=== PATIENT | male | born 1955 | race Two or more races ===

== ENCOUNTER 2018-06-17 11:10 | Inpatient (IN) | payer MEDICAID ==
[2018-06-17] MEDS ORDERED: methylPREDNISolone SS 40 mg Vial IVP STA (11:24)
--- NOTE | 2018-06-17 11:26 | ED Physician Chart ---
ED Chief Complaint/HPI - Patient Information Date Seen:: 06/17/18 Time Seen:: 11:21 Chief Complaint:: redness around G tube site History of Present Illness:: redness around G tube site in a man who is dependent on tube feeds. 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 Underwent floor or mouth resection and partial glossectomy on 05/04/18 with pectoralis flap and left forearm free flap. Postoperative radiation. Claims that he doesn't know if mets were present. patient states that it does hurt at the g tube site when he receives tube feeds. Allergies:: Allergies Allergy/AdvReac Type Severity Reaction Status Date / Time No Known Allergies Allergy Verified 06/17/18 11:21 Historian:: Medical Records Review:: Nurse's Note Reviewed ED Review of Systems - Review of Systems General/Constitutional: No fever, No chills, No weight loss, No weakness, No diaphoresis, No edema, No loss of appetite Skin: No skin lesions, No rash, No bruising, Other (redness and induration aroud g tube site) Head: No headache, No light-headedness Eyes: No loss of vision, No pain, No diplopia ENT: No earache, No nasal drainage, No sore throat, No tinnitus Neck: No neck pain, No swelling, No thyromegaly, No stiffness, No mass noted Cardio Vascular: No chest pain, No palpitations, No PND, No orthopnea, No edema Pulmonary: No SOB, No cough, No sputum, No wheezing GI: No nausea, No vomiting, No diarrhea, No pain, No melena, No hematochezia, No constipation, No hematemesis G/U: No dysuria, No frequency, No hematuria Musculoskeletal: No bone or joint pain, No back pain, No muscle pain Endocrine: No polyuria, No polydipsia Psychiatric: No prior psych history, No depression, No anxiety, No suicidal ideation Hematopoietic: No bruising, No lymphadenopathy Allergic/Immuno: No urticaria, No angioedema Neurological: No syncope, No focal symptoms, No weakness, No paresthesia, No headache, No seizure, No dizziness, No confusion, No vertigo ED Past Medical History - Past Medical History Obtainable: No Past Medical History: Other (tongue cancer) Surgical History: PEG/GTube, other (tracheostomy; left pectoralis flap; total glossectomy; left radial forearm flap; POSSIBLE RIGHT UPPER LOBE MET FROM PET SCAN OF 04/04/18; COLONIC MALIGNANCY VERSUS BOWEL SPASM AT CECUM FROM 04/04/18 PET SCAN) Family Medical History - Family Member Mother History Unknown: Yes ED Physical Exam - Physical Examination General/Constitutional: Non-toxic appearing Other Gen/Cons comments:: chronically ill appearing and pale. Other Head comments:: obvious head and neck reconstruction with midline mandible scar. No tongue present. Eyes: Lids, conjuctiva normal, PERRL, EOMI Other Skin comments:: midline mandible scar. ENMT: External ears, nose nl Other Neck comments:: indurated. trach in place. Other Respiratory comments:: expiratory rhonchi bilaterally. Cardio Vascular: RRR, No murmur, gallop, rubs, NL S1 S2 GI: No organomegaly, No hernia, Normal BS's, Nondistended, No mass/bruits, No McBurney tenderness Other GI comments:: G tube site intact with bright red erythema and induration around g tube site. No gissel abscess or pus. Extremities: No tenderness or effusion, Full ROM, normal strength in all extremities, No edema, Normal digits & nails Neuro/Psych: Alert/oriented, Judgement/insight normal, Mood normal Misc: Normal back ED Assessment - Assessment General Assessment: G tube placement study was not ordered by me. It reveals that the G tube is in place. CXR: probable R upper lung met with royal present in the left chest from pec flap. Dr. Harris's office was called. We were informed that the office was at lunch. Called again. Dr. Harris answered back at 2:20 p.m. Patient's case was presented to him. He will admit the patient to his service. Dr. Harris agrees with PICC line or midline cath for terminal gauger Vancomycin. I called and spoke to the PICC line nurse who said that a nurse is available at 8 p.m. Insurance is being called. Patient is stable for transfer if he needs to be transferred for insurance purposes. Patient's admit has been approved by his insurance company. ED Septic Shock - . Is Septic Shock (SBP<90, OR Lactate>4 mmol\L) present?: No ED Reassessment (Disposition) - Reassessment Reassessment Condition:: Improved - Diagnosis Diagnosis:: Cellulitis and induration around g tube site in a man who is dependent on tube feeds. 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 Anemia with hematocrit of 25. Thrombocytosis of 722k. COPD Nicotine addiction. - Patient Disposition Discharge/Transfer:: Acute Care w/in this hosp Admitted to:: Med/Surg Condition at Disposition:: Stable, Improved
[2018-06-17] MEDS ORDERED: Diatrizoate Meglumine/Diatri 30 mL Sol ONE (11:29)
[2018-06-17 11:52] LABS: HEMOGLOBIN 8.4 gm/dL (12-16); RED CELL DISTRIBUTION WIDTH 16.4 % (11.5-20.0)
[2018-06-17 12:05] LABS: HEMATOCRIT 25.1 % (41.0-60); MEAN CELL VOLUME 91.9 fl (80-99); MEAN CORPUSCULAR HEMOGLOBIN 30.7 pg (26.0-30.0); MEAN CORPUSCULAR HGB CONC 33.4 pg (28.0-36.0); PLATELET COUNT 722 Th/cmm (150-400); RED BLOOD COUNT 2.73 Mil/cmm (4.30-5.70); WHITE BLOOD COUNT 5.8 Th/cmm (4.8-10.8)
[2018-06-17 12:08] LABS: ALB/GLOB RATIO 0.9 (1.0-1.8); ALBUMIN 3.2 gm/dL (4.2-5.5); ALKALINE PHOSPHATASE 52 U/L (34-104); ANION GAP 14.2 (7.0-16.0); BILIRUBIN,TOTAL 0.3 mg/dL (0.3-1.0); BUN - UREA NITROGEN 16 mg/dL (7-25); CALCIUM SERUM 9.5 mg/dL (8.6-10.3); CARBON DIOXIDE 25.7 mEq/L (21.0-31.0); CHLORIDE 99 mEq/L (98-107); CREATININE - SERUM 0.5 mg/dL (0.7-1.3); GFR AFRICAN-AMERICAN > 60.0 ml/min (>90); GFR NON AFRICAN-AMERICAN > 60.0 ml/min; GLUCOSE 107 mg/dL (70-105); MAGNESIUM 1.9 mg/dL (1.9-2.7); POTASSIUM SERUM 3.9 mEq/L (3.5-5.1); SGOT 11 U/L (13-39); SGPT/ALT 7 U/L (7-52); SODIUM SERUM 135 mEq/L (136-145); TOTAL PROTEIN,SERUM 6.8 gm/dL (6.0-8.3)
--- NOTE | 2018-06-17 12:32 | Diagnostic Imaging Report ---
CHEST X-RAY: AP view INDICATION: Metastases, rule out pneumonia COMPARISON: None FINDINGS: Tracheostomy tube is noted. Postsurgical changes are seen throughout the neck and left thorax region. Heart size is normal. 1.5 cm right upper lung zone density is noted. Atherosclerosis is noted. The osseous structures are intact. IMPRESSION: 1.5 cm right upper lung zone density possibly a nodule. If no recent CT chest has been performed performed, a follow-up CT chest is recommended for further assessment. No focal consolidation identified Postsurgical changes and evidence of prior tracheostomy placement. Atherosclerotic vascular disease. Referring ER team was aware of the findings at the time of the exam.
--- NOTE | 2018-06-17 13:25 | Diagnostic Imaging Report ---
Upper GI with Gastrografin HISTORY: G-tube confirmation COMPARISON: None FINDINGS: [place] view demonstrates percutaneous feeding tube. Moderate stool is noted. Gas-filled loops of bowel are noted. The second image demonstrates contrast opacification of the stomach. IMPRESSION: Intraluminal confirmation of patient's percutaneous gastric feeding tube.
[2018-06-17 13:33] LABS: BAND NEUTROPHILE 7 % (0-10); LYMPHOCYTE 10 % (20-50); MONOCYTE 7 % (2-10); NEUTROPHILS 75 % (40-80)
[2018-06-17 13:34] LABS: BASOPHIL 0 % (0-3); EOSINOPHIL 1 % (0-5)
[2018-06-17 13:40] LABS: PLATELET ESTIMATE INCREASED PLATELETS (NORMAL)
[2018-06-17] MEDS ORDERED: VTE Chemical Prophylaxis Screen/Admission MC PRN (17:06)
[2018-06-17] MEDS: D5-0.45NS 1,000 ML IV SCH (17:13)
[2018-06-17 19:10] LABS: URINE SOURCE CLEAN C
[2018-06-17 19:11] LABS: URINE BILIRUBIN NEGATIVE (NEGATIVE); URINE BLOOD LARGE (NEGATIVE); URINE GLUCOSE (UA) NEGATIVE (NEGATIVE); URINE KETONE 40 mg/dL (NEGATIVE); URINE LEUKOCYTE ESTERASE NEGATIVE (NEGATIVE); URINE MICROSCOPIC INDICATED? YES; URINE NITRATE NEGATIVE (NEGATIVE); URINE PH 7.5 (4.6 - 8.0); URINE PROTEIN NEGATIVE (NEGATIVE); URINE UROBILINOGEN 0.2 E.U./dL (0.2 - 1.0)
[2018-06-17 20:27] LABS: URINE CLARITY HAZY (CLEAR); URINE COLOR YELLOW
[2018-06-17 20:28] LABS: URINE RBC NONE SEEN /hpf (0-5)
[2018-06-17 20:29] LABS: URINE BACTERIA FEW /hpf (NONE SEEN); URINE EPITHELIAL CELLS NONE SEEN /lpf (FEW)
[2018-06-17] MEDS: Morphine Sulfate 4 mg/mL 1mL Syr IVP PRN (21:32)
--- NOTE | 2018-06-18 06:31 | History and Physical ---
History of Present Illness - HPI Chief Complaint: infected Gtube site HPI: 63 y/o male who presents to [facility] ER for redness around the Gtube site noted at the SNF. Patient has a history of head and neck cancer of the tongue and floor of the mouth and has a trach in place. Patient had underwent floor and mouth resection and partial glossectomy on 05/04/18 with pectoralis flap and left forearm free flap with postop radiation. Patient initial labwork done in the ER WBC 5.8 H/H 8.4/25.1 plat 722 Na 135 K 3.9 Bun/Cr 16/0.5 glu 107 Patient was subsequently admitted for further evaluation and treatment. 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: Report: No Pertinent Hx GI: Report: No Pertinent Hx Psych: Report: No Pertinent Hx Musculoskeletal: Report: No Pertinent Hx Rheumatologic: Report: No pertinent Hx Infectious Disease: Report: No Pertinent Hx Renal/: Report: No Pertinent Hx Endocrine: Report: No Pertinent Hx Dermatology: Report: No Pertinent Hx - Past Surgical History Past Surgical History: Other ( PEG/GTube, other (tracheostomy; left pectoralis flap; total glossectomy; left radial forearm flap; POSSIBLE RIGHT UPPER LOBE MET FROM PET SCAN OF 04/04/18; COLONIC MALIGNANCY VERSUS BOWEL SPASM AT CECUM FROM 04/04/18 PET SCAN)) Family Medical History - Family Member Mother History Unknown: Yes Social History Smoke: No Alcohol: None Drugs: None Lives: Care Home - Medications Home Medications: Home Medication Medication Instructions Recorded Type Acetaminophen [Tylenol] 650 mg GT Q6H PRN 06/17/18 History Albuterol/Ipratropium Neb [Duoneb 3 ml HHN Q6HR 06/17/18 History Neb] Bisacodyl [Dulcolax 10 Mg Supp] 10 mg RC DAILY PRN 06/17/18 History Chlorhexidine Gluconate [Peridex] 15 ml MM BID 06/17/18 History Dakins Half Strenght 0.25% [place] 1 appl TP DAILY 06/17/18 History Docusate Sodium [Colace] 100 mg GT BID 06/17/18 History Enoxaparin [Lovenox] 40 mg SUBQ DAILY 06/17/18 History Ferrous Sulfate 330 mg GT BID 06/17/18 History Fluticasone Propionate Nasal 1 spr NS DAILY 06/17/18 History [Flonase] Folic Acid [Folate*] 1 mg GT DAILY 06/17/18 History Hydrocodone/Acetaminophen [Hycet 10 - 15 ml GT Q4H PRN 06/17/18 History 7.5 mg-325 mg/15 ml Soln] Hydrocodone/Acetaminophen 30 ml GT Q6H PRN 06/17/18 History [Hydrocodon-Acetamin 7.5-325/15] Hydrocodone/Acetaminophen 15 ml GT Q6H PRN 06/17/18 History [Hydrocodone-Acetamn 7.5-325/15] Magnesium Hydroxide [Milk of 30 ml GT DAILY PRN 06/17/18 History Magnesia] Multivitamin w/ Minerals 1 tab GT DAILY 06/17/18 History [Theragran M] Nystatin Cream [Mycostatin Cream] 1 applic TP BID 06/17/18 History Petrolatum,White [Petrolatum] 100 gm TP DAILY 06/17/18 History Sucralfate [Carafate] 10 ml GT QID 06/17/18 History - Allergies Allergies/Adverse Reactions: Allergies Allergy/AdvReac Type Severity Reaction Status Date / Time No Known Allergies Allergy Verified 06/17/18 11:21 Review of Systems - Review of Systems Constitutional: Report: No Significant Eyes: Report: No Significant ENT: Report: No Significant Respiratory: Report: No Significant Cardiovascular: Report: No Significant Gastrointestinal: Report: No Significant Genitourinary: Report: No Significant Musculoskeletal: Report: No Significant Skin: Report: No Significant Neurological: Report: No Significant Physical Exam - Physical Exam HEENT: Report: Other ( PEG/GTube, other (tracheostomy; left pectoralis flap; total glossectomy; left radial forearm flap; POSSIBLE RIGHT UPPER LOBE MET FROM PET SCAN OF 04/04/18; COLONIC MALIGNANCY VERSUS BOWEL SPASM AT CECUM FROM PET SCAN)) Neck: Report: Other ( PEG/GTube, other (tracheostomy; left pectoralis flap; total glossectomy; left radial forearm flap; POSSIBLE RIGHT UPPER LOBE MET FROM PET SCAN OF 04/04/18; COLONIC MALIGNANCY VERSUS BOWEL SPASM AT CECUM FROM PET SCAN)) Cardiovascular Systems: Report: +s1/s2 noted, Regular, Rate and Rhythm Respiratory: Report: Breath Sounds are within normal limits Abdomen: Report: Non-tender to palpation Back: Report: Inspection of back is within normal limits. Extremities: Report: Non-tender to palpation. Skin: Report: Color of skin is within normal limits Neuro/Psych: Report: Mood affect is within normal limits - Lab Results All Lab Results last 24 hours: Laboratory Results - last 24 hr 06/17/18 06/17/18 06/17/18 11:40 11:40 19:05 WBC 5.8 RBC 2.73 L Hgb 8.4 L Hct 25.1 L MCV 91.9 MCH 30.7 H MCHC Differential 33.4 RDW 16.4 Plt Count 722 H MPV 6.0 Add Manual Diff YES Neutrophils % GENETICS TEACHER Band Neutrophils % 7 Lymphocytes % GENETICS TEACHER Monocytes % GENETICS TEACHER Eosinophils % GENETICS TEACHER Basophils % GENETICS TEACHER Neutrophils (Manual) 75 Lymphocytes 10 L Monocytes 7 Eosinophils 1 Basophils 0 Platelet Estimate INCREASED PLATELETS Sodium 135 L Potassium 3.9 Chloride 99 Carbon Dioxide 25.7 Anion Gap 14.2 BUN 16 Creatinine 0.5 L Est GFR ( Amer) > 60.0 Est GFR (Non-Af Amer) > 60.0 BUN/Creatinine Ratio 32.0 Glucose 107 H Calcium 9.5 Phosphorus 4.0 Magnesium 1.9 Total Bilirubin 0.3 AST 11 L ALT 7 Alkaline Phosphatase 52 Total Protein 6.8 Albumin 3.2 L Globulin 3.6 Albumin/Globulin Ratio 0.9 L Urine Source CLEAN C Urine Color YELLOW Urine Clarity HAZY Urine pH 7.5 Ur Specific [place] 1.015 Urine Protein NEGATIVE Urine Glucose (UA) NEGATIVE Urine Ketones 40 H Urine Blood LARGE H Urine Nitrate NEGATIVE Urine Bilirubin NEGATIVE Urine Urobilinogen 0.2 Ur Leukocyte Esterase NEGATIVE Urine RBC NONE SEEN Urine WBC 2-5 Ur Epithelial Cells NONE SEEN Urine Bacteria FEW - Assessment Assessment: Current Active Problems Problem Status Onset MALFUNCTIONING GASTRIC FEEDING TUBE/RASH Acute Cellulitis and induration around g tube site in a man who is dependent on tube feeds. 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 Anemia with hematocrit of 25. Thrombocytosis of 722k. COPD Nicotine addiction. - Plan Plan: see orders
[2018-06-18] MEDS ORDERED: HYDROCODONE GT PRN (06:35)
[2018-06-18] MEDS ORDERED: Magnesium Hydroxide (MOM) 30 mL UDC GT PRN (06:35)
[2018-06-18] MEDS ORDERED: [UNRECOGNIZED DRUG - OTHER] GT PRN (06:35)
[2018-06-18] MEDS ORDERED: ACETAMINOPHEN GT PRN (06:35)
[2018-06-18 07:18] LABS: HEMOGLOBIN 8.9 gm/dL (12-16); MEAN CORPUSCULAR HEMOGLOBIN 30.8 pg (26.0-30.0); MEAN PLATELET VOLUME 6.6 fl
[2018-06-18] MEDS: Albuterol/Ipratropium Neb 3 ML AERS HHN SCH ×3 (07:44→19:13)
[2018-06-18 07:45] LABS: ALB/GLOB RATIO 0.9 (1.0-1.8); ALBUMIN 2.9 gm/dL (4.2-5.5); ALKALINE PHOSPHATASE 47 U/L (34-104); ANION GAP 13.2 (7.0-16.0); BILIRUBIN,TOTAL 0.2 mg/dL (0.3-1.0); BUN - UREA NITROGEN 23 mg/dL (7-25); CALCIUM SERUM 9.1 mg/dL (8.6-10.3); CARBON DIOXIDE 26.9 mEq/L (21.0-31.0); CHLORIDE 100 mEq/L (98-107); GLUCOSE 101 mg/dL (70-105); POTASSIUM SERUM 4.1 mEq/L (3.5-5.1); SGOT 9 U/L (13-39); SGPT/ALT 7 U/L (7-52); SODIUM SERUM 136 mEq/L (136-145); TOTAL PROTEIN,SERUM 6.2 gm/dL (6.0-8.3)
[2018-06-18 08:19] LABS: INR 1.05 (0.5-1.4); PROTHROMBIN TIME (TEST) 10.9 SECONDS (9.5-11.5)
[2018-06-18 08:20] LABS: HEMATOCRIT 26.4 % (41.0-60); MEAN CELL VOLUME 91.6 fl (80-99); MEAN CORPUSCULAR HGB CONC 33.7 pg (28.0-36.0); PLATELET COUNT 649 Th/cmm (150-400); RED BLOOD COUNT 2.89 Mil/cmm (4.30-5.70); RED CELL DISTRIBUTION WIDTH 16.3 % (11.5-20.0); WHITE BLOOD COUNT 8.4 Th/cmm (4.8-10.8)
[2018-06-18] MEDS ORDERED: SODIUM HYPOCHLORITE 0.25% TP SCH (09:00)
[2018-06-18 09:04] LABS: BAND NEUTROPHILE 4 % (0-10); BASOPHIL 0 % (0-3); EOSINOPHIL 0 % (0-5); LYMPHOCYTE 6 % (20-50); MONOCYTE 5 % (2-10); NEUTROPHILS 85 % (40-80)
[2018-06-18] MEDS: Fluticasone Propionate Nasal 1 SPR SPR NS SCH (09:18)
[2018-06-18] MEDS: Multivitamin w/ Minerals Tab GT SCH (09:18)
[2018-06-18] MEDS: Enoxaparin 40 mg/0.4 mL 0.4mL Syr SUBQ SCH (09:19)
[2018-06-18] MEDS: Nystatin Cream 100,000 u/gm Cream 15 gm TP SCH ×2 (09:19→18:20)
[2018-06-18] MEDS: Ferrous Sulfate 300 MG/5 ML UDC GT SCH ×2 (09:22→18:19)
[2018-06-18] MEDS ORDERED: Probiotic Screen MC PRN (09:33)
[2018-06-18] MEDS: Chlorhexidine Gluconate 0.12% 480mL Bottle MM SCH ×2 (09:40→18:20)
[2018-06-18] MEDS ORDERED: Diatrizoate Meglumine/Diatri 30 mL Sol PO ONE (09:56)
[2018-06-18] MEDS: PETROLATUM WHITE TP SCH (10:05)
[2018-06-18] MEDS: Morphine Sulfate 4 mg/mL 1mL Syr IVP PRN ×2 (11:16→18:50)
[2018-06-18 13:35] LABS: CREATININE - SERUM 0.5 mg/dL (0.7-1.3); GFR AFRICAN-AMERICAN > 60.0 ml/min (>90); GFR NON AFRICAN-AMERICAN > 60.0 ml/min
--- NOTE | 2018-06-18 13:43 | Consultation ---
DATE OF CONSULTATION: 06/18/2018 REQUESTING PHYSICIAN: Dr. Randolph Harris D.O. REASON FOR CONSULTATION: Infected G-tube site. Thank you for asking me to see this patient in consultation. HISTORY OF PRESENT ILLNESS: This is a 63-year-old male who presents for the Emergency Room for redness around his G-tube site that was noted at the SNF. The patient has an extensive history of head and neck cancer of the tongue and floor of the mouth and has a trach in place as well. He underwent an x-ray with Gastrografin study, which was confirming placement in the stomach. However, upon my examination, it looked as if the G-tube was very superficial and the bumper was right underneath the subcutaneous tissue. There was some slight redness around the G-tube site as well, but more concerning was that it appeared to me as of the bumper was more subcutaneous rather than within the gastric area. PAST MEDICAL HISTORY: As above in HPI. FAMILY HISTORY: Noncontributory for GI disease. SOCIAL HISTORY: No tobacco, alcohol, or drugs. MEDICATIONS: Have been reviewed. REVIEW OF SYSTEMS: Unable to obtain from the patient at this time. PHYSICAL EXAMINATION: VITAL SIGNS: Temperature of 97.3, pulse of 71, respiratory rate of 20, blood pressure is 111/67. GENERAL: No acute distress. HEENT: Normocephalic, atraumatic. PERRLA positive. LUNGS: Clear bilaterally. No wheezes, rales or rhonchi. HEART: Regular rate and rhythm, normal S1, S2. ABDOMEN: Soft, nontender. The G-tube site appears to have no induration, appears to be very superficial to the skin and concern for either buried bumper or subcutaneous. EXTREMITIES: Show no lower extremity edema. LABORATORY DATA: Hemoglobin of 8.9, platelet count of 649,000. INR of 1.05. IMAGING: He already had an upper GI series; however, this was yesterday afternoon, which shown that intraluminal confirmation of the patient's percutaneous G-tube. ASSESSMENT AND PLAN: This is a 63-year-old male with history of head and neck cancer, status post G-tube, presented for concern for infected G-tube site versus dislodgement. 1. Concern for dislodgement of G-tube. 2. Concern for G-tube cellulitis. 3. Head and neck cancer. I would recommend repeating a KUB with Gastrografin to confirm again that this G-tube is in the correct spot. If indeed it is, then I will replace the G-tube at the bedside at least to allow the tract to continue and we can give antibiotics to allow the cellulitis to heal. For now, keep the patient on IV fluids until G-tube has been confirmed and we can replace this at the bedside and then likely initiate feeds while we treat through the cellulitis. Thank you for allowing me to participate in this patient's care. JOB# [id number]
[2018-06-18] MEDS: Lactobacillus Rhamnosus GG 15 Billion CFU CAP.SPRINK PO SCH (14:56)
[2018-06-18] MEDS: D5-0.45NS 1,000 ML IV SCH (15:21)
--- NOTE | 2018-06-18 16:43 | Consultation ---
DATE OF CONSULTATION: 06/18/2018 REFERRING PHYSICIAN: Dr. Harris. REASON FOR CONSULTATION: Tongue cancer, elevated platelets and low hemoglobin. HISTORY OF PRESENT ILLNESS: The patient is a 63-year-old male with history of tongue cancer, status post total glossectomy and now he is not using his mouth. He is depending 100% on gastric tube. The patient was admitted because of gastric tube dysfunction. The patient had flap from left forearm and left thigh and apparently he had radiation therapy postoperatively causing injury in the area of the neck. The patient's medical oncology records are not available. MEDICATIONS: From home albuterol, pain management with [place], multivitamin, sucralfate, folic acid, ferrous sulfate and Lovenox prophylaxis, Colace prophylaxis. PAST SURGICAL HISTORY: Tracheostomy, gastrostomy and total glossectomy with the use of muscle flap. There is report of possible cecal mass based on recent PET scan and this is apparently followed by the primary oncologist. PHYSICAL EXAMINATION: GENERAL: The patient is awake, following commands, nonverbal, but responds by writing. VITAL SIGNS: Stable, temp 97, blood pressure 120/70. The patient is unable to open his mouth. There is extensive induration and scarring in the neck area with the skin and muscle flap. There is also a scar on the external area. Gastrostomy tube in place. EXTREMITIES: Scar over the left thigh and scar in the left forearm of previous muscle flap. LABORATORY DATA: White count 8.4, hemoglobin 8.9, platelet count 649, creatinine 0.5. Liver functions normal. Urinalysis positive for blood, negative nitrite. ASSESSMENT: The elevated platelet count is most likely reactive. The patient has concurrent anemia and anemia workup will be obtained. No interim specific intervention is required for the high platelet count. The patient has a report of possible cecal mass on PET scan done by the primary oncologist and this will be deferred to the primary oncologist for continued management. Thank you, Dr. Harris for the opportunity to participate in the care of this interesting case. JOB# [id number]
--- NOTE | 2018-06-18 17:02 | Consultation ---
Consult Note - Consult Note Service Date: 06/18/18 Referring Physician: Randolph Harris Consult Note: PHYSICIAN Consultation Note: Date of Admission: 06/17/18 Purpose of Consultation: Gtube site infection. Chief Complaint: Patient HAILE GAINES was admitted to [facility] Medical/ Surgical Unit I with MALFUNCTION G TUBE. 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 He was followed upp by team at the [facility] lead by Dr Justin. He had new G tube placed 2 months ago and he noticed swelling and redness around the G tube site four weeks ago. He was given oral antibiotics, but it did not help him. So he was brought from [facility] to the ED for evaluation. On initial evaluation, his temperature was 98.4 F and WBC count was 5,800. Vancomycin IV was started and ID consult was called for antibiotic management. PEG/GTube, tracheostomy; left pectoralis flap; total glossectomy; left radial forearm flap; POSSIBLE RIGHT UPPER LOBE MET FROM PET SCAN OF 04/04/18; COLONIC MALIGNANCY VERSUS BOWEL SPASM AT CECUM FROM 04/04/18 PET SCAN. 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 Allergies Allergy/AdvReac Type Severity Reaction Status Date / Time No Known Allergies Allergy Verified 06/17/18 11:21 Vital Signs Temp 98.1 F 06/18/18 15:42 Pulse 70 06/18/18 15:42 Resp 18 06/18/18 15:42 BP 101/61 06/18/18 15:42 Pulse Ox 99 06/18/18 15:42 Intake & Output 06/17/18 06/18/18 06/18/18 18:59 06:59 18:59 Intake Total 250 1350 Balance 250 1350 Weight (lbs) 56.699 kg 47.174 kg 47.174 kg Intake: Intake, IV Amount 250 1250 D5-0.45NS 1,000 ml @ 50 1000 mls/hr IV .Q20H [facility] Rx#: [id number] Vancomycin HCl 1.25 gm In 250 250 Sodium Chloride 0.9% 250 ml @ 165 mls/hr IV Q12H MICHAEL Rx#:[id number] Other 100 Other: # Voids 3 # Bowel Movements 0 Weight Source Estimated Bedscale Bedscale Laboratory Results - last 24 hr 06/17/18 06/18/18 06/18/18 19:05 06:30 06:30 WBC 8.4 RBC 2.89 L Hgb 8.9 L Hct 26.4 L MCV 91.6 MCH 30.8 H MCHC Differential 33.7 RDW 16.3 Plt Count 649 H MPV 6.6 Add Manual Diff YES Band Neutrophils % 4 Neutrophils (Manual) 85 H Lymphocytes 6 L Monocytes 5 Eosinophils 0 Basophils 0 PT INR Sodium 136 Potassium 4.1 Chloride 100 Carbon Dioxide 26.9 Anion Gap 13.2 BUN 23 Creatinine 0.5 L Est GFR ( Amer) > 60.0 Est GFR (Non-Af Amer) > 60.0 BUN/Creatinine Ratio 46.0 Glucose 101 Calcium 9.1 Total Bilirubin 0.2 L AST 9 L ALT 7 Alkaline Phosphatase 47 Total Protein 6.2 Albumin 2.9 L Globulin 3.3 Albumin/Globulin Ratio 0.9 L Urine Source CLEAN C Urine Color YELLOW Urine Clarity HAZY Urine pH 7.5 Ur Specific [place] 1.015 Urine Protein NEGATIVE Urine Glucose (UA) NEGATIVE Urine Ketones 40 H Urine Blood LARGE H Urine Nitrate NEGATIVE Urine Bilirubin NEGATIVE Urine Urobilinogen 0.2 Ur Leukocyte Esterase NEGATIVE Urine RBC NONE SEEN Urine WBC 2-5 Ur Epithelial Cells NONE SEEN Urine Bacteria FEW 06/18/18 06:30 WBC RBC Hgb Hct MCV MCH MCHC Differential RDW Plt Count MPV Add Manual Diff Band Neutrophils % Neutrophils (Manual) Lymphocytes Monocytes Eosinophils Basophils PT 10.9 INR 1.05 Sodium Potassium Chloride Carbon Dioxide Anion Gap BUN Creatinine Est GFR ( Amer) Est GFR (Non-Af Amer) BUN/Creatinine Ratio Glucose Calcium Total Bilirubin AST ALT Alkaline Phosphatase Total Protein Albumin Globulin Albumin/Globulin Ratio Urine Source Urine Color Urine Clarity Urine pH Ur Specific [place] Urine Protein Urine Glucose (UA) Urine Ketones Urine Blood Urine Nitrate Urine Bilirubin Urine Urobilinogen Ur Leukocyte Esterase Urine RBC Urine WBC Ur Epithelial Cells Urine Bacteria Home Medication Medication Instructions Recorded Type Acetaminophen [Tylenol] 650 mg GT Q6H PRN 06/17/18 History Albuterol/Ipratropium Neb [Duoneb 3 ml HHN Q6HR 06/17/18 History Neb] Bisacodyl [Dulcolax 10 Mg Supp] 10 mg RC DAILY PRN 06/17/18 History Chlorhexidine Gluconate [Peridex] 15 ml MM BID 06/17/18 History Dakins Half Strenght 0.25% [place] 1 appl TP DAILY 06/17/18 History Docusate Sodium [Colace] 100 mg GT BID 06/17/18 History Enoxaparin [Lovenox] 40 mg SUBQ DAILY 06/17/18 History Ferrous Sulfate 330 mg GT BID 06/17/18 History Fluticasone Propionate Nasal 1 spr NS DAILY 06/17/18 History [Flonase] Folic Acid [Folate*] 1 mg GT DAILY 06/17/18 History Hydrocodone/Acetaminophen [Hycet 10 - 15 ml GT Q4H PRN 06/17/18 History 7.5 mg-325 mg/15 ml Soln] Hydrocodone/Acetaminophen 30 ml GT Q6H PRN 06/17/18 History [Hydrocodon-Acetamin 7.5-325/15] Hydrocodone/Acetaminophen 15 ml GT Q6H PRN 06/17/18 History [Hydrocodone-Acetamn 7.5-325/15] Magnesium Hydroxide [Milk of 30 ml GT DAILY PRN 06/17/18 History Magnesia] Multivitamin w/ Minerals 1 tab GT DAILY 06/17/18 History [Theragran M] Nystatin Cream [Mycostatin Cream] 1 applic TP BID 06/17/18 History Petrolatum,White [Petrolatum] 100 gm TP DAILY 06/17/18 History Sucralfate [Carafate] 10 ml GT QID 06/17/18 History Current Medications Generic Name Dose Route Start Last Admin Trade Name Freq PRN Reason Stop Dose Admin Acetaminophen 650 mg 06/18/18 06:47 Tylenol 650mg/20.3ml Suspension GT 08/17/18 06:46 Q6H PRN PAIN OR TEMP >101 Albuterol/Ipratropium 3 ml 06/18/18 07:00 06/18/18 12:40 Duoneb Neb HHN 08/17/18 06:59 3 ml Q6HRT IMCHAEL Administration Bisacodyl 10 mg 06/18/18 06:35 Dulcolax 10 Mg Supp RC 08/17/18 06:34 DAILY PRN Constipation Chlorhexidine Gluconate 15 ml 06/18/18 09:00 06/18/18 09:40 Peridex MM 08/17/18 08:59 15 ml BID MICHAEL Administration Docusate Sodium 100 mg 06/18/18 09:00 06/18/18 09:18 Colace PO 08/17/18 08:59 100 mg BID MICHAEL Administration Enoxaparin Sodium 40 mg 06/18/18 09:00 06/18/18 09:19 Lovenox SUBQ 08/17/18 08:59 40 mg DAILY MICHAEL Administration Ferrous Sulfate 300 mg 06/18/18 09:00 06/18/18 09:22 Iron GT 08/17/18 08:59 300 mg BID MICHAEL Administration Fluticasone Propionate 1 spr 06/18/18 09:00 06/18/18 09:18 Flonase NS 08/17/18 08:59 1 spr DAILY MICHAEL Administration Folic Acid 1 mg 06/18/18 09:00 06/18/18 09:18 Folate GT 08/17/18 08:59 1 mg DAILY MICHAEL Administration Heparin Sodium (Porcine) 5,000 units 06/17/18 21:00 06/18/18 09:19 Heparin SUBQ 08/16/18 20:59 5,000 units Q12H MICHAEL Administration Dextrose/Sodium Chloride 1,000 mls @ 50 mls/hr 06/17/18 15:51 06/18/18 15:21 D5-0.45ns IV 08/16/18 15:50 50 mls/hr .Q20H MICHAEL Administration Vancomycin HCl 1.25 gm/ Sodium 250 mls @ 165 mls/hr 06/17/18 21:00 06/18/18 10:50 Chloride IV 08/16/18 20:59 Infused Q12H MICHAEL Infusion Lactobacillus Rhamnosus 1 each 06/18/18 14:00 06/18/18 14:56 Culturelle 15b PO 08/17/18 13:59 Not Given DAILY MICHAEL Magnesium Hydroxide 30 ml 06/18/18 06:35 Milk Of Magnesia GT 08/17/18 06:34 DAILY PRN Constipation Miscellaneous 1 ea 06/17/18 16:04 Vancomycin Iv Per Pharmacy 08/16/18 16:03 PRN PRN VANCO PER RX Miscellaneous 1 ea 06/17/18 17:06 Vte Chemical Prophylaxis Screen/ Admission 08/16/18 17:05 PRN PRN PROTOCOL Miscellaneous 1 appl 06/18/18 09:00 06/18/18 10:05 Dakins Half Strenght 0.25% [place] TP 08/17/18 08:59 Not Given DAILY MICHAEL Miscellaneous 10 - 15 ml 06/18/18 06:35 Hydrocodone/Acetaminophen [Hycet 7.5 Mg-325 Mg/15 Ml Soln] GT Q4H PRN PAIN Miscellaneous 30 ml 06/18/18 06:35 Hydrocodone/Acetaminophen [Hydrocodon-Acetamin 7.5-325/15] GT Q6H PRN PAIN (SEVERE) Miscellaneous 15 ml 06/18/18 06:35 Hydrocodone/Acetaminophen [Hydrocodone-Acetamn 7.5-325/15] GT Q6H PRN MODERATE PAIN Miscellaneous 100 gm 06/18/18 09:00 06/18/18 10:05 Petrolatum,White [Petrolatum] TP 08/17/18 08:59 Not Given DAILY MICHAEL Miscellaneous 1 ea 06/18/18 09:33 Probiotic Screen 08/17/18 09:32 PRN PRN PROTOCOL Morphine Sulfate 1 mg 06/17/18 20:08 06/18/18 11:16 Morphine IVP 08/16/18 20:07 1 mg Q4HR PRN Administration Pain (Severe) Nystatin 1 appl 06/18/18 09:00 06/18/18 09:19 Mycostatin Cream TP 08/17/18 08:59 1 appl BID MICHAEL Administration Sucralfate 1 gm 06/18/18 09:00 06/18/18 14:56 Carafate GT 08/17/18 08:59 Not Given QID MICHAEL Review of Systems: A 12 point ROS was reviewed with the pertinent positive and negatives noted in the HPI. Social History Smoking Status Never smoker Drug Use No Alcohol Use No Family Medical History Physical Exam: General: Comfortable, not in discomfort. HEENT: HEAD: NC NT. ORAL CAVITY: surgical incision in lower face. Eyes: pallor is present no icterus. pupill perrla, EOMI. Neck: trach site is clear. Cardio: S1 and S2 WNL. NO murmur. no gallops. Respiratory: CTAP. Abdominal: Soft NT ND BS present. G tube site has surrounding area with erythema and induration. The area is hard to feel/ Genital/Urinary: deferred./ Extremities: NCCE Neurological: AAOx3. Assessment: 1. G tube site infection, Abdominal wall cellulitis, suspect underlying abscess. 2. H/o CA tongue and possible metastatic to different parts of body, GI, Lung and locally to LN Plan: WIll conitnue Vancomycin, do wound culture and CT a/p Gi is on the case. Signed, Justice Lal M.D. 06/18/[id number]
[2018-06-19] MEDS: Albuterol/Ipratropium Neb 3 ML AERS HHN SCH ×4 (01:03→19:04)
[2018-06-19] MEDS: Morphine Sulfate 4 mg/mL 1mL Syr IVP PRN ×3 (01:10→20:36)
[2018-06-19] MEDS ORDERED: Amino Acids 3% / Electrolytes 1,000 ML IV SCH (03:00)
--- NOTE | 2018-06-19 06:55 | General Progress Note ---
Subjective - Review of Systems Service Date: 06/19/18 Subjective: Patient was seen and examined. No acute distress. afebrile. awake, alert Objective - Results Result Diagrams: 06/18/18 06:30 06/18/18 06:30 Recent Labs: Laboratory Last Values WBC 8.4 Th/cmm (4.8-10.8) 06/18/18 06:30 RBC 2.89 Mil/cmm (4.30-5.70) L 06/18/18 06:30 Hgb 8.9 gm/dL (12-16) L 06/18/18 06:30 Hct 26.4 % (41.0-60) L 06/18/18 06:30 MCV 91.6 fl (80-99) 06/18/18 06:30 MCH 30.8 pg (26.0-30.0) H 06/18/18 06:30 MCHC Differential 33.7 pg (28.0-36.0) 06/18/18 06:30 RDW 16.3 % (11.5-20.0) 06/18/18 06:30 Plt Count 649 Th/cmm (150-400) H 06/18/18 06:30 MPV 6.6 fl 06/18/18 06:30 Add Manual Diff YES 06/18/18 06:30 Neutrophils % RADIO COMMENTATOR 06/17/18 11:40 Band Neutrophils % 4 % (0-10) 06/18/18 06:30 Lymphocytes % RADIO COMMENTATOR 06/17/18 11:40 Monocytes % RADIO COMMENTATOR 06/17/18 11:40 Eosinophils % RADIO COMMENTATOR 06/17/18 11:40 Basophils % RADIO COMMENTATOR 06/17/18 11:40 Neutrophils (Manual) 85 % (40-80) H 06/18/18 06:30 Lymphocytes 6 % (20-50) L 06/18/18 06:30 Monocytes 5 % (2-10) 06/18/18 06:30 Eosinophils 0 % (0-5) 06/18/18 06:30 Basophils 0 % (0-3) 06/18/18 06:30 Platelet Estimate INCREASED PLATELETS (NORMAL) 06/17/18 11:40 PT 10.9 SECONDS (9.5-11.5) 06/18/18 06:30 INR 1.05 (0.5-1.4) 06/18/18 06:30 Sodium 136 mEq/L (136-145) 06/18/18 06:30 Potassium 4.1 mEq/L (3.5-5.1) 06/18/18 06:30 Chloride 100 mEq/L (98-107) 06/18/18 06:30 Carbon Dioxide 26.9 mEq/L (21.0-31.0) 06/18/18 06:30 Anion Gap 13.2 (7.0-16.0) 06/18/18 06:30 BUN 23 mg/dL (7-25) 06/18/18 06:30 Creatinine 0.5 mg/dL (0.7-1.3) L 06/18/18 06:30 Est GFR ( Amer) > 60.0 ml/min (>90) 06/18/18 06:30 Est GFR (Non-Af Amer) > 60.0 ml/min 06/18/18 06:30 BUN/Creatinine Ratio 46.0 06/18/18 06:30 Glucose 101 mg/dL (70-105) 06/18/18 06:30 Calcium 9.1 mg/dL (8.6-10.3) 06/18/18 06:30 Phosphorus 4.0 mg/dL (2.5-5.0) 06/17/18 11:40 Magnesium 1.9 mg/dL (1.9-2.7) 06/17/18 11:40 Total Bilirubin 0.2 mg/dL (0.3-1.0) L 06/18/18 06:30 AST 9 U/L (13-39) L 06/18/18 06:30 ALT 7 U/L (7-52) 06/18/18 06:30 Alkaline Phosphatase 47 U/L (34-104) 06/18/18 06:30 Total Protein 6.2 gm/dL (6.0-8.3) 06/18/18 06:30 Albumin 2.9 gm/dL (4.2-5.5) L 06/18/18 06:30 Globulin 3.3 gm/dL 06/18/18 06:30 Albumin/Globulin Ratio 0.9 (1.0-1.8) L 06/18/18 06:30 Urine Source CLEAN C 06/17/18 19:05 Urine Color YELLOW 06/17/18 19:05 Urine Clarity HAZY (CLEAR) 06/17/18 19:05 Urine pH 7.5 (4.6 - 8.0) 06/17/18 19:05 Ur Specific [place] 1.015 (1.005-1.030) 06/17/18 19:05 Urine Protein NEGATIVE mg/dL (NEGATIVE) 06/17/18 19:05 Urine Glucose (UA) NEGATIVE mg/dL (NEGATIVE) 06/17/18 19:05 Urine Ketones 40 mg/dL (NEGATIVE) H 06/17/18 19:05 Urine Blood LARGE (NEGATIVE) H 06/17/18 19:05 Urine Nitrate NEGATIVE (NEGATIVE) 06/17/18 19:05 Urine Bilirubin NEGATIVE (NEGATIVE) 06/17/18 19:05 Urine Urobilinogen 0.2 E.U./dL (0.2 - 1.0) 06/17/18 19:05 Ur Leukocyte Esterase NEGATIVE (NEGATIVE) 06/17/18 19:05 Urine RBC NONE SEEN /hpf (0-5) 06/17/18 19:05 Urine WBC 2-5 /hpf (0-5) 06/17/18 19:05 Ur Epithelial Cells NONE SEEN /lpf (FEW) 06/17/18 19:05 Urine Bacteria FEW /hpf (NONE SEEN) 06/17/18 19:05 Vancomycin Trough 19.0 ug/mL (5-10) H 06/18/18 19:56 - Physical Exam Vitals and I&O: Vital Signs Temp 97.9 F 06/19/18 04:00 Pulse 69 06/19/18 04:00 Resp 18 06/19/18 04:00 BP 125/71 06/19/18 04:00 Pulse Ox 98 06/19/18 04:00 Intake & Output 06/18/18 06/18/18 06/19/18 06:59 18:59 06:59 Intake Total 250 1350 Balance 250 1350 Weight (lbs) 47.174 kg 47.174 kg 47.174 kg Intake: Intake, IV Amount 250 1250 D5-0.45NS 1,000 ml @ 50 1000 mls/hr IV .Q20H [facility] Rx#: [id number] Vancomycin HCl 1.25 gm In 250 250 Sodium Chloride 0.9% 250 ml @ 165 mls/hr IV Q12H [facility] Rx#:[id number] Other 100 Other: # Voids 3 600 3 # Bowel Movements 0 0 0 Weight Source Bedscale Bedscale Bedscale Active Medications: Current Medications Acetaminophen (Tylenol 650mg/20.3ml Suspension) 650 mg GT Q6H PRN PRN Reason: PAIN OR TEMP >101 Stop: 08/17/18 06:46 Albuterol/Ipratropium (Duoneb Neb) 3 ml HHN Q6HRT MICHAEL Stop: 08/17/18 06:59 Last Admin: 06/19/18 01:03 Dose: 3 ml Bisacodyl (Dulcolax 10 Mg Supp) 10 mg RC DAILY PRN PRN Reason: Constipation Stop: 08/17/18 06:34 Chlorhexidine Gluconate (Peridex) 15 ml MM BID [facility] Stop: 08/17/18 08:59 Last Admin: 06/18/18 18:20 Dose: 15 ml Docusate Sodium (Colace) 100 mg PO BID [facility] Stop: 08/17/18 08:59 Last Admin: 06/18/18 18:19 Dose: Not Given Enoxaparin Sodium (Lovenox) 40 mg SUBQ DAILY [facility] Stop: 08/17/18 08:59 Last Admin: 06/18/18 09:19 Dose: 40 mg Ferrous Sulfate (Iron) 300 mg GT BID [facility] Stop: 08/17/18 08:59 Last Admin: 06/18/18 18:19 Dose: Not Given Fluticasone Propionate (Flonase) 1 spr NS DAILY [facility]HAEL Stop: 08/17/18 08:59 Last Admin: 06/18/18 09:18 Dose: 1 spr Folic Acid (Folate) 1 mg GT DAILY [facility] Stop: 08/17/18 08:59 Last Admin: 06/18/18 09:18 Dose: 1 mg Heparin Sodium (Porcine) (Heparin) 5,000 units SUBQ Q12H MICHAEL Stop: 08/16/18 20:59 Last Admin: 06/18/18 21:09 Dose: 5,000 units Dextrose/Sodium Chloride (D5-0.45ns) 1,000 mls @ 50 mls/hr IV .Q20H [facility]EL Stop: 08/16/18 15:50 Last Admin: 06/18/18 15:21 Dose: 50 mls/hr Vancomycin HCl 1.25 gm/ Sodium (Chloride) 250 mls @ 165 mls/hr IV Q12H [facility] Stop: 08/16/18 20:59 Last Admin: 06/18/18 21:09 Dose: 165 mls/hr Lactobacillus Rhamnosus (Culturelle 15b) 1 each PO DAILY MICHAEL Stop: 08/17/18 13:59 Last Admin: 06/18/18 14:56 Dose: Not Given Magnesium Hydroxide (Milk Of Magnesia) 30 ml GT DAILY PRN PRN Reason: Constipation Stop: 08/17/18 06:34 Miscellaneous (Vancomycin Iv Per Pharmacy) 1 ea MC PRN PRN PRN Reason: VANCO PER RX Stop: 08/16/18 16:03 Miscellaneous (Vte Chemical Prophylaxis Screen/ Admission) 1 ea MC PRN PRN PRN Reason: PROTOCOL Stop: 08/16/18 17:05 Miscellaneous (Dakins Half Strenght 0.25% [place]) 1 appl TP DAILY [facility] Stop: 08/17/18 08:59 Last Admin: 06/18/18 10:05 Dose: Not Given Miscellaneous (Hydrocodone/Acetaminophen [Hycet 7.5 Mg-325 Mg/15 Ml Soln]) 10 - 15 ml GT Q4H PRN PRN Reason: PAIN Miscellaneous (Hydrocodone/Acetaminophen [Hydrocodon-Acetamin 7.5-325/15]) 30 ml GT Q6H PRN PRN Reason: PAIN (SEVERE) Miscellaneous (Hydrocodone/Acetaminophen [Hydrocodone-Acetamn 7.5-325/15]) 15 ml GT Q6H PRN PRN Reason: MODERATE PAIN Miscellaneous (Petrolatum,White [Petrolatum]) 100 gm TP DAILY [facility] Stop: 08/17/18 08:59 Last Admin: 06/18/18 10:05 Dose: Not Given Miscellaneous (Probiotic Screen) 1 ea MC PRN PRN PRN Reason: PROTOCOL Stop: 08/17/18 09:32 Morphine Sulfate (Morphine) 1 mg IVP Q4HR PRN PRN Reason: Pain (Severe) Stop: 08/16/18 20:07 Last Admin: 06/19/18 01:10 Dose: 1 mg Nystatin (Mycostatin Cream) 1 appl TP BID MICHAEL Stop: 08/17/18 08:59 Last Admin: 06/18/18 18:20 Dose: 1 appl Sucralfate (Carafate) 1 gm GT QID MICHAEL Stop: 08/17/18 08:59 Last Admin: 06/18/18 20:44 Dose: Not Given General: Alert, No acute distress HEENT: Atraumatic, PERRLA, EOMI Neck: Supple Cardiovascular: Regular rate, Normal S1, Normal S2 Lungs: Clear to auscultation Abdomen: Other (presence of cellulitis at the Gtube site) Extremities: no Clubbing, no Cyanosis, no Edema Assessment/Plan - Problem List Patient Problems: All Active Problems MALFUNCTIONING GASTRIC FEEDING TUBE/RASH (Acute) - Assessment Assessment: Current Active Problems Problem Status Onset MALFUNCTIONING GASTRIC FEEDING TUBE/RASH Acute Cellulitis and induration around g tube site in a man who is dependent on tube feeds. 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 Anemia with hematocrit of 25. Thrombocytosis of 722k. COPD Nicotine addiction. prerenal azotemia - Plan Plan: GI consult ID consult Hem/onc consult continue Vancomycin and Rocephin IV will continue home meds. keep NPO continue IV fluids For CT abd/pelvis upper GI series Nutritional Asmnt/Malnutr-PDOC - Dietary Evaluation Malnutrition Findings (Please click <Entered> for more info): Nutritional Asmnt/Malnutrition Start: 06/18/18 12: 01 Text: Status: Complete Freq: Protocol: Document 06/18/18 12:01 NICKI (Rec: 06/18/18 12:27 NICKI WEINER- [email or web address]) Nutritional Asmnt/Malnutrition Patient General Information Nutritional Screening High Risk Diagnosis Malfunction G-Tube Pertinent Medical Hx/Surgical Hx CHRONIC RESPIRATORY FAILURE, MALIGNANT NEOPLASM OF TONGUE, CHRONIC RHINITIS, TRACHEOSTOMY , GASTRIC FEEDING TUBE, CHRONIC BRONCHITIS, [employer] ANTICOAGULANTS Subjective Information Patient was admitted from SNF with H&P "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 Per nursing, patient with G-tube in place, however states MD wants to wait to start feeding. Current Diet Order/ Nutrition Support NPO Patient / S.O Not Indicated Pertinent Medications dulxolax, D5-0.45NS @ 50 ml/hr , colace, iron, folate, culturelle, MOM, Abx Pertinent Labs (12/29) albumin 2.9 ( decreasing) Nutritional Hx/Data Height 1.68 m Height (Calculated Centimeters) 167.6 Current Weight (lbs) 47.174 kg Weight (Calculated Kilograms) 47.2 Weight (Calculated Grams) 90233.6 [place] Body Weight 142 % [place] Body Weight 73 Body Mass Index (BMI) 16.7 Recent Weight Change No Weight Status Underweight GI Symptoms GI Symptoms None Last BM none noted since admission Difficult in: None Food Allergies No Cultural/Ethnic/L[employer] Day Belief none indicated Usual diet at home Jevity 1.2 Bolus 4 cans daily (1 can 9am, 1p, 5p, 10p), with 100ml free water flush every 6 hours. This provides 948ml total volume, 1137 kcal, 52 gm protein, 1165ml free water. Skin Integrity/Comment: Bryan 18, reddened stoma/g- tube site, rash/reddened back Estimated Nutritional Goals BEE in Kcals: Using Current wt Calories/Kcals/Kg 35-40 kcal/kg using CBW 47.2 ( cancer, low BMI) Kcals Calculated ~1951-7671 kcal/day Protein: Using Current wt Protein g/k.5-2 gm/kg (cancer, muscle wasting) Protein Calculated 70-95 gm/day Fluid: ml ~0118-7437 ml/day Nutritional Problem 1. Problem Problem Inadequate energy intake related to Etiology withholding tube feeding due to malfunction G-tube without initiation of alternate nutrition support aeb Signs/Symptoms: NPO status Intervention/Recommendation Comments 1. Restart tube feeding once medically appropriate; recommend bolus feeding Jevity 1.2 375 ml 4 times a day ( previous feeding schedule 9am, 1p, 5p, 10p). This provides 1500ml, 1800 kcal, 82 gm protein. 2. If unable to restart tube feeding, consider Parenteral nutrition. Expected Outcomes/Goals Expected Outcomes/Goals Meets >75% of nutrient needs, weight increase toward ideal body weight, improved skin integrity
[2018-06-19 08:10] LABS: IRON LC 36 ug/dL (38-169); TIBC (LC) 198 ug/dL (250-450); UIBC 162 ug/dL (111-343)
[2018-06-19] MEDS: Fluticasone Propionate Nasal 1 SPR SPR NS SCH (09:18)
[2018-06-19] MEDS: Enoxaparin 40 mg/0.4 mL 0.4mL Syr SUBQ SCH (09:18)
[2018-06-19] MEDS: D5-0.45NS 1,000 ML IV SCH (09:18)
[2018-06-19] MEDS: Chlorhexidine Gluconate 0.12% 480mL Bottle MM SCH ×2 (09:19→17:29)
[2018-06-19] MEDS: Ferrous Sulfate 300 MG/5 ML UDC GT SCH ×2 (09:19→17:29)
[2018-06-19] MEDS: Nystatin Cream 100,000 u/gm Cream 15 gm TP SCH ×2 (09:19→17:31)
[2018-06-19] MEDS: Multivitamin w/ Minerals Tab GT SCH (09:20)
[2018-06-19] MEDS: Lactobacillus Rhamnosus GG 15 Billion CFU CAP.SPRINK PO SCH (09:20)
[2018-06-19] MEDS: PETROLATUM WHITE TP SCH (09:20)
--- NOTE | 2018-06-19 09:44 | Diagnostic Imaging Report ---
Exam: Gastrostomy tube placement. Supine examination the abdomen with injection of contrast material gastrostomy tube demonstrates normal ossification stomach. Flexion amount of fecal content is noted throughout the colon. Distention small bowel loops throughout the abdomen is noted. IMPRESSION: Gastrostomy tube in the stomach. Large amount of fecal content. Distention of small bowel with air.
--- NOTE | 2018-06-19 09:46 | Diagnostic Imaging Report ---
Exam: Chest x-ray. HISTORY: PICC line placement. Findings: Supine examination of chest reviewed compatible prior study of 06/17/2018 demonstrates interval placement of right-sided PICC line terminates in superior vena cava.
[2018-06-19 10:01] LABS: % BASOPHILS 0.6 % (0.0-2.0); % EOSINOPHILS 0.3 % (0.0-5.0); % LYMPHOCYTES 5.1 % (20.0-50.0); % MONOCYTES 7.7 % (2.0-10.0); HEMATOCRIT 24.9 % (41.0-60); HEMOGLOBIN 8.3 gm/dL (12-16); LYMPHOCYTE ABSOLUTE 0.4 Th/cmm (1.5-3.0); MEAN CELL VOLUME 92.5 fl (80-99); MEAN CORPUSCULAR HEMOGLOBIN 30.8 pg (26.0-30.0); MEAN CORPUSCULAR HGB CONC 33.3 pg (28.0-36.0); MEAN PLATELET VOLUME 6.4 fl; MONOCYTE ABSOLUTE 0.5 Th/cmm (0.3-1.0); NEUTROPHILE ABSOLUTE 6.1 Th/cmm (1.8-8.0); PLATELET COUNT 596 Th/cmm (150-400); RED BLOOD COUNT 2.69 Mil/cmm (4.30-5.70); RED CELL DISTRIBUTION WIDTH 16.3 % (11.5-20.0)
[2018-06-19 10:03] LABS: % NEUTROPHILS 86.3 % (40.0-80.0)
[2018-06-19] MEDS: Amino Acids 3% / Electrolytes 1,000 ML IV SCH (15:51)
--- NOTE | 2018-06-19 16:45 | General Progress Note ---
Subjective - Review of Systems Service Date: 06/19/18 Subjective: no new sxs tube is out Objective - Results Result Diagrams: 06/19/18 09:16 06/18/18 06:30 Recent Labs: Laboratory Last Values WBC 7.0 Th/cmm (4.8-10.8) 06/19/18 09:16 RBC 2.69 Mil/cmm (4.30-5.70) L 06/19/18 09:16 Hgb 8.3 gm/dL (12-16) L 06/19/18 09:16 Hct 24.9 % (41.0-60) L 06/19/18 09:16 MCV 92.5 fl (80-99) 06/19/18 09:16 MCH 30.8 pg (26.0-30.0) H 06/19/18 09:16 MCHC Differential 33.3 pg (28.0-36.0) 06/19/18 09:16 RDW 16.3 % (11.5-20.0) 06/19/18 09:16 Plt Count 596 Th/cmm (150-400) H 06/19/18 09:16 MPV 6.4 fl 06/19/18 09:16 Add Manual Diff YES 06/18/18 06:30 Neutrophils % 86.3 % (40.0-80.0) H 06/19/18 09:16 Band Neutrophils % 4 % (0-10) 06/18/18 06:30 Lymphocytes % 5.1 % (20.0-50.0) L 06/19/18 09:16 Monocytes % 7.7 % (2.0-10.0) 06/19/18 09:16 Eosinophils % 0.3 % (0.0-5.0) 06/19/18 09:16 Basophils % 0.6 % (0.0-2.0) 06/19/18 09:16 Neutrophils (Manual) Not Reportable 06/19/18 09:16 Lymphocytes 6 % (20-50) L 06/18/18 06:30 Monocytes 5 % (2-10) 06/18/18 06:30 Eosinophils 0 % (0-5) 06/18/18 06:30 Basophils 0 % (0-3) 06/18/18 06:30 Platelet Estimate INCREASED PLATELETS (NORMAL) 06/17/18 11:40 PT 10.9 SECONDS (9.5-11.5) 06/18/18 06:30 INR 1.05 (0.5-1.4) 06/18/18 06:30 Sodium 136 mEq/L (136-145) 06/18/18 06:30 Potassium 4.1 mEq/L (3.5-5.1) 06/18/18 06:30 Chloride 100 mEq/L (98-107) 06/18/18 06:30 Carbon Dioxide 26.9 mEq/L (21.0-31.0) 06/18/18 06:30 Anion Gap 13.2 (7.0-16.0) 06/18/18 06:30 BUN 23 mg/dL (7-25) 06/18/18 06:30 Creatinine 0.5 mg/dL (0.7-1.3) L 06/18/18 06:30 Est GFR ( Amer) > 60.0 ml/min (>90) 06/18/18 06:30 Est GFR (Non-Af Amer) > 60.0 ml/min 06/18/18 06:30 BUN/Creatinine Ratio 46.0 06/18/18 06:30 Glucose 101 mg/dL (70-105) 06/18/18 06:30 Calcium 9.1 mg/dL (8.6-10.3) 06/18/18 06:30 Phosphorus 4.0 mg/dL (2.5-5.0) 06/17/18 11:40 Magnesium 1.9 mg/dL (1.9-2.7) 06/17/18 11:40 Iron 36 ug/dL (38-169) L 06/18/18 06:30 TIBC 198 ug/dL (250-450) L 06/18/18 06:30 Iron Saturation 18 % (15-55) 06/18/18 06:30 Unsaturated IBC 162 ug/dL (111-343) 06/18/18 06:30 Total Bilirubin 0.2 mg/dL (0.3-1.0) L 06/18/18 06:30 AST 9 U/L (13-39) L 06/18/18 06:30 ALT 7 U/L (7-52) 06/18/18 06:30 Alkaline Phosphatase 47 U/L (34-104) 06/18/18 06:30 Total Protein 6.2 gm/dL (6.0-8.3) 06/18/18 06:30 Albumin 2.9 gm/dL (4.2-5.5) L 06/18/18 06:30 Globulin 3.3 gm/dL 06/18/18 06:30 Albumin/Globulin Ratio 0.9 (1.0-1.8) L 06/18/18 06:30 Urine Source CLEAN C 06/17/18 19:05 Urine Color YELLOW 06/17/18 19:05 Urine Clarity HAZY (CLEAR) 06/17/18 19:05 Urine pH 7.5 (4.6 - 8.0) 06/17/18 19:05 Ur Specific [place] 1.015 (1.005-1.030) 06/17/18 19:05 Urine Protein NEGATIVE mg/dL (NEGATIVE) 06/17/18 19:05 Urine Glucose (UA) NEGATIVE mg/dL (NEGATIVE) 06/17/18 19:05 Urine Ketones 40 mg/dL (NEGATIVE) H 06/17/18 19:05 Urine Blood LARGE (NEGATIVE) H 06/17/18 19:05 Urine Nitrate NEGATIVE (NEGATIVE) 06/17/18 19:05 Urine Bilirubin NEGATIVE (NEGATIVE) 06/17/18 19:05 Urine Urobilinogen 0.2 E.U./dL (0.2 - 1.0) 06/17/18 19:05 Ur Leukocyte Esterase NEGATIVE (NEGATIVE) 06/17/18 19:05 Urine RBC NONE SEEN /hpf (0-5) 06/17/18 19:05 Urine WBC 2-5 /hpf (0-5) 06/17/18 19:05 Ur Epithelial Cells NONE SEEN /lpf (FEW) 06/17/18 19:05 Urine Bacteria FEW /hpf (NONE SEEN) 06/17/18 19:05 Vancomycin Trough 19.0 ug/mL (5-10) H 06/18/18 19:56 - Physical Exam Vitals and I&O: Vital Signs Temp 97.6 F 06/19/18 15:37 Pulse 68 06/19/18 15:37 Resp 17 06/19/18 15:37 BP 128/67 06/19/18 15:37 Pulse Ox 98 06/19/18 15:37 Intake & Output 06/18/18 06/19/18 06/19/18 18:59 06:59 18:59 Intake Total 1350 897.5 Balance 1350 897.5 Weight (lbs) 47.174 kg 47.174 kg Intake: Intake, IV Amount 1250 897.5 D5-0.45NS 1,000 ml @ 50 1000 897.5 mls/hr IV .Q20H [facility] Rx#: [id number] Vancomycin HCl 1.25 gm In 250 Sodium Chloride 0.9% 250 ml @ 165 mls/hr IV Q12H [facility] Rx#:[id number] Other 100 Other: # Voids 600 3 # Bowel Movements 0 0 Weight Source Bedscale Bedscale Active Medications: Current Medications Acetaminophen (Tylenol 650mg/20.3ml Suspension) 650 mg GT Q6H PRN PRN Reason: PAIN OR TEMP >101 Stop: 08/17/18 06:46 Albuterol/Ipratropium (Duoneb Neb) 3 ml HHN Q6HRT [facility] Stop: 08/17/18 06:59 Last Admin: 06/19/18 12:12 Dose: 3 ml Bisacodyl (Dulcolax 10 Mg Supp) 10 mg RC DAILY PRN PRN Reason: Constipation Stop: 08/17/18 06:34 Chlorhexidine Gluconate (Peridex) 15 ml MM BID [facility] Stop: 08/17/18 08:59 Last Admin: 06/19/18 09:19 Dose: 15 ml Docusate Sodium (Colace) 100 mg PO BID [facility] Stop: 08/17/18 08:59 Last Admin: 06/19/18 09:19 Dose: Not Given Enoxaparin Sodium (Lovenox) 40 mg SUBQ DAILY [facility] Stop: 08/17/18 08:59 Last Admin: 06/19/18 09:18 Dose: 40 mg Ferrous Sulfate (Iron) 300 mg GT BID [facility] Stop: 08/17/18 08:59 Last Admin: 06/19/18 09:19 Dose: Not Given Fluticasone Propionate (Flonase) 1 spr NS DAILY [facility] Stop: 08/17/18 08:59 Last Admin: 06/19/18 09:18 Dose: 1 spr Folic Acid (Folate) 1 mg GT DAILY [facility] Stop: 08/17/18 08:59 Last Admin: 06/19/18 09:20 Dose: Not Given Dextrose/Sodium Chloride (D5-0.45ns) 1,000 mls @ 50 mls/hr IV .Q20H [facility] Stop: 08/16/18 15:50 Last Admin: 06/19/18 09:18 Dose: 50 mls/hr Vancomycin HCl 1 gm/ Sodium (Chloride) 250 mls @ 165 mls/hr IV Q12HR [facility] Stop: 08/18/18 08:59 Last Admin: 06/19/18 09:16 Dose: 165 mls/hr Amino Acids/Electrolytes (Procalamine) 1,000 mls @ 41.667 mls/hr IV .Q24H [facility] Stop: 08/18/18 14:59 Last Admin: 06/19/18 15:51 Dose: 41.667 mls/hr Lactobacillus Rhamnosus (Culturelle 15b) 1 each PO DAILY [facility] Stop: 08/17/18 13:59 Last Admin: 06/19/18 09:20 Dose: Not Given Magnesium Hydroxide (Milk Of Magnesia) 30 ml GT DAILY PRN PRN Reason: Constipation Stop: 08/17/18 06:34 Miscellaneous (Vancomycin Iv Per Pharmacy) 1 ea [facility] PRN PRN PRN Reason: VANCO PER RX Stop: 08/16/18 16:03 Miscellaneous (Vte Chemical Prophylaxis Screen/ Admission) 1 ea MC PRN PRN PRN Reason: PROTOCOL Stop: 08/16/18 17:05 Miscellaneous (Dakins Half Strenght 0.25% [place]) 1 appl TP DAILY [facility] Stop: 08/17/18 08:59 Last Admin: 06/18/18 10:05 Dose: Not Given Miscellaneous (Hydrocodone/Acetaminophen [Hycet 7.5 Mg-325 Mg/15 Ml Soln]) 10 - 15 ml GT Q4H PRN PRN Reason: PAIN Miscellaneous (Hydrocodone/Acetaminophen [Hydrocodon-Acetamin 7.5-325/15]) 30 ml GT Q6H PRN PRN Reason: PAIN (SEVERE) Miscellaneous (Hydrocodone/Acetaminophen [Hydrocodone-Acetamn 7.5-325/15]) 15 ml GT Q6H PRN PRN Reason: MODERATE PAIN Miscellaneous (Petrolatum,White [Petrolatum]) 100 gm TP DAILY [facility] Stop: 08/17/18 08:59 Last Admin: 06/19/18 09:20 Dose: Not Given Miscellaneous (Probiotic Screen) 1 ea MC PRN PRN PRN Reason: PROTOCOL Stop: 08/17/18 09:32 Miscellaneous (Tpn Per Pharmacy) 1 ea MC PRN PRN PRN Reason: PROTOCOL Stop: 08/18/18 10:24 Morphine Sulfate (Morphine) 1 mg IVP Q4HR PRN PRN Reason: Pain (Severe) Stop: 08/16/18 20:07 Last Admin: 06/19/18 15:22 Dose: 1 mg Mupirocin (Bactroban Oint) 1 appl NS BID [facility] Stop: 06/23/18 17:01 Last Admin: 06/19/18 09:18 Dose: 1 appl Nystatin (Mycostatin Cream) 1 appl TP BID [facility] Stop: 08/17/18 08:59 Last Admin: 06/19/18 09:19 Dose: 1 appl Sucralfate (Carafate) 1 gm GT QID [facility] Stop: 08/17/18 08:59 Last Admin: 06/19/18 13:24 Dose: Not Given General: Alert, No acute distress HEENT: Atraumatic, PERRLA, EOMI Neck: Supple Cardiovascular: Regular rate, Normal S1, Normal S2 Lungs: Clear to auscultation Abdomen: Other (presence of cellulitis at the Gtube site) Extremities: no Clubbing, no Cyanosis, no Edema Assessment/Plan - Problem List Patient Problems: All Active Problems MALFUNCTIONING GASTRIC FEEDING TUBE/RASH (Acute) - Assessment Assessment: The elevated platelet count is most likely reactive. The patient has concurrent anemia and anemia workup will be obtained. No interim specific intervention is required for the high platelet count. The patient has a report of possible cecal mass on PET scan done by the primary oncologist and this will be deferred to the primary oncologist for continued management. 06/19: ferritin pending. plt better. hgb lower. monitor Nutritional Asmnt/Malnutr-PDOC - Dietary Evaluation Malnutrition Findings (Please click <Entered> for more info): Nutritional Asmnt/Malnutrition Start: 06/18/18 12: 01 Text: Status: Complete Freq: Protocol: Document 06/18/18 12:01 MMULHERN (Rec: 06/18/18 12:27 MMRICARDO WEINER- [id number]) Nutritional Asmnt/Malnutrition Patient General Information Nutritional Screening High Risk Diagnosis Malfunction G-Tube Pertinent Medical Hx/Surgical Hx CHRONIC RESPIRATORY FAILURE, MALIGNANT NEOPLASM OF TONGUE, CHRONIC RHINITIS, TRACHEOSTOMY , GASTRIC FEEDING TUBE, CHRONIC BRONCHITIS, DEICER ELEMENT WINDER MACHINE ANTICOAGULANTS Subjective Information Patient was admitted from SNF with H&P "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 Per nursing, patient with G-tube in place, however states MD wants to wait to start feeding. Current Diet Order/ Nutrition Support NPO Patient / S.O Not Indicated Pertinent Medications dulxolax, D5-0.45NS @ 50 ml/hr , colace, iron, folate, culturelle, MOM, Abx Pertinent Labs (06/18) albumin 2.9 ( decreasing) Nutritional Hx/Data Height 1.68 m Height (Calculated Centimeters) 167.6 Current Weight (lbs) 47.174 kg Weight (Calculated Kilograms) 47.2 Weight (Calculated Grams) 43937.6 Bland Body Weight 142 % Bland Body Weight 73 Body Mass Index (BMI) 16.7 Recent Weight Change No Weight Status Underweight GI Symptoms GI Symptoms None Last BM none noted since admission Difficult in: None Food Allergies No Cultural/Ethnic/Scientologist Belief none indicated Usual diet at home Jevity 1.2 Bolus 4 cans daily (1 can 9am, 1p, 5p, 10p), with 100ml free water flush every 6 hours. This provides 948ml total volume, 1137 kcal, 52 gm protein, 1165ml free water. Skin Integrity/Comment: Bryan 18, reddened stoma/g- tube site, rash/reddened back Estimated Nutritional Goals BEE in Kcals: Using Current wt Calories/Kcals/Kg 35-40 kcal/kg using CBW 47.2 ( cancer, low BMI) Kcals Calculated ~2939-3232 kcal/day Protein: Using Current wt Protein g/k.5-2 gm/kg (cancer, muscle wasting) Protein Calculated 70-95 gm/day Fluid: ml ~8874-6048 ml/day Nutritional Problem 1. Problem Problem Inadequate energy intake related to Etiology withholding tube feeding due to malfunction G-tube without initiation of alternate nutrition support aeb Signs/Symptoms: NPO status Intervention/Recommendation Comments 1. Restart tube feeding once medically appropriate; recommend bolus feeding Jevity 1.2 375 ml 4 times a day ( previous feeding schedule 9am, 1p, 5p, 10p). This provides 1500ml, 1800 kcal, 82 gm protein. 2. If unable to restart tube feeding, consider Parenteral nutrition. Expected Outcomes/Goals Expected Outcomes/Goals Meets >75% of nutrient needs, weight increase toward ideal body weight, improved skin integrity
--- NOTE | 2018-06-19 23:59 | GI Progress Note ---
Subjective - Review of Systems Service Date: 06/19/18 Events since last encounter: Assess G tube, although this was confirmed with radiograph, this looks to be a buried bumper and cellulitis vs absecs around subcutaneous tissue, decision made to pull it. Tried to feed a new tube to maintain tract, but no good tract available Objective - Results Result Diagrams: 06/19/18 09:16 06/18/18 06:30 Recent Labs: Laboratory Last Values WBC 7.0 Th/cmm (4.8-10.8) 06/19/18 09:16 RBC 2.69 Mil/cmm (4.30-5.70) L 06/19/18 09:16 Hgb 8.3 gm/dL (12-16) L 06/19/18 09:16 Hct 24.9 % (41.0-60) L 06/19/18 09:16 MCV 92.5 fl (80-99) 06/19/18 09:16 MCH 30.8 pg (26.0-30.0) H 06/19/18 09:16 MCHC Differential 33.3 pg (28.0-36.0) 06/19/18 09:16 RDW 16.3 % (11.5-20.0) 06/19/18 09:16 Plt Count 596 Th/cmm (150-400) H 06/19/18 09:16 MPV 6.4 fl 06/19/18 09:16 Add Manual Diff YES 06/18/18 06:30 Neutrophils % 86.3 % (40.0-80.0) H 06/19/18 09:16 Band Neutrophils % 4 % (0-10) 06/18/18 06:30 Lymphocytes % 5.1 % (20.0-50.0) L 06/19/18 09:16 Monocytes % 7.7 % (2.0-10.0) 06/19/18 09:16 Eosinophils % 0.3 % (0.0-5.0) 06/19/18 09:16 Basophils % 0.6 % (0.0-2.0) 06/19/18 09:16 Neutrophils (Manual) Not Reportable 06/19/18 09:16 Lymphocytes 6 % (20-50) L 06/18/18 06:30 Monocytes 5 % (2-10) 06/18/18 06:30 Eosinophils 0 % (0-5) 06/18/18 06:30 Basophils 0 % (0-3) 06/18/18 06:30 Platelet Estimate INCREASED PLATELETS (NORMAL) 06/17/18 11:40 PT 10.9 SECONDS (9.5-11.5) 06/18/18 06:30 INR 1.05 (0.5-1.4) 06/18/18 06:30 Sodium 136 mEq/L (136-145) 06/18/18 06:30 Potassium 4.1 mEq/L (3.5-5.1) 06/18/18 06:30 Chloride 100 mEq/L (98-107) 06/18/18 06:30 Carbon Dioxide 26.9 mEq/L (21.0-31.0) 06/18/18 06:30 Anion Gap 13.2 (7.0-16.0) 06/18/18 06:30 BUN 23 mg/dL (7-25) 06/18/18 06:30 Creatinine 0.5 mg/dL (0.7-1.3) L 06/18/18 06:30 Est GFR ( Amer) > 60.0 ml/min (>90) 06/18/18 06:30 Est GFR (Non-Af Amer) > 60.0 ml/min 06/18/18 06:30 BUN/Creatinine Ratio 46.0 06/18/18 06:30 Glucose 101 mg/dL (70-105) 06/18/18 06:30 Calcium 9.1 mg/dL (8.6-10.3) 06/18/18 06:30 Phosphorus 4.0 mg/dL (2.5-5.0) 06/17/18 11:40 Magnesium 1.9 mg/dL (1.9-2.7) 06/17/18 11:40 Iron 36 ug/dL (38-169) L 06/18/18 06:30 TIBC 198 ug/dL (250-450) L 06/18/18 06:30 Iron Saturation 18 % (15-55) 06/18/18 06:30 Unsaturated IBC 162 ug/dL (111-343) 06/18/18 06:30 Total Bilirubin 0.2 mg/dL (0.3-1.0) L 06/18/18 06:30 AST 9 U/L (13-39) L 06/18/18 06:30 ALT 7 U/L (7-52) 06/18/18 06:30 Alkaline Phosphatase 47 U/L (34-104) 06/18/18 06:30 Total Protein 6.2 gm/dL (6.0-8.3) 06/18/18 06:30 Albumin 2.9 gm/dL (4.2-5.5) L 06/18/18 06:30 Globulin 3.3 gm/dL 06/18/18 06:30 Albumin/Globulin Ratio 0.9 (1.0-1.8) L 06/18/18 06:30 Urine Source CLEAN C 06/17/18 19:05 Urine Color YELLOW 06/17/18 19:05 Urine Clarity HAZY (CLEAR) 06/17/18 19:05 Urine pH 7.5 (4.6 - 8.0) 06/17/18 19:05 Ur Specific [place] 1.015 (1.005-1.030) 06/17/18 19:05 Urine Protein NEGATIVE mg/dL (NEGATIVE) 06/17/18 19:05 Urine Glucose (UA) NEGATIVE mg/dL (NEGATIVE) 06/17/18 19:05 Urine Ketones 40 mg/dL (NEGATIVE) H 06/17/18 19:05 Urine Blood LARGE (NEGATIVE) H 06/17/18 19:05 Urine Nitrate NEGATIVE (NEGATIVE) 06/17/18 19:05 Urine Bilirubin NEGATIVE (NEGATIVE) 06/17/18 19:05 Urine Urobilinogen 0.2 E.U./dL (0.2 - 1.0) 06/17/18 19:05 Ur Leukocyte Esterase NEGATIVE (NEGATIVE) 06/17/18 19:05 Urine RBC NONE SEEN /hpf (0-5) 06/17/18 19:05 Urine WBC 2-5 /hpf (0-5) 06/17/18 19:05 Ur Epithelial Cells NONE SEEN /lpf (FEW) 06/17/18 19:05 Urine Bacteria FEW /hpf (NONE SEEN) 06/17/18 19:05 Vancomycin Trough 19.0 ug/mL (5-10) H 06/18/18 19:56 - Physical Exam Vitals and I&O: Vital Signs Temp 97.4 F 12/30/18 20:00 Pulse 86 06/19/18 20:00 Resp 16 06/19/18 20:00 BP 120/72 06/19/18 20:00 Pulse Ox 96 06/19/18 20:00 Intake & Output 06/19/18 06/19/18 06/20/18 06:59 18:59 06:59 Intake Total 1147.5 Output Total 800 Balance 1147.5 -800 Weight (lbs) 47.174 kg 47.174 kg Intake: Intake, IV Amount 1147.5 D5-0.45NS 1,000 ml @ 50 897.5 mls/hr IV .Q20H [facility] Rx#: [id number] Vancomycin HCl 1 gm In 250 Sodium Chloride 0.9% 250 ml @ 165 mls/hr IV Q12HR [facility] Rx#:[id number] Output: Urine 800 Other: # Voids 3 # Bowel Movements 0 1 Weight Source Bedscale Bedscale Active Medications: Current Medications Acetaminophen (Tylenol 650mg/20.3ml Suspension) 650 mg GT Q6H PRN PRN Reason: PAIN OR TEMP >101 Stop: 08/17/18 06:46 Albuterol/Ipratropium (Duoneb Neb) 3 ml HHN Q6HRT [facility] Stop: 08/17/18 06:59 Last Admin: 06/19/18 19:04 Dose: 3 ml Bisacodyl (Dulcolax 10 Mg Supp) 10 mg RC DAILY PRN PRN Reason: Constipation Stop: 08/17/18 06:34 Last Admin: 06/19/18 17:27 Dose: 10 mg Chlorhexidine Gluconate (Peridex) 15 ml MM BID [facility] Stop: 08/17/18 08:59 Last Admin: 06/19/18 17:29 Dose: 15 ml Docusate Sodium (Colace) 100 mg PO BID [facility] Stop: 08/17/18 08:59 Last Admin: 06/19/18 17:29 Dose: Not Given Enoxaparin Sodium (Lovenox) 40 mg SUBQ DAILY [facility] Stop: 08/17/18 08:59 Last Admin: 06/19/18 09:18 Dose: 40 mg Ferrous Sulfate (Iron) 300 mg GT BID [facility] Stop: 08/17/18 08:59 Last Admin: 06/19/18 17:29 Dose: Not Given Fluticasone Propionate (Flonase) 1 spr NS DAILY [facility] Stop: 08/17/18 08:59 Last Admin: 06/19/18 09:18 Dose: 1 spr Folic Acid (Folate) 1 mg GT DAILY [facility] Stop: 08/17/18 08:59 Last Admin: 06/19/18 09:20 Dose: Not Given Dextrose/Sodium Chloride (D5-0.45ns) 1,000 mls @ 50 mls/hr IV .Q20H [facility] Stop: 08/16/18 15:50 Last Admin: 06/19/18 09:18 Dose: 50 mls/hr Vancomycin HCl 1 gm/ Sodium (Chloride) 250 mls @ 165 mls/hr IV Q12HR [facility] Stop: 08/18/18 08:59 Last Admin: 06/19/18 20:37 Dose: 165 mls/hr Amino Acids/Electrolytes (Procalamine) 1,000 mls @ 41.667 mls/hr IV .Q24H [facility] Stop: 08/18/18 14:59 Last Admin: 06/19/18 15:51 Dose: 41.667 mls/hr Lactobacillus Rhamnosus (Culturelle 15b) 1 each PO DAILY [facility] Stop: 08/17/18 13:59 Last Admin: 06/19/18 09:20 Dose: Not Given Magnesium Hydroxide (Milk Of Magnesia) 30 ml GT DAILY PRN PRN Reason: Constipation Stop: 08/17/18 06:34 Miscellaneous (Vancomycin Iv Per Pharmacy) 1 ea PRN PRN PRN Reason: VANCO PER RX Stop: 08/16/18 16:03 Miscellaneous (Vte Chemical Prophylaxis Screen/ Admission) 1 ea PRN PRN PRN Reason: PROTOCOL Stop: 08/16/18 17:05 Miscellaneous ([place]akins Half Strenght 0.25% [place]) 1 appl TP DAILY [facility] Stop: 08/17/18 08:59 Last Admin: 06/18/18 10:05 Dose: Not Given Miscellaneous (Hydrocodone/Acetaminophen [Hycet 7.5 Mg-325 Mg/15 Ml Soln]) 10 - 15 ml GT Q4H PRN PRN Reason: PAIN Miscellaneous (Hydrocodone/Acetaminophen [Hydrocodon-Acetamin 7.5-325/15]) 30 ml GT Q6H PRN PRN Reason: PAIN (SEVERE) Miscellaneous (Hydrocodone/Acetaminophen [Hydrocodone-Acetamn 7.5-325/15]) 15 ml GT Q6H PRN PRN Reason: MODERATE PAIN Miscellaneous (Petrolatum,White [Petrolatum]) 100 gm TP DAILY [facility] Stop: 08/17/18 08:59 Last Admin: 06/19/18 09:20 Dose: Not Given Miscellaneous (Probiotic Screen) 1 ea PRN PRN PRN Reason: PROTOCOL Stop: 08/17/18 09:32 Miscellaneous (Tpn Per Pharmacy) 1 ea PRN PRN PRN Reason: PROTOCOL Stop: 08/18/18 10:24 Morphine Sulfate (Morphine) 1 mg IVP Q4HR PRN PRN Reason: Pain (Severe) Stop: 08/16/18 20:07 Last Admin: 06/19/18 20:36 Dose: 1 mg Mupirocin (Bactroban Oint) 1 appl NS BID [facility] Stop: 06/23/18 17:01 Last Admin: 06/19/18 17:31 Dose: 1 appl Nystatin (Mycostatin Cream) 1 appl TP BID [facility] Stop: 08/17/18 08:59 Last Admin: 06/19/18 17:31 Dose: 1 appl Sucralfate (Carafate) 1 gm GT QID [facility] Stop: 08/17/18 08:59 Last Admin: 06/19/18 17:31 Dose: Not Given General: Alert, No acute distress HEENT: Atraumatic, PERRLA, EOMI Neck: Supple Cardiovascular: Regular rate, Normal S1, Normal S2 Lungs: Clear to auscultation Abdomen: Other (presence of cellulitis at the Gtube site) Extremities: no Clubbing, no Cyanosis, no Edema Assessment/Plan - Problem List Patient Problems: All Active Problems MALFUNCTIONING GASTRIC FEEDING TUBE/RASH (Acute) - Assessment Assessment: 1. G tube cellulitis 2. Buried bumper syndrome 3. Abdominal discomfort -Allow closure of the G tube tract -IV TPN for now, bowel rest NPO -Plan to do EGD with PEG after the site has closed
--- NOTE | 2018-06-20 06:15 | General Progress Note ---
Subjective - Review of Systems Service Date: 06/20/18 Subjective: Patient was seen and examined. No acute distress. afebrile. awake, alert. on TPN per GI. NPO. For upper endoscopy per GI. Objective - Results Result Diagrams: 06/19/18 09:16 06/18/18 06:30 Recent Labs: Laboratory Last Values WBC 7.0 Th/cmm (4.8-10.8) 06/19/18 09:16 RBC 2.69 Mil/cmm (4.30-5.70) L 06/19/18 09:16 Hgb 8.3 gm/dL (12-16) L 06/19/18 09:16 Hct 24.9 % (41.0-60) L 06/19/18 09:16 MCV 92.5 fl (80-99) 06/19/18 09:16 MCH 30.8 pg (26.0-30.0) H 06/19/18 09:16 MCHC Differential 33.3 pg (28.0-36.0) 06/19/18 09:16 RDW 16.3 % (11.5-20.0) 06/19/18 09:16 Plt Count 596 Th/cmm (150-400) H 06/19/18 09:16 MPV 6.4 fl 06/19/18 09:16 Add Manual Diff YES 06/18/18 06:30 Neutrophils % 86.3 % (40.0-80.0) H 06/19/18 09:16 Band Neutrophils % 4 % (0-10) 06/18/18 06:30 Lymphocytes % 5.1 % (20.0-50.0) L 06/19/18 09:16 Monocytes % 7.7 % (2.0-10.0) 06/19/18 09:16 Eosinophils % 0.3 % (0.0-5.0) 06/19/18 09:16 Basophils % 0.6 % (0.0-2.0) 06/19/18 09:16 Neutrophils (Manual) Not Reportable 06/19/18 09:16 Lymphocytes 6 % (20-50) L 06/18/18 06:30 Monocytes 5 % (2-10) 06/18/18 06:30 Eosinophils 0 % (0-5) 06/18/18 06:30 Basophils 0 % (0-3) 06/18/18 06:30 Platelet Estimate INCREASED PLATELETS (NORMAL) 06/17/18 11:40 PT 10.9 SECONDS (9.5-11.5) 06/18/18 06:30 INR 1.05 (0.5-1.4) 06/18/18 06:30 Sodium 136 mEq/L (136-145) 06/18/18 06:30 Potassium 4.1 mEq/L (3.5-5.1) 06/18/18 06:30 Chloride 100 mEq/L (98-107) 06/18/18 06:30 Carbon Dioxide 26.9 mEq/L (21.0-31.0) 06/18/18 06:30 Anion Gap 13.2 (7.0-16.0) 06/18/18 06:30 BUN 23 mg/dL (7-25) 06/18/18 06:30 Creatinine 0.5 mg/dL (0.7-1.3) L 06/18/18 06:30 Est GFR ( Amer) > 60.0 ml/min (>90) 06/18/18 06:30 Est GFR (Non-Af Amer) > 60.0 ml/min 06/18/18 06:30 BUN/Creatinine Ratio 46.0 06/18/18 06:30 Glucose 101 mg/dL (70-105) 06/18/18 06:30 Calcium 9.1 mg/dL (8.6-10.3) 06/18/18 06:30 Phosphorus 4.0 mg/dL (2.5-5.0) 06/17/18 11:40 Magnesium 1.9 mg/dL (1.9-2.7) 06/17/18 11:40 Iron 36 ug/dL (38-169) L 06/18/18 06:30 TIBC 198 ug/dL (250-450) L 06/18/18 06:30 Iron Saturation 18 % (15-55) 06/18/18 06:30 Unsaturated IBC 162 ug/dL (111-343) 06/18/18 06:30 Total Bilirubin 0.2 mg/dL (0.3-1.0) L 06/18/18 06:30 AST 9 U/L (13-39) L 06/18/18 06:30 ALT 7 U/L (7-52) 06/18/18 06:30 Alkaline Phosphatase 47 U/L (34-104) 06/18/18 06:30 Total Protein 6.2 gm/dL (6.0-8.3) 06/18/18 06:30 Albumin 2.9 gm/dL (4.2-5.5) L 06/18/18 06:30 Globulin 3.3 gm/dL 06/18/18 06:30 Albumin/Globulin Ratio 0.9 (1.0-1.8) L 06/18/18 06:30 Urine Source CLEAN C 06/17/18 19:05 Urine Color YELLOW 06/17/18 19:05 Urine Clarity HAZY (CLEAR) 06/17/18 19:05 Urine pH 7.5 (4.6 - 8.0) 06/17/18 19:05 Ur Specific [place] 1.015 (1.005-1.030) 06/17/18 19:05 Urine Protein NEGATIVE mg/dL (NEGATIVE) 06/17/18 19:05 Urine Glucose (UA) NEGATIVE mg/dL (NEGATIVE) 06/17/18 19:05 Urine Ketones 40 mg/dL (NEGATIVE) H 06/17/18 19:05 Urine Blood LARGE (NEGATIVE) H 06/17/18 19:05 Urine Nitrate NEGATIVE (NEGATIVE) 06/17/18 19:05 Urine Bilirubin NEGATIVE (NEGATIVE) 06/17/18 19:05 Urine Urobilinogen 0.2 E.U./dL (0.2 - 1.0) 06/17/18 19:05 Ur Leukocyte Esterase NEGATIVE (NEGATIVE) 06/17/18 19:05 Urine RBC NONE SEEN /hpf (0-5) 06/17/18 19:05 Urine WBC 2-5 /hpf (0-5) 06/17/18 19:05 Ur Epithelial Cells NONE SEEN /lpf (FEW) 06/17/18 19:05 Urine Bacteria FEW /hpf (NONE SEEN) 06/17/18 19:05 Vancomycin Trough 19.0 ug/mL (5-10) H 06/18/18 19:56 - Physical Exam Vitals and I&O: Vital Signs Temp 98.2 F 06/20/18 00:00 Pulse 79 06/20/18 00:00 Resp 12 12/31/18 00:07 BP 125/67 06/20/18 00:00 Pulse Ox 97 06/20/18 00:00 Intake & Output 06/19/18 06/19/18 06/20/18 06:59 18:59 06:59 Intake Total 1147.5 Output Total 800 Balance 1147.5 -800 Weight (lbs) 47.174 kg 47.174 kg Intake: Intake, IV Amount 1147.5 D5-0.45NS 1,000 ml @ 50 897.5 mls/hr IV .Q20H [facility] Rx#: [id number] Vancomycin HCl 1 gm In 250 Sodium Chloride 0.9% 250 ml @ 165 mls/hr IV Q12HR [facility] Rx#:[id number] Output: Urine 800 Other: # Voids 3 # Bowel Movements 0 1 Weight Source Bedscale Bedscale Active Medications: Current Medications Acetaminophen (Tylenol 650mg/20.3ml Suspension) 650 mg GT Q6H PRN PRN Reason: PAIN OR TEMP >101 Stop: 08/17/18 06:46 Albuterol/Ipratropium (Duoneb Neb) 3 ml HHN Q6HRT [facility] Stop: 08/17/18 06:59 Last Admin: 06/19/18 19:04 Dose: 3 ml Bisacodyl (Dulcolax 10 Mg Supp) 10 mg RC DAILY PRN PRN Reason: Constipation Stop: 08/17/18 06:34 Last Admin: 06/19/18 17:27 Dose: 10 mg Chlorhexidine Gluconate (Peridex) 15 ml MM BID [facility] Stop: 08/17/18 08:59 Last Admin: 06/19/18 17:29 Dose: 15 ml Docusate Sodium (Colace) 100 mg PO BID [facility] Stop: 08/17/18 08:59 Last Admin: 06/19/18 17:29 Dose: Not Given Enoxaparin Sodium (Lovenox) 40 mg SUBQ DAILY [facility] Stop: 08/17/18 08:59 Last Admin: 06/19/18 09:18 Dose: 40 mg Ferrous Sulfate (Iron) 300 mg GT BID [facility] Stop: 08/17/18 08:59 Last Admin: 06/19/18 17:29 Dose: Not Given Fluticasone Propionate (Flonase) 1 spr NS DAILY [facility] Stop: 08/17/18 08:59 Last Admin: 06/19/18 09:18 Dose: 1 spr Folic Acid (Folate) 1 mg GT DAILY [facility] Stop: 08/17/18 08:59 Last Admin: 06/19/18 09:20 Dose: Not Given Dextrose/Sodium Chloride (D5-0.45ns) 1,000 mls @ 50 mls/hr IV .Q20H [facility] Stop: 08/16/18 15:50 Last Admin: 06/19/18 09:18 Dose: 50 mls/hr Vancomycin HCl 1 gm/ Sodium (Chloride) 250 mls @ 165 mls/hr IV Q12HR [facility] Stop: 08/18/18 08:59 Last Admin: 06/19/18 20:37 Dose: 165 mls/hr Amino Acids/Electrolytes (Procalamine) 1,000 mls @ 41.667 mls/hr IV .Q24H [facility] Stop: 08/18/18 14:59 Last Admin: 06/19/18 15:51 Dose: 41.667 mls/hr Lactobacillus Rhamnosus (Culturelle 15b) 1 each PO DAILY [facility] Stop: 08/17/18 13:59 Last Admin: 06/19/18 09:20 Dose: Not Given Magnesium Hydroxide (Milk Of Magnesia) 30 ml GT DAILY PRN PRN Reason: Constipation Stop: 08/17/18 06:34 Miscellaneous (Vancomycin Iv Per Pharmacy) 1 ea PRN PRN PRN Reason: VANCO PER RX Stop: 08/16/18 16:03 Miscellaneous (Vte Chemical Prophylaxis Screen/ Admission) 1 ea PRN PRN PRN Reason: PROTOCOL Stop: 08/16/18 17:05 Miscellaneous (Dakins Half Strenght 0.25% [place]) 1 appl TP DAILY [facility] Stop: 08/17/18 08:59 Last Admin: 06/18/18 10:05 Dose: Not Given Miscellaneous (Hydrocodone/Acetaminophen [Hycet 7.5 Mg-325 Mg/15 Ml Soln]) 10 - 15 ml GT Q4H PRN PRN Reason: PAIN Miscellaneous (Hydrocodone/Acetaminophen [Hydrocodon-Acetamin 7.5-325/15]) 30 ml GT Q6H PRN PRN Reason: PAIN (SEVERE) Miscellaneous (Hydrocodone/Acetaminophen [Hydrocodone-Acetamn 7.5-325/15]) 15 ml GT Q6H PRN PRN Reason: MODERATE PAIN Miscellaneous (Petrolatum,White [Petrolatum]) 100 gm TP DAILY [facility] Stop: 08/17/18 08:59 Last Admin: 06/19/18 09:20 Dose: Not Given Miscellaneous (Probiotic Screen) 1 ea MC PRN PRN PRN Reason: PROTOCOL Stop: 08/17/18 09:32 Miscellaneous (Tpn Per Pharmacy) 1 ea MC PRN PRN PRN Reason: PROTOCOL Stop: 08/18/18 10:24 Morphine Sulfate (Morphine) 1 mg IVP Q4HR PRN PRN Reason: Pain (Severe) Stop: 08/16/18 20:07 Last Admin: 06/19/18 20:36 Dose: 1 mg Mupirocin (Bactroban Oint) 1 appl NS BID [facility] Stop: 06/23/18 17:01 Last Admin: 06/19/18 17:31 Dose: 1 appl Nystatin (Mycostatin Cream) 1 appl TP BID [facility] Stop: 08/17/18 08:59 Last Admin: 06/19/18 17:31 Dose: 1 appl Sucralfate (Carafate) 1 gm GT QID [facility] Stop: 08/17/18 08:59 Last Admin: 06/19/18 21:00 Dose: Not Given General: Alert, No acute distress HEENT: Atraumatic, PERRLA, EOMI Neck: Supple Cardiovascular: Regular rate, Normal S1, Normal S2 Lungs: Clear to auscultation Abdomen: Other (presence of cellulitis at the Gtube site) Extremities: no Clubbing, no Cyanosis, no Edema Assessment/Plan - Problem List Patient Problems: All Active Problems MALFUNCTIONING GASTRIC FEEDING TUBE/RASH (Acute) - Assessment Assessment: Current Active Problems Problem Status Onset MALFUNCTIONING GASTRIC FEEDING TUBE/RASH Acute Cellulitis and induration around g tube site in a man who is dependent on tube feeds. 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 Anemia with hematocrit of 25. Thrombocytosis of 722k. COPD Nicotine addiction. prerenal azotemia - Plan Plan: GI consult ID consult Hem/onc consult continue Vancomycin and Rocephin IV will continue home meds. keep NPO continue IV fluids For CT abd/pelvis upper GI series on TPN per pharmacy Nutritional Asmnt/Malnutr-PDOC - Dietary Evaluation Malnutrition Findings (Please click <Entered> for more info): Nutritional Asmnt/Malnutrition Start: 06/18/18 12: 01 Text: Status: Complete Freq: Protocol: Document 06/18/18 12:01 NICKI (Rec: 06/18/18 12:27 NICKI REGINE- [email or web address]) Nutritional Asmnt/Malnutrition Patient General Information Nutritional Screening High Risk Diagnosis Malfunction G-Tube Pertinent Medical Hx/Surgical Hx CHRONIC RESPIRATORY FAILURE, MALIGNANT NEOPLASM OF TONGUE, CHRONIC RHINITIS, TRACHEOSTOMY , GASTRIC FEEDING TUBE, CHRONIC BRONCHITIS, PAEDIATRIC PHYSIOTHERAPIST ANTICOAGULANTS Subjective Information Patient was admitted from SNF with H&P "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 Per nursing, patient with G-tube in place, however states MD wants to wait to start feeding. Current Diet Order/ Nutrition Support NPO Patient / S.O Not Indicated Pertinent Medications dulxolax, D5-0.45NS @ 50 ml/hr , colace, iron, folate, culturelle, MOM, Abx Pertinent Labs (06/18) albumin 2.9 ( decreasing) Nutritional Hx/Data Height 1.68 m Height (Calculated Centimeters) 167.6 Current Weight (lbs) 47.174 kg Weight (Calculated Kilograms) 47.2 Weight (Calculated Grams) 83201.6 [place] Body Weight 142 % [place] Body Weight 73 Body Mass Index (BMI) 16.7 Recent Weight Change No Weight Status Underweight GI Symptoms GI Symptoms None Last BM none noted since admission Difficult in: None Food Allergies No Cultural/Ethnic/Jain Belief none indicated Usual diet at home Jevity 1.2 Bolus 4 cans daily (1 can 9am, 1p, 5p, 10p), with 100ml free water flush every 6 hours. This provides 948ml total volume, 1137 kcal, 52 gm protein, 1165ml free water. Skin Integrity/Comment: Bryan 18, reddened stoma/g- tube site, rash/reddened back Estimated Nutritional Goals BEE in Kcals: Using Current wt Calories/Kcals/Kg 35-40 kcal/kg using CBW 47.2 ( cancer, low BMI) Kcals Calculated ~3309-5148 kcal/day Protein: Using Current wt Protein g/k.5-2 gm/kg (cancer, muscle wasting) Protein Calculated 70-95 gm/day Fluid: ml ~7691-7853 ml/day Nutritional Problem 1. Problem Problem Inadequate energy intake related to Etiology withholding tube feeding due to malfunction G-tube without initiation of alternate nutrition support aeb Signs/Symptoms: NPO status Intervention/Recommendation Comments 1. Restart tube feeding once medically appropriate; recommend bolus feeding Jevity 1.2 375 ml 4 times a day ( previous feeding schedule 9am, 1p, 5p, 10p). This provides 1500ml, 1800 kcal, 82 gm protein. 2. If unable to restart tube feeding, consider Parenteral nutrition. Expected Outcomes/Goals Expected Outcomes/Goals Meets >75% of nutrient needs, weight increase toward ideal body weight, improved skin integrity
[2018-06-20] MEDS: Albuterol/Ipratropium Neb 3 ML AERS HHN SCH ×3 (06:56→19:23)
[2018-06-20] MEDS: Multivitamin w/ Minerals Tab GT SCH (08:34)
[2018-06-20] MEDS: Ferrous Sulfate 300 MG/5 ML UDC GT SCH ×2 (08:34→17:37)
[2018-06-20] MEDS: Lactobacillus Rhamnosus GG 15 Billion CFU CAP.SPRINK PO SCH (08:34)
[2018-06-20] MEDS: PETROLATUM WHITE TP SCH (08:35)
[2018-06-20] MEDS: Enoxaparin 40 mg/0.4 mL 0.4mL Syr SUBQ SCH (08:38)
[2018-06-20] MEDS: Chlorhexidine Gluconate 0.12% 480mL Bottle MM SCH ×2 (08:38→17:27)
--- NOTE | 2018-06-20 08:40 | Diagnostic Imaging Report ---
CT abdomen and pelvis without intravenous contrast Indication: Abdominal pain, rule out abscess, epigastric region Comparison: Upper GI exam on 06/18/2018, Technique: Axial images were obtained from the lung bases to the bilateral proximal femurs without IV contrast. Coronal reconstructions were made. total DLP: 288, CTDI6.6 FINDINGS: There is prominent fat density seen along the bilateral posterior medial hemithoraces probably related to small diaphragmatic hernias with herniation of fat. Bibasilar passive atelectatic and consolidative changes are noted. Exam is limited due to lack of IV contrast and lack of intra-abdominal body fat. No obvious focal hepatic or splenic lesions. Ingested oral contrast causes streak artifact and limits the examination. There is marked streak artifact along the left mid abdomen probably related to ingested oral contrast. The appendix is suboptimally visualized. There appears to be hyperplasia of the adrenal glands. 2 mm nonobstructive left renal stone is noted. There is prominent fat density measuring 8.6 x 2.6 cm along the right pelvic region with associated mild mass effect upon the urinary bladder. Copious stool is seen throughout the colon with oral contrast opacification of bowel loops. The appendix is not well-visualized. There is indeterminate air pocket seen along the anterior abdominal wall along the left upper abdomen measuring 1 cm with surrounding soft tissue density and inflammatory changes. (Image 21, series 2). No evidence of free fluid or free air. Moderate atherosclerosis is degenerative changes of the spine are noted. There is a 1.7 cm lesion of the L2 vertebral body probably a hemangioma. Additional smaller 5 mm lesion is also noted adjacent to this lesion on the right. IMPRESSION: Markedly limited exam due to streak artifact from previous ingested oral contrast. Copious stool is seen with generalized loops of bowel which may be due to constipation and ileus. No gross free fluid identified. Inflammatory changes seen along the left upper anterior abdominal wall with small pocket of gas seen. This is located within the anterior abdominal wall tissues anterior to the left rectus abdominis muscle. Please correlate with clinical findings as as infectious or inflammatory process in this region cannot be excluded. Indeterminate fat density area measuring 8.6 x 2.6 cm lobulation along the right hemipelvis. This may represent pelvic mass such as a lipoma. Low-grade neoplastic process is less likely. Postsurgical sequela may also be considered. Please correlate with patient's clinical history and old exams. Follow-up surveillance exam with IV contrast is recommended 2 mm nonobstructive left renal stone. Bilateral adrenal gland hyperplasia. Moderate atherosclerosis There is fat along the bilateral posterior thoracic regions, left greater than right, probably related to bilateral diaphragmatic hernias in these regions containing fat. Bibasal passive atelectatic and consolidative changes.
[2018-06-20] MEDS: Fluticasone Propionate Nasal 1 SPR SPR NS SCH (08:43)
[2018-06-20] MEDS: Nystatin Cream 100,000 u/gm Cream 15 gm TP SCH ×2 (08:43→17:40)
[2018-06-20] MEDS: Morphine Sulfate 4 mg/mL 1mL Syr IVP PRN ×3 (10:28→21:12)
[2018-06-20 10:59] LABS: ALB/GLOB RATIO 0.9 (1.0-1.8); ALBUMIN 2.9 gm/dL (4.2-5.5); ALKALINE PHOSPHATASE 43 U/L (34-104); ANION GAP 12.5 (7.0-16.0); BILIRUBIN,TOTAL 0.2 mg/dL (0.3-1.0); BUN - UREA NITROGEN 20 mg/dL (7-25); CALCIUM SERUM 8.8 mg/dL (8.6-10.3); CHLORIDE 103 mEq/L (98-107); CHOLESTEROL 123 mg/dL (<200); CREATININE - SERUM 0.4 mg/dL (0.7-1.3); GFR AFRICAN-AMERICAN > 60.0 ml/min (>90); GFR NON AFRICAN-AMERICAN > 60.0 ml/min; GLUCOSE 87 mg/dL (70-105); MAGNESIUM 1.7 mg/dL (1.9-2.7); PHOSPHOROUS 3.6 mg/dL (2.5-5.0); POTASSIUM SERUM 3.5 mEq/L (3.5-5.1); SGOT 8 U/L (13-39); SGPT/ALT 4 U/L (7-52); SODIUM SERUM 135 mEq/L (136-145); TRIGLYCERIDES 48 mg/dL (<150)
[2018-06-20 11:00] LABS: % BASOPHILS 0.7 % (0.0-2.0); % EOSINOPHILS 0.5 % (0.0-5.0); % LYMPHOCYTES 5.8 % (20.0-50.0); % MONOCYTES 7.5 % (2.0-10.0); % NEUTROPHILS 85.5 % (40.0-80.0); HEMATOCRIT 24.6 % (41.0-60); HEMOGLOBIN 8.2 gm/dL (12-16); LYMPHOCYTE ABSOLUTE 0.4 Th/cmm (1.5-3.0); MEAN CELL VOLUME 92.5 fl (80-99); MEAN CORPUSCULAR HEMOGLOBIN 30.8 pg (26.0-30.0); MEAN CORPUSCULAR HGB CONC 33.3 pg (28.0-36.0); MEAN PLATELET VOLUME 6.4 fl; MONOCYTE ABSOLUTE 0.5 Th/cmm (0.3-1.0); PLATELET COUNT 545 Th/cmm (150-400); RED BLOOD COUNT 2.66 Mil/cmm (4.30-5.70); RED CELL DISTRIBUTION WIDTH 16.1 % (11.5-20.0); WHITE BLOOD COUNT 6.9 Th/cmm (4.8-10.8)
[2018-06-20] MEDS ORDERED: Mag Sulfate 2gm/50mL Premix 2 GM/50 ML BAG IV ONE (12:00)
[2018-06-20] MEDS: INSULIN ASPART SLIDING SCALE 100 UNITS/ML UNIT SUBQ SCH ×2 (13:25→17:38)
--- NOTE | 2018-06-20 14:15 | Infectious Disease Prog Note ---
Infectious Disease Subjective - Review of Systems Service Date: 06/20/18 Subjective: There is no new change, no fever. Infectious Disease Objective - Results Result Diagrams: 06/20/18 10:20 06/20/18 10:20 Recent Labs: Laboratory Last Values WBC 6.9 Th/cmm (4.8-10.8) 06/20/18 10:20 RBC 2.66 Mil/cmm (4.30-5.70) L 06/20/18 10:20 Hgb 8.2 gm/dL (12-16) L 06/20/18 10:20 Hct 24.6 % (41.0-60) L 06/20/18 10:20 MCV 92.5 fl (80-99) 06/20/18 10:20 MCH 30.8 pg (26.0-30.0) H 06/20/18 10:20 MCHC Differential 33.3 pg (28.0-36.0) 06/20/18 10:20 RDW 16.1 % (11.5-20.0) 06/20/18 10:20 Plt Count 545 Th/cmm (150-400) H 06/20/18 10:20 MPV 6.4 fl 06/20/18 10:20 Add Manual Diff YES 06/18/18 06:30 Neutrophils % 85.5 % (40.0-80.0) H 06/20/18 10:20 Band Neutrophils % 4 % (0-10) 06/18/18 06:30 Lymphocytes % 5.8 % (20.0-50.0) L 06/20/18 10:20 Monocytes % 7.5 % (2.0-10.0) 06/20/18 10:20 Eosinophils % 0.5 % (0.0-5.0) 06/20/18 10:20 Basophils % 0.7 % (0.0-2.0) 06/20/18 10:20 Neutrophils (Manual) Not Reportable 06/20/18 10:20 Lymphocytes 6 % (20-50) L 06/18/18 06:30 Monocytes 5 % (2-10) 06/18/18 06:30 Eosinophils 0 % (0-5) 06/18/18 06:30 Basophils 0 % (0-3) 06/18/18 06:30 Platelet Estimate INCREASED PLATELETS (NORMAL) 06/17/18 11:40 PT 10.9 SECONDS (9.5-11.5) 06/18/18 06:30 INR 1.05 (0.5-1.4) 06/18/18 06:30 Sodium 135 mEq/L (136-145) L 06/20/18 10:20 Potassium 3.5 mEq/L (3.5-5.1) 06/20/18 10:20 Chloride 103 mEq/L (98-107) 06/20/18 10:20 Carbon Dioxide 23.0 mEq/L (21.0-31.0) 06/20/18 10:20 Anion Gap 12.5 (7.0-16.0) 06/20/18 10:20 BUN 20 mg/dL (7-25) 06/20/18 10:20 Creatinine 0.4 mg/dL (0.7-1.3) L 06/20/18 10:20 Est GFR ( Amer) > 60.0 ml/min (>90) 06/20/18 10:20 Est GFR (Non-Af Amer) > 60.0 ml/min 06/20/18 10:20 BUN/Creatinine Ratio 50.0 06/20/18 10:20 Glucose 87 mg/dL (70-105) 06/20/18 10:20 Calcium 8.8 mg/dL (8.6-10.3) 06/20/18 10:20 Phosphorus 3.6 mg/dL (2.5-5.0) 06/20/18 10:20 Magnesium 1.7 mg/dL (1.9-2.7) L 06/20/18 10:20 Iron 36 ug/dL (38-169) L 06/18/18 06:30 TIBC 198 ug/dL (250-450) L 06/18/18 06:30 Iron Saturation 18 % (15-55) 06/18/18 06:30 Unsaturated IBC 162 ug/dL (111-343) 06/18/18 06:30 Total Bilirubin 0.2 mg/dL (0.3-1.0) L 06/20/18 10:20 AST 8 U/L (13-39) L 06/20/18 10:20 ALT 4 U/L (7-52) L 06/20/18 10:20 Alkaline Phosphatase 43 U/L (34-104) 06/20/18 10:20 Total Protein 6.0 gm/dL (6.0-8.3) 06/20/18 10:20 Albumin 2.9 gm/dL (4.2-5.5) L 06/20/18 10:20 Globulin 3.1 gm/dL 06/20/18 10:20 Albumin/Globulin Ratio 0.9 (1.0-1.8) L 06/20/18 10:20 Triglycerides 48 mg/dL (<150) 06/20/18 10:20 Cholesterol 123 mg/dL (<200) 06/20/18 10:20 Urine Source CLEAN C 06/17/18 19:05 Urine Color YELLOW 06/17/18 19:05 Urine Clarity HAZY (CLEAR) 06/17/18 19:05 Urine pH 7.5 (4.6 - 8.0) 06/17/18 19:05 Ur Specific [place] 1.015 (1.005-1.030) 06/17/18 19:05 Urine Protein NEGATIVE mg/dL (NEGATIVE) 06/17/18 19:05 Urine Glucose (UA) NEGATIVE mg/dL (NEGATIVE) 06/17/18 19:05 Urine Ketones 40 mg/dL (NEGATIVE) H 06/17/18 19:05 Urine Blood LARGE (NEGATIVE) H 06/17/18 19:05 Urine Nitrate NEGATIVE (NEGATIVE) 06/17/18 19:05 Urine Bilirubin NEGATIVE (NEGATIVE) 06/17/18 19:05 Urine Urobilinogen 0.2 E.U./dL (0.2 - 1.0) 06/17/18 19:05 Ur Leukocyte Esterase NEGATIVE (NEGATIVE) 06/17/18 19:05 Urine RBC NONE SEEN /hpf (0-5) 06/17/18 19:05 Urine WBC 2-5 /hpf (0-5) 06/17/18 19:05 Ur Epithelial Cells NONE SEEN /lpf (FEW) 06/17/18 19:05 Urine Bacteria FEW /hpf (NONE SEEN) 06/17/18 19:05 Vancomycin Trough 19.0 ug/mL (5-10) H 06/18/18 19:56 - Physical Exam Vitals and I&O: Vital Signs Temp 99 F 06/20/18 12:00 Pulse 72 06/20/18 12:14 Resp 18 06/20/18 12:14 BP 114/65 06/20/18 12:00 Pulse Ox 96 06/20/18 12:14 Intake & Output 06/19/18 06/20/18 06/20/18 18:59 06:59 18:59 Intake Total 1147.5 250 0 Output Total 800 Balance 1147.5 -550 0 Weight (lbs) 47.174 kg 47.174 kg Intake: Intake, IV Amount 1147.5 250 D5-0.45NS 1,000 ml @ 50 897.5 mls/hr IV .Q20H [facility] Rx#: [id number] Vancomycin HCl 1 gm In 250 250 Sodium Chloride 0.9% 250 ml @ 165 mls/hr IV Q12HR [facility] Rx#:[id number] Oral 0 Output: Urine 800 Other: # Voids 1 # Bowel Movements 0 Weight Source Bedscale Bedscale Active Medications: Current Medications Acetaminophen (Tylenol 650mg/20.3ml Suspension) 650 mg GT Q6H PRN PRN Reason: BREAKTRHOUGH PAIN OR TEMP >101 Stop: 08/17/18 06:46 Acetaminophen/Hydrocodone Bitart ([place] 10 Mg/325 Mg) 1 tab GT Q6H PRN PRN Reason: PAIN (MODERATE) Stop: 08/19/18 08:59 Acetaminophen/Hydrocodone Bitart ([place] 5mg/325mg) 1 tab GT Q6H PRN PRN Reason: MILD PAIN Stop: 08/19/18 08:59 Albuterol/Ipratropium (Duoneb Neb) 3 ml HHN Q6HRT [facility] Stop: 08/17/18 06:59 Last Admin: 06/20/18 12:11 Dose: 3 ml Bisacodyl (Dulcolax 10 Mg Supp) 10 mg RC DAILY PRN PRN Reason: Constipation Stop: 08/17/18 06:34 Last Admin: 06/19/18 17:27 Dose: 10 mg Chlorhexidine Gluconate (Peridex) 15 ml MM BID [facility] Stop: 08/17/18 08:59 Last Admin: 06/20/18 08:38 Dose: Not Given Docusate Sodium (Colace) 100 mg PO BID [facility] Stop: 08/17/18 08:59 Last Admin: 06/20/18 08:33 Dose: Not Given Enoxaparin Sodium (Lovenox) 40 mg SUBQ DAILY [facility] Stop: 08/17/18 08:59 Last Admin: 06/20/18 08:38 Dose: 40 mg Ferrous Sulfate (Iron) 300 mg GT BID [facility] Stop: 08/17/18 08:59 Last Admin: 06/20/18 08:34 Dose: Not Given Fluticasone Propionate (Flonase) 1 spr NS DAILY [facility] Stop: 08/17/18 08:59 Last Admin: 06/20/18 08:43 Dose: 1 spr Folic Acid (Folate) 1 mg GT DAILY [facility] Stop: 08/17/18 08:59 Last Admin: 06/20/18 08:34 Dose: Not Given Vancomycin HCl 1 gm/ Sodium (Chloride) 250 mls @ 165 mls/hr IV Q12HR [facility] Stop: 08/18/18 08:59 Last Admin: 06/20/18 08:46 Dose: 165 mls/hr Amino Acids/Electrolytes (Procalamine) 1,000 mls @ 41.667 mls/hr IV .Q24H [facility] Stop: 08/18/18 14:59 Last Admin: 06/19/18 15:51 Dose: 41.667 mls/hr Insulin Aspart (Novolog Insulin Sliding Scale) 0 units SUBQ Q6HR [facility]; Protocol Stop: 08/19/18 11:59 Last Admin: 06/20/18 13:25 Dose: Not Given Lactobacillus Rhamnosus (Culturelle 15b) 1 each PO DAILY [facility] Stop: 08/17/18 13:59 Last Admin: 06/20/18 08:34 Dose: Not Given Magnesium Hydroxide (Milk Of Magnesia) 30 ml GT DAILY PRN PRN Reason: Constipation Stop: 08/17/18 06:34 Miscellaneous (Vancomycin Iv Per Pharmacy) 1 ea MC PRN PRN PRN Reason: VANCO PER RX Stop: 08/16/18 16:03 Miscellaneous (Vte Chemical Prophylaxis Screen/ Admission) 1 ea MC PRN PRN PRN Reason: PROTOCOL Stop: 08/16/18 17:05 Miscellaneous ([place] Half Strenght 0.25% [place]) 1 appl TP DAILY [facility] Stop: 06/20/18 15:00 Last Admin: 06/18/18 10:05 Dose: Not Given Miscellaneous (Probiotic Screen) 1 ea MC PRN PRN PRN Reason: PROTOCOL Stop: 08/17/18 09:32 Miscellaneous (Tpn Per Pharmacy) 1 ea MC PRN PRN PRN Reason: PROTOCOL Stop: 08/18/18 10:24 Morphine Sulfate (Morphine) 1 mg IVP Q4HR PRN PRN Reason: Pain (Severe) Stop: 08/16/18 20:07 Last Admin: 06/20/18 10:28 Dose: 1 mg Mupirocin (Bactroban Oint) 1 appl NS BID [facility] Stop: 06/23/18 17:01 Last Admin: 06/20/18 08:39 Dose: 1 appl Nystatin (Mycostatin Cream) 1 appl TP BID [facility] Stop: 08/17/18 08:59 Last Admin: 06/20/18 08:43 Dose: 1 appl Petrolatum (Vaseline Oint) 1 appl TP DAILY [facility] Stop: 08/17/18 08:59 Sucralfate (Carafate) 1 gm GT QID [facility] Stop: 08/17/18 08:59 Last Admin: 06/20/18 13:26 Dose: Not Given General: no acute distress, well developed, well nourished HEENT: atraumatic, normocephalic, PERRLA, EOMI Neck: supple, tracheostomy, no thyromegaly, no lymphadenopathy Cardiovascular: S1S2, regular Lungs: clear to auscultation bilaterally, clear to percussion Abdomen: soft, other (g tube site is less erythmatous. absent G tube.), no tender, no distended, no rebound Extremities: no cyanosis, no clubbing, no edema Neurological: awake, alert, oriented Skin: intact Infectious Disease Assmt/Plan - Problem List Patient Problems: All Active Problems MALFUNCTIONING GASTRIC FEEDING TUBE/RASH (Acute) - Assessment Assessment: 1. G tube site infection, Abdominal wall cellulitis, suspect underlying abscess. 2. 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 Anemia of CD. - Plan Plan: Continue same treatment. Continue wound care and abx: vanco IV. CT scan of a/p reviewed. Nutritional Asmnt/Malnutr-PDOC - Dietary Evaluation Malnutrition Findings (Please click <Entered> for more info): Nutritional Asmnt/Malnutrition Start: 06/18/18 12: 01 Text: Status: Complete Freq: Protocol: Document 06/18/18 12:01 NICKI (Rec: 06/18/18 12:27 NICKI REGINE- [email or web address]) Nutritional Asmnt/Malnutrition Patient General Information Nutritional Screening High Risk Diagnosis Malfunction G-Tube Pertinent Medical Hx/Surgical Hx CHRONIC RESPIRATORY FAILURE, MALIGNANT NEOPLASM OF TONGUE, CHRONIC RHINITIS, TRACHEOSTOMY , GASTRIC FEEDING TUBE, CHRONIC BRONCHITIS, PRISON ANTICOAGULANTS Subjective Information Patient was admitted from SNF with H&P "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 Per nursing, patient with G-tube in place, however states MD wants to wait to start feeding. Current Diet Order/ Nutrition Support NPO Patient / S.O Not Indicated Pertinent Medications dulxolax, D5-0.45NS @ 50 ml/hr , colace, iron, folate, culturelle, MOM, Abx Pertinent Labs (06/18) albumin 2.9 ( decreasing) Nutritional Hx/Data Height 1.68 m Height (Calculated Centimeters) 167.6 Current Weight (lbs) 47.174 kg Weight (Calculated Kilograms) 47.2 Weight (Calculated Grams) 09358.6 [place] Body Weight 142 % [place] Body Weight 73 Body Mass Index (BMI) 16.7 Recent Weight Change No Weight Status Underweight GI Symptoms GI Symptoms None Last BM none noted since admission Difficult in: None Food Allergies No Cultural/Ethnic/Yazdanism Belief none indicated Usual diet at home Jevity 1.2 Bolus 4 cans daily (1 can 9am, 1p, 5p, 10p), with 100ml free water flush every 6 hours. This provides 948ml total volume, 1137 kcal, 52 gm protein, 1165ml free water. Skin Integrity/Comment: Bryan 18, reddened stoma/g- tube site, rash/reddened back Estimated Nutritional Goals BEE in Kcals: Using Current wt Calories/Kcals/Kg 35-40 kcal/kg using CBW 47.2 ( cancer, low BMI) Kcals Calculated ~6256-6377 kcal/day Protein: Using Current wt Protein g/k.5-2 gm/kg (cancer, muscle wasting) Protein Calculated 70-95 gm/day Fluid: ml ~2559-5048 ml/day Nutritional Problem 1. Problem Problem Inadequate energy intake related to Etiology withholding tube feeding due to malfunction G-tube without initiation of alternate nutrition support aeb Signs/Symptoms: NPO status Intervention/Recommendation Comments 1. Restart tube feeding once medically appropriate; recommend bolus feeding Jevity 1.2 375 ml 4 times a day ( previous feeding schedule 9am, 1p, 5p, 10p). This provides 1500ml, 1800 kcal, 82 gm protein. 2. If unable to restart tube feeding, consider Parenteral nutrition. Expected Outcomes/Goals Expected Outcomes/Goals Meets >75% of nutrient needs, weight increase toward ideal body weight, improved skin integrity
--- NOTE | 2018-06-20 18:14 | GI Progress Note ---
Subjective - Review of Systems Service Date: 06/20/18 Events since last encounter: G tube site starting to close up, looks less indurated Objective - Results Result Diagrams: 06/20/18 10:20 06/20/18 10:20 Recent Labs: Laboratory Last Values WBC 6.9 Th/cmm (4.8-10.8) 06/20/18 10:20 RBC 2.66 Mil/cmm (4.30-5.70) L 06/20/18 10:20 Hgb 8.2 gm/dL (12-16) L 06/20/18 10:20 Hct 24.6 % (41.0-60) L 06/20/18 10:20 MCV 92.5 fl (80-99) 06/20/18 10:20 MCH 30.8 pg (26.0-30.0) H 06/20/18 10:20 MCHC Differential 33.3 pg (28.0-36.0) 06/20/18 10:20 RDW 16.1 % (11.5-20.0) 06/20/18 10:20 Plt Count 545 Th/cmm (150-400) H 06/20/18 10:20 MPV 6.4 fl 06/20/18 10:20 Add Manual Diff YES 06/18/18 06:30 Neutrophils % 85.5 % (40.0-80.0) H 06/20/18 10:20 Band Neutrophils % 4 % (0-10) 06/18/18 06:30 Lymphocytes % 5.8 % (20.0-50.0) L 06/20/18 10:20 Monocytes % 7.5 % (2.0-10.0) 06/20/18 10:20 Eosinophils % 0.5 % (0.0-5.0) 06/20/18 10:20 Basophils % 0.7 % (0.0-2.0) 06/20/18 10:20 Neutrophils (Manual) Not Reportable 06/20/18 10:20 Lymphocytes 6 % (20-50) L 06/18/18 06:30 Monocytes 5 % (2-10) 06/18/18 06:30 Eosinophils 0 % (0-5) 06/18/18 06:30 Basophils 0 % (0-3) 06/18/18 06:30 Platelet Estimate INCREASED PLATELETS (NORMAL) 06/17/18 11:40 PT 10.9 SECONDS (9.5-11.5) 06/18/18 06:30 INR 1.05 (0.5-1.4) 06/18/18 06:30 Sodium 135 mEq/L (136-145) L 06/20/18 10:20 Potassium 3.5 mEq/L (3.5-5.1) 06/20/18 10:20 Chloride 103 mEq/L (98-107) 06/20/18 10:20 Carbon Dioxide 23.0 mEq/L (21.0-31.0) 06/20/18 10:20 Anion Gap 12.5 (7.0-16.0) 06/20/18 10:20 BUN 20 mg/dL (7-25) 06/20/18 10:20 Creatinine 0.4 mg/dL (0.7-1.3) L 06/20/18 10:20 Est GFR ( Amer) > 60.0 ml/min (>90) 06/20/18 10:20 Est GFR (Non-Af Amer) > 60.0 ml/min 06/20/18 10:20 BUN/Creatinine Ratio 50.0 06/20/18 10:20 Glucose 87 mg/dL (70-105) 06/20/18 10:20 Calcium 8.8 mg/dL (8.6-10.3) 06/20/18 10:20 Phosphorus 3.6 mg/dL (2.5-5.0) 06/20/18 10:20 Magnesium 1.7 mg/dL (1.9-2.7) L 06/20/18 10:20 Iron 36 ug/dL (38-169) L 06/18/18 06:30 TIBC 198 ug/dL (250-450) L 06/18/18 06:30 Iron Saturation 18 % (15-55) 06/18/18 06:30 Unsaturated IBC 162 ug/dL (111-343) 06/18/18 06:30 Total Bilirubin 0.2 mg/dL (0.3-1.0) L 06/20/18 10:20 AST 8 U/L (13-39) L 06/20/18 10:20 ALT 4 U/L (7-52) L 06/20/18 10:20 Alkaline Phosphatase 43 U/L (34-104) 06/20/18 10:20 Total Protein 6.0 gm/dL (6.0-8.3) 06/20/18 10:20 Albumin 2.9 gm/dL (4.2-5.5) L 06/20/18 10:20 Globulin 3.1 gm/dL 06/20/18 10:20 Albumin/Globulin Ratio 0.9 (1.0-1.8) L 06/20/18 10:20 Triglycerides 48 mg/dL (<150) 06/20/18 10:20 Cholesterol 123 mg/dL (<200) 06/20/18 10:20 Urine Source CLEAN C 06/17/18 19:05 Urine Color YELLOW 06/17/18 19:05 Urine Clarity HAZY (CLEAR) 06/17/18 19:05 Urine pH 7.5 (4.6 - 8.0) 06/17/18 19:05 Ur Specific [place] 1.015 (1.005-1.030) 06/17/18 19:05 Urine Protein NEGATIVE mg/dL (NEGATIVE) 06/17/18 19:05 Urine Glucose (UA) NEGATIVE mg/dL (NEGATIVE) 06/17/18 19:05 Urine Ketones 40 mg/dL (NEGATIVE) H 06/17/18 19:05 Urine Blood LARGE (NEGATIVE) H 06/17/18 19:05 Urine Nitrate NEGATIVE (NEGATIVE) 06/17/18 19:05 Urine Bilirubin NEGATIVE (NEGATIVE) 06/17/18 19:05 Urine Urobilinogen 0.2 E.U./dL (0.2 - 1.0) 06/17/18 19:05 Ur Leukocyte Esterase NEGATIVE (NEGATIVE) 06/17/18 19:05 Urine RBC NONE SEEN /hpf (0-5) 06/17/18 19:05 Urine WBC 2-5 /hpf (0-5) 06/17/18 19:05 Ur Epithelial Cells NONE SEEN /lpf (FEW) 06/17/18 19:05 Urine Bacteria FEW /hpf (NONE SEEN) 06/17/18 19:05 Vancomycin Trough 19.0 ug/mL (5-10) H 06/18/18 19:56 - Physical Exam Vitals and I&O: Vital Signs Temp 98.4 F 06/20/18 15:39 Pulse 70 06/20/18 15:39 Resp 19 06/20/18 15:39 BP 106/62 06/20/18 15:39 Pulse Ox 98 06/20/18 15:39 Intake & Output 06/19/18 06/20/18 06/20/18 18:59 06:59 18:59 Intake Total 1147.5 250 0 Output Total 800 Balance 1147.5 -550 0 Weight (lbs) 47.174 kg 47.174 kg Intake: Intake, IV Amount 1147.5 250 D5-0.45NS 1,000 ml @ 50 897.5 mls/hr IV .Q20H [facility] Rx#: [id number] Vancomycin HCl 1 gm In 250 250 Sodium Chloride 0.9% 250 ml @ 165 mls/hr IV Q12HR [facility] Rx#:[id number] Oral 0 Output: Urine 800 Other: # Voids 1 # Bowel Movements 0 Weight Source Bedscale Bedscale Active Medications: Current Medications Acetaminophen (Tylenol 650mg/20.3ml Suspension) 650 mg GT Q6H PRN PRN Reason: BREAKTRHOUGH PAIN OR TEMP >101 Stop: 08/17/18 06:46 Acetaminophen/Hydrocodone Bitart ([place] 10 Mg/325 Mg) 1 tab GT Q6H PRN PRN Reason: PAIN (MODERATE) Stop: 08/19/18 08:59 Acetaminophen/Hydrocodone Bitart ([place] 5mg/325mg) 1 tab GT Q6H PRN PRN Reason: MILD PAIN Stop: 08/19/18 08:59 Albuterol/Ipratropium (Duoneb Neb) 3 ml HHN Q6HRT [facility] Stop: 08/17/18 06:59 Last Admin: 06/20/18 12:11 Dose: 3 ml Bisacodyl (Dulcolax 10 Mg Supp) 10 mg RC DAILY PRN PRN Reason: Constipation Stop: 08/17/18 06:34 Last Admin: 06/19/18 17:27 Dose: 10 mg Chlorhexidine Gluconate (Peridex) 15 ml MM BID [facility] Stop: 08/17/18 08:59 Last Admin: 06/20/18 17:27 Dose: Not Given Docusate Sodium (Colace) 100 mg PO BID [facility] Stop: 08/17/18 08:59 Last Admin: 06/20/18 17:37 Dose: Not Given Enoxaparin Sodium (Lovenox) 40 mg SUBQ DAILY [facility] Stop: 08/17/18 08:59 Last Admin: 06/20/18 08:38 Dose: 40 mg Ferrous Sulfate (Iron) 300 mg GT BID [facility] Stop: 08/17/18 08:59 Last Admin: 06/20/18 17:37 Dose: Not Given Fluticasone Propionate (Flonase) 1 spr NS DAILY [facility] Stop: 08/17/18 08:59 Last Admin: 06/20/18 08:43 Dose: 1 spr Folic Acid (Folate) 1 mg GT DAILY [facility] Stop: 08/17/18 08:59 Last Admin: 06/20/18 08:34 Dose: Not Given Vancomycin HCl 1 gm/ Sodium (Chloride) 250 mls @ 165 mls/hr IV Q12HR [facility] Stop: 08/18/18 08:59 Last Admin: 06/20/18 08:46 Dose: 165 mls/hr Amino Acids/Electrolytes (Procalamine) 1,000 mls @ 41.667 mls/hr IV .Q24H [facility] Stop: 08/18/18 14:59 Last Admin: 06/19/18 15:51 Dose: 41.667 mls/hr Insulin Aspart (Novolog Insulin Sliding Scale) 0 units SUBQ Q6HR [facility]; Protocol Stop: 08/19/18 11:59 Last Admin: 06/20/18 17:38 Dose: Not Given Lactobacillus Rhamnosus (Culturelle 15b) 1 each PO DAILY [facility] Stop: 08/17/18 13:59 Last Admin: 06/20/18 08:34 Dose: Not Given Magnesium Hydroxide (Milk Of Magnesia) 30 ml GT DAILY PRN PRN Reason: Constipation Stop: 08/17/18 06:34 Miscellaneous (Vancomycin Iv Per Pharmacy) 1 ea MC PRN PRN PRN Reason: VANCO PER RX Stop: 08/16/18 16:03 Miscellaneous (Vte Chemical Prophylaxis Screen/ Admission) 1 ea MC PRN PRN PRN Reason: PROTOCOL Stop: 08/16/18 17:05 Miscellaneous ([place] Half Strenght 0.25% [place]) 1 appl TP DAILY [facility] Stop: 06/20/18 15:00 Last Admin: 06/18/18 10:05 Dose: Not Given Miscellaneous (Probiotic Screen) 1 ea MC PRN PRN PRN Reason: PROTOCOL Stop: 08/17/18 09:32 Miscellaneous (Tpn Per Pharmacy) 1 ea PRN PRN PRN Reason: PROTOCOL Stop: 08/18/18 10:24 Morphine Sulfate (Morphine) 1 mg IVP Q4HR PRN PRN Reason: Pain (Severe) Stop: 08/16/18 20:07 Last Admin: 06/20/18 15:08 Dose: 1 mg Mupirocin (Bactroban Oint) 1 appl NS BID [facility] Stop: 06/23/18 17:01 Last Admin: 06/20/18 17:40 Dose: 1 appl Nystatin (Mycostatin Cream) 1 appl TP BID [facility] Stop: 08/17/18 08:59 Last Admin: 06/20/18 17:40 Dose: 1 appl Petrolatum (Vaseline Oint) 1 appl TP DAILY [facility] Stop: 08/17/18 08:59 Sucralfate (Carafate) 1 gm GT QID [facility] Stop: 08/17/18 08:59 Last Admin: 06/20/18 17:28 Dose: Not Given General: Alert, No acute distress HEENT: Atraumatic, PERRLA, EOMI Neck: Supple Cardiovascular: Regular rate, Normal S1, Normal S2 Lungs: Clear to auscultation Abdomen: Other (presence of cellulitis at the Gtube site) Extremities: no Clubbing, no Cyanosis, no Edema Assessment/Plan - Problem List Patient Problems: All Active Problems MALFUNCTIONING GASTRIC FEEDING TUBE/RASH (Acute) - Assessment Assessment: 1. G tube cellulitis 2. Buried bumper syndrome 3. Abdominal discomfort -Allow closure of the G tube tract -IV TPN for now, bowel rest NPO -Plan to do EGD with PEG after the site has closed, still needs a few days
--- NOTE | 2018-06-20 18:21 | General Progress Note ---
Subjective - Review of Systems Service Date: 06/20/18 Subjective: no new sxs tube is out Objective - Results Result Diagrams: 06/20/18 10:20 06/20/18 10:20 Recent Labs: Laboratory Last Values WBC 6.9 Th/cmm (4.8-10.8) 06/20/18 10:20 RBC 2.66 Mil/cmm (4.30-5.70) L 06/20/18 10:20 Hgb 8.2 gm/dL (12-16) L 06/20/18 10:20 Hct 24.6 % (41.0-60) L 06/20/18 10:20 MCV 92.5 fl (80-99) 06/20/18 10:20 MCH 30.8 pg (26.0-30.0) H 06/20/18 10:20 MCHC Differential 33.3 pg (28.0-36.0) 06/20/18 10:20 RDW 16.1 % (11.5-20.0) 06/20/18 10:20 Plt Count 545 Th/cmm (150-400) H 06/20/18 10:20 MPV 6.4 fl 06/20/18 10:20 Add Manual Diff YES 06/18/18 06:30 Neutrophils % 85.5 % (40.0-80.0) H 06/20/18 10:20 Band Neutrophils % 4 % (0-10) 06/18/18 06:30 Lymphocytes % 5.8 % (20.0-50.0) L 06/20/18 10:20 Monocytes % 7.5 % (2.0-10.0) 06/20/18 10:20 Eosinophils % 0.5 % (0.0-5.0) 06/20/18 10:20 Basophils % 0.7 % (0.0-2.0) 06/20/18 10:20 Neutrophils (Manual) Not Reportable 06/20/18 10:20 Lymphocytes 6 % (20-50) L 06/18/18 06:30 Monocytes 5 % (2-10) 06/18/18 06:30 Eosinophils 0 % (0-5) 06/18/18 06:30 Basophils 0 % (0-3) 06/18/18 06:30 Platelet Estimate INCREASED PLATELETS (NORMAL) 06/17/18 11:40 PT 10.9 SECONDS (9.5-11.5) 06/18/18 06:30 INR 1.05 (0.5-1.4) 06/18/18 06:30 Sodium 135 mEq/L (136-145) L 06/20/18 10:20 Potassium 3.5 mEq/L (3.5-5.1) 06/20/18 10:20 Chloride 103 mEq/L (98-107) 06/20/18 10:20 Carbon Dioxide 23.0 mEq/L (21.0-31.0) 06/20/18 10:20 Anion Gap 12.5 (7.0-16.0) 06/20/18 10:20 BUN 20 mg/dL (7-25) 06/20/18 10:20 Creatinine 0.4 mg/dL (0.7-1.3) L 06/20/18 10:20 Est GFR ( Amer) > 60.0 ml/min (>90) 06/20/18 10:20 Est GFR (Non-Af Amer) > 60.0 ml/min 06/20/18 10:20 BUN/Creatinine Ratio 50.0 06/20/18 10:20 Glucose 87 mg/dL (70-105) 06/20/18 10:20 Calcium 8.8 mg/dL (8.6-10.3) 06/20/18 10:20 Phosphorus 3.6 mg/dL (2.5-5.0) 06/20/18 10:20 Magnesium 1.7 mg/dL (1.9-2.7) L 06/20/18 10:20 Iron 36 ug/dL (38-169) L 06/18/18 06:30 TIBC 198 ug/dL (250-450) L 06/18/18 06:30 Iron Saturation 18 % (15-55) 06/18/18 06:30 Unsaturated IBC 162 ug/dL (111-343) 06/18/18 06:30 Total Bilirubin 0.2 mg/dL (0.3-1.0) L 06/20/18 10:20 AST 8 U/L (13-39) L 06/20/18 10:20 ALT 4 U/L (7-52) L 06/20/18 10:20 Alkaline Phosphatase 43 U/L (34-104) 06/20/18 10:20 Total Protein 6.0 gm/dL (6.0-8.3) 06/20/18 10:20 Albumin 2.9 gm/dL (4.2-5.5) L 06/20/18 10:20 Globulin 3.1 gm/dL 06/20/18 10:20 Albumin/Globulin Ratio 0.9 (1.0-1.8) L 06/20/18 10:20 Triglycerides 48 mg/dL (<150) 06/20/18 10:20 Cholesterol 123 mg/dL (<200) 06/20/18 10:20 Urine Source CLEAN C 06/17/18 19:05 Urine Color YELLOW 06/17/18 19:05 Urine Clarity HAZY (CLEAR) 06/17/18 19:05 Urine pH 7.5 (4.6 - 8.0) 06/17/18 19:05 Ur Specific [place] 1.015 (1.005-1.030) 06/17/18 19:05 Urine Protein NEGATIVE mg/dL (NEGATIVE) 06/17/18 19:05 Urine Glucose (UA) NEGATIVE mg/dL (NEGATIVE) 06/17/18 19:05 Urine Ketones 40 mg/dL (NEGATIVE) H 06/17/18 19:05 Urine Blood LARGE (NEGATIVE) H 06/17/18 19:05 Urine Nitrate NEGATIVE (NEGATIVE) 06/17/18 19:05 Urine Bilirubin NEGATIVE (NEGATIVE) 06/17/18 19:05 Urine Urobilinogen 0.2 E.U./dL (0.2 - 1.0) 06/17/18 19:05 Ur Leukocyte Esterase NEGATIVE (NEGATIVE) 06/17/18 19:05 Urine RBC NONE SEEN /hpf (0-5) 06/17/18 19:05 Urine WBC 2-5 /hpf (0-5) 06/17/18 19:05 Ur Epithelial Cells NONE SEEN /lpf (FEW) 06/17/18 19:05 Urine Bacteria FEW /hpf (NONE SEEN) 06/17/18 19:05 Vancomycin Trough 19.0 ug/mL (5-10) H 06/18/18 19:56 - Physical Exam Vitals and I&O: Vital Signs Temp 98.4 F 06/20/18 15:39 Pulse 70 12/31/18 15:39 Resp 19 06/20/18 15:39 BP 106/62 06/20/18 15:39 Pulse Ox 98 06/20/18 15:39 Intake & Output 06/19/18 06/20/18 06/20/18 18:59 06:59 18:59 Intake Total 1147.5 250 0 Output Total 800 Balance 1147.5 -550 0 Weight (lbs) 47.174 kg 47.174 kg Intake: Intake, IV Amount 1147.5 250 D5-0.45NS 1,000 ml @ 50 897.5 mls/hr IV .Q20H [facility] Rx#: [id number] Vancomycin HCl 1 gm In 250 250 Sodium Chloride 0.9% 250 ml @ 165 mls/hr IV Q12HR [facility] Rx#:[id number] Oral 0 Output: Urine 800 Other: # Voids 1 # Bowel Movements 0 Weight Source Bedscale Bedscale Active Medications: Current Medications Acetaminophen (Tylenol 650mg/20.3ml Suspension) 650 mg GT Q6H PRN PRN Reason: BREAKTRHOUGH PAIN OR TEMP >101 Stop: 08/17/18 06:46 Acetaminophen/Hydrocodone Bitart ([place] 10 Mg/325 Mg) 1 tab GT Q6H PRN PRN Reason: PAIN (MODERATE) Stop: 08/19/18 08:59 Acetaminophen/Hydrocodone Bitart ([place] 5mg/325mg) 1 tab GT Q6H PRN PRN Reason: MILD PAIN Stop: 08/19/18 08:59 Albuterol/Ipratropium (Duoneb Neb) 3 ml HHN Q6HRT [facility] Stop: 08/17/18 06:59 Last Admin: 06/20/18 12:11 Dose: 3 ml Bisacodyl (Dulcolax 10 Mg Supp) 10 mg RC DAILY PRN PRN Reason: Constipation Stop: 08/17/18 06:34 Last Admin: 06/19/18 17:27 Dose: 10 mg Chlorhexidine Gluconate (Peridex) 15 ml MM BID [facility] Stop: 08/17/18 08:59 Last Admin: 06/20/18 17:27 Dose: Not Given Docusate Sodium (Colace) 100 mg PO BID [facility] Stop: 08/17/18 08:59 Last Admin: 06/20/18 17:37 Dose: Not Given Enoxaparin Sodium (Lovenox) 40 mg SUBQ DAILY [facility] Stop: 08/17/18 08:59 Last Admin: 06/20/18 08:38 Dose: 40 mg Ferrous Sulfate (Iron) 300 mg GT BID [facility] Stop: 08/17/18 08:59 Last Admin: 06/20/18 17:37 Dose: Not Given Fluticasone Propionate (Flonase) 1 spr NS DAILY [facility] Stop: 08/17/18 08:59 Last Admin: 06/20/18 08:43 Dose: 1 spr Folic Acid (Folate) 1 mg GT DAILY [facility] Stop: 08/17/18 08:59 Last Admin: 06/20/18 08:34 Dose: Not Given Vancomycin HCl 1 gm/ Sodium (Chloride) 250 mls @ 165 mls/hr IV Q12HR [facility] Stop: 08/18/18 08:59 Last Admin: 06/20/18 08:46 Dose: 165 mls/hr Amino Acids/Electrolytes (Procalamine) 1,000 mls @ 41.667 mls/hr IV .Q24H [facility] Stop: 08/18/18 14:59 Last Admin: 06/19/18 15:51 Dose: 41.667 mls/hr Insulin Aspart (Novolog Insulin Sliding Scale) 0 units SUBQ Q6HR [facility]; Protocol Stop: 08/19/18 11:59 Last Admin: 06/20/18 17:38 Dose: Not Given Lactobacillus Rhamnosus (Culturelle 15b) 1 each PO DAILY [facility] Stop: 08/17/18 13:59 Last Admin: 06/20/18 08:34 Dose: Not Given Magnesium Hydroxide (Milk Of Magnesia) 30 ml GT DAILY PRN PRN Reason: Constipation Stop: 08/17/18 06:34 Miscellaneous (Vancomycin Iv Per Pharmacy) 1 ea MC PRN PRN PRN Reason: VANCO PER RX Stop: 08/16/18 16:03 Miscellaneous (Vte Chemical Prophylaxis Screen/ Admission) 1 ea MC PRN PRN PRN Reason: PROTOCOL Stop: 08/16/18 17:05 Miscellaneous ([place]akins Half Strenght 0.25% [place]) 1 appl TP DAILY [facility] Stop: 06/20/18 15:00 Last Admin: 06/18/18 10:05 Dose: Not Given Miscellaneous (Probiotic Screen) 1 ea MC PRN PRN PRN Reason: PROTOCOL Stop: 08/17/18 09:32 Miscellaneous (Tpn Per Pharmacy) 1 ea MC PRN PRN PRN Reason: PROTOCOL Stop: 08/18/18 10:24 Morphine Sulfate (Morphine) 1 mg IVP Q4HR PRN PRN Reason: Pain (Severe) Stop: 08/16/18 20:07 Last Admin: 06/20/18 15:08 Dose: 1 mg Mupirocin (Bactroban Oint) 1 appl NS BID [facility] Stop: 06/23/18 17:01 Last Admin: 06/20/18 17:40 Dose: 1 appl Nystatin (Mycostatin Cream) 1 appl TP BID [facility] Stop: 08/17/18 08:59 Last Admin: 06/20/18 17:40 Dose: 1 appl Petrolatum (Vaseline Oint) 1 appl TP DAILY [facility] Stop: 08/17/18 08:59 Sucralfate (Carafate) 1 gm GT QID [facility] Stop: 08/17/18 08:59 Last Admin: 06/20/18 17:28 Dose: Not Given General: Alert, No acute distress HEENT: Atraumatic, PERRLA, EOMI Neck: Supple Cardiovascular: Regular rate, Normal S1, Normal S2 Lungs: Clear to auscultation Abdomen: Other (presence of cellulitis at the Gtube site) Extremities: no Clubbing, no Cyanosis, no Edema Assessment/Plan - Problem List Patient Problems: All Active Problems MALFUNCTIONING GASTRIC FEEDING TUBE/RASH (Acute) - Assessment Assessment: The elevated platelet count is most likely reactive. The patient has concurrent anemia and anemia workup will be obtained. No interim specific intervention is required for the high platelet count. The patient has a report of possible cecal mass on PET scan done by the primary oncologist and this will be deferred to the primary oncologist for continued management. 06/19: ferritin pending. plt better. hgb lower. monitor 06/20: hgb lower. plt stable. ferritin pending. monitor for now. Nutritional Asmnt/Malnutr-PDOC - Dietary Evaluation Malnutrition Findings (Please click <Entered> for more info): Nutritional Asmnt/Malnutrition Start: 06/18/18 12: 01 Text: Status: Complete Freq: Protocol: Document 06/18/18 12:01 [email or web address] (Rec: 06/18/18 12:27 NICKI WEINER- [email or web address]) Nutritional Asmnt/Malnutrition Patient General Information Nutritional Screening High Risk Diagnosis Malfunction G-Tube Pertinent Medical Hx/Surgical Hx CHRONIC RESPIRATORY FAILURE, MALIGNANT NEOPLASM OF TONGUE, CHRONIC RHINITIS, TRACHEOSTOMY , GASTRIC FEEDING TUBE, CHRONIC BRONCHITIS, BREAST TRIMMER ANTICOAGULANTS Subjective Information Patient was admitted from SNF with H&P "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 Per nursing, patient with G-tube in place, however states MD wants to wait to start feeding. Current Diet Order/ Nutrition Support NPO Patient / S.O Not Indicated Pertinent Medications dulxolax, D5-0.45NS @ 50 ml/hr , colace, iron, folate, culturelle, MOM, Abx Pertinent Labs (06/18) albumin 2.9 ( decreasing) Nutritional Hx/Data Height 1.68 m Height (Calculated Centimeters) 167.6 Current Weight (lbs) 47.174 kg Weight (Calculated Kilograms) 47.2 Weight (Calculated Grams) 05038.6 [place] Body Weight 142 % [place] Body Weight 73 Body Mass Index (BMI) 16.7 Recent Weight Change No Weight Status Underweight GI Symptoms GI Symptoms None Last BM none noted since admission Difficult in: None Food Allergies No Cultural/Ethnic/[place] Belief none indicated Usual diet at home Jevity 1.2 Bolus 4 cans daily (1 can 9am, 1p, 5p, 10p), with 100ml free water flush every 6 hours. This provides 948ml total volume, 1137 kcal, 52 gm protein, 1165ml free water. Skin Integrity/Comment: Bryan 18, reddened stoma/g- tube site, rash/reddened back Estimated Nutritional Goals BEE in Kcals: Using Current wt Calories/Kcals/Kg 35-40 kcal/kg using CBW 47.2 ( cancer, low BMI) Kcals Calculated ~3346-2642 kcal/day Protein: Using Current wt Protein g/k.5-2 gm/kg (cancer, muscle wasting) Protein Calculated 70-95 gm/day Fluid: ml ~5074-3861 ml/day Nutritional Problem 1. Problem Problem Inadequate energy intake related to Etiology withholding tube feeding due to malfunction G-tube without initiation of alternate nutrition support aeb Signs/Symptoms: NPO status Intervention/Recommendation Comments 1. Restart tube feeding once medically appropriate; recommend bolus feeding Jevity 1.2 375 ml 4 times a day ( previous feeding schedule 9am, 1p, 5p, 10p). This provides 1500ml, 1800 kcal, 82 gm protein. 2. If unable to restart tube feeding, consider Parenteral nutrition. Expected Outcomes/Goals Expected Outcomes/Goals Meets >75% of nutrient needs, weight increase toward ideal body weight, improved skin integrity
[2018-06-21] MEDS: INSULIN ASPART SLIDING SCALE 100 UNITS/ML UNIT SUBQ SCH ×4 (00:27→19:55)
[2018-06-21] MEDS: Albuterol/Ipratropium Neb 3 ML AERS HHN SCH ×4 (00:55→20:15)
--- NOTE | 2018-06-21 07:13 | General Progress Note ---
Subjective - Review of Systems Service Date: 06/21/18 Subjective: Patient resting comfortably in bed. No acute distress. afebrile. awake, alert. For PEG placement in a few days per GI. Will keep NPO. TPN per pharmacy Objective - Results Result Diagrams: 06/20/18 10:20 06/20/18 10:20 Recent Labs: Laboratory Last Values WBC 6.9 Th/cmm (4.8-10.8) 06/20/18 10:20 RBC 2.66 Mil/cmm (4.30-5.70) L 06/20/18 10:20 Hgb 8.2 gm/dL (12-16) L 06/20/18 10:20 Hct 24.6 % (41.0-60) L 06/20/18 10:20 MCV 92.5 fl (80-99) 06/20/18 10:20 MCH 30.8 pg (26.0-30.0) H 06/20/18 10:20 MCHC Differential 33.3 pg (28.0-36.0) 06/20/18 10:20 RDW 16.1 % (11.5-20.0) 06/20/18 10:20 Plt Count 545 Th/cmm (150-400) H 06/20/18 10:20 MPV 6.4 fl 06/20/18 10:20 Add Manual Diff YES 06/18/18 06:30 Neutrophils % 85.5 % (40.0-80.0) H 06/20/18 10:20 Band Neutrophils % 4 % (0-10) 06/18/18 06:30 Lymphocytes % 5.8 % (20.0-50.0) L 06/20/18 10:20 Monocytes % 7.5 % (2.0-10.0) 06/20/18 10:20 Eosinophils % 0.5 % (0.0-5.0) 06/20/18 10:20 Basophils % 0.7 % (0.0-2.0) 06/20/18 10:20 Neutrophils (Manual) Not Reportable 06/20/18 10:20 Lymphocytes 6 % (20-50) L 06/18/18 06:30 Monocytes 5 % (2-10) 06/18/18 06:30 Eosinophils 0 % (0-5) 06/18/18 06:30 Basophils 0 % (0-3) 06/18/18 06:30 Platelet Estimate INCREASED PLATELETS (NORMAL) 06/17/18 11:40 PT 10.9 SECONDS (9.5-11.5) 06/18/18 06:30 INR 1.05 (0.5-1.4) 06/18/18 06:30 Sodium 135 mEq/L (136-145) L 06/20/18 10:20 Potassium 3.5 mEq/L (3.5-5.1) 06/20/18 10:20 Chloride 103 mEq/L (98-107) 06/20/18 10:20 Carbon Dioxide 23.0 mEq/L (21.0-31.0) 06/20/18 10:20 Anion Gap 12.5 (7.0-16.0) 06/20/18 10:20 BUN 20 mg/dL (7-25) 06/20/18 10:20 Creatinine 0.4 mg/dL (0.7-1.3) L 06/20/18 10:20 Est GFR ( Amer) > 60.0 ml/min (>90) 06/20/18 10:20 Est GFR (Non-Af Amer) > 60.0 ml/min 06/20/18 10:20 BUN/Creatinine Ratio 50.0 06/20/18 10:20 Glucose 87 mg/dL (70-105) 06/20/18 10:20 POC Glucose 89 MG/DL (70 - 105) 06/21/18 06:58 Calcium 8.8 mg/dL (8.6-10.3) 06/20/18 10:20 Phosphorus 3.6 mg/dL (2.5-5.0) 06/20/18 10:20 Magnesium 1.7 mg/dL (1.9-2.7) L 06/20/18 10:20 Iron 36 ug/dL (38-169) L 06/18/18 06:30 TIBC 198 ug/dL (250-450) L 06/18/18 06:30 Iron Saturation 18 % (15-55) 06/18/18 06:30 Unsaturated IBC 162 ug/dL (111-343) 06/18/18 06:30 Ferritin 304 ng/mL (30-400) 06/19/18 09:16 Total Bilirubin 0.2 mg/dL (0.3-1.0) L 06/20/18 10:20 AST 8 U/L (13-39) L 06/20/18 10:20 ALT 4 U/L (7-52) L 06/20/18 10:20 Alkaline Phosphatase 43 U/L (34-104) 06/20/18 10:20 Total Protein 6.0 gm/dL (6.0-8.3) 06/20/18 10:20 Albumin 2.9 gm/dL (4.2-5.5) L 06/20/18 10:20 Globulin 3.1 gm/dL 06/20/18 10:20 Albumin/Globulin Ratio 0.9 (1.0-1.8) L 06/20/18 10:20 Prealbumin 11 mg/dL (10-36) 06/20/18 10:20 Triglycerides 48 mg/dL (<150) 06/20/18 10:20 Cholesterol 123 mg/dL (<200) 06/20/18 10:20 Urine Source CLEAN C 06/17/18 19:05 Urine Color YELLOW 06/17/18 19:05 Urine Clarity HAZY (CLEAR) 06/17/18 19:05 Urine pH 7.5 (4.6 - 8.0) 06/17/18 19:05 Ur Specific [place] 1.015 (1.005-1.030) 06/17/18 19:05 Urine Protein NEGATIVE mg/dL (NEGATIVE) 06/17/18 19:05 Urine Glucose (UA) NEGATIVE mg/dL (NEGATIVE) 06/17/18 19:05 Urine Ketones 40 mg/dL (NEGATIVE) H 06/17/18 19:05 Urine Blood LARGE (NEGATIVE) H 06/17/18 19:05 Urine Nitrate NEGATIVE (NEGATIVE) 06/17/18 19:05 Urine Bilirubin NEGATIVE (NEGATIVE) 06/17/18 19:05 Urine Urobilinogen 0.2 E.U./dL (0.2 - 1.0) 06/17/18 19:05 Ur Leukocyte Esterase NEGATIVE (NEGATIVE) 06/17/18 19:05 Urine RBC NONE SEEN /hpf (0-5) 06/17/18 19:05 Urine WBC 2-5 /hpf (0-5) 06/17/18 19:05 Ur Epithelial Cells NONE SEEN /lpf (FEW) 06/17/18 19:05 Urine Bacteria FEW /hpf (NONE SEEN) 06/17/18 19:05 Vancomycin Trough 20.3 ug/mL (5-10) H 06/20/18 19:55 - Physical Exam Vitals and I&O: Vital Signs Temp 98.4 F 06/21/18 04:00 Pulse 79 06/21/18 04:00 Resp 19 06/21/18 04:00 BP 118/63 06/21/18 04:00 Pulse Ox 95 06/21/18 01:01 Intake & Output 06/20/18 06/21/18 06/21/18 18:59 06:59 18:59 Intake Total 250 Balance 250 Weight (lbs) 47.174 kg 47.174 kg Intake: Intake, IV Amount 250 Vancomycin HCl 1 gm In 250 Sodium Chloride 0.9% 250 ml @ 165 mls/hr IV Q12HR [facility] Rx#:[id number] Oral 0 Other: Weight Source Bedscale Bedscale Active Medications: Current Medications Acetaminophen (Tylenol 650mg/20.3ml Suspension) 650 mg GT Q6H PRN PRN Reason: BREAKTRHOUGH PAIN OR TEMP >101 Stop: 08/17/18 06:46 Acetaminophen/Hydrocodone Bitart ([place] 10 Mg/325 Mg) 1 tab GT Q6H PRN PRN Reason: PAIN (MODERATE) Stop: 08/19/18 08:59 Acetaminophen/Hydrocodone Bitart ([place] 5mg/325mg) 1 tab GT Q6H PRN PRN Reason: MILD PAIN Stop: 08/19/18 08:59 Albuterol/Ipratropium (Duoneb Neb) 3 ml HHN Q6HRT [facility] Stop: 08/17/18 06:59 Last Admin: 06/21/18 00:55 Dose: 3 ml Bisacodyl (Dulcolax 10 Mg Supp) 10 mg RC DAILY PRN PRN Reason: Constipation Stop: 08/17/18 06:34 Last Admin: 06/19/18 17:27 Dose: 10 mg Chlorhexidine Gluconate (Peridex) 15 ml MM BID [facility] Stop: 08/17/18 08:59 Last Admin: 06/20/18 17:27 Dose: Not Given Docusate Sodium (Colace) 100 mg PO BID [facility] Stop: 08/17/18 08:59 Last Admin: 06/20/18 17:37 Dose: Not Given Enoxaparin Sodium (Lovenox) 40 mg SUBQ DAILY [facility] Stop: 08/17/18 08:59 Last Admin: 06/20/18 08:38 Dose: 40 mg Ferrous Sulfate (Iron) 300 mg GT BID [facility] Stop: 08/17/18 08:59 Last Admin: 06/20/18 17:37 Dose: Not Given Fluticasone Propionate (Flonase) 1 spr NS DAILY [facility] Stop: 08/17/18 08:59 Last Admin: 06/20/18 08:43 Dose: 1 spr Folic Acid (Folate) 1 mg GT DAILY [facility] Stop: 08/17/18 08:59 Last Admin: 06/20/18 08:34 Dose: Not Given Vancomycin HCl 1 gm/ Sodium (Chloride) 250 mls @ 165 mls/hr IV Q12HR [facility] Stop: 08/18/18 08:59 Last Admin: 06/20/18 21:12 Dose: 165 mls/hr Amino Acids/Electrolytes (Procalamine) 1,000 mls @ 41.667 mls/hr IV .Q24H [facility] Stop: 08/18/18 14:59 Last Admin: 06/19/18 15:51 Dose: 41.667 mls/hr Insulin Aspart (Novolog Insulin Sliding Scale) 0 units SUBQ Q6HR [facility]; Protocol Stop: 08/19/18 11:59 Last Admin: 06/21/18 07:00 Dose: Not Given Lactobacillus Rhamnosus (Culturelle 15b) 1 each PO DAILY [facility] Stop: 08/17/18 13:59 Last Admin: 06/20/18 08:34 Dose: Not Given Magnesium Hydroxide (Milk Of Magnesia) 30 ml GT DAILY PRN PRN Reason: Constipation Stop: 08/17/18 06:34 Miscellaneous (Vancomycin Iv Per Pharmacy) 1 ea MC PRN PRN PRN Reason: VANCO PER RX Stop: 08/16/18 16:03 Miscellaneous (Vte Chemical Prophylaxis Screen/ Admission) 1 ea PRN PRN PRN Reason: PROTOCOL Stop: 08/16/18 17:05 Miscellaneous ([place]ak[place] Half Strenght 0.25% [place]) 1 appl TP DAILY [facility] Stop: 06/20/18 15:00 Last Admin: 06/18/18 10:05 Dose: Not Given Miscellaneous (Probiotic Screen) 1 ea MC PRN PRN PRN Reason: PROTOCOL Stop: 08/17/18 09:32 Miscellaneous (Tpn Per Pharmacy) 1 ea MC PRN PRN PRN Reason: PROTOCOL Stop: 08/18/18 10:24 Morphine Sulfate (Morphine) 1 mg IVP Q4HR PRN PRN Reason: Pain (Severe) Stop: 08/16/18 20:07 Last Admin: 06/20/18 21:12 Dose: 1 mg Mupirocin (Bactroban Oint) 1 appl NS BID [facility] Stop: 06/23/18 17:01 Last Admin: 06/20/18 17:40 Dose: 1 appl Nystatin (Mycostatin Cream) 1 appl TP BID [facility] Stop: 08/17/18 08:59 Last Admin: 06/20/18 17:40 Dose: 1 appl Petrolatum (Vaseline Oint) 1 appl TP DAILY [facility] Stop: 08/17/18 08:59 Sucralfate (Carafate) 1 gm GT QID [facility] Stop: 08/17/18 08:59 Last Admin: 06/20/18 21:34 Dose: Not Given General: Alert, No acute distress HEENT: Atraumatic, PERRLA, EOMI Neck: Supple Cardiovascular: Regular rate, Normal S1, Normal S2 Lungs: Clear to auscultation Abdomen: Other (presence of cellulitis at the Gtube site) Extremities: no Clubbing, no Cyanosis, no Edema Assessment/Plan - Problem List Patient Problems: All Active Problems MALFUNCTIONING GASTRIC FEEDING TUBE/RASH (Acute) - Assessment Assessment: Current Active Problems Problem Status Onset MALFUNCTIONING GASTRIC FEEDING TUBE/RASH Acute Cellulitis and induration around g tube site in a man who is dependent on tube feeds. 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 Anemia with hematocrit of 25. Thrombocytosis of 722k. COPD Nicotine addiction. prerenal azotemia - Plan Plan: continue Vancomycin and Rocephin IV will continue home meds. keep NPO on TPN per pharmacy for PEG placement in a few days per GI Nutritional Asmnt/Malnutr-PDOC - Dietary Evaluation Malnutrition Findings (Please click <Entered> for more info): Nutritional Asmnt/Malnutrition Start: 06/18/18 12: 01 Text: Status: Complete Freq: Protocol: Document 06/18/18 12:01 NICKI (Rec: 06/18/18 12:27 NICKI REGINE- [email or web address]) Nutritional Asmnt/Malnutrition Patient General Information Nutritional Screening High Risk Diagnosis Malfunction G-Tube Pertinent Medical Hx/Surgical Hx CHRONIC RESPIRATORY FAILURE, MALIGNANT NEOPLASM OF TONGUE, CHRONIC RHINITIS, TRACHEOSTOMY , GASTRIC FEEDING TUBE, CHRONIC BRONCHITIS, LONGTERM ANTICOAGULANTS Subjective Information Patient was admitted from SNF with H&P "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 Per nursing, patient with G-tube in place, however states MD wants to wait to start feeding. Current Diet Order/ Nutrition Support NPO Patient / S.O Not Indicated Pertinent Medications dulxolax, D5-0.45NS @ 50 ml/hr , colace, iron, folate, culturelle, MOM, Abx Pertinent Labs (06/18) albumin 2.9 ( decreasing) Nutritional Hx/Data Height 1.68 m Height (Calculated Centimeters) 167.6 Current Weight (lbs) 47.174 kg Weight (Calculated Kilograms) 47.2 Weight (Calculated Grams) 49138.6 [place] Body Weight 142 % [place] Body Weight 73 Body Mass Index (BMI) 16.7 Recent Weight Change No Weight Status Underweight GI Symptoms GI Symptoms None Last BM none noted since admission Difficult in: None Food Allergies No Cultural/Ethnic/M[employer]on Belief none indicated Usual diet at home Jevity 1.2 Bolus 4 cans daily (1 can 9am, 1p, 5p, 10p), with 100ml free water flush every 6 hours. This provides 948ml total volume, 1137 kcal, 52 gm protein, 1165ml free water. Skin Integrity/Comment: Bryan 18, reddened stoma/g- tube site, rash/reddened back Estimated Nutritional Goals BEE in Kcals: Using Current wt Calories/Kcals/Kg 35-40 kcal/kg using CBW 47.2 ( cancer, low BMI) Kcals Calculated ~1114-3863 kcal/day Protein: Using Current wt Protein g/k.5-2 gm/kg (cancer, muscle wasting) Protein Calculated 70-95 gm/day Fluid: ml ~8418-3922 ml/day Nutritional Problem 1. Problem Problem Inadequate energy intake related to Etiology withholding tube feeding due to malfunction G-tube without initiation of alternate nutrition support aeb Signs/Symptoms: NPO status Intervention/Recommendation Comments 1. Restart tube feeding once medically appropriate; recommend bolus feeding Jevity 1.2 375 ml 4 times a day ( previous feeding schedule 9am, 1p, 5p, 10p). This provides 1500ml, 1800 kcal, 82 gm protein. 2. If unable to restart tube feeding, consider Parenteral nutrition. Expected Outcomes/Goals Expected Outcomes/Goals Meets >75% of nutrient needs, weight increase toward ideal body weight, improved skin integrity
[2018-06-21 07:57] LABS: % BASOPHILS 0.5 % (0.0-2.0); % EOSINOPHILS 0.1 % (0.0-5.0); % MONOCYTES 8.5 % (2.0-10.0); % NEUTROPHILS 84.9 % (40.0-80.0); HEMOGLOBIN 8.4 gm/dL (12-16); LYMPHOCYTE ABSOLUTE 0.4 Th/cmm (1.5-3.0); MEAN CELL VOLUME 92.2 fl (80-99); MEAN CORPUSCULAR HEMOGLOBIN 30.9 pg (26.0-30.0); MEAN CORPUSCULAR HGB CONC 33.5 pg (28.0-36.0); MEAN PLATELET VOLUME 6.8 fl; MONOCYTE ABSOLUTE 0.5 Th/cmm (0.3-1.0); NEUTROPHILE ABSOLUTE 5.2 Th/cmm (1.8-8.0); PLATELET COUNT 538 Th/cmm (150-400); RED BLOOD COUNT 2.72 Mil/cmm (4.30-5.70); RED CELL DISTRIBUTION WIDTH 16.2 % (11.5-20.0); WHITE BLOOD COUNT 6.1 Th/cmm (4.8-10.8)
[2018-06-21 08:19] LABS: ANION GAP 13.9 (7.0-16.0); BUN - UREA NITROGEN 19 mg/dL (7-25); CALCIUM SERUM 8.8 mg/dL (8.6-10.3); CARBON DIOXIDE 22.4 mEq/L (21.0-31.0); CHLORIDE 103 mEq/L (98-107); CREATININE - SERUM 0.4 mg/dL (0.7-1.3); GFR AFRICAN-AMERICAN > 60.0 ml/min (>90); GFR NON AFRICAN-AMERICAN > 60.0 ml/min; GLUCOSE 84 mg/dL (70-105); MAGNESIUM 1.8 mg/dL (1.9-2.7); PHOSPHOROUS 3.6 mg/dL (2.5-5.0); POTASSIUM SERUM 3.3 mEq/L (3.5-5.1); SODIUM SERUM 136 mEq/L (136-145)
[2018-06-21] MEDS: Chlorhexidine Gluconate 0.12% 480mL Bottle MM SCH ×2 (08:51→16:56)
[2018-06-21] MEDS: Ferrous Sulfate 300 MG/5 ML UDC GT SCH ×2 (08:52→16:56)
[2018-06-21] MEDS: Multivitamin w/ Minerals Tab GT SCH (08:53)
[2018-06-21] MEDS: Lactobacillus Rhamnosus GG 15 Billion CFU CAP.SPRINK PO SCH (08:53)
[2018-06-21] MEDS ORDERED: SODIUM HYPOCHLORITE 0.25% TP SCH (09:00)
[2018-06-21] MEDS: Enoxaparin 40 mg/0.4 mL 0.4mL Syr SUBQ SCH (09:10)
[2018-06-21] MEDS: Fluticasone Propionate Nasal 1 SPR SPR NS SCH (09:10)
[2018-06-21] MEDS: Amino Acids 3% / Electrolytes 1,000 ML IV SCH (09:10)
[2018-06-21] MEDS: Nystatin Cream 100,000 u/gm Cream 15 gm TP SCH ×2 (09:10→16:57)
[2018-06-21] MEDS: Morphine Sulfate 4 mg/mL 1mL Syr IVP PRN ×3 (09:16→20:00)
[2018-06-21 10:14] LABS: BAND NEUTROPHILE 2 % (0-10); LYMPHOCYTE 8 % (20-50); MONOCYTE 7 % (2-10); NEUTROPHILS 83 % (40-80)
--- NOTE | 2018-06-21 10:53 | General Progress Note ---
Subjective - Review of Systems Service Date: 06/21/18 Subjective: no new sxs G. tube is out on iv nutrition Objective - Results Result Diagrams: 06/21/18 07:00 06/21/18 07:00 Recent Labs: Laboratory Last Values WBC 6.1 Th/cmm (4.8-10.8) 06/21/18 07:00 RBC 2.72 Mil/cmm (4.30-5.70) L 06/21/18 07:00 Hgb 8.4 gm/dL (12-16) L 06/21/18 07:00 Hct 25.0 % (41.0-60) L 06/21/18 07:00 MCV 92.2 fl (80-99) 06/21/18 07:00 MCH 30.9 pg (26.0-30.0) H 06/21/18 07:00 MCHC Differential 33.5 pg (28.0-36.0) 06/21/18 07:00 RDW 16.2 % (11.5-20.0) 06/21/18 07:00 Plt Count 538 Th/cmm (150-400) H 06/21/18 07:00 MPV 6.8 fl 06/21/18 07:00 Add Manual Diff YES 06/18/18 06:30 Neutrophils % 84.9 % (40.0-80.0) H 06/21/18 07:00 Band Neutrophils % 2 % (0-10) 06/21/18 07:00 Lymphocytes % 6.0 % (20.0-50.0) L 06/21/18 07:00 Monocytes % 8.5 % (2.0-10.0) 06/21/18 07:00 Eosinophils % 0.1 % (0.0-5.0) 06/21/18 07:00 Basophils % 0.5 % (0.0-2.0) 06/21/18 07:00 Neutrophils (Manual) 83 % (40-80) H 06/21/18 07:00 Lymphocytes 8 % (20-50) L 06/21/18 07:00 Monocytes 7 % (2-10) 06/21/18 07:00 Eosinophils 0 % (0-5) 06/18/18 06:30 Basophils 0 % (0-3) 06/18/18 06:30 Platelet Estimate INCREASED PLATELETS (NORMAL) 06/17/18 11:40 PT 10.9 SECONDS (9.5-11.5) 06/18/18 06:30 INR 1.05 (0.5-1.4) 06/18/18 06:30 Sodium 136 mEq/L (136-145) 06/21/18 07:00 Potassium 3.3 mEq/L (3.5-5.1) L 06/21/18 07:00 Chloride 103 mEq/L (98-107) 06/21/18 07:00 Carbon Dioxide 22.4 mEq/L (21.0-31.0) 06/21/18 07:00 Anion Gap 13.9 (7.0-16.0) 06/21/18 07:00 BUN 19 mg/dL (7-25) 06/21/18 07:00 Creatinine 0.4 mg/dL (0.7-1.3) L 06/21/18 07:00 Est GFR ( Amer) > 60.0 ml/min (>90) 06/21/18 07:00 Est GFR (Non-Af Amer) > 60.0 ml/min 06/21/18 07:00 BUN/Creatinine Ratio 47.5 06/21/18 07:00 Glucose 84 mg/dL (70-105) 06/21/18 07:00 POC Glucose 89 MG/DL (70 - 105) 06/21/18 06:58 Calcium 8.8 mg/dL (8.6-10.3) 06/21/18 07:00 Phosphorus 3.6 mg/dL (2.5-5.0) 06/21/18 07:00 Magnesium 1.8 mg/dL (1.9-2.7) L 06/21/18 07:00 Iron 36 ug/dL (38-169) L 06/18/18 06:30 TIBC 198 ug/dL (250-450) L 06/18/18 06:30 Iron Saturation 18 % (15-55) 06/18/18 06:30 Unsaturated IBC 162 ug/dL (111-343) 06/18/18 06:30 Ferritin 304 ng/mL (30-400) 06/19/18 09:16 Total Bilirubin 0.2 mg/dL (0.3-1.0) L 06/20/18 10:20 AST 8 U/L (13-39) L 06/20/18 10:20 ALT 4 U/L (7-52) L 06/20/18 10:20 Alkaline Phosphatase 43 U/L (34-104) 06/20/18 10:20 Total Protein 6.0 gm/dL (6.0-8.3) 06/20/18 10:20 Albumin 2.9 gm/dL (4.2-5.5) L 06/20/18 10:20 Globulin 3.1 gm/dL 06/20/18 10:20 Albumin/Globulin Ratio 0.9 (1.0-1.8) L 06/20/18 10:20 Prealbumin 11 mg/dL (10-36) 06/20/18 10:20 Triglycerides 48 mg/dL (<150) 06/20/18 10:20 Cholesterol 123 mg/dL (<200) 06/20/18 10:20 Urine Source CLEAN C 06/17/18 19:05 Urine Color YELLOW 06/17/18 19:05 Urine Clarity HAZY (CLEAR) 06/17/18 19:05 Urine pH 7.5 (4.6 - 8.0) 06/17/18 19:05 Ur Specific [place] 1.015 (1.005-1.030) 06/17/18 19:05 Urine Protein NEGATIVE mg/dL (NEGATIVE) 06/17/18 19:05 Urine Glucose (UA) NEGATIVE mg/dL (NEGATIVE) 06/17/18 19:05 Urine Ketones 40 mg/dL (NEGATIVE) H 06/17/18 19:05 Urine Blood LARGE (NEGATIVE) H 06/17/18 19:05 Urine Nitrate NEGATIVE (NEGATIVE) 06/17/18 19:05 Urine Bilirubin NEGATIVE (NEGATIVE) 06/17/18 19:05 Urine Urobilinogen 0.2 E.U./dL (0.2 - 1.0) 06/17/18 19:05 Ur Leukocyte Esterase NEGATIVE (NEGATIVE) 06/17/18 19:05 Urine RBC NONE SEEN /hpf (0-5) 06/17/18 19:05 Urine WBC 2-5 /hpf (0-5) 06/17/18 19:05 Ur Epithelial Cells NONE SEEN /lpf (FEW) 06/17/18 19:05 Urine Bacteria FEW /hpf (NONE SEEN) 06/17/18 19:05 Vancomycin Trough 20.3 ug/mL (5-10) H 06/20/18 19:55 - Physical Exam Vitals and I&O: Vital Signs Temp 97.4 F 06/21/18 08:00 Pulse 73 06/21/18 08:00 Resp 16 06/21/18 08:00 BP 155/71 06/21/18 08:00 Pulse Ox 98 06/21/18 08:00 Intake & Output 06/20/18 06/21/18 06/21/18 18:59 06:59 18:59 Intake Total 1250 250 Balance 1250 250 Weight (lbs) 47.174 kg 47.174 kg 47.174 kg Intake: Intake, IV Amount 1250 250 Amino Acids 3% / 1000 Electrolytes 1,000 ml @ 42 mls/hr IV .[id number] [facility] Rx#:[id number] Vancomycin HCl 1 gm In 250 250 Sodium Chloride 0.9% 250 ml @ 165 mls/hr IV Q12HR [facility] Rx#:[id number] Oral 0 Other: Weight Source Bedscale Bedscale Bedscale Active Medications: Current Medications Acetaminophen (Tylenol 650mg/20.3ml Suspension) 650 mg GT Q6H PRN PRN Reason: BREAKTRHOUGH PAIN OR TEMP >101 Stop: 08/17/18 06:46 Acetaminophen/Hydrocodone Bitart ([place] 10 Mg/325 Mg) 1 tab GT Q6H PRN PRN Reason: PAIN (MODERATE) Stop: 08/19/18 08:59 Acetaminophen/Hydrocodone Bitart ([place] 5mg/325mg) 1 tab GT Q6H PRN PRN Reason: MILD PAIN Stop: 08/19/18 08:59 Albuterol/Ipratropium (Duoneb Neb) 3 ml HHN Q6HRT [facility] Stop: 08/17/18 06:59 Last Admin: 06/21/18 07:13 Dose: 3 ml Bisacodyl (Dulcolax 10 Mg Supp) 10 mg RC DAILY PRN PRN Reason: Constipation Stop: 08/17/18 06:34 Last Admin: 06/19/18 17:27 Dose: 10 mg Chlorhexidine Gluconate (Peridex) 15 ml MM BID [facility] Stop: 08/17/18 08:59 Last Admin: 06/21/18 08:51 Dose: Not Given Docusate Sodium (Colace) 100 mg PO BID [facility] Stop: 08/17/18 08:59 Last Admin: 06/21/18 08:52 Dose: Not Given Enoxaparin Sodium (Lovenox) 40 mg SUBQ DAILY [facility] Stop: 08/17/18 08:59 Last Admin: 06/21/18 09:10 Dose: 40 mg Ferrous Sulfate (Iron) 300 mg GT BID [facility] Stop: 08/17/18 08:59 Last Admin: 06/21/18 08:52 Dose: Not Given Fluticasone Propionate (Flonase) 1 spr NS DAILY [facility] Stop: 08/17/18 08:59 Last Admin: 06/21/18 09:10 Dose: 1 spr Folic Acid (Folate) 1 mg GT DAILY [facility] Stop: 08/17/18 08:59 Last Admin: 06/21/18 08:53 Dose: Not Given Vancomycin HCl 1 gm/ Sodium (Chloride) 250 mls @ 165 mls/hr IV Q12HR [facility] Stop: 08/18/18 08:59 Last Admin: 06/21/18 09:09 Dose: 165 mls/hr Amino Acids/Electrolytes (Procalamine) 1,000 mls @ 42 mls/hr IV .[id number] [facility] Stop: 08/18/18 14:59 Last Admin: 06/21/18 09:10 Dose: 41.667 mls/hr Insulin Aspart (Novolog Insulin Sliding Scale) 0 units SUBQ Q6HR [facility]; Protocol Stop: 08/19/18 11:59 Last Admin: 06/21/18 07:00 Dose: Not Given Lactobacillus Rhamnosus (Culturelle 15b) 1 each PO DAILY [facility] Stop: 08/17/18 13:59 Last Admin: 06/21/18 08:53 Dose: Not Given Magnesium Hydroxide (Milk Of Magnesia) 30 ml GT DAILY PRN PRN Reason: Constipation Stop: 08/17/18 06:34 Miscellaneous (Vancomycin Iv Per Pharmacy) 1 ea MC PRN PRN PRN Reason: VANCO PER RX Stop: 08/16/18 16:03 Miscellaneous (Vte Chemical Prophylaxis Screen/ Admission) 1 ea MC PRN PRN PRN Reason: PROTOCOL Stop: 08/16/18 17:05 Miscellaneous ([place]ak[place] Half Strenght 0.25% [place]) 1 appl TP DAILY [facility] Stop: 06/20/18 15:00 Last Admin: 06/18/18 10:05 Dose: Not Given Miscellaneous (Probiotic Screen) 1 ea MC PRN PRN PRN Reason: PROTOCOL Stop: 08/17/18 09:32 Miscellaneous (Tpn Per Pharmacy) 1 ea MC PRN PRN PRN Reason: PROTOCOL Stop: 08/18/18 10:24 Morphine Sulfate (Morphine) 1 mg IVP Q4HR PRN PRN Reason: Pain (Severe) Stop: 08/16/18 20:07 Last Admin: 06/21/18 09:16 Dose: 1 mg Mupirocin (Bactroban Oint) 1 appl NS BID [facility] Stop: 06/23/18 17:01 Last Admin: 06/21/18 09:10 Dose: 1 appl Nystatin (Mycostatin Cream) 1 appl TP BID [facility] Stop: 08/17/18 08:59 Last Admin: 06/21/18 09:10 Dose: 1 appl Petrolatum (Vaseline Oint) 1 appl TP DAILY [facility] Stop: 08/17/18 08:59 Sucralfate (Carafate) 1 gm GT QID [facility] Stop: 08/17/18 08:59 Last Admin: 06/21/18 08:53 Dose: Not Given General: Alert, No acute distress HEENT: Atraumatic, PERRLA, EOMI Neck: Supple Cardiovascular: Regular rate, Normal S1, Normal S2 Lungs: Clear to auscultation Abdomen: Other (presence of cellulitis at the Gtube site) Extremities: no Clubbing, no Cyanosis, no Edema Assessment/Plan - Problem List Patient Problems: All Active Problems MALFUNCTIONING GASTRIC FEEDING TUBE/RASH (Acute) - Assessment Assessment: The elevated platelet count is most likely reactive. The patient has concurrent anemia and anemia workup will be obtained. No interim specific intervention is required for the high platelet count. The patient has a report of possible cecal mass on PET scan done by the primary oncologist and this will be deferred to the primary oncologist for continued management. 06/19: ferritin pending. plt better. hgb lower. monitor 06/20: hgb lower. plt stable. ferritin pending. monitor for now. 06/21/18: hgb stable. ferritin pending. Monitor. dvt proph Nutritional Asmnt/Malnutr-PDOC - Dietary Evaluation Malnutrition Findings (Please click <Entered> for more info): Nutritional Asmnt/Malnutrition Start: 06/18/18 12: 01 Text: Status: Complete Freq: Protocol: Document 06/18/18 12:01 NICKI (Rec: 06/18/18 12:27 NICKI REGINE- [email or web address]) Nutritional Asmnt/Malnutrition Patient General Information Nutritional Screening High Risk Diagnosis Malfunction G-Tube Pertinent Medical Hx/Surgical Hx CHRONIC RESPIRATORY FAILURE, MALIGNANT NEOPLASM OF TONGUE, CHRONIC RHINITIS, TRACHEOSTOMY , GASTRIC FEEDING TUBE, CHRONIC BRONCHITIS, [employer] ANTICOAGULANTS Subjective Information Patient was admitted from SNF with H&P "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 Per nursing, patient with G-tube in place, however states MD wants to wait to start feeding. Current Diet Order/ Nutrition Support NPO Patient / S.O Not Indicated Pertinent Medications dulxolax, D5-0.45NS @ 50 ml/hr , colace, iron, folate, culturelle, MOM, Abx Pertinent Labs (06/18) albumin 2.9 ( decreasing) Nutritional Hx/Data Height 1.68 m Height (Calculated Centimeters) 167.6 Current Weight (lbs) 47.174 kg Weight (Calculated Kilograms) 47.2 Weight (Calculated Grams) 60982.6 [place] Body Weight 142 % [place] Body Weight 73 Body Mass Index (BMI) 16.7 Recent Weight Change No Weight Status Underweight GI Symptoms GI Symptoms None Last BM none noted since admission Difficult in: None Food Allergies No Cultural/Ethnic/Mandaen Belief none indicated Usual diet at home Jevity 1.2 Bolus 4 cans daily (1 can 9am, 1p, 5p, 10p), with 100ml free water flush every 6 hours. This provides 948ml total volume, 1137 kcal, 52 gm protein, 1165ml free water. Skin Integrity/Comment: Bryan 18, reddened stoma/g- tube site, rash/reddened back Estimated Nutritional Goals BEE in Kcals: Using Current wt Calories/Kcals/Kg 35-40 kcal/kg using CBW 47.2 ( cancer, low BMI) Kcals Calculated ~9559-2865 kcal/day Protein: Using Current wt Protein g/k.5-2 gm/kg (cancer, muscle wasting) Protein Calculated 70-95 gm/day Fluid: ml ~0691-6955 ml/day Nutritional Problem 1. Problem Problem Inadequate energy intake related to Etiology withholding tube feeding due to malfunction G-tube without initiation of alternate nutrition support aeb Signs/Symptoms: NPO status Intervention/Recommendation Comments 1. Restart tube feeding once medically appropriate; recommend bolus feeding Jevity 1.2 375 ml 4 times a day ( previous feeding schedule 9am, 1p, 5p, 10p). This provides 1500ml, 1800 kcal, 82 gm protein. 2. If unable to restart tube feeding, consider Parenteral nutrition. Expected Outcomes/Goals Expected Outcomes/Goals Meets >75% of nutrient needs, weight increase toward ideal body weight, improved skin integrity
[2018-06-21] MEDS: Petrolatum (White) Oint 0.6 Oz Tube TP SCH (11:36)
--- NOTE | 2018-06-21 11:49 | GI Progress Note ---
Subjective - Review of Systems Service Date: 06/21/18 Events since last encounter: Pt still on TPN, g tube site is looking less infected slowly closing Objective - Results Result Diagrams: 06/21/18 07:00 06/21/18 07:00 Recent Labs: Laboratory Last Values WBC 6.1 Th/cmm (4.8-10.8) 06/21/18 07:00 RBC 2.72 Mil/cmm (4.30-5.70) L 06/21/18 07:00 Hgb 8.4 gm/dL (12-16) L 06/21/18 07:00 Hct 25.0 % (41.0-60) L 06/21/18 07:00 MCV 92.2 fl (80-99) 06/21/18 07:00 MCH 30.9 pg (26.0-30.0) H 06/21/18 07:00 MCHC Differential 33.5 pg (28.0-36.0) 06/21/18 07:00 RDW 16.2 % (11.5-20.0) 06/21/18 07:00 Plt Count 538 Th/cmm (150-400) H 06/21/18 07:00 MPV 6.8 fl 06/21/18 07:00 Add Manual Diff YES 06/18/18 06:30 Neutrophils % 84.9 % (40.0-80.0) H 06/21/18 07:00 Band Neutrophils % 2 % (0-10) 06/21/18 07:00 Lymphocytes % 6.0 % (20.0-50.0) L 06/21/18 07:00 Monocytes % 8.5 % (2.0-10.0) 06/21/18 07:00 Eosinophils % 0.1 % (0.0-5.0) 06/21/18 07:00 Basophils % 0.5 % (0.0-2.0) 06/21/18 07:00 Neutrophils (Manual) 83 % (40-80) H 06/21/18 07:00 Lymphocytes 8 % (20-50) L 06/21/18 07:00 Monocytes 7 % (2-10) 06/21/18 07:00 Eosinophils 0 % (0-5) 06/18/18 06:30 Basophils 0 % (0-3) 06/18/18 06:30 Platelet Estimate INCREASED PLATELETS (NORMAL) 06/17/18 11:40 PT 10.9 SECONDS (9.5-11.5) 06/18/18 06:30 INR 1.05 (0.5-1.4) 06/18/18 06:30 Sodium 136 mEq/L (136-145) 06/21/18 07:00 Potassium 3.3 mEq/L (3.5-5.1) L 06/21/18 07:00 Chloride 103 mEq/L (98-107) 06/21/18 07:00 Carbon Dioxide 22.4 mEq/L (21.0-31.0) 06/21/18 07:00 Anion Gap 13.9 (7.0-16.0) 06/21/18 07:00 BUN 19 mg/dL (7-25) 06/21/18 07:00 Creatinine 0.4 mg/dL (0.7-1.3) L 06/21/18 07:00 Est GFR ( Amer) > 60.0 ml/min (>90) 06/21/18 07:00 Est GFR (Non-Af Amer) > 60.0 ml/min 06/21/18 07:00 BUN/Creatinine Ratio 47.5 06/21/18 07:00 Glucose 84 mg/dL (70-105) 06/21/18 07:00 POC Glucose 89 MG/DL (70 - 105) 06/21/18 06:58 Calcium 8.8 mg/dL (8.6-10.3) 06/21/18 07:00 Phosphorus 3.6 mg/dL (2.5-5.0) 06/21/18 07:00 Magnesium 1.8 mg/dL (1.9-2.7) L 06/21/18 07:00 Iron 36 ug/dL (38-169) L 06/18/18 06:30 TIBC 198 ug/dL (250-450) L 06/18/18 06:30 Iron Saturation 18 % (15-55) 06/18/18 06:30 Unsaturated IBC 162 ug/dL (111-343) 06/18/18 06:30 Ferritin 304 ng/mL (30-400) 06/19/18 09:16 Total Bilirubin 0.2 mg/dL (0.3-1.0) L 06/20/18 10:20 AST 8 U/L (13-39) L 06/20/18 10:20 ALT 4 U/L (7-52) L 06/20/18 10:20 Alkaline Phosphatase 43 U/L (34-104) 06/20/18 10:20 Total Protein 6.0 gm/dL (6.0-8.3) 06/20/18 10:20 Albumin 2.9 gm/dL (4.2-5.5) L 06/20/18 10:20 Globulin 3.1 gm/dL 06/20/18 10:20 Albumin/Globulin Ratio 0.9 (1.0-1.8) L 06/20/18 10:20 Prealbumin 11 mg/dL (10-36) 06/20/18 10:20 Triglycerides 48 mg/dL (<150) 06/20/18 10:20 Cholesterol 123 mg/dL (<200) 06/20/18 10:20 Urine Source CLEAN C 06/17/18 19:05 Urine Color YELLOW 06/17/18 19:05 Urine Clarity HAZY (CLEAR) 06/17/18 19:05 Urine pH 7.5 (4.6 - 8.0) 06/17/18 19:05 Ur Specific [place] 1.015 (1.005-1.030) 06/17/18 19:05 Urine Protein NEGATIVE mg/dL (NEGATIVE) 06/17/18 19:05 Urine Glucose (UA) NEGATIVE mg/dL (NEGATIVE) 06/17/18 19:05 Urine Ketones 40 mg/dL (NEGATIVE) H 06/17/18 19:05 Urine Blood LARGE (NEGATIVE) H 06/17/18 19:05 Urine Nitrate NEGATIVE (NEGATIVE) 06/17/18 19:05 Urine Bilirubin NEGATIVE (NEGATIVE) 06/17/18 19:05 Urine Urobilinogen 0.2 E.U./dL (0.2 - 1.0) 06/17/18 19:05 Ur Leukocyte Esterase NEGATIVE (NEGATIVE) 06/17/18 19:05 Urine RBC NONE SEEN /hpf (0-5) 06/17/18 19:05 Urine WBC 2-5 /hpf (0-5) 06/17/18 19:05 Ur Epithelial Cells NONE SEEN /lpf (FEW) 06/17/18 19:05 Urine Bacteria FEW /hpf (NONE SEEN) 06/17/18 19:05 Vancomycin Trough 20.3 ug/mL (5-10) H 06/20/18 19:55 - Physical Exam Vitals and I&O: Vital Signs Temp 97.4 F 06/21/18 08:00 Pulse 73 06/21/18 08:00 Resp 16 06/21/18 08:00 BP 155/71 06/21/18 08:00 Pulse Ox 98 06/21/18 08:00 Intake & Output 06/20/18 06/21/18 06/21/18 18:59 06:59 18:59 Intake Total 1250 250 Balance 1250 250 Weight (lbs) 47.174 kg 47.174 kg 47.174 kg Intake: Intake, IV Amount 1250 250 Amino Acids 3% / 1000 Electrolytes 1,000 ml @ 42 mls/hr IV .[id number] [facility] Rx#:[id number] Vancomycin HCl 1 gm In 250 250 Sodium Chloride 0.9% 250 ml @ 165 mls/hr IV Q12HR [facility] Rx#:[id number] Oral 0 Other: Weight Source Bedscale Bedscale Bedscale Active Medications: Current Medications Acetaminophen (Tylenol 650mg/20.3ml Suspension) 650 mg GT Q6H PRN PRN Reason: BREAKTRHOUGH PAIN OR TEMP >101 Stop: 08/17/18 06:46 Acetaminophen/Hydrocodone Bitart ([place] 10 Mg/325 Mg) 1 tab GT Q6H PRN PRN Reason: PAIN (MODERATE) Stop: 08/19/18 08:59 Acetaminophen/Hydrocodone Bitart ([place] 5mg/325mg) 1 tab GT Q6H PRN PRN Reason: MILD PAIN Stop: 08/19/18 08:59 Albuterol/Ipratropium (Duoneb Neb) 3 ml HHN Q6HRT [facility] Stop: 08/17/18 06:59 Last Admin: 06/21/18 07:13 Dose: 3 ml Bisacodyl (Dulcolax 10 Mg Supp) 10 mg RC DAILY PRN PRN Reason: Constipation Stop: 08/17/18 06:34 Last Admin: 06/19/18 17:27 Dose: 10 mg Chlorhexidine Gluconate (Peridex) 15 ml MM BID [facility] Stop: 08/17/18 08:59 Last Admin: 06/21/18 08:51 Dose: Not Given Docusate Sodium (Colace) 100 mg PO BID [facility] Stop: 08/17/18 08:59 Last Admin: 06/21/18 08:52 Dose: Not Given Enoxaparin Sodium (Lovenox) 40 mg SUBQ DAILY [facility] Stop: 08/17/18 08:59 Last Admin: 06/21/18 09:10 Dose: 40 mg Ferrous Sulfate (Iron) 300 mg GT BID [facility] Stop: 08/17/18 08:59 Last Admin: 06/21/18 08:52 Dose: Not Given Fluticasone Propionate (Flonase) 1 spr NS DAILY [facility] Stop: 08/17/18 08:59 Last Admin: 06/21/18 09:10 Dose: 1 spr Folic Acid (Folate) 1 mg GT DAILY [facility] Stop: 08/17/18 08:59 Last Admin: 06/21/18 08:53 Dose: Not Given Vancomycin HCl 1 gm/ Sodium (Chloride) 250 mls @ 165 mls/hr IV Q12HR [facility] Stop: 08/18/18 08:59 Last Admin: 06/21/18 09:09 Dose: 165 mls/hr Amino Acids/Electrolytes (Procalamine) 1,000 mls @ 42 mls/hr IV .[id number] [facility] Stop: 08/18/18 14:59 Last Admin: 06/21/18 09:10 Dose: 41.667 mls/hr Multivitamins/Minerals 10 ml/Chromium/Copper/Manganese/Zinc 1 ml/ Dextrose/ Amino Acids/Electrolytes/ Sterile Water 2,011 mls @ 80 mls/hr IV .Q24H [facility] Stop: 08/20/18 14:59 Insulin Aspart (Novolog Insulin Sliding Scale) 0 units SUBQ Q6HR [facility]; Protocol Stop: 08/19/18 11:59 Last Admin: 06/21/18 07:00 Dose: Not Given Lactobacillus Rhamnosus (Culturelle 15b) 1 each PO DAILY [facility] Stop: 08/17/18 13:59 Last Admin: 06/21/18 08:53 Dose: Not Given Magnesium Hydroxide (Milk Of Magnesia) 30 ml GT DAILY PRN PRN Reason: Constipation Stop: 08/17/18 06:34 Miscellaneous (Vancomycin Iv Per Pharmacy) 1 ea MC PRN PRN PRN Reason: VANCO PER RX Stop: 08/16/18 16:03 Miscellaneous (Vte Chemical Prophylaxis Screen/ Admission) 1 ea MC PRN PRN PRN Reason: PROTOCOL Stop: 08/16/18 17:05 Miscellaneous (Dakins Half Strenght 0.25% [place]) 1 appl TP DAILY [facility] Stop: 06/20/18 15:00 Last Admin: 06/18/18 10:05 Dose: Not Given Miscellaneous (Probiotic Screen) 1 ea MC PRN PRN PRN Reason: PROTOCOL Stop: 08/17/18 09:32 Miscellaneous (Tpn Per Pharmacy) 1 ea MC PRN PRN PRN Reason: PROTOCOL Stop: 08/18/18 10:24 Morphine Sulfate (Morphine) 1 mg IVP Q4HR PRN PRN Reason: Pain (Severe) Stop: 08/16/18 20:07 Last Admin: 06/21/18 09:16 Dose: 1 mg Mupirocin (Bactroban Oint) 1 appl NS BID [facility] Stop: 06/23/18 17:01 Last Admin: 06/21/18 09:10 Dose: 1 appl Nystatin (Mycostatin Cream) 1 appl TP BID [facility] Stop: 08/17/18 08:59 Last Admin: 06/21/18 09:10 Dose: 1 appl Petrolatum (Vaseline Oint) 1 appl TP DAILY [facility] Stop: 08/17/18 08:59 Last Admin: 06/21/18 11:36 Dose: Not Given Sucralfate (Carafate) 1 gm GT QID [facility] Stop: 08/17/18 08:59 Last Admin: 06/21/18 08:53 Dose: Not Given General: Alert, No acute distress HEENT: Atraumatic, PERRLA, EOMI Neck: Supple Cardiovascular: Regular rate, Normal S1, Normal S2 Lungs: Clear to auscultation Abdomen: Other (presence of cellulitis at the Gtube site) Extremities: no Clubbing, no Cyanosis, no Edema Assessment/Plan - Problem List Patient Problems: All Active Problems MALFUNCTIONING GASTRIC FEEDING TUBE/RASH (Acute) - Assessment Assessment: 1. G tube cellulitis 2. Buried bumper syndrome 3. 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
--- NOTE | 2018-06-21 13:41 | Infectious Disease Prog Note ---
Infectious Disease Subjective - Review of Systems Service Date: 06/21/18 Subjective: There is no new change, no fever. Infectious Disease Objective - Results Result Diagrams: 06/21/18 07:00 06/21/18 07:00 Recent Labs: Laboratory Last Values WBC 6.1 Th/cmm (4.8-10.8) 06/21/18 07:00 RBC 2.72 Mil/cmm (4.30-5.70) L 06/21/18 07:00 Hgb 8.4 gm/dL (12-16) L 06/21/18 07:00 Hct 25.0 % (41.0-60) L 06/21/18 07:00 MCV 92.2 fl (80-99) 06/21/18 07:00 MCH 30.9 pg (26.0-30.0) H 06/21/18 07:00 MCHC Differential 33.5 pg (28.0-36.0) 06/21/18 07:00 RDW 16.2 % (11.5-20.0) 06/21/18 07:00 Plt Count 538 Th/cmm (150-400) H 06/21/18 07:00 MPV 6.8 fl 06/21/18 07:00 Add Manual Diff YES 06/18/18 06:30 Neutrophils % 84.9 % (40.0-80.0) H 06/21/18 07:00 Band Neutrophils % 2 % (0-10) 06/21/18 07:00 Lymphocytes % 6.0 % (20.0-50.0) L 06/21/18 07:00 Monocytes % 8.5 % (2.0-10.0) 06/21/18 07:00 Eosinophils % 0.1 % (0.0-5.0) 06/21/18 07:00 Basophils % 0.5 % (0.0-2.0) 06/21/18 07:00 Neutrophils (Manual) 83 % (40-80) H 06/21/18 07:00 Lymphocytes 8 % (20-50) L 06/21/18 07:00 Monocytes 7 % (2-10) 06/21/18 07:00 Eosinophils 0 % (0-5) 06/18/18 06:30 Basophils 0 % (0-3) 06/18/18 06:30 Platelet Estimate INCREASED PLATELETS (NORMAL) 06/17/18 11:40 PT 10.9 SECONDS (9.5-11.5) 06/18/18 06:30 INR 1.05 (0.5-1.4) 06/18/18 06:30 Sodium 136 mEq/L (136-145) 06/21/18 07:00 Potassium 3.3 mEq/L (3.5-5.1) L 06/21/18 07:00 Chloride 103 mEq/L (98-107) 06/21/18 07:00 Carbon Dioxide 22.4 mEq/L (21.0-31.0) 06/21/18 07:00 Anion Gap 13.9 (7.0-16.0) 06/21/18 07:00 BUN 19 mg/dL (7-25) 06/21/18 07:00 Creatinine 0.4 mg/dL (0.7-1.3) L 06/21/18 07:00 Est GFR ( Amer) > 60.0 ml/min (>90) 06/21/18 07:00 Est GFR (Non-Af Amer) > 60.0 ml/min 06/21/18 07:00 BUN/Creatinine Ratio 47.5 06/21/18 07:00 Glucose 84 mg/dL (70-105) 06/21/18 07:00 POC Glucose 89 MG/DL (70 - 105) 06/21/18 06:58 Calcium 8.8 mg/dL (8.6-10.3) 06/21/18 07:00 Phosphorus 3.6 mg/dL (2.5-5.0) 06/21/18 07:00 Magnesium 1.8 mg/dL (1.9-2.7) L 06/21/18 07:00 Iron 36 ug/dL (38-169) L 06/18/18 06:30 TIBC 198 ug/dL (250-450) L 06/18/18 06:30 Iron Saturation 18 % (15-55) 06/18/18 06:30 Unsaturated IBC 162 ug/dL (111-343) 06/18/18 06:30 Ferritin 304 ng/mL (30-400) 06/19/18 09:16 Total Bilirubin 0.2 mg/dL (0.3-1.0) L 06/20/18 10:20 AST 8 U/L (13-39) L 06/20/18 10:20 ALT 4 U/L (7-52) L 06/20/18 10:20 Alkaline Phosphatase 43 U/L (34-104) 06/20/18 10:20 Total Protein 6.0 gm/dL (6.0-8.3) 06/20/18 10:20 Albumin 2.9 gm/dL (4.2-5.5) L 06/20/18 10:20 Globulin 3.1 gm/dL 06/20/18 10:20 Albumin/Globulin Ratio 0.9 (1.0-1.8) L 06/20/18 10:20 Prealbumin 11 mg/dL (10-36) 06/20/18 10:20 Triglycerides 48 mg/dL (<150) 06/20/18 10:20 Cholesterol 123 mg/dL (<200) 06/20/18 10:20 Urine Source CLEAN C 06/17/18 19:05 Urine Color YELLOW 06/17/18 19:05 Urine Clarity HAZY (CLEAR) 06/17/18 19:05 Urine pH 7.5 (4.6 - 8.0) 06/17/18 19:05 Ur Specific [place] 1.015 (1.005-1.030) 06/17/18 19:05 Urine Protein NEGATIVE mg/dL (NEGATIVE) 06/17/18 19:05 Urine Glucose (UA) NEGATIVE mg/dL (NEGATIVE) 06/17/18 19:05 Urine Ketones 40 mg/dL (NEGATIVE) H 06/17/18 19:05 Urine Blood LARGE (NEGATIVE) H 06/17/18 19:05 Urine Nitrate NEGATIVE (NEGATIVE) 06/17/18 19:05 Urine Bilirubin NEGATIVE (NEGATIVE) 06/17/18 19:05 Urine Urobilinogen 0.2 E.U./dL (0.2 - 1.0) 06/17/18 19:05 Ur Leukocyte Esterase NEGATIVE (NEGATIVE) 06/17/18 19:05 Urine RBC NONE SEEN /hpf (0-5) 06/17/18 19:05 Urine WBC 2-5 /hpf (0-5) 06/17/18 19:05 Ur Epithelial Cells NONE SEEN /lpf (FEW) 06/17/18 19:05 Urine Bacteria FEW /hpf (NONE SEEN) 06/17/18 19:05 Vancomycin Trough 20.3 ug/mL (5-10) H 06/20/18 19:55 - Physical Exam Vitals and I&O: Vital Signs Temp 98.4 F 06/21/18 12:00 Pulse 70 06/21/18 12:00 Resp 20 06/21/18 12:00 BP 133/64 06/21/18 12:00 Pulse Ox 96 06/21/18 12:00 Intake & Output 06/20/18 06/21/18 06/21/18 18:59 06:59 18:59 Intake Total 1250 250 Balance 1250 250 Weight (lbs) 47.174 kg 47.174 kg 47.174 kg Intake: Intake, IV Amount 1250 250 Amino Acids 3% / 1000 Electrolytes 1,000 ml @ 42 mls/hr IV .[id number] [facility] Rx#:[id number] Vancomycin HCl 1 gm In 250 250 Sodium Chloride 0.9% 250 ml @ 165 mls/hr IV Q12HR [facility] Rx#:[id number] Oral 0 Other: Weight Source Bedscale Bedscale Bedscale Active Medications: Current Medications Acetaminophen (Tylenol 650mg/20.3ml Suspension) 650 mg GT Q6H PRN PRN Reason: BREAKTRHOUGH PAIN OR TEMP >101 Stop: 08/17/18 06:46 Acetaminophen/Hydrocodone Bitart ([place] 10 Mg/325 Mg) 1 tab GT Q6H PRN PRN Reason: PAIN (MODERATE) Stop: 08/19/18 08:59 Acetaminophen/Hydrocodone Bitart ([place] 5mg/325mg) 1 tab GT Q6H PRN PRN Reason: MILD PAIN Stop: 08/19/18 08:59 Albuterol/Ipratropium (Duoneb Neb) 3 ml HHN Q6HRT [facility] Stop: 08/17/18 06:59 Last Admin: 06/21/18 07:13 Dose: 3 ml Bisacodyl (Dulcolax 10 Mg Supp) 10 mg RC DAILY PRN PRN Reason: Constipation Stop: 08/17/18 06:34 Last Admin: 06/19/18 17:27 Dose: 10 mg Chlorhexidine Gluconate (Peridex) 15 ml MM BID [facility] Stop: 08/17/18 08:59 Last Admin: 06/21/18 08:51 Dose: Not Given Docusate Sodium (Colace) 100 mg PO BID [facility] Stop: 08/17/18 08:59 Last Admin: 06/21/18 08:52 Dose: Not Given Enoxaparin Sodium (Lovenox) 40 mg SUBQ DAILY [facility] Stop: 08/17/18 08:59 Last Admin: 06/21/18 09:10 Dose: 40 mg Ferrous Sulfate (Iron) 300 mg GT BID MICHAEL Stop: 08/17/18 08:59 Last Admin: 06/21/18 08:52 Dose: Not Given Fluticasone Propionate (Flonase) 1 spr NS DAILY [facility] Stop: 08/17/18 08:59 Last Admin: 06/21/18 09:10 Dose: 1 spr Folic Acid (Folate) 1 mg GT DAILY [facility] Stop: 08/17/18 08:59 Last Admin: 06/21/18 08:53 Dose: Not Given Vancomycin HCl 1 gm/ Sodium (Chloride) 250 mls @ 165 mls/hr IV Q12HR [facility] Stop: 08/18/18 08:59 Last Admin: 06/21/18 09:09 Dose: 165 mls/hr Multivitamins/Minerals 10 ml/Chromium/Copper/Manganese/Zinc 1 ml/ Dextrose/ Amino Acids/Electrolytes/ Sterile Water 2,011 mls @ 80 mls/hr IV .Q24H [facility] Stop: 08/20/18 14:59 Potassium Chloride (Potassium Chloride) 20 meq in 100 mls @ 50 mls/hr IV Q2H [facility] Stop: 06/21/18 16:59 Insulin Aspart (Novolog Insulin Sliding Scale) 0 units SUBQ Q6HR [facility]; Protocol Stop: 08/19/18 11:59 Last Admin: 06/21/18 12:59 Dose: Not Given Lactobacillus Rhamnosus (Culturelle 15b) 1 each PO DAILY [facility] Stop: 08/17/18 13:59 Last Admin: 06/21/18 08:53 Dose: Not Given Magnesium Hydroxide (Milk Of Magnesia) 30 ml GT DAILY PRN PRN Reason: Constipation Stop: 08/17/18 06:34 Miscellaneous (Vancomycin Iv Per Pharmacy) 1 ea PRN PRN PRN Reason: VANCO PER RX Stop: 08/16/18 16:03 Miscellaneous (Vte Chemical Prophylaxis Screen/ Admission) 1 ea PRN PRN PRN Reason: PROTOCOL Stop: 08/16/18 17:05 Miscellaneous (Dakins Half Strenght 0.25% [place]) 1 appl TP DAILY MICHAEL Stop: 06/20/18 15:00 Last Admin: 06/18/18 10:05 Dose: Not Given Miscellaneous (Probiotic Screen) 1 ea PRN PRN PRN Reason: PROTOCOL Stop: 08/17/18 09:32 Miscellaneous (Tpn Per Pharmacy) 1 ea PRN PRN PRN Reason: PROTOCOL Stop: 08/18/18 10:24 Morphine Sulfate (Morphine) 1 mg IVP Q4HR PRN PRN Reason: Pain (Severe) Stop: 08/16/18 20:07 Last Admin: 06/21/18 09:16 Dose: 1 mg Mupirocin (Bactroban Oint) 1 appl NS BID MICHAEL Stop: 06/23/18 17:01 Last Admin: 06/21/18 09:10 Dose: 1 appl Nystatin (Mycostatin Cream) 1 appl TP BID MICHAEL Stop: 08/17/18 08:59 Last Admin: 06/21/18 09:10 Dose: 1 appl Petrolatum (Vaseline Oint) 1 appl TP DAILY MICHAEL Stop: 08/17/18 08:59 Last Admin: 06/21/18 11:36 Dose: Not Given Sucralfate (Carafate) 1 gm GT QID MICHAEL Stop: 08/17/18 08:59 Last Admin: 06/21/18 12:59 Dose: Not Given General: no acute distress, well developed, well nourished HEENT: atraumatic, normocephalic, PERRLA, EOMI Neck: supple, tracheostomy, no thyromegaly, no lymphadenopathy Cardiovascular: S1S2, regular, other ( g tube site erthema and swelling decreasing.) Lungs: clear to auscultation bilaterally, clear to percussion Abdomen: soft, bowel sounds, no tender, no distended, no mass, no rebound, no hepatomegaly, no splenomegaly Extremities: no cyanosis, no clubbing, no edema Neurological: awake, alert, oriented Skin: intact Infectious Disease Assmt/Plan - Problem List Patient Problems: All Active Problems MALFUNCTIONING GASTRIC FEEDING TUBE/RASH (Acute) - Assessment Assessment: 1. G tube site infection, Abdominal wall cellulitis, suspect underlying abscess. 2. 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 Anemia of CD. - Plan Plan: Continue same treatment. Continue wound care and abx: vanco IV. Nutritional Asmnt/Malnutr-PDOC - Dietary Evaluation Malnutrition Findings (Please click <Entered> for more info): Nutritional Asmnt/Malnutrition Start: 06/18/18 12: 01 Text: Status: Complete Freq: Protocol: Document 06/18/18 12:01 NICKI (Rec: 06/18/18 12:27 NICKI WEINER- [email or web address]) Nutritional Asmnt/Malnutrition Patient General Information Nutritional Screening High Risk Diagnosis Malfunction G-Tube Pertinent Medical Hx/Surgical Hx CHRONIC RESPIRATORY FAILURE, MALIGNANT NEOPLASM OF TONGUE, CHRONIC RHINITIS, TRACHEOSTOMY , GASTRIC FEEDING TUBE, CHRONIC BRONCHITIS, [employer] Subjective Information Patient was admitted from SNF with H&P "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 Per nursing, patient with G-tube in place, however states MD wants to wait to start feeding. Current Diet Order/ Nutrition Support NPO Patient / S.O Not Indicated Pertinent Medications dulxolax, D5-0.45NS @ 50 ml/hr , colace, iron, folate, culturelle, MOM, Abx Pertinent Labs (06/18) albumin 2.9 ( decreasing) Nutritional Hx/Data Height 1.68 m Height (Calculated Centimeters) 167.6 Current Weight (lbs) 47.174 kg Weight (Calculated Kilograms) 47.2 Weight (Calculated Grams) 84452.6 [place] Body Weight 142 % [place] Body Weight 73 Body Mass Index (BMI) 16.7 Recent Weight Change No Weight Status Underweight GI Symptoms GI Symptoms None Last BM none noted since admission Difficult in: None Food Allergies No Cultural/Ethnic/Yazdanism Belief none indicated Usual diet at home Jevity 1.2 Bolus 4 cans daily (1 can 9am, 1p, 5p, 10p), with 100ml free water flush every 6 hours. This provides 948ml total volume, 1137 kcal, 52 gm protein, 1165ml free water. Skin Integrity/Comment: Bryan 18, reddened stoma/g- tube site, rash/reddened back Estimated Nutritional Goals BEE in Kcals: Using Current wt Calories/Kcals/Kg 35-40 kcal/kg using CBW 47.2 ( cancer, low BMI) Kcals Calculated ~4927-7199 kcal/day Protein: Using Current wt Protein g/k.5-2 gm/kg (cancer, muscle wasting) Protein Calculated 70-95 gm/day Fluid: ml ~9917-3426 ml/day Nutritional Problem 1. Problem Problem Inadequate energy intake related to Etiology withholding tube feeding due to malfunction G-tube without initiation of alternate nutrition support aeb Signs/Symptoms: NPO status Intervention/Recommendation Comments 1. Restart tube feeding once medically appropriate; recommend bolus feeding Jevity 1.2 375 ml 4 times a day ( previous feeding schedule 9am, 1p, 5p, 10p). This provides 1500ml, 1800 kcal, 82 gm protein. 2. If unable to restart tube feeding, consider Parenteral nutrition. Expected Outcomes/Goals Expected Outcomes/Goals Meets >75% of nutrient needs, weight increase toward ideal body weight, improved skin integrity
[2018-06-21] MEDS: KCL 20mEq/100mL Premix 20 MEQ/100 ML PIGGYBACK IV SCH ×2 (14:29→16:55)
[2018-06-21] MEDS ORDERED: TRACE ELEMENT IV SCH (15:00)
[2018-06-21] MEDS ORDERED: [UNRECOGNIZED DRUG - OTHER] IV SCH (15:00)
[2018-06-21] MEDS ORDERED: MULTIVITAMIN IV SCH (15:00)
[2018-06-21] MEDS ORDERED: DEXTROSE IV SCH (15:00)
[2018-06-22] MEDS: INSULIN ASPART SLIDING SCALE 100 UNITS/ML UNIT SUBQ SCH ×4 (00:29→18:42)
[2018-06-22] MEDS: Albuterol/Ipratropium Neb 3 ML AERS HHN SCH ×4 (01:18→18:57)
[2018-06-22] MEDS: Morphine Sulfate 4 mg/mL 1mL Syr IVP PRN ×5 (03:14→20:11)
[2018-06-22 06:04] LABS: HEMATOCRIT 24.3 % (41.0-60); MEAN CELL VOLUME 92.9 fl (80-99); MEAN CORPUSCULAR HEMOGLOBIN 30.5 pg (26.0-30.0); MEAN CORPUSCULAR HGB CONC 32.8 pg (28.0-36.0); PLATELET COUNT 527 Th/cmm (150-400); RED BLOOD COUNT 2.61 Mil/cmm (4.30-5.70); WHITE BLOOD COUNT 6.6 Th/cmm (4.8-10.8)
[2018-06-22 06:27] LABS: ANION GAP 10.5 (7.0-16.0); BUN - UREA NITROGEN 18 mg/dL (7-25); CALCIUM SERUM 8.6 mg/dL (8.6-10.3); CARBON DIOXIDE 24.3 mEq/L (21.0-31.0); CHLORIDE 105 mEq/L (98-107); CREATININE - SERUM 0.4 mg/dL (0.7-1.3); GFR AFRICAN-AMERICAN > 60.0 ml/min (>90); GFR NON AFRICAN-AMERICAN > 60.0 ml/min; GLUCOSE 150 mg/dL (70-105); MAGNESIUM 1.7 mg/dL (1.9-2.7); PHOSPHOROUS 2.9 mg/dL (2.5-5.0); POTASSIUM SERUM 3.8 mEq/L (3.5-5.1); SODIUM SERUM 136 mEq/L (136-145)
[2018-06-22 06:45] LABS: BAND NEUTROPHILE 2 % (0-10); BASOPHIL 0 % (0-3); EOSINOPHIL 0 % (0-5); LYMPHOCYTE 7 % (20-50); MONOCYTE 6 % (2-10); NEUTROPHILS 85 % (40-80)
--- NOTE | 2018-06-22 07:46 | General Progress Note ---
Subjective - Review of Systems Service Date: 06/22/18 Subjective: Patient resting comfortably in bed. No acute distress. afebrile. awake, alert. For PEG placement in a few days per GI. Will keep NPO. TPN per pharmacy Objective - Results Result Diagrams: 06/22/18 06:00 06/22/18 06:00 Recent Labs: Laboratory Last Values WBC 6.6 Th/cmm (4.8-10.8) 06/22/18 06:00 RBC 2.61 Mil/cmm (4.30-5.70) L 06/22/18 06:00 Hgb 8.0 gm/dL (12-16) L 06/22/18 06:00 Hct 24.3 % (41.0-60) L 06/22/18 06:00 MCV 92.9 fl (80-99) 06/22/18 06:00 MCH 30.5 pg (26.0-30.0) H 06/22/18 06:00 MCHC Differential 32.8 pg (28.0-36.0) 06/22/18 06:00 RDW 16.0 % (11.5-20.0) 06/22/18 06:00 Plt Count 527 Th/cmm (150-400) H 06/22/18 06:00 MPV 6.0 fl 06/22/18 06:00 Add Manual Diff YES 06/22/18 06:00 Neutrophils % 84.9 % (40.0-80.0) H 06/21/18 07:00 Band Neutrophils % 2 % (0-10) 06/22/18 06:00 Lymphocytes % 6.0 % (20.0-50.0) L 06/21/18 07:00 Monocytes % 8.5 % (2.0-10.0) 06/21/18 07:00 Eosinophils % 0.1 % (0.0-5.0) 06/21/18 07:00 Basophils % 0.5 % (0.0-2.0) 06/21/18 07:00 Neutrophils (Manual) 85 % (40-80) H 06/22/18 06:00 Lymphocytes 7 % (20-50) L 06/22/18 06:00 Monocytes 6 % (2-10) 06/22/18 06:00 Eosinophils 0 % (0-5) 06/22/18 06:00 Basophils 0 % (0-3) 06/22/18 06:00 Platelet Estimate INCREASED PLATELETS (NORMAL) 06/17/18 11:40 PT 10.9 SECONDS (9.5-11.5) 06/18/18 06:30 INR 1.05 (0.5-1.4) 06/18/18 06:30 Sodium 136 mEq/L (136-145) 06/22/18 06:00 Potassium 3.8 mEq/L (3.5-5.1) 06/22/18 06:00 Chloride 105 mEq/L (98-107) 06/22/18 06:00 Carbon Dioxide 24.3 mEq/L (21.0-31.0) 06/22/18 06:00 Anion Gap 10.5 (7.0-16.0) 06/22/18 06:00 BUN 18 mg/dL (7-25) 06/22/18 06:00 Creatinine 0.4 mg/dL (0.7-1.3) L 06/22/18 06:00 Est GFR ( Amer) > 60.0 ml/min (>90) 06/22/18 06:00 Est GFR (Non-Af Amer) > 60.0 ml/min 06/22/18 06:00 BUN/Creatinine Ratio 45.0 06/22/18 06:00 Glucose 150 mg/dL (70-105) H 06/22/18 06:00 POC Glucose 146 MG/DL (70 - 105) H 06/22/18 05:53 Calcium 8.6 mg/dL (8.6-10.3) 06/22/18 06:00 Phosphorus 2.9 mg/dL (2.5-5.0) 06/22/18 06:00 Magnesium 1.7 mg/dL (1.9-2.7) L 06/22/18 06:00 Iron 36 ug/dL (38-169) L 06/18/18 06:30 TIBC 198 ug/dL (250-450) L 06/18/18 06:30 Iron Saturation 18 % (15-55) 06/18/18 06:30 Unsaturated IBC 162 ug/dL (111-343) 06/18/18 06:30 Ferritin 304 ng/mL (30-400) 06/19/18 09:16 Total Bilirubin 0.2 mg/dL (0.3-1.0) L 06/20/18 10:20 AST 8 U/L (13-39) L 06/20/18 10:20 ALT 4 U/L (7-52) L 06/20/18 10:20 Alkaline Phosphatase 43 U/L (34-104) 06/20/18 10:20 Total Protein 6.0 gm/dL (6.0-8.3) 06/20/18 10:20 Albumin 2.9 gm/dL (4.2-5.5) L 06/20/18 10:20 Globulin 3.1 gm/dL 06/20/18 10:20 Albumin/Globulin Ratio 0.9 (1.0-1.8) L 06/20/18 10:20 Prealbumin 11 mg/dL (10-36) 06/20/18 10:20 Triglycerides 48 mg/dL (<150) 06/20/18 10:20 Cholesterol 123 mg/dL (<200) 06/20/18 10:20 Urine Source CLEAN C 06/17/18 19:05 Urine Color YELLOW 06/17/18 19:05 Urine Clarity HAZY (CLEAR) 06/17/18 19:05 Urine pH 7.5 (4.6 - 8.0) 06/17/18 19:05 Ur Specific [place] 1.015 (1.005-1.030) 06/17/18 19:05 Urine Protein NEGATIVE mg/dL (NEGATIVE) 06/17/18 19:05 Urine Glucose (UA) NEGATIVE mg/dL (NEGATIVE) 06/17/18 19:05 Urine Ketones 40 mg/dL (NEGATIVE) H 06/17/18 19:05 Urine Blood LARGE (NEGATIVE) H 06/17/18 19:05 Urine Nitrate NEGATIVE (NEGATIVE) 06/17/18 19:05 Urine Bilirubin NEGATIVE (NEGATIVE) 06/17/18 19:05 Urine Urobilinogen 0.2 E.U./dL (0.2 - 1.0) 06/17/18 19:05 Ur Leukocyte Esterase NEGATIVE (NEGATIVE) 06/17/18 19:05 Urine RBC NONE SEEN /hpf (0-5) 06/17/18 19:05 Urine WBC 2-5 /hpf (0-5) 06/17/18 19:05 Ur Epithelial Cells NONE SEEN /lpf (FEW) 06/17/18 19:05 Urine Bacteria FEW /hpf (NONE SEEN) 06/17/18 19:05 Vancomycin Trough 20.3 ug/mL (5-10) H 06/20/18 19:55 - Physical Exam Vitals and I&O: Vital Signs Temp 98.5 F 06/22/18 04:00 Pulse 79 06/22/18 07:14 Resp 18 06/22/18 07:14 BP 129/68 06/22/18 04:00 Pulse Ox 94 06/22/18 07:14 Intake & Output 06/21/18 06/22/18 06/22/18 18:59 06:59 18:59 Intake Total 350 250 Output Total 550 Balance 350 -300 Weight (lbs) 47.174 kg 50.485 kg Intake: Intake, IV Amount 350 250 KCL 20mEq/100mL Premix 20 100 meq In 100 ml @ 50 mls/ hr IV Q2H [facility] Rx#: [id number] Vancomycin HCl 1 gm In 250 250 Sodium Chloride 0.9% 250 ml @ 165 mls/hr IV Q12HR [facility] Rx#:[id number] Output: Urine 550 Other: Weight Source Bedscale Bedscale Active Medications: Current Medications Acetaminophen (Tylenol 650mg/20.3ml Suspension) 650 mg GT Q6H PRN PRN Reason: BREAKTRHOUGH PAIN OR TEMP >101 Stop: 08/17/18 06:46 Acetaminophen/Hydrocodone Bitart ([place] 10 Mg/325 Mg) 1 tab GT Q6H PRN PRN Reason: PAIN (MODERATE) Stop: 08/19/18 08:59 Acetaminophen/Hydrocodone Bitart ([place] 5mg/325mg) 1 tab GT Q6H PRN PRN Reason: MILD PAIN Stop: 08/19/18 08:59 Albuterol/Ipratropium (Duoneb Neb) 3 ml HHN Q6HRT [facility] Stop: 08/17/18 06:59 Last Admin: 06/22/18 07:14 Dose: 3 ml Bisacodyl (Dulcolax 10 Mg Supp) 10 mg RC DAILY PRN PRN Reason: Constipation Stop: 08/17/18 06:34 Last Admin: 06/19/18 17:27 Dose: 10 mg Chlorhexidine Gluconate (Peridex) 15 ml MM BID [facility] Stop: 08/17/18 08:59 Last Admin: 06/21/18 16:56 Dose: Not Given Docusate Sodium (Colace) 100 mg PO BID [facility] Stop: 08/17/18 08:59 Last Admin: 06/21/18 16:56 Dose: Not Given Enoxaparin Sodium (Lovenox) 40 mg SUBQ DAILY [facility]EL Stop: 08/17/18 08:59 Last Admin: 06/21/18 09:10 Dose: 40 mg Ferrous Sulfate (Iron) 300 mg GT BID MICHAEL Stop: 08/17/18 08:59 Last Admin: 06/21/18 16:56 Dose: Not Given Fluticasone Propionate (Flonase) 1 spr NS DAILY [facility] Stop: 08/17/18 08:59 Last Admin: 06/21/18 09:10 Dose: 1 spr Folic Acid (Folate) 1 mg GT DAILY [facility] Stop: 08/17/18 08:59 Last Admin: 06/21/18 08:53 Dose: Not Given Vancomycin HCl 1 gm/ Sodium (Chloride) 250 mls @ 165 mls/hr IV Q12HR [facility] Stop: 08/18/18 08:59 Last Infusion: 06/21/18 21:32 Dose: Infused Multivitamins/Minerals 10 ml/Chromium/Copper/Manganese/Zinc 1 ml/ Dextrose/ Amino Acids/Electrolytes/ Sterile Water 2,011 mls @ 80 mls/hr IV .Q24H [facility] Stop: 08/20/18 14:59 Last Admin: 06/21/18 14:37 Dose: 80 mls/hr Insulin Aspart (Novolog Insulin Sliding Scale) 0 units SUBQ Q6HR [facility]; Protocol Stop: 08/19/18 11:59 Last Admin: 06/22/18 06:06 Dose: Not Given Lactobacillus Rhamnosus (Culturelle 15b) 1 each PO DAILY [facility] Stop: 08/17/18 13:59 Last Admin: 06/21/18 08:53 Dose: Not Given Magnesium Hydroxide (Milk Of Magnesia) 30 ml GT DAILY PRN PRN Reason: Constipation Stop: 08/17/18 06:34 Miscellaneous (Vancomycin Iv Per Pharmacy) 1 ea MC PRN PRN PRN Reason: VANCO PER RX Stop: 08/16/18 16:03 Miscellaneous (Vte Chemical Prophylaxis Screen/ Admission) 1 ea MC PRN PRN PRN Reason: PROTOCOL Stop: 08/16/18 17:05 Miscellaneous (Dakins Half Strenght 0.25% [place]) 1 appl TP DAILY [facility] Stop: 06/20/18 15:00 Last Admin: 06/18/18 10:05 Dose: Not Given Miscellaneous (Probiotic Screen) 1 ea PRN PRN PRN Reason: PROTOCOL Stop: 08/17/18 09:32 Miscellaneous (Tpn Per Pharmacy) 1 [facility] PRN PRN PRN Reason: PROTOCOL Stop: 08/18/18 10:24 Morphine Sulfate (Morphine) 1 mg IVP Q4HR PRN PRN Reason: Pain (Severe) Stop: 08/16/18 20:07 Last Admin: 06/22/18 07:07 Dose: 1 mg Mupirocin (Bactroban Oint) 1 appl NS BID [facility] Stop: 06/23/18 17:01 Last Admin: 06/21/18 16:58 Dose: 1 appl Nystatin (Mycostatin Cream) 1 appl TP BID MIC[facility] Stop: 08/17/18 08:59 Last Admin: 06/21/18 16:57 Dose: 1 appl Petrolatum (Vaseline Oint) 1 appl TP DAILY [facility] Stop: 08/17/18 08:59 Last Admin: 06/21/18 11:36 Dose: Not Given Sucralfate (Carafate) 1 gm GT QID [facility] Stop: 08/17/18 08:59 Last Admin: 06/21/18 21:49 Dose: Not Given General: Alert, No acute distress HEENT: Atraumatic, PERRLA, EOMI Neck: Supple Cardiovascular: Regular rate, Normal S1, Normal S2 Lungs: Clear to auscultation Abdomen: Other (presence of cellulitis at the Gtube site) Extremities: no Clubbing, no Cyanosis, no Edema Assessment/Plan - Problem List Patient Problems: All Active Problems MALFUNCTIONING GASTRIC FEEDING TUBE/RASH (Acute) - Assessment Assessment: Current Active Problems Problem Status Onset MALFUNCTIONING GASTRIC FEEDING TUBE/RASH Acute Cellulitis and induration around g tube site in a man who is dependent on tube feeds. 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 Anemia with hematocrit of 25. Thrombocytosis of 722k. COPD Nicotine addiction. prerenal azotemia improved - Plan Plan: continue Vancomycin and Rocephin IV will continue home meds. keep NPO on TPN per pharmacy for PEG placement in a few days per GI Nutritional Asmnt/Malnutr-PDOC - Dietary Evaluation Malnutrition Findings (Please click <Entered> for more info): Nutritional Asmnt/Malnutrition Start: 06/18/18 12: 01 Text: Status: Complete Freq: Protocol: Document 06/18/18 12:01 NICKI (Rec: 06/18/18 12:27 MMRICARDO WEINER- [email or web address]) Nutritional Asmnt/Malnutrition Patient General Information Nutritional Screening High Risk Diagnosis Malfunction G-Tube Pertinent Medical Hx/Surgical Hx CHRONIC RESPIRATORY FAILURE, MALIGNANT NEOPLASM OF TONGUE, CHRONIC RHINITIS, TRACHEOSTOMY , GASTRIC FEEDING TUBE, CHRONIC BRONCHITIS, CARE HOME ANTICOAGULANTS Subjective Information Patient was admitted from SNF with H&P "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 Per nursing, patient with G-tube in place, however states MD wants to wait to start feeding. Current Diet Order/ Nutrition Support NPO Patient / S.O Not Indicated Pertinent Medications dulxolax, D5-0.45NS @ 50 ml/hr , colace, iron, folate, culturelle, MOM, Abx Pertinent Labs (06/18) albumin 2.9 ( decreasing) Nutritional Hx/Data Height 1.68 m Height (Calculated Centimeters) 167.6 Current Weight (lbs) 47.174 kg Weight (Calculated Kilograms) 47.2 Weight (Calculated Grams) 94422.6 [place] Body Weight 142 % [place] Body Weight 73 Body Mass Index (BMI) 16.7 Recent Weight Change No Weight Status Underweight GI Symptoms GI Symptoms None Last BM none noted since admission Difficult in: None Food Allergies No Cultural/Ethnic/[employer]ar[employer] Belief none indicated Usual diet at home Jevity 1.2 Bolus 4 cans daily (1 can 9am, 1p, 5p, 10p), with 100ml free water flush every 6 hours. This provides 948ml total volume, 1137 kcal, 52 gm protein, 1165ml free water. Skin Integrity/Comment: Bryan 18, reddened stoma/g- tube site, rash/reddened back Estimated Nutritional Goals BEE in Kcals: Using Current wt Calories/Kcals/Kg 35-40 kcal/kg using CBW 47.2 ( cancer, low BMI) Kcals Calculated ~1910-2422 kcal/day Protein: Using Current wt Protein g/k.5-2 gm/kg (cancer, muscle wasting) Protein Calculated 70-95 gm/day Fluid: ml ~5052-1258 ml/day Nutritional Problem 1. Problem Problem Inadequate energy intake related to Etiology withholding tube feeding due to malfunction G-tube without initiation of alternate nutrition support aeb Signs/Symptoms: NPO status Intervention/Recommendation Comments 1. Restart tube feeding once medically appropriate; recommend bolus feeding Jevity 1.2 375 ml 4 times a day ( previous feeding schedule 9am, 1p, 5p, 10p). This provides 1500ml, 1800 kcal, 82 gm protein. 2. If unable to restart tube feeding, consider Parenteral nutrition. Expected Outcomes/Goals Expected Outcomes/Goals Meets >75% of nutrient needs, weight increase toward ideal body weight, improved skin integrity
[2018-06-22] MEDS ORDERED: Mag Sulfate 2gm/50mL Premix 2 GM/50 ML BAG IV ONE (09:00)
[2018-06-22] MEDS: Nystatin Cream 100,000 u/gm Cream 15 gm TP SCH ×2 (09:28→18:41)
[2018-06-22] MEDS: Enoxaparin 40 mg/0.4 mL 0.4mL Syr SUBQ SCH (09:28)
[2018-06-22] MEDS: Fluticasone Propionate Nasal 1 SPR SPR NS SCH (09:29)
--- NOTE | 2018-06-22 10:29 | General Progress Note ---
Subjective - Review of Systems Service Date: 06/22/18 Subjective: no new sxs G. tube is out on iv TPN Objective - Results Result Diagrams: 06/22/18 06:00 06/22/18 06:00 Recent Labs: Laboratory Last Values WBC 6.6 Th/cmm (4.8-10.8) 06/22/18 06:00 RBC 2.61 Mil/cmm (4.30-5.70) L 06/22/18 06:00 Hgb 8.0 gm/dL (12-16) L 06/22/18 06:00 Hct 24.3 % (41.0-60) L 06/22/18 06:00 MCV 92.9 fl (80-99) 06/22/18 06:00 MCH 30.5 pg (26.0-30.0) H 06/22/18 06:00 MCHC Differential 32.8 pg (28.0-36.0) 06/22/18 06:00 RDW 16.0 % (11.5-20.0) 06/22/18 06:00 Plt Count 527 Th/cmm (150-400) H 06/22/18 06:00 MPV 6.0 fl 06/22/18 06:00 Add Manual Diff YES 06/22/18 06:00 Neutrophils % 84.9 % (40.0-80.0) H 06/21/18 07:00 Band Neutrophils % 2 % (0-10) 06/22/18 06:00 Lymphocytes % 6.0 % (20.0-50.0) L 06/21/18 07:00 Monocytes % 8.5 % (2.0-10.0) 06/21/18 07:00 Eosinophils % 0.1 % (0.0-5.0) 06/21/18 07:00 Basophils % 0.5 % (0.0-2.0) 06/21/18 07:00 Neutrophils (Manual) 85 % (40-80) H 06/22/18 06:00 Lymphocytes 7 % (20-50) L 06/22/18 06:00 Monocytes 6 % (2-10) 06/22/18 06:00 Eosinophils 0 % (0-5) 06/22/18 06:00 Basophils 0 % (0-3) 06/22/18 06:00 Platelet Estimate INCREASED PLATELETS (NORMAL) 06/17/18 11:40 PT 10.9 SECONDS (9.5-11.5) 06/18/18 06:30 INR 1.05 (0.5-1.4) 06/18/18 06:30 Sodium 136 mEq/L (136-145) 06/22/18 06:00 Potassium 3.8 mEq/L (3.5-5.1) 06/22/18 06:00 Chloride 105 mEq/L (98-107) 06/22/18 06:00 Carbon Dioxide 24.3 mEq/L (21.0-31.0) 06/22/18 06:00 Anion Gap 10.5 (7.0-16.0) 06/22/18 06:00 BUN 18 mg/dL (7-25) 06/22/18 06:00 Creatinine 0.4 mg/dL (0.7-1.3) L 06/22/18 06:00 Est GFR ( Amer) > 60.0 ml/min (>90) 06/22/18 06:00 Est GFR (Non-Af Amer) > 60.0 ml/min 06/22/18 06:00 BUN/Creatinine Ratio 45.0 06/22/18 06:00 Glucose 150 mg/dL (70-105) H 06/22/18 06:00 POC Glucose 146 MG/DL (70 - 105) H 06/22/18 05:53 Calcium 8.6 mg/dL (8.6-10.3) 06/22/18 06:00 Phosphorus 2.9 mg/dL (2.5-5.0) 06/22/18 06:00 Magnesium 1.7 mg/dL (1.9-2.7) L 06/22/18 06:00 Iron 36 ug/dL (38-169) L 06/18/18 06:30 TIBC 198 ug/dL (250-450) L 06/18/18 06:30 Iron Saturation 18 % (15-55) 06/18/18 06:30 Unsaturated IBC 162 ug/dL (111-343) 06/18/18 06:30 Ferritin 304 ng/mL (30-400) 06/19/18 09:16 Total Bilirubin 0.2 mg/dL (0.3-1.0) L 06/20/18 10:20 AST 8 U/L (13-39) L 06/20/18 10:20 ALT 4 U/L (7-52) L 06/20/18 10:20 Alkaline Phosphatase 43 U/L (34-104) 06/20/18 10:20 Total Protein 6.0 gm/dL (6.0-8.3) 06/20/18 10:20 Albumin 2.9 gm/dL (4.2-5.5) L 06/20/18 10:20 Globulin 3.1 gm/dL 06/20/18 10:20 Albumin/Globulin Ratio 0.9 (1.0-1.8) L 06/20/18 10:20 Prealbumin 11 mg/dL (10-36) 06/20/18 10:20 Triglycerides 48 mg/dL (<150) 06/20/18 10:20 Cholesterol 123 mg/dL (<200) 06/20/18 10:20 Urine Source CLEAN C 06/17/18 19:05 Urine Color YELLOW 06/17/18 19:05 Urine Clarity HAZY (CLEAR) 06/17/18 19:05 Urine pH 7.5 (4.6 - 8.0) 06/17/18 19:05 Ur Specific [place] 1.015 (1.005-1.030) 06/17/18 19:05 Urine Protein NEGATIVE mg/dL (NEGATIVE) 06/17/18 19:05 Urine Glucose (UA) NEGATIVE mg/dL (NEGATIVE) 06/17/18 19:05 Urine Ketones 40 mg/dL (NEGATIVE) H 06/17/18 19:05 Urine Blood LARGE (NEGATIVE) H 06/17/18 19:05 Urine Nitrate NEGATIVE (NEGATIVE) 06/17/18 19:05 Urine Bilirubin NEGATIVE (NEGATIVE) 06/17/18 19:05 Urine Urobilinogen 0.2 E.U./dL (0.2 - 1.0) 06/17/18 19:05 Ur Leukocyte Esterase NEGATIVE (NEGATIVE) 06/17/18 19:05 Urine RBC NONE SEEN /hpf (0-5) 06/17/18 19:05 Urine WBC 2-5 /hpf (0-5) 06/17/18 19:05 Ur Epithelial Cells NONE SEEN /lpf (FEW) 06/17/18 19:05 Urine Bacteria FEW /hpf (NONE SEEN) 06/17/18 19:05 Vancomycin Trough 20.3 ug/mL (5-10) H 06/20/18 19:55 - Physical Exam Vitals and I&O: Vital Signs Temp 97.9 F 06/22/18 09:04 Pulse 72 06/22/18 09:04 Resp 19 06/22/18 09:04 BP 132/65 06/22/18 09:04 Pulse Ox 97 06/22/18 09:04 Intake & Output 06/21/18 06/22/18 06/22/18 18:59 06:59 18:59 Intake Total 350 250 Output Total 550 Balance 350 -300 Weight (lbs) 47.174 kg 50.485 kg Intake: Intake, IV Amount 350 250 KCL 20mEq/100mL Premix 20 100 meq In 100 ml @ 50 mls/ hr IV Q2H [facility] Rx#: [id number] Vancomycin HCl 1 gm In 250 250 Sodium Chloride 0.9% 250 ml @ 165 mls/hr IV Q12HR [facility] Rx#:[id number] Output: Urine 550 Other: Weight Source Bedscale Bedscale Active Medications: Current Medications Acetaminophen (Tylenol 650mg/20.3ml Suspension) 650 mg GT Q6H PRN PRN Reason: BREAKTRHOUGH PAIN OR TEMP >101 Stop: 08/17/18 06:46 Acetaminophen/Hydrocodone Bitart ([place] 10 Mg/325 Mg) 1 tab GT Q6H PRN PRN Reason: PAIN (MODERATE) Stop: 08/19/18 08:59 Acetaminophen/Hydrocodone Bitart ([place] 5mg/325mg) 1 tab GT Q6H PRN PRN Reason: MILD PAIN Stop: 08/19/18 08:59 Albuterol/Ipratropium (Duoneb Neb) 3 ml HHN Q6HRT [facility] Stop: 08/17/18 06:59 Last Admin: 06/22/18 07:14 Dose: 3 ml Bisacodyl (Dulcolax 10 Mg Supp) 10 mg RC DAILY PRN PRN Reason: Constipation Stop: 08/17/18 06:34 Last Admin: 06/19/18 17:27 Dose: 10 mg Chlorhexidine Gluconate (Peridex) 15 ml MM BID [facility] Stop: 08/17/18 08:59 Last Admin: 06/21/18 16:56 Dose: Not Given Docusate Sodium (Colace) 100 mg PO BID [facility] Stop: 08/17/18 08:59 Last Admin: 06/21/18 16:56 Dose: Not Given Enoxaparin Sodium (Lovenox) 40 mg SUBQ DAILY [facility] Stop: 08/17/18 08:59 Last Admin: 06/22/18 09:28 Dose: 40 mg Ferrous Sulfate (Iron) 300 mg GT BID [facility] Stop: 08/17/18 08:59 Last Admin: 06/21/18 16:56 Dose: Not Given Fluticasone Propionate (Flonase) 1 spr NS DAILY [facility] Stop: 08/17/18 08:59 Last Admin: 06/22/18 09:29 Dose: 1 spr Folic Acid (Folate) 1 mg GT DAILY [facility] Stop: 08/17/18 08:59 Last Admin: 06/21/18 08:53 Dose: Not Given Vancomycin HCl 1 gm/ Sodium (Chloride) 250 mls @ 165 mls/hr IV Q12HR [facility] Stop: 08/18/18 08:59 Last Admin: 06/22/18 10:15 Dose: 165 mls/hr Multivitamins/Minerals 10 ml/Chromium/Copper/Manganese/Zinc 1 ml/ Dextrose/ Amino Acids/Electrolytes/ Sterile Water 2,011 mls @ 80 mls/hr IV .Q24H [facility] Stop: 06/22/18 14:59 Last Admin: 06/21/18 14:37 Dose: 80 mls/hr Magnesium Sulfate (Magnesium Sulfate Premix) 2 gm in 50 mls @ 25 mls/hr IV ONCE ONE Stop: 06/22/18 10:59 Insulin Aspart (Novolog Insulin Sliding Scale) 0 units SUBQ Q6HR [facility]; Protocol Stop: 08/19/18 11:59 Last Admin: 06/22/18 06:06 Dose: Not Given Lactobacillus Rhamnosus (Culturelle 15b) 1 each PO DAILY [facility] Stop: 08/17/18 13:59 Last Admin: 06/21/18 08:53 Dose: Not Given Magnesium Hydroxide (Milk Of Magnesia) 30 ml GT DAILY PRN PRN Reason: Constipation Stop: 08/17/18 06:34 Miscellaneous (Vancomycin Iv Per Pharmacy) 1 ea PRN PRN PRN Reason: VANCO PER RX Stop: 08/16/18 16:03 Miscellaneous (Vte Chemical Prophylaxis Screen/ Admission) 1 ea [facility] PRN PRN PRN Reason: PROTOCOL Stop: 08/16/18 17:05 Miscellaneous ([place] Half Strenght 0.25% [place]) 1 appl TP DAILY [facility] Stop: 06/20/18 15:00 Last Admin: 06/18/18 10:05 Dose: Not Given Miscellaneous (Probiotic Screen) 1 ea [facility] PRN PRN PRN Reason: PROTOCOL Stop: 08/17/18 09:32 Miscellaneous (Tpn Per Pharmacy) 1 ea [facility] PRN PRN PRN Reason: PROTOCOL Stop: 08/18/18 10:24 Morphine Sulfate (Morphine) 1 mg IVP Q4HR PRN PRN Reason: Pain (Severe) Stop: 08/16/18 20:07 Last Admin: 06/22/18 07:07 Dose: 1 mg Mupirocin (Bactroban Oint) 1 appl NS BID [facility] Stop: 06/23/18 17:01 Last Admin: 06/22/18 09:29 Dose: 1 appl Nystatin (Mycostatin Cream) 1 appl TP BID [facility] Stop: 08/17/18 08:59 Last Admin: 06/22/18 09:28 Dose: 1 appl Petrolatum (Vaseline Oint) 1 appl TP DAILY [facility] Stop: 08/17/18 08:59 Last Admin: 06/21/18 11:36 Dose: Not Given Sucralfate (Carafate) 1 gm GT QID [facility] Stop: 08/17/18 08:59 Last Admin: 06/21/18 21:49 Dose: Not Given General: Alert, No acute distress HEENT: Atraumatic, PERRLA, EOMI Neck: Supple Cardiovascular: Regular rate, Normal S1, Normal S2 Lungs: Clear to auscultation Abdomen: Other (presence of cellulitis at the Gtube site) Extremities: no Clubbing, no Cyanosis, no Edema Assessment/Plan - Problem List Patient Problems: All Active Problems MALFUNCTIONING GASTRIC FEEDING TUBE/RASH (Acute) - Assessment Assessment: The elevated platelet count is most likely reactive. The patient has concurrent anemia and anemia workup will be obtained. No interim specific intervention is required for the high platelet count. The patient has a report of possible cecal mass on PET scan done by the primary oncologist and this will be deferred to the primary oncologist for continued management. 06/19: ferritin pending. plt better. hgb lower. monitor 06/20: hgb lower. plt stable. ferritin pending. monitor for now. 06/22/18: hgb lower. Anemia of chronic disease. Monitor hgb. dvt proph Nutritional Asmnt/Malnutr-PDOC - Dietary Evaluation Malnutrition Findings (Please click <Entered> for more info): Nutritional Asmnt/Malnutrition Start: 06/18/18 12: 01 Text: Status: Complete Freq: Protocol: Document 06/18/18 12:01 NICKI (Rec: 06/18/18 12:27 MMRICARDO WEINER- [email or web address]) Nutritional Asmnt/Malnutrition Patient General Information Nutritional Screening High Risk Diagnosis Malfunction G-Tube Pertinent Medical Hx/Surgical Hx CHRONIC RESPIRATORY FAILURE, MALIGNANT NEOPLASM OF TONGUE, CHRONIC RHINITIS, TRACHEOSTOMY , GASTRIC FEEDING TUBE, CHRONIC BRONCHITIS, CHIP SILO TENDER ANTICOAGULANTS Subjective Information Patient was admitted from SNF with H&P "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 Per nursing, patient with G-tube in place, however states MD wants to wait to start feeding. Current Diet Order/ Nutrition Support NPO Patient / S.O Not Indicated Pertinent Medications dulxolax, D5-0.45NS @ 50 ml/hr , colace, iron, folate, culturelle, MOM, Abx Pertinent Labs (06/18) albumin 2.9 ( decreasing) Nutritional Hx/Data Height 1.68 m Height (Calculated Centimeters) 167.6 Current Weight (lbs) 47.174 kg Weight (Calculated Kilograms) 47.2 Weight (Calculated Grams) 32921.6 [place] Body Weight 142 % [place] Body Weight 73 Body Mass Index (BMI) 16.7 Recent Weight Change No Weight Status Underweight GI Symptoms GI Symptoms None Last BM none noted since admission Difficult in: None Food Allergies No Cultural/Ethnic/Anglican Belief none indicated Usual diet at home Jevity 1.2 Bolus 4 cans daily (1 can 9am, 1p, 5p, 10p), with 100ml free water flush every 6 hours. This provides 948ml total volume, 1137 kcal, 52 gm protein, 1165ml free water. Skin Integrity/Comment: Bryan 18, reddened stoma/g- tube site, rash/reddened back Estimated Nutritional Goals BEE in Kcals: Using Current wt Calories/Kcals/Kg 35-40 kcal/kg using CBW 47.2 ( cancer, low BMI) Kcals Calculated ~5355-8150 kcal/day Protein: Using Current wt Protein g/k.5-2 gm/kg (cancer, muscle wasting) Protein Calculated 70-95 gm/day Fluid: ml ~8764-7051 ml/day Nutritional Problem 1. Problem Problem Inadequate energy intake related to Etiology withholding tube feeding due to malfunction G-tube without initiation of alternate nutrition support aeb Signs/Symptoms: NPO status Intervention/Recommendation Comments 1. Restart tube feeding once medically appropriate; recommend bolus feeding Jevity 1.2 375 ml 4 times a day ( previous feeding schedule 9am, 1p, 5p, 10p). This provides 1500ml, 1800 kcal, 82 gm protein. 2. If unable to restart tube feeding, consider Parenteral nutrition. Expected Outcomes/Goals Expected Outcomes/Goals Meets >75% of nutrient needs, weight increase toward ideal body weight, improved skin integrity
[2018-06-22] MEDS: Ferrous Sulfate 300 MG/5 ML UDC GT SCH ×2 (11:02→17:36)
[2018-06-22] MEDS: Chlorhexidine Gluconate 0.12% 480mL Bottle MM SCH ×2 (11:02→17:35)
[2018-06-22] MEDS: Lactobacillus Rhamnosus GG 15 Billion CFU CAP.SPRINK PO SCH (11:02)
[2018-06-22] MEDS: Petrolatum (White) Oint 0.6 Oz Tube TP SCH (11:03)
--- NOTE | 2018-06-22 14:16 | GI Progress Note ---
Subjective - Review of Systems Service Date: 06/22/18 Subjective: GI NOTE EVENTS NOTED. Objective - Results Result Diagrams: 06/22/18 06:00 06/22/18 06:00 Recent Labs: Laboratory Last Values WBC 6.6 Th/cmm (4.8-10.8) 06/22/18 06:00 RBC 2.61 Mil/cmm (4.30-5.70) L 06/22/18 06:00 Hgb 8.0 gm/dL (12-16) L 06/22/18 06:00 Hct 24.3 % (41.0-60) L 06/22/18 06:00 MCV 92.9 fl (80-99) 06/22/18 06:00 MCH 30.5 pg (26.0-30.0) H 06/22/18 06:00 MCHC Differential 32.8 pg (28.0-36.0) 06/22/18 06:00 RDW 16.0 % (11.5-20.0) 06/22/18 06:00 Plt Count 527 Th/cmm (150-400) H 06/22/18 06:00 MPV 6.0 fl 06/22/18 06:00 Add Manual Diff YES 06/22/18 06:00 Neutrophils % 84.9 % (40.0-80.0) H 06/21/18 07:00 Band Neutrophils % 2 % (0-10) 06/22/18 06:00 Lymphocytes % 6.0 % (20.0-50.0) L 06/21/18 07:00 Monocytes % 8.5 % (2.0-10.0) 06/21/18 07:00 Eosinophils % 0.1 % (0.0-5.0) 06/21/18 07:00 Basophils % 0.5 % (0.0-2.0) 06/21/18 07:00 Neutrophils (Manual) 85 % (40-80) H 06/22/18 06:00 Lymphocytes 7 % (20-50) L 06/22/18 06:00 Monocytes 6 % (2-10) 06/22/18 06:00 Eosinophils 0 % (0-5) 06/22/18 06:00 Basophils 0 % (0-3) 06/22/18 06:00 Platelet Estimate INCREASED PLATELETS (NORMAL) 06/17/18 11:40 PT 10.9 SECONDS (9.5-11.5) 06/18/18 06:30 INR 1.05 (0.5-1.4) 06/18/18 06:30 Sodium 136 mEq/L (136-145) 06/22/18 06:00 Potassium 3.8 mEq/L (3.5-5.1) 06/22/18 06:00 Chloride 105 mEq/L (98-107) 06/22/18 06:00 Carbon Dioxide 24.3 mEq/L (21.0-31.0) 06/22/18 06:00 Anion Gap 10.5 (7.0-16.0) 06/22/18 06:00 BUN 18 mg/dL (7-25) 06/22/18 06:00 Creatinine 0.4 mg/dL (0.7-1.3) L 06/22/18 06:00 Est GFR ( Amer) > 60.0 ml/min (>90) 06/22/18 06:00 Est GFR (Non-Af Amer) > 60.0 ml/min 06/22/18 06:00 BUN/Creatinine Ratio 45.0 06/22/18 06:00 Glucose 150 mg/dL (70-105) H 06/22/18 06:00 POC Glucose 146 MG/DL (70 - 105) H 06/22/18 05:53 Calcium 8.6 mg/dL (8.6-10.3) 06/22/18 06:00 Phosphorus 2.9 mg/dL (2.5-5.0) 06/22/18 06:00 Magnesium 1.7 mg/dL (1.9-2.7) L 06/22/18 06:00 Iron 36 ug/dL (38-169) L 06/18/18 06:30 TIBC 198 ug/dL (250-450) L 06/18/18 06:30 Iron Saturation 18 % (15-55) 06/18/18 06:30 Unsaturated IBC 162 ug/dL (111-343) 06/18/18 06:30 Ferritin 304 ng/mL (30-400) 06/19/18 09:16 Total Bilirubin 0.2 mg/dL (0.3-1.0) L 06/20/18 10:20 AST 8 U/L (13-39) L 06/20/18 10:20 ALT 4 U/L (7-52) L 06/20/18 10:20 Alkaline Phosphatase 43 U/L (34-104) 06/20/18 10:20 Total Protein 6.0 gm/dL (6.0-8.3) 06/20/18 10:20 Albumin 2.9 gm/dL (4.2-5.5) L 06/20/18 10:20 Globulin 3.1 gm/dL 06/20/18 10:20 Albumin/Globulin Ratio 0.9 (1.0-1.8) L 06/20/18 10:20 Prealbumin 11 mg/dL (10-36) 06/20/18 10:20 Triglycerides 48 mg/dL (<150) 06/20/18 10:20 Cholesterol 123 mg/dL (<200) 06/20/18 10:20 Urine Source CLEAN C 06/17/18 19:05 Urine Color YELLOW 06/17/18 19:05 Urine Clarity HAZY (CLEAR) 06/17/18 19:05 Urine pH 7.5 (4.6 - 8.0) 06/17/18 19:05 Ur Specific [place] 1.015 (1.005-1.030) 06/17/18 19:05 Urine Protein NEGATIVE mg/dL (NEGATIVE) 06/17/18 19:05 Urine Glucose (UA) NEGATIVE mg/dL (NEGATIVE) 06/17/18 19:05 Urine Ketones 40 mg/dL (NEGATIVE) H 06/17/18 19:05 Urine Blood LARGE (NEGATIVE) H 06/17/18 19:05 Urine Nitrate NEGATIVE (NEGATIVE) 06/17/18 19:05 Urine Bilirubin NEGATIVE (NEGATIVE) 06/17/18 19:05 Urine Urobilinogen 0.2 E.U./dL (0.2 - 1.0) 06/17/18 19:05 Ur Leukocyte Esterase NEGATIVE (NEGATIVE) 06/17/18 19:05 Urine RBC NONE SEEN /hpf (0-5) 06/17/18 19:05 Urine WBC 2-5 /hpf (0-5) 06/17/18 19:05 Ur Epithelial Cells NONE SEEN /lpf (FEW) 06/17/18 19:05 Urine Bacteria FEW /hpf (NONE SEEN) 06/17/18 19:05 Vancomycin Trough 20.3 ug/mL (5-10) H 06/20/18 19:55 - Physical Exam Vitals and I&O: Vital Signs Temp 97.9 F 06/22/18 09:04 Pulse 72 06/22/18 09:04 Resp 19 06/22/18 09:04 BP 132/65 06/22/18 09:04 Pulse Ox 97 06/22/18 09:04 Intake & Output 06/21/18 06/22/18 06/22/18 18:59 06:59 18:59 Intake Total 350 250 250 Output Total 550 Balance 350 -300 250 Weight (lbs) 47.174 kg 50.485 kg Intake: Intake, IV Amount 350 250 250 KCL 20mEq/100mL Premix 20 100 meq In 100 ml @ 50 mls/ hr IV Q2H [facility] Rx#: [id number] Vancomycin HCl 1 gm In 250 250 250 Sodium Chloride 0.9% 250 ml @ 165 mls/hr IV Q12HR [facility] Rx#:[id number] Output: Urine 550 Other: Weight Source Bedscale Bedscale Active Medications: Current Medications Acetaminophen (Tylenol 650mg/20.3ml Suspension) 650 mg GT Q6H PRN PRN Reason: BREAKTRHOUGH PAIN OR TEMP >101 Stop: 08/17/18 06:46 Acetaminophen/Hydrocodone Bitart ([place] 10 Mg/325 Mg) 1 tab GT Q6H PRN PRN Reason: PAIN (MODERATE) Stop: 08/19/18 08:59 Acetaminophen/Hydrocodone Bitart ([place] 5mg/325mg) 1 tab GT Q6H PRN PRN Reason: MILD PAIN Stop: 08/19/18 08:59 Albuterol/Ipratropium (Duoneb Neb) 3 ml HHN Q6HRT [facility] Stop: 08/17/18 06:59 Last Admin: 06/22/18 07:14 Dose: 3 ml Bisacodyl (Dulcolax 10 Mg Supp) 10 mg RC DAILY PRN PRN Reason: Constipation Stop: 08/17/18 06:34 Last Admin: 06/19/18 17:27 Dose: 10 mg Chlorhexidine Gluconate (Peridex) 15 ml MM BID [facility] Stop: 08/17/18 08:59 Last Admin: 06/22/18 11:02 Dose: Not Given Docusate Sodium (Colace) 100 mg PO BID [facility] Stop: 08/17/18 08:59 Last Admin: 06/22/18 11:02 Dose: Not Given Enoxaparin Sodium (Lovenox) 40 mg SUBQ DAILY [facility] Stop: 08/17/18 08:59 Last Admin: 06/22/18 09:28 Dose: 40 mg Ferrous Sulfate (Iron) 300 mg GT BID [facility] Stop: 08/17/18 08:59 Last Admin: 06/22/18 11:02 Dose: Not Given Fluticasone Propionate (Flonase) 1 spr NS DAILY [facility] Stop: 08/17/18 08:59 Last Admin: 06/22/18 09:29 Dose: 1 spr Folic Acid (Folate) 1 mg GT DAILY [facility] Stop: 08/17/18 08:59 Last Admin: 06/22/18 11:02 Dose: Not Given Vancomycin HCl 1 gm/ Sodium (Chloride) 250 mls @ 165 mls/hr IV Q12HR [facility] Stop: 08/18/18 08:59 Last Infusion: 06/22/18 11:53 Dose: Infused Multivitamins/Minerals 10 ml/Chromium/Copper/Manganese/Zinc 1 ml/ Dextrose/ Amino Acids/Electrolytes/ Sterile Water 2,011 mls @ 80 mls/hr IV .Q24H [facility] Stop: 06/22/18 14:59 Last Admin: 06/21/18 14:37 Dose: 80 mls/hr Multivitamins/Minerals 10 ml/Dextrose/ Amino Acids/Electrolytes/ Fat Emulsion Intravenous 1,440 mls @ 60 mls/hr IV .Q24H [facility] Stop: 08/21/18 14:59 Insulin Aspart (Novolog Insulin Sliding Scale) 0 units SUBQ Q6HR [facility]; Protocol Stop: 08/19/18 11:59 Last Admin: 06/22/18 12:47 Dose: Not Given Lactobacillus Rhamnosus (Culturelle 15b) 1 each PO DAILY [facility] Stop: 08/17/18 13:59 Last Admin: 06/22/18 11:02 Dose: Not Given Magnesium Hydroxide (Milk Of Magnesia) 30 ml GT DAILY PRN PRN Reason: Constipation Stop: 08/17/18 06:34 Miscellaneous (Vancomycin Iv Per Pharmacy) 1 ea [facility] PRN PRN PRN Reason: VANCO PER RX Stop: 08/16/18 16:03 Miscellaneous (Vte Chemical Prophylaxis Screen/ Admission) 1 [facility] PRN PRN PRN Reason: PROTOCOL Stop: 08/16/18 17:05 Miscellaneous ([place] Half Strenght 0.25% [place]) 1 appl TP DAILY [facility] Stop: 06/20/18 15:00 Last Admin: 06/18/18 10:05 Dose: Not Given Miscellaneous (Probiotic Screen) 1 [facility] PRN PRN PRN Reason: PROTOCOL Stop: 08/17/18 09:32 Miscellaneous (Tpn Per Pharmacy) 1 [facility] PRN PRN PRN Reason: PROTOCOL Stop: 08/18/18 10:24 Morphine Sulfate (Morphine) 1 mg IVP Q4HR PRN PRN Reason: Pain (Severe) Stop: 08/16/18 20:07 Last Admin: 06/22/18 11:06 Dose: 1 mg Mupirocin (Bactroban Oint) 1 appl NS BID [facility] Stop: 06/23/18 17:01 Last Admin: 06/22/18 09:29 Dose: 1 appl Nystatin (Mycostatin Cream) 1 appl TP BID [facility] Stop: 08/17/18 08:59 Last Admin: 06/22/18 09:28 Dose: 1 appl Petrolatum (Vaseline Oint) 1 appl TP DAILY [facility] Stop: 08/17/18 08:59 Last Admin: 06/22/18 11:03 Dose: Not Given Sucralfate (Carafate) 1 gm GT QID [facility] Stop: 08/17/18 08:59 Last Admin: 06/22/18 13:26 Dose: Not Given General: Alert, No acute distress HEENT: Atraumatic Neck: Supple, Other (INTACT TRACH) Cardiovascular: Regular rate Lungs: Normal air movement Abdomen: Bowel sounds, Soft, Other (OLD FISTULA CLOSED) Assessment/Plan - Problem List Patient Problems: All Active Problems MALFUNCTIONING GASTRIC FEEDING TUBE/RASH (Acute) - Assessment Assessment: IMPRESSION: 1. G tube malfunction. 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 3. Abdominal discomfort 4. 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 RECS: -Will plan PEG insertion at new site tomorrow if able to advance a small upper scope beyond the laryngeal area. If esophageal intubation is not feasible, then consider surgical GT insertion. -IV TPN for now. -Oncology f/u for known cecal mass on PET scan which he and oncologist have known about and they have a plan in place.
[2018-06-22] MEDS: TPN 10%-70% CUSTOM IV SCH (15:59)
--- NOTE | 2018-06-22 19:38 | Infectious Disease Prog Note ---
Infectious Disease Subjective - Review of Systems Service Date: 06/22/18 Subjective: There is no new change, no fever. Infectious Disease Objective - Results Result Diagrams: 06/22/18 06:00 06/22/18 06:00 Recent Labs: Laboratory Last Values WBC 6.6 Th/cmm (4.8-10.8) 06/22/18 06:00 RBC 2.61 Mil/cmm (4.30-5.70) L 06/22/18 06:00 Hgb 8.0 gm/dL (12-16) L 06/22/18 06:00 Hct 24.3 % (41.0-60) L 06/22/18 06:00 MCV 92.9 fl (80-99) 06/22/18 06:00 MCH 30.5 pg (26.0-30.0) H 06/22/18 06:00 MCHC Differential 32.8 pg (28.0-36.0) 06/22/18 06:00 RDW 16.0 % (11.5-20.0) 06/22/18 06:00 Plt Count 527 Th/cmm (150-400) H 06/22/18 06:00 MPV 6.0 fl 06/22/18 06:00 Add Manual Diff YES 06/22/18 06:00 Neutrophils % 84.9 % (40.0-80.0) H 06/21/18 07:00 Band Neutrophils % 2 % (0-10) 06/22/18 06:00 Lymphocytes % 6.0 % (20.0-50.0) L 06/21/18 07:00 Monocytes % 8.5 % (2.0-10.0) 06/21/18 07:00 Eosinophils % 0.1 % (0.0-5.0) 06/21/18 07:00 Basophils % 0.5 % (0.0-2.0) 06/21/18 07:00 Neutrophils (Manual) 85 % (40-80) H 06/22/18 06:00 Lymphocytes 7 % (20-50) L 06/22/18 06:00 Monocytes 6 % (2-10) 06/22/18 06:00 Eosinophils 0 % (0-5) 06/22/18 06:00 Basophils 0 % (0-3) 06/22/18 06:00 Platelet Estimate INCREASED PLATELETS (NORMAL) 06/17/18 11:40 PT 10.9 SECONDS (9.5-11.5) 06/18/18 06:30 INR 1.05 (0.5-1.4) 06/18/18 06:30 Sodium 136 mEq/L (136-145) 06/22/18 06:00 Potassium 3.8 mEq/L (3.5-5.1) 06/22/18 06:00 Chloride 105 mEq/L (98-107) 06/22/18 06:00 Carbon Dioxide 24.3 mEq/L (21.0-31.0) 06/22/18 06:00 Anion Gap 10.5 (7.0-16.0) 06/22/18 06:00 BUN 18 mg/dL (7-25) 06/22/18 06:00 Creatinine 0.4 mg/dL (0.7-1.3) L 06/22/18 06:00 Est GFR ( Amer) > 60.0 ml/min (>90) 06/22/18 06:00 Est GFR (Non-Af Amer) > 60.0 ml/min 06/22/18 06:00 BUN/Creatinine Ratio 45.0 06/22/18 06:00 Glucose 150 mg/dL (70-105) H 06/22/18 06:00 POC Glucose 146 MG/DL (70 - 105) H 06/22/18 05:53 Calcium 8.6 mg/dL (8.6-10.3) 06/22/18 06:00 Phosphorus 2.9 mg/dL (2.5-5.0) 06/22/18 06:00 Magnesium 1.7 mg/dL (1.9-2.7) L 06/22/18 06:00 Iron 36 ug/dL (38-169) L 06/18/18 06:30 TIBC 198 ug/dL (250-450) L 06/18/18 06:30 Iron Saturation 18 % (15-55) 06/18/18 06:30 Unsaturated IBC 162 ug/dL (111-343) 06/18/18 06:30 Ferritin 304 ng/mL (30-400) 06/19/18 09:16 Total Bilirubin 0.2 mg/dL (0.3-1.0) L 06/20/18 10:20 AST 8 U/L (13-39) L 06/20/18 10:20 ALT 4 U/L (7-52) L 06/20/18 10:20 Alkaline Phosphatase 43 U/L (34-104) 06/20/18 10:20 Total Protein 6.0 gm/dL (6.0-8.3) 06/20/18 10:20 Albumin 2.9 gm/dL (4.2-5.5) L 06/20/18 10:20 Globulin 3.1 gm/dL 06/20/18 10:20 Albumin/Globulin Ratio 0.9 (1.0-1.8) L 06/20/18 10:20 Prealbumin 11 mg/dL (10-36) 06/20/18 10:20 Triglycerides 48 mg/dL (<150) 06/20/18 10:20 Cholesterol 123 mg/dL (<200) 06/20/18 10:20 Urine Source CLEAN C 06/17/18 19:05 Urine Color YELLOW 06/17/18 19:05 Urine Clarity HAZY (CLEAR) 06/17/18 19:05 Urine pH 7.5 (4.6 - 8.0) 06/17/18 19:05 Ur Specific [place] 1.015 (1.005-1.030) 06/17/18 19:05 Urine Protein NEGATIVE mg/dL (NEGATIVE) 06/17/18 19:05 Urine Glucose (UA) NEGATIVE mg/dL (NEGATIVE) 06/17/18 19:05 Urine Ketones 40 mg/dL (NEGATIVE) H 06/17/18 19:05 Urine Blood LARGE (NEGATIVE) H 06/17/18 19:05 Urine Nitrate NEGATIVE (NEGATIVE) 06/17/18 19:05 Urine Bilirubin NEGATIVE (NEGATIVE) 06/17/18 19:05 Urine Urobilinogen 0.2 E.U./dL (0.2 - 1.0) 06/17/18 19:05 Ur Leukocyte Esterase NEGATIVE (NEGATIVE) 06/17/18 19:05 Urine RBC NONE SEEN /hpf (0-5) 06/17/18 19:05 Urine WBC 2-5 /hpf (0-5) 06/17/18 19:05 Ur Epithelial Cells NONE SEEN /lpf (FEW) 06/17/18 19:05 Urine Bacteria FEW /hpf (NONE SEEN) 06/17/18 19:05 Vancomycin Trough 20.3 ug/mL (5-10) H 06/20/18 19:55 - Physical Exam Vitals and I&O: Vital Signs Temp 98.0 F 06/22/18 16:56 Pulse 72 06/22/18 18:57 Resp 18 06/22/18 18:57 BP 130/70 06/22/18 16:56 Pulse Ox 96 06/22/18 18:57 Intake & Output 06/22/18 06/22/18 06/23/18 06:59 18:59 06:59 Intake Total 250 250 Output Total 550 Balance -300 250 Weight (lbs) 50.485 kg Intake: Intake, IV Amount 250 250 Vancomycin HCl 1 gm In 250 250 Sodium Chloride 0.9% 250 ml @ 165 mls/hr IV Q12HR [facility] Rx#:[id number] Output: Urine 550 Other: Weight Source Bedscale Active Medications: Current Medications Acetaminophen (Tylenol 650mg/20.3ml Suspension) 650 mg GT Q6H PRN PRN Reason: BREAKTRHOUGH PAIN OR TEMP >101 Stop: 08/17/18 06:46 Acetaminophen/Hydrocodone Bitart ([place] 10 Mg/325 Mg) 1 tab GT Q6H PRN PRN Reason: PAIN (MODERATE) Stop: 08/19/18 08:59 Acetaminophen/Hydrocodone Bitart ([place] 5mg/325mg) 1 tab GT Q6H PRN PRN Reason: MILD PAIN Stop: 08/19/18 08:59 Albuterol/Ipratropium (Duoneb Neb) 3 ml HHN Q6HRT [facility] Stop: 08/17/18 06:59 Last Admin: 06/22/18 18:57 Dose: 3 ml Bisacodyl (Dulcolax 10 Mg Supp) 10 mg RC DAILY PRN PRN Reason: Constipation Stop: 08/17/18 06:34 Last Admin: 06/19/18 17:27 Dose: 10 mg Chlorhexidine Gluconate (Peridex) 15 ml MM BID [facility] Stop: 08/17/18 08:59 Last Admin: 06/22/18 17:35 Dose: Not Given Docusate Sodium (Colace) 100 mg PO BID [facility] Stop: 08/17/18 08:59 Last Admin: 06/22/18 17:35 Dose: Not Given Enoxaparin Sodium (Lovenox) 40 mg SUBQ DAILY [facility] Stop: 08/17/18 08:59 Last Admin: 06/22/18 09:28 Dose: 40 mg Ferrous Sulfate (Iron) 300 mg GT BID [facility] Stop: 08/17/18 08:59 Last Admin: 06/22/18 17:36 Dose: Not Given Fluticasone Propionate (Flonase) 1 spr NS DAILY [facility] Stop: 08/17/18 08:59 Last Admin: 06/22/18 09:29 Dose: 1 spr Folic Acid (Folate) 1 mg GT DAILY [facility] Stop: 08/17/18 08:59 Last Admin: 06/22/18 11:02 Dose: Not Given Vancomycin HCl 1 gm/ Sodium (Chloride) 250 mls @ 165 mls/hr IV Q12HR [facility] Stop: 08/18/18 08:59 Last Infusion: 06/22/18 11:53 Dose: Infused Multivitamins/Minerals 10 ml/Dextrose/ Amino Acids/Electrolytes/ Fat Emulsion Intravenous 1,440 mls @ 60 mls/hr IV .Q24H [facility] Stop: 08/21/18 14:59 Last Admin: 06/22/18 15:59 Dose: 60 mls/hr Cefepime HCl 2 gm/ Dextrose 100 mls @ 100 mls/hr IV Q12HR [facility] Stop: 08/21/18 20:59 Insulin Aspart (Novolog Insulin Sliding Scale) 0 units SUBQ Q6HR [facility]; Protocol Stop: 08/19/18 11:59 Last Admin: 06/22/18 18:42 Dose: Not Given Lactobacillus Rhamnosus (Culturelle 15b) 1 each PO DAILY [facility] Stop: 08/17/18 13:59 Last Admin: 06/22/18 11:02 Dose: Not Given Magnesium Hydroxide (Milk Of Magnesia) 30 ml GT DAILY PRN PRN Reason: Constipation Stop: 08/17/18 06:34 Miscellaneous (Vancomycin Iv Per Pharmacy) 1 ea MC PRN PRN PRN Reason: VANCO PER RX Stop: 08/16/18 16:03 Miscellaneous (Vte Chemical Prophylaxis Screen/ Admission) 1 ea MC PRN PRN PRN Reason: PROTOCOL Stop: 08/16/18 17:05 Miscellaneous ([place]akins Half Strenght 0.25% [place]) 1 appl TP DAILY [facility] Stop: 06/20/18 15:00 Last Admin: 06/18/18 10:05 Dose: Not Given Miscellaneous (Probiotic Screen) 1 ea MC PRN PRN PRN Reason: PROTOCOL Stop: 08/17/18 09:32 Miscellaneous (Tpn Per Pharmacy) 1 ea MC PRN PRN PRN Reason: PROTOCOL Stop: 08/18/18 10:24 Morphine Sulfate (Morphine) 1 mg IVP Q4HR PRN PRN Reason: Pain (Severe) Stop: 08/16/18 20:07 Last Admin: 06/22/18 16:11 Dose: 1 mg Mupirocin (Bactroban Oint) 1 appl NS BID [facility] Stop: 06/23/18 17:01 Last Admin: 06/22/18 18:41 Dose: 1 appl Nystatin (Mycostatin Cream) 1 appl TP BID [facility] Stop: 08/17/18 08:59 Last Admin: 06/22/18 18:41 Dose: 1 appl Petrolatum (Vaseline Oint) 1 appl TP DAILY [facility] Stop: 08/17/18 08:59 Last Admin: 06/22/18 11:03 Dose: Not Given Sucralfate (Carafate) 1 gm GT QID [facility] Stop: 08/17/18 08:59 Last Admin: 06/22/18 17:36 Dose: Not Given General: no acute distress, well developed, well nourished HEENT: atraumatic, normocephalic, PERRLA, EOMI Neck: supple, no thyromegaly Cardiovascular: S1S2, regular Lungs: clear to auscultation bilaterally, clear to percussion Abdomen: soft, other (g tube site is improving.), no tender, no distended Extremities: no cyanosis, no clubbing, no edema Neurological: awake, alert, oriented Infectious Disease Assmt/Plan - Problem List Patient Problems: All Active Problems MALFUNCTIONING GASTRIC FEEDING TUBE/RASH (Acute) - Assessment Assessment: 1. G tube site infection, Abdominal wall cellulitis, suspect underlying abscess. 2. 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 Anemia of CD. 4. MRSA infection. 5. Pseudomonas infection. - Plan Plan: Continue same treatment. Continue wound care and abx: vanco IV, add cefepime. Nutritional Asmnt/Malnutr-PDOC - Dietary Evaluation Malnutrition Findings (Please click <Entered> for more info): Nutritional Asmnt/Malnutrition Start: 06/18/18 12: 01 Text: Status: Complete Freq: Protocol: Document 06/18/18 12:01 NICKI (Rec: 06/18/18 12:27 NICKI REGINE- [email or web address]) Nutritional Asmnt/Malnutrition Patient General Information Nutritional Screening High Risk Diagnosis Malfunction G-Tube Pertinent Medical Hx/Surgical Hx CHRONIC RESPIRATORY FAILURE, MALIGNANT NEOPLASM OF TONGUE, CHRONIC RHINITIS, TRACHEOSTOMY , GASTRIC FEEDING TUBE, CHRONIC BRONCHITIS, NURSING HOME ANTICOAGULANTS Subjective Information Patient was admitted from SNF with H&P "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 Per nursing, patient with G-tube in place, however states MD wants to wait to start feeding. Current Diet Order/ Nutrition Support NPO Patient / S.O Not Indicated Pertinent Medications dulxolax, D5-0.45NS @ 50 ml/hr , colace, iron, folate, culturelle, MOM, Abx Pertinent Labs (06/18) albumin 2.9 ( decreasing) Nutritional Hx/Data Height 1.68 m Height (Calculated Centimeters) 167.6 Current Weight (lbs) 47.174 kg Weight (Calculated Kilograms) 47.2 Weight (Calculated Grams) 98583.6 [place] Body Weight 142 % [place] Body Weight 73 Body Mass Index (BMI) 16.7 Recent Weight Change No Weight Status Underweight GI Symptoms GI Symptoms None Last BM none noted since admission Difficult in: None Food Allergies No Cultural/Ethnic/Yarsanism Belief none indicated Usual diet at home Jevity 1.2 Bolus 4 cans daily (1 can 9am, 1p, 5p, 10p), with 100ml free water flush every 6 hours. This provides 948ml total volume, 1137 kcal, 52 gm protein, 1165ml free water. Skin Integrity/Comment: Bryan 18, reddened stoma/g- tube site, rash/reddened back Estimated Nutritional Goals BEE in Kcals: Using Current wt Calories/Kcals/Kg 35-40 kcal/kg using CBW 47.2 ( cancer, low BMI) Kcals Calculated ~7741-5371 kcal/day Protein: Using Current wt Protein g/k.5-2 gm/kg (cancer, muscle wasting) Protein Calculated 70-95 gm/day Fluid: ml ~5914-0685 ml/day Nutritional Problem 1. Problem Problem Inadequate energy intake related to Etiology withholding tube feeding due to malfunction G-tube without initiation of alternate nutrition support aeb Signs/Symptoms: NPO status Intervention/Recommendation Comments 1. Restart tube feeding once medically appropriate; recommend bolus feeding Jevity 1.2 375 ml 4 times a day ( previous feeding schedule 9am, 1p, 5p, 10p). This provides 1500ml, 1800 kcal, 82 gm protein. 2. If unable to restart tube feeding, consider Parenteral nutrition. Expected Outcomes/Goals Expected Outcomes/Goals Meets >75% of nutrient needs, weight increase toward ideal body weight, improved skin integrity
[2018-06-23] MEDS: INSULIN ASPART SLIDING SCALE 100 UNITS/ML UNIT SUBQ SCH ×4 (00:33→19:27)
[2018-06-23] MEDS: Albuterol/Ipratropium Neb 3 ML AERS HHN SCH ×4 (00:43→19:02)
[2018-06-23] MEDS: Morphine Sulfate 4 mg/mL 1mL Syr IVP PRN ×6 (01:15→21:58)
[2018-06-23 05:58] LABS: % BASOPHILS 0.2 % (0.0-2.0); % EOSINOPHILS 0.7 % (0.0-5.0); % MONOCYTES 7.4 % (2.0-10.0); % NEUTROPHILS 81.7 % (40.0-80.0); HEMATOCRIT 28.2 % (41.0-60); HEMOGLOBIN 9.4 gm/dL (12-16); LYMPHOCYTE ABSOLUTE 0.6 Th/cmm (1.5-3.0); MEAN CELL VOLUME 92.1 fl (80-99); MEAN CORPUSCULAR HEMOGLOBIN 30.7 pg (26.0-30.0); MEAN CORPUSCULAR HGB CONC 33.4 pg (28.0-36.0); MONOCYTE ABSOLUTE 0.4 Th/cmm (0.3-1.0); NEUTROPHILE ABSOLUTE 4.8 Th/cmm (1.8-8.0); PLATELET COUNT 528 Th/cmm (150-400); RED BLOOD COUNT 3.06 Mil/cmm (4.30-5.70); RED CELL DISTRIBUTION WIDTH 16.1 % (11.5-20.0); WHITE BLOOD COUNT 5.8 Th/cmm (4.8-10.8)
[2018-06-23 06:10] LABS: INR 0.99 (0.5-1.4); PROTHROMBIN TIME (TEST) 10.3 SECONDS (9.5-11.5)
[2018-06-23 06:18] LABS: ANION GAP 12.2 (7.0-16.0); BUN - UREA NITROGEN 12 mg/dL (7-25); CALCIUM SERUM 9.2 mg/dL (8.6-10.3); CARBON DIOXIDE 24.7 mEq/L (21.0-31.0); CHLORIDE 102 mEq/L (98-107); CREATININE - SERUM 0.5 mg/dL (0.7-1.3); GFR AFRICAN-AMERICAN > 60.0 ml/min (>90); GFR NON AFRICAN-AMERICAN > 60.0 ml/min; GLUCOSE 143 mg/dL (70-105); MAGNESIUM 1.8 mg/dL (1.9-2.7); PHOSPHOROUS 3.9 mg/dL (2.5-5.0); POTASSIUM SERUM 3.9 mEq/L (3.5-5.1); SODIUM SERUM 135 mEq/L (136-145)
[2018-06-23] MEDS: Chlorhexidine Gluconate 0.12% 480mL Bottle MM SCH ×2 (08:04→17:43)
[2018-06-23] MEDS: Ferrous Sulfate 300 MG/5 ML UDC GT SCH ×2 (08:05→17:44)
[2018-06-23] MEDS: Lactobacillus Rhamnosus GG 15 Billion CFU CAP.SPRINK PO SCH (08:06)
[2018-06-23] MEDS: Petrolatum (White) Oint 0.6 Oz Tube TP SCH (08:06)
--- NOTE | 2018-06-23 08:09 | General Progress Note ---
Subjective - Review of Systems Service Date: 06/23/18 Subjective: Patient resting comfortably in bed. No acute distress. afebrile. awake, alert. For PEG placement in a few days per GI. Will keep NPO. TPN per pharmacy. Wound culture +MRSA +Pseudomonas. Objective - Results Result Diagrams: 06/23/18 05:49 06/23/18 05:49 Recent Labs: Laboratory Last Values WBC 5.8 Th/cmm (4.8-10.8) 06/23/18 05:49 RBC 3.06 Mil/cmm (4.30-5.70) L 06/23/18 05:49 Hgb 9.4 gm/dL (12-16) L 06/23/18 05:49 Hct 28.2 % (41.0-60) L 06/23/18 05:49 MCV 92.1 fl (80-99) 06/23/18 05:49 MCH 30.7 pg (26.0-30.0) H 06/23/18 05:49 MCHC Differential 33.4 pg (28.0-36.0) 06/23/18 05:49 RDW 16.1 % (11.5-20.0) 06/23/18 05:49 Plt Count 528 Th/cmm (150-400) H 06/23/18 05:49 MPV 6.0 fl 06/23/18 05:49 Add Manual Diff YES 06/22/18 06:00 Neutrophils % 81.7 % (40.0-80.0) H 06/23/18 05:49 Band Neutrophils % 2 % (0-10) 06/22/18 06:00 Lymphocytes % 10.0 % (20.0-50.0) L 06/23/18 05:49 Monocytes % 7.4 % (2.0-10.0) 06/23/18 05:49 Eosinophils % 0.7 % (0.0-5.0) 06/23/18 05:49 Basophils % 0.2 % (0.0-2.0) 06/23/18 05:49 Neutrophils (Manual) 85 % (40-80) H 06/22/18 06:00 Lymphocytes 7 % (20-50) L 06/22/18 06:00 Monocytes 6 % (2-10) 06/22/18 06:00 Eosinophils 0 % (0-5) 06/22/18 06:00 Basophils 0 % (0-3) 06/22/18 06:00 Platelet Estimate INCREASED PLATELETS (NORMAL) 06/17/18 11:40 PT 10.3 SECONDS (9.5-11.5) 06/23/18 05:49 INR 0.99 (0.5-1.4) 06/23/18 05:49 Sodium 135 mEq/L (136-145) L 06/23/18 05:49 Potassium 3.9 mEq/L (3.5-5.1) 06/23/18 05:49 Chloride 102 mEq/L (98-107) 06/23/18 05:49 Carbon Dioxide 24.7 mEq/L (21.0-31.0) 06/23/18 05:49 Anion Gap 12.2 (7.0-16.0) 06/23/18 05:49 BUN 12 mg/dL (7-25) 06/23/18 05:49 Creatinine 0.5 mg/dL (0.7-1.3) L 06/23/18 05:49 Est GFR ( Amer) > 60.0 ml/min (>90) 06/23/18 05:49 Est GFR (Non-Af Amer) > 60.0 ml/min 06/23/18 05:49 BUN/Creatinine Ratio 24.0 06/23/18 05:49 Glucose 143 mg/dL (70-105) H 06/23/18 05:49 POC Glucose 140 MG/DL (70 - 105) H 06/23/18 05:33 Calcium 9.2 mg/dL (8.6-10.3) 06/23/18 05:49 Phosphorus 3.9 mg/dL (2.5-5.0) 06/23/18 05:49 Magnesium 1.8 mg/dL (1.9-2.7) L 06/23/18 05:49 Iron 36 ug/dL (38-169) L 06/18/18 06:30 TIBC 198 ug/dL (250-450) L 06/18/18 06:30 Iron Saturation 18 % (15-55) 06/18/18 06:30 Unsaturated IBC 162 ug/dL (111-343) 06/18/18 06:30 Ferritin 304 ng/mL (30-400) 06/19/18 09:16 Total Bilirubin 0.2 mg/dL (0.3-1.0) L 06/20/18 10:20 AST 8 U/L (13-39) L 06/20/18 10:20 ALT 4 U/L (7-52) L 06/20/18 10:20 Alkaline Phosphatase 43 U/L (34-104) 06/20/18 10:20 Total Protein 6.0 gm/dL (6.0-8.3) 06/20/18 10:20 Albumin 2.9 gm/dL (4.2-5.5) L 06/20/18 10:20 Globulin 3.1 gm/dL 06/20/18 10:20 Albumin/Globulin Ratio 0.9 (1.0-1.8) L 06/20/18 10:20 Prealbumin 11 mg/dL (10-36) 06/20/18 10:20 Triglycerides 48 mg/dL (<150) 06/20/18 10:20 Cholesterol 123 mg/dL (<200) 06/20/18 10:20 Urine Source CLEAN C 06/17/18 19:05 Urine Color YELLOW 06/17/18 19:05 Urine Clarity HAZY (CLEAR) 06/17/18 19:05 Urine pH 7.5 (4.6 - 8.0) 06/17/18 19:05 Ur Specific [place] 1.015 (1.005-1.030) 06/17/18 19:05 Urine Protein NEGATIVE mg/dL (NEGATIVE) 06/17/18 19:05 Urine Glucose (UA) NEGATIVE mg/dL (NEGATIVE) 06/17/18 19:05 Urine Ketones 40 mg/dL (NEGATIVE) H 06/17/18 19:05 Urine Blood LARGE (NEGATIVE) H 06/17/18 19:05 Urine Nitrate NEGATIVE (NEGATIVE) 06/17/18 19:05 Urine Bilirubin NEGATIVE (NEGATIVE) 06/17/18 19:05 Urine Urobilinogen 0.2 E.U./dL (0.2 - 1.0) 06/17/18 19:05 Ur Leukocyte Esterase NEGATIVE (NEGATIVE) 06/17/18 19:05 Urine RBC NONE SEEN /hpf (0-5) 06/17/18 19:05 Urine WBC 2-5 /hpf (0-5) 06/17/18 19:05 Ur Epithelial Cells NONE SEEN /lpf (FEW) 06/17/18 19:05 Urine Bacteria FEW /hpf (NONE SEEN) 06/17/18 19:05 Vancomycin Trough 20.3 ug/mL (5-10) H 06/20/18 19:55 - Physical Exam Vitals and I&O: Vital Signs Temp 98.1 F 06/23/18 04:00 Pulse 75 06/23/18 07:22 Resp 18 06/23/18 07:22 BP 137/75 06/23/18 04:00 Pulse Ox 96 06/23/18 07:22 Intake & Output 06/22/18 06/23/18 06/23/18 18:59 06:59 18:59 Intake Total 250 100 Balance 250 100 Weight (lbs) 50.349 kg Intake: Intake, IV Amount 250 100 Cefepime 2 gm In Dextrose 100 5% 100 ml @ 100 mls/hr IV Q12HR [facility] Rx#: [id number] Vancomycin HCl 1 gm In 250 Sodium Chloride 0.9% 250 ml @ 165 mls/hr IV Q12HR [facility] Rx#:[id number] Other: # Voids 500 Weight Source Bedscale Active Medications: Current Medications Acetaminophen (Tylenol 650mg/20.3ml Suspension) 650 mg GT Q6H PRN PRN Reason: BREAKTRHOUGH PAIN OR TEMP >101 Stop: 08/17/18 06:46 Acetaminophen/Hydrocodone Bitart ([place] 10 Mg/325 Mg) 1 tab GT Q6H PRN PRN Reason: PAIN (MODERATE) Stop: 08/19/18 08:59 Acetaminophen/Hydrocodone Bitart ([place] 5mg/325mg) 1 tab GT Q6H PRN PRN Reason: MILD PAIN Stop: 08/19/18 08:59 Albuterol/Ipratropium (Duoneb Neb) 3 ml HHN Q6HRT [facility] Stop: 08/17/18 06:59 Last Admin: 06/23/18 07:21 Dose: 3 ml Bisacodyl (Dulcolax 10 Mg Supp) 10 mg RC DAILY PRN PRN Reason: Constipation Stop: 08/17/18 06:34 Last Admin: 06/19/18 17:27 Dose: 10 mg Chlorhexidine Gluconate (Peridex) 15 ml MM BID [facility] Stop: 08/17/18 08:59 Last Admin: 06/23/18 08:04 Dose: Not Given Docusate Sodium (Colace) 100 mg PO BID [facility] Stop: 08/17/18 08:59 Last Admin: 06/23/18 08:04 Dose: Not Given Enoxaparin Sodium (Lovenox) 40 mg SUBQ DAILY [facility] Stop: 08/17/18 08:59 Last Admin: 06/22/18 09:28 Dose: 40 mg Ferrous Sulfate (Iron) 300 mg GT BID [facility] Stop: 08/17/18 08:59 Last Admin: 06/23/18 08:05 Dose: Not Given Fluticasone Propionate (Flonase) 1 spr NS DAILY [facility] Stop: 08/17/18 08:59 Last Admin: 06/22/18 09:29 Dose: 1 spr Folic Acid (Folate) 1 mg GT DAILY [facility] Stop: 08/17/18 08:59 Last Admin: 06/23/18 08:05 Dose: Not Given Vancomycin HCl 1 gm/ Sodium (Chloride) 250 mls @ 165 mls/hr IV Q12HR [facility] Stop: 08/18/18 08:59 Last Admin: 06/22/18 23:22 Dose: 165 mls/hr Multivitamins/Minerals 10 ml/Dextrose/ Amino Acids/Electrolytes/ Fat Emulsion Intravenous 1,440 mls @ 60 mls/hr IV .Q24H [facility] Stop: 08/21/18 14:59 Last Admin: 06/22/18 15:59 Dose: 60 mls/hr Cefepime HCl 2 gm/ Dextrose 100 mls @ 100 mls/hr IV Q12HR [facility] Stop: 08/21/18 20:59 Last Infusion: 06/22/18 22:16 Dose: Infused Insulin Aspart (Novolog Insulin Sliding Scale) 0 units SUBQ Q6HR [facility]; Protocol Stop: 08/19/18 11:59 Last Admin: 06/23/18 05:40 Dose: Not Given Lactobacillus Rhamnosus (Culturelle 15b) 1 each PO DAILY [facility] Stop: 08/17/18 13:59 Last Admin: 06/23/18 08:06 Dose: Not Given Magnesium Hydroxide (Milk Of Magnesia) 30 ml GT DAILY PRN PRN Reason: Constipation Stop: 08/17/18 06:34 Miscellaneous (Vancomycin Iv Per Pharmacy) 1 ea MC PRN PRN PRN Reason: VANCO PER RX Stop: 08/16/18 16:03 Miscellaneous (Vte Chemical Prophylaxis Screen/ Admission) 1 ea MC PRN PRN PRN Reason: PROTOCOL Stop: 08/16/18 17:05 Miscellaneous (Probiotic Screen) 1 ea MC PRN PRN PRN Reason: PROTOCOL Stop: 08/17/18 09:32 Miscellaneous (Tpn Per Pharmacy) 1 ea MC PRN PRN PRN Reason: PROTOCOL Stop: 08/18/18 10:24 Morphine Sulfate (Morphine) 1 mg IVP Q4HR PRN PRN Reason: Pain (Severe) Stop: 08/16/18 20:07 Last Admin: 06/23/18 05:28 Dose: 1 mg Mupirocin (Bactroban Oint) 1 appl NS BID [facility] Stop: 06/23/18 17:01 Last Admin: 06/22/18 18:41 Dose: 1 appl Nystatin (Mycostatin Cream) 1 appl TP BID [facility] Stop: 08/17/18 08:59 Last Admin: 06/22/18 18:41 Dose: 1 appl Petrolatum (Vaseline Oint) 1 appl TP DAILY [facility] Stop: 08/17/18 08:59 Last Admin: 06/23/18 08:06 Dose: Not Given Sucralfate (Carafate) 1 gm GT QID [facility] Stop: 08/17/18 08:59 Last Admin: 06/23/18 08:06 Dose: Not Given General: Alert, No acute distress HEENT: Atraumatic Neck: Supple, Other (INTACT TRACH) Cardiovascular: Regular rate Lungs: Normal air movement Abdomen: Bowel sounds, Soft, Other (OLD FISTULA CLOSED) Extremities: no Clubbing, no Cyanosis, no Edema Assessment/Plan - Problem List Patient Problems: All Active Problems MALFUNCTIONING GASTRIC FEEDING TUBE/RASH (Acute) - Assessment Assessment: Current Active Problems Problem Status Onset MALFUNCTIONING GASTRIC FEEDING TUBE/RASH Acute Gtube site cellulitis +MRSA +Pseudomonas Cellulitis and induration around g tube site in a man who is dependent on tube feeds. 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 Anemia with hematocrit of 25. Thrombocytosis of 722k. COPD Nicotine addiction. prerenal azotemia improved - Plan Plan: continue IV antibiotics per ID will continue home meds. keep NPO on TPN per pharmacy for PEG placement in a few days per GI Nutritional Asmnt/Malnutr-PDOC - Dietary Evaluation Malnutrition Findings (Please click <Entered> for more info): Nutritional Asmnt/Malnutrition Start: 06/18/18 12: 01 Text: Status: Complete Freq: Protocol: Document 06/18/18 12:01 NICKI (Rec: 06/18/18 12:27 NICKI WEINER- [email or web address]) Nutritional Asmnt/Malnutrition Patient General Information Nutritional Screening High Risk Diagnosis Malfunction G-Tube Pertinent Medical Hx/Surgical Hx CHRONIC RESPIRATORY FAILURE, MALIGNANT NEOPLASM OF TONGUE, CHRONIC RHINITIS, TRACHEOSTOMY , GASTRIC FEEDING TUBE, CHRONIC BRONCHITIS, PRESALES CONSULTANT ANTICOAGULANTS Subjective Information Patient was admitted from SNF with H&P "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 Per nursing, patient with G-tube in place, however states MD wants to wait to start feeding. Current Diet Order/ Nutrition Support NPO Patient / S.O Not Indicated Pertinent Medications dulxolax, D5-0.45NS @ 50 ml/hr , colace, iron, folate, culturelle, MOM, Abx Pertinent Labs (06/18) albumin 2.9 ( decreasing) Nutritional Hx/Data Height 1.68 m Height (Calculated Centimeters) 167.6 Current Weight (lbs) 47.174 kg Weight (Calculated Kilograms) 47.2 Weight (Calculated Grams) 23746.6 [place] Body Weight 142 % [place] Body Weight 73 Body Mass Index (BMI) 16.7 Recent Weight Change No Weight Status Underweight GI Symptoms GI Symptoms None Last BM none noted since admission Difficult in: None Food Allergies No Cultural/Ethnic/Advent Belief none indicated Usual diet at home Jevity 1.2 Bolus 4 cans daily (1 can 9am, 1p, 5p, 10p), with 100ml free water flush every 6 hours. This provides 948ml total volume, 1137 kcal, 52 gm protein, 1165ml free water. Skin Integrity/Comment: Bryan 18, reddened stoma/g- tube site, rash/reddened back Estimated Nutritional Goals BEE in Kcals: Using Current wt Calories/Kcals/Kg 35-40 kcal/kg using CBW 47.2 ( cancer, low BMI) Kcals Calculated ~9202-8453 kcal/day Protein: Using Current wt Protein g/k.5-2 gm/kg (cancer, muscle wasting) Protein Calculated 70-95 gm/day Fluid: ml ~8502-1202 ml/day Nutritional Problem 1. Problem Problem Inadequate energy intake related to Etiology withholding tube feeding due to malfunction G-tube without initiation of alternate nutrition support aeb Signs/Symptoms: NPO status Intervention/Recommendation Comments 1. Restart tube feeding once medically appropriate; recommend bolus feeding Jevity 1.2 375 ml 4 times a day ( previous feeding schedule 9am, 1p, 5p, 10p). This provides 1500ml, 1800 kcal, 82 gm protein. 2. If unable to restart tube feeding, consider Parenteral nutrition. Expected Outcomes/Goals Expected Outcomes/Goals Meets >75% of nutrient needs, weight increase toward ideal body weight, improved skin integrity
[2018-06-23] MEDS: Nystatin Cream 100,000 u/gm Cream 15 gm TP SCH ×2 (09:18→17:51)
[2018-06-23] MEDS: Enoxaparin 40 mg/0.4 mL 0.4mL Syr SUBQ SCH (09:18)
[2018-06-23] MEDS: Fluticasone Propionate Nasal 1 SPR SPR NS SCH (09:28)
--- NOTE | 2018-06-23 10:20 | General Progress Note ---
Subjective - Review of Systems Service Date: 06/23/18 Subjective: no new sxs G. tube is out on iv TPN right picc line Objective - Results Result Diagrams: 06/23/18 05:49 06/23/18 05:49 Recent Labs: Laboratory Last Values WBC 5.8 Th/cmm (4.8-10.8) 06/23/18 05:49 RBC 3.06 Mil/cmm (4.30-5.70) L 06/23/18 05:49 Hgb 9.4 gm/dL (12-16) L 06/23/18 05:49 Hct 28.2 % (41.0-60) L 06/23/18 05:49 MCV 92.1 fl (80-99) 06/23/18 05:49 MCH 30.7 pg (26.0-30.0) H 06/23/18 05:49 MCHC Differential 33.4 pg (28.0-36.0) 06/23/18 05:49 RDW 16.1 % (11.5-20.0) 06/23/18 05:49 Plt Count 528 Th/cmm (150-400) H 06/23/18 05:49 MPV 6.0 fl 06/23/18 05:49 Add Manual Diff YES 06/22/18 06:00 Neutrophils % 81.7 % (40.0-80.0) H 06/23/18 05:49 Band Neutrophils % 2 % (0-10) 06/22/18 06:00 Lymphocytes % 10.0 % (20.0-50.0) L 06/23/18 05:49 Monocytes % 7.4 % (2.0-10.0) 06/23/18 05:49 Eosinophils % 0.7 % (0.0-5.0) 06/23/18 05:49 Basophils % 0.2 % (0.0-2.0) 06/23/18 05:49 Neutrophils (Manual) 85 % (40-80) H 06/22/18 06:00 Lymphocytes 7 % (20-50) L 06/22/18 06:00 Monocytes 6 % (2-10) 06/22/18 06:00 Eosinophils 0 % (0-5) 06/22/18 06:00 Basophils 0 % (0-3) 06/22/18 06:00 Platelet Estimate INCREASED PLATELETS (NORMAL) 06/17/18 11:40 PT 10.3 SECONDS (9.5-11.5) 06/23/18 05:49 INR 0.99 (0.5-1.4) 06/23/18 05:49 Sodium 135 mEq/L (136-145) L 06/23/18 05:49 Potassium 3.9 mEq/L (3.5-5.1) 06/23/18 05:49 Chloride 102 mEq/L (98-107) 06/23/18 05:49 Carbon Dioxide 24.7 mEq/L (21.0-31.0) 06/23/18 05:49 Anion Gap 12.2 (7.0-16.0) 06/23/18 05:49 BUN 12 mg/dL (7-25) 06/23/18 05:49 Creatinine 0.5 mg/dL (0.7-1.3) L 06/23/18 05:49 Est GFR ( Amer) > 60.0 ml/min (>90) 06/23/18 05:49 Est GFR (Non-Af Amer) > 60.0 ml/min 06/23/18 05:49 BUN/Creatinine Ratio 24.0 06/23/18 05:49 Glucose 143 mg/dL (70-105) H 06/23/18 05:49 POC Glucose 140 MG/DL (70 - 105) H 06/23/18 05:33 Calcium 9.2 mg/dL (8.6-10.3) 06/23/18 05:49 Phosphorus 3.9 mg/dL (2.5-5.0) 06/23/18 05:49 Magnesium 1.8 mg/dL (1.9-2.7) L 06/23/18 05:49 Iron 36 ug/dL (38-169) L 06/18/18 06:30 TIBC 198 ug/dL (250-450) L 06/18/18 06:30 Iron Saturation 18 % (15-55) 06/18/18 06:30 Unsaturated IBC 162 ug/dL (111-343) 06/18/18 06:30 Ferritin 304 ng/mL (30-400) 06/19/18 09:16 Total Bilirubin 0.2 mg/dL (0.3-1.0) L 06/20/18 10:20 AST 8 U/L (13-39) L 06/20/18 10:20 ALT 4 U/L (7-52) L 06/20/18 10:20 Alkaline Phosphatase 43 U/L (34-104) 06/20/18 10:20 Total Protein 6.0 gm/dL (6.0-8.3) 06/20/18 10:20 Albumin 2.9 gm/dL (4.2-5.5) L 06/20/18 10:20 Globulin 3.1 gm/dL 06/20/18 10:20 Albumin/Globulin Ratio 0.9 (1.0-1.8) L 06/20/18 10:20 Prealbumin 11 mg/dL (10-36) 06/20/18 10:20 Triglycerides 48 mg/dL (<150) 06/20/18 10:20 Cholesterol 123 mg/dL (<200) 06/20/18 10:20 Urine Source CLEAN C 06/17/18 19:05 Urine Color YELLOW 06/17/18 19:05 Urine Clarity HAZY (CLEAR) 06/17/18 19:05 Urine pH 7.5 (4.6 - 8.0) 06/17/18 19:05 Ur Specific [place] 1.015 (1.005-1.030) 06/17/18 19:05 Urine Protein NEGATIVE mg/dL (NEGATIVE) 06/17/18 19:05 Urine Glucose (UA) NEGATIVE mg/dL (NEGATIVE) 06/17/18 19:05 Urine Ketones 40 mg/dL (NEGATIVE) H 06/17/18 19:05 Urine Blood LARGE (NEGATIVE) H 06/17/18 19:05 Urine Nitrate NEGATIVE (NEGATIVE) 06/17/18 19:05 Urine Bilirubin NEGATIVE (NEGATIVE) 06/17/18 19:05 Urine Urobilinogen 0.2 E.U./dL (0.2 - 1.0) 06/17/18 19:05 Ur Leukocyte Esterase NEGATIVE (NEGATIVE) 06/17/18 19:05 Urine RBC NONE SEEN /hpf (0-5) 06/17/18 19:05 Urine WBC 2-5 /hpf (0-5) 06/17/18 19:05 Ur Epithelial Cells NONE SEEN /lpf (FEW) 06/17/18 19:05 Urine Bacteria FEW /hpf (NONE SEEN) 06/17/18 19:05 Vancomycin Trough 13.3 ug/mL (5-10) H 06/23/18 08:20 - Physical Exam Vitals and I&O: Vital Signs Temp 97.4 F 06/23/18 08:49 Pulse 75 06/23/18 08:49 Resp 18 06/23/18 08:49 BP 139/74 06/23/18 08:49 Pulse Ox 96 06/23/18 08:49 Intake & Output 06/22/18 06/23/18 06/23/18 18:59 06:59 18:59 Intake Total 250 350 Balance 250 350 Weight (lbs) 50.349 kg Intake: Intake, IV Amount 250 350 Cefepime 2 gm In Dextrose 100 5% 100 ml @ 100 mls/hr IV Q12HR [facility] Rx#: [id number] Vancomycin HCl 1 gm In 250 250 Sodium Chloride 0.9% 250 ml @ 165 mls/hr IV Q12HR [facility] Rx#:[id number] Other: # Voids 500 Weight Source Bedscale Active Medications: Current Medications Acetaminophen (Tylenol 650mg/20.3ml Suspension) 650 mg GT Q6H PRN PRN Reason: BREAKTRHOUGH PAIN OR TEMP >101 Stop: 08/17/18 06:46 Acetaminophen/Hydrocodone Bitart ([place] 10 Mg/325 Mg) 1 tab GT Q6H PRN PRN Reason: PAIN (MODERATE) Stop: 08/19/18 08:59 Acetaminophen/Hydrocodone Bitart ([place] 5mg/325mg) 1 tab GT Q6H PRN PRN Reason: MILD PAIN Stop: 08/19/18 08:59 Albuterol/Ipratropium (Duoneb Neb) 3 ml HHN Q6HRT [facility] Stop: 08/17/18 06:59 Last Admin: 06/23/18 07:21 Dose: 3 ml Bisacodyl (Dulcolax 10 Mg Supp) 10 mg RC DAILY PRN PRN Reason: Constipation Stop: 08/17/18 06:34 Last Admin: 06/19/18 17:27 Dose: 10 mg Chlorhexidine Gluconate (Peridex) 15 ml MM BID [facility] Stop: 08/17/18 08:59 Last Admin: 06/23/18 08:04 Dose: Not Given Docusate Sodium (Colace) 100 mg PO BID [facility] Stop: 08/17/18 08:59 Last Admin: 06/23/18 08:04 Dose: Not Given Enoxaparin Sodium (Lovenox) 40 mg SUBQ DAILY [facility] Stop: 08/17/18 08:59 Last Admin: 06/23/18 09:18 Dose: 40 mg Ferrous Sulfate (Iron) 300 mg GT BID [facility] Stop: 08/17/18 08:59 Last Admin: 06/23/18 08:05 Dose: Not Given Fluticasone Propionate (Flonase) 1 spr NS DAILY [facility] Stop: 08/17/18 08:59 Last Admin: 06/23/18 09:28 Dose: 1 spr Folic Acid (Folate) 1 mg GT DAILY [facility] Stop: 08/17/18 08:59 Last Admin: 06/23/18 08:05 Dose: Not Given Vancomycin HCl 1 gm/ Sodium (Chloride) 250 mls @ 165 mls/hr IV Q12HR [facility] Stop: 08/18/18 08:59 Last Admin: 06/23/18 09:10 Dose: 165 mls/hr Multivitamins/Minerals 10 ml/Dextrose/ Amino Acids/Electrolytes/ Fat Emulsion Intravenous 1,440 mls @ 60 mls/hr IV .Q24H [facility] Stop: 08/21/18 14:59 Last Admin: 06/22/18 15:59 Dose: 60 mls/hr Cefepime HCl 2 gm/ Dextrose 100 mls @ 100 mls/hr IV Q12HR [facility] Stop: 08/21/18 20:59 Last Infusion: 06/22/18 22:16 Dose: Infused Insulin Aspart (Novolog Insulin Sliding Scale) 0 units SUBQ Q6HR [facility]; Protocol Stop: 08/19/18 11:59 Last Admin: 06/23/18 05:40 Dose: Not Given Lactobacillus Rhamnosus (Culturelle 15b) 1 each PO DAILY [facility] Stop: 08/17/18 13:59 Last Admin: 06/23/18 08:06 Dose: Not Given Magnesium Hydroxide (Milk Of Magnesia) 30 ml GT DAILY PRN PRN Reason: Constipation Stop: 08/17/18 06:34 Miscellaneous (Vancomycin Iv Per Pharmacy) 1 ea PRN PRN PRN Reason: VANCO PER RX Stop: 08/16/18 16:03 Miscellaneous (Vte Chemical Prophylaxis Screen/ Admission) 1 ea MC PRN PRN PRN Reason: PROTOCOL Stop: 08/16/18 17:05 Miscellaneous (Probiotic Screen) 1 ea MC PRN PRN PRN Reason: PROTOCOL Stop: 08/17/18 09:32 Miscellaneous (Tpn Per Pharmacy) 1 ea MC PRN PRN PRN Reason: PROTOCOL Stop: 08/18/18 10:24 Morphine Sulfate (Morphine) 1 mg IVP Q4HR PRN PRN Reason: Pain (Severe) Stop: 08/16/18 20:07 Last Admin: 06/23/18 09:17 Dose: 1 mg Mupirocin (Bactroban Oint) 1 appl NS BID MICHAEL Stop: 06/23/18 17:01 Last Admin: 06/23/18 09:18 Dose: 1 appl Nystatin (Mycostatin Cream) 1 appl TP BID [facility] Stop: 08/17/18 08:59 Last Admin: 06/23/18 09:18 Dose: 1 appl Petrolatum (Vaseline Oint) 1 appl TP DAILY MICHAEL Stop: 08/17/18 08:59 Last Admin: 06/23/18 08:06 Dose: Not Given Sucralfate (Carafate) 1 gm GT QID MICHAEL Stop: 08/17/18 08:59 Last Admin: 06/23/18 08:06 Dose: Not Given General: Alert, No acute distress HEENT: Atraumatic Neck: Supple, Other (INTACT TRACH) Cardiovascular: Regular rate Lungs: Normal air movement Abdomen: Bowel sounds, Soft, Other (OLD FISTULA CLOSED) Extremities: no Clubbing, no Cyanosis, no Edema Assessment/Plan - Problem List Patient Problems: All Active Problems MALFUNCTIONING GASTRIC FEEDING TUBE/RASH (Acute) - Assessment Assessment: The elevated platelet count is most likely reactive. The patient has concurrent anemia and anemia workup will be obtained. No interim specific intervention is required for the high platelet count. The patient has a report of possible cecal mass on PET scan done by the primary oncologist and this will be deferred to the primary oncologist for continued management. 06/19: ferritin pending. plt better. hgb lower. monitor 06/20: hgb lower. plt stable. ferritin pending. monitor for now. 06/23/18: hgb improved. Anemia of chronic disease. Monitor hgb. dvt proph Nutritional Asmnt/Malnutr-PDOC - Dietary Evaluation Malnutrition Findings (Please click <Entered> for more info): Nutritional Asmnt/Malnutrition Start: 06/18/18 12: 01 Text: Status: Complete Freq: Protocol: Document 06/18/18 12:01 NICKI (Rec: 06/18/18 12:27 NICKI REGINE- [email or web address]) Nutritional Asmnt/Malnutrition Patient General Information Nutritional Screening High Risk Diagnosis Malfunction G-Tube Pertinent Medical Hx/Surgical Hx CHRONIC RESPIRATORY FAILURE, MALIGNANT NEOPLASM OF TONGUE, CHRONIC RHINITIS, TRACHEOSTOMY , GASTRIC FEEDING TUBE, CHRONIC BRONCHITIS, LONG-TERM ANTICOAGULANTS Subjective Information Patient was admitted from SNF with H&P "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 Per nursing, patient with G-tube in place, however states MD wants to wait to start feeding. Current Diet Order/ Nutrition Support NPO Patient / S.O Not Indicated Pertinent Medications dulxolax, D5-0.45NS @ 50 ml/hr , colace, iron, folate, culturelle, MOM, Abx Pertinent Labs (06/18) albumin 2.9 ( decreasing) Nutritional Hx/Data Height 1.68 m Height (Calculated Centimeters) 167.6 Current Weight (lbs) 47.174 kg Weight (Calculated Kilograms) 47.2 Weight (Calculated Grams) 83142.6 [place] Body Weight 142 % [place] Body Weight 73 Body Mass Index (BMI) 16.7 Recent Weight Change No Weight Status Underweight GI Symptoms GI Symptoms None Last BM none noted since admission Difficult in: None Food Allergies No Cultural/Ethnic/Anglican Belief none indicated Usual diet at home Jevity 1.2 Bolus 4 cans daily (1 can 9am, 1p, 5p, 10p), with 100ml free water flush every 6 hours. This provides 948ml total volume, 1137 kcal, 52 gm protein, 1165ml free water. Skin Integrity/Comment: Bryan 18, reddened stoma/g- tube site, rash/reddened back Estimated Nutritional Goals BEE in Kcals: Using Current wt Calories/Kcals/Kg 35-40 kcal/kg using CBW 47.2 ( cancer, low BMI) Kcals Calculated ~6020-9334 kcal/day Protein: Using Current wt Protein g/k.5-2 gm/kg (cancer, muscle wasting) Protein Calculated 70-95 gm/day Fluid: ml ~8968-1631 ml/day Nutritional Problem 1. Problem Problem Inadequate energy intake related to Etiology withholding tube feeding due to malfunction G-tube without initiation of alternate nutrition support aeb Signs/Symptoms: NPO status Intervention/Recommendation Comments 1. Restart tube feeding once medically appropriate; recommend bolus feeding Jevity 1.2 375 ml 4 times a day ( previous feeding schedule 9am, 1p, 5p, 10p). This provides 1500ml, 1800 kcal, 82 gm protein. 2. If unable to restart tube feeding, consider Parenteral nutrition. Expected Outcomes/Goals Expected Outcomes/Goals Meets >75% of nutrient needs, weight increase toward ideal body weight, improved skin integrity
[2018-06-23] MEDS: TPN 10%-70% CUSTOM IV SCH (17:52)
--- NOTE | 2018-06-23 18:15 | Operative Report ---
DATE OF SURGERY: 06/23/2018 PROCEDURE: Attempted esophagogastroduodenoscopy with G-tube insertion. PREOPERATIVE DIAGNOSIS: Dysphagia. POSTOPERATIVE DIAGNOSIS: Unable to sufficiently open mouth to allow for scope insertion into the oropharynx. INDICATIONS: A 63-year-old male with head and neck cancer, status post tracheostomy and radiation treatment, who had a history of G-tube insertion that became malfunctioned. He developed buried bumper syndrome. He required removal of the G-tube. The site has now healed and upper endoscopy is planned today for a new G-tube insertion at new site. CONSENT: Informed consent was obtained from the patient prior to procedure after detailed explanation of risks, benefits, and alternatives include but not limited to infection, bleeding, perforation, and . SEDATION: Monitored anesthesia care per Dr. Landin. DESCRIPTION OF PROCEDURE AND FINDINGS: The procedure took place as an inpatient in the GI suite of [facility]. The patient was kept in a supine position with head of bed slightly elevated. Monitored anesthesia care was achieved by Dr. Landin. Attempts were made to insert a bite block into the oropharynx and between the teeth. The jaw could not be opened sufficiently to allow for bite block insertion. The jaw was barely able to be opened. This did not allow for scope introduction in a safe manner. At this point, the procedure was aborted. The patient tolerated the procedure well and no complications are anticipated. RECOMMENDATIONS: 1. We will obtain surgical consultation for consideration of surgical G-tube insertion. 2. Continue antibiotics for healing of G-tube site cellulitis in the meantime. Plan has been discussed with Dr. Randolph Harris over the phone. Thank you, Dr. Randolph Harris for involving us in the care of your patient. If you have any further questions, please call us. JOB# [id number]
[2018-06-24] MEDS: Albuterol/Ipratropium Neb 3 ML AERS HHN SCH ×4 (00:25→18:50)
[2018-06-24] MEDS: INSULIN ASPART SLIDING SCALE 100 UNITS/ML UNIT SUBQ SCH ×4 (01:04→17:23)
--- NOTE | 2018-06-24 05:44 | General Progress Note ---
Subjective - Review of Systems Service Date: 06/24/18 Subjective: Patient resting comfortably in bed. No acute distress. afebrile. awake, alert. Unable to obtain PEG placement per GI. Will obtain surgical consultation for G tube placement. Will keep NPO and continue TPN per pharmacy. Wound culture + MRSA +Pseudomonas. Objective - Results Result Diagrams: 06/23/18 05:49 06/23/18 05:49 Recent Labs: Laboratory Last Values WBC 5.8 Th/cmm (4.8-10.8) 06/23/18 05:49 RBC 3.06 Mil/cmm (4.30-5.70) L 06/23/18 05:49 Hgb 9.4 gm/dL (12-16) L 06/23/18 05:49 Hct 28.2 % (41.0-60) L 06/23/18 05:49 MCV 92.1 fl (80-99) 06/23/18 05:49 MCH 30.7 pg (26.0-30.0) H 06/23/18 05:49 MCHC Differential 33.4 pg (28.0-36.0) 06/23/18 05:49 RDW 16.1 % (11.5-20.0) 06/23/18 05:49 Plt Count 528 Th/cmm (150-400) H 06/23/18 05:49 MPV 6.0 fl 06/23/18 05:49 Add Manual Diff YES 06/22/18 06:00 Neutrophils % 81.7 % (40.0-80.0) H 06/23/18 05:49 Band Neutrophils % 2 % (0-10) 06/22/18 06:00 Lymphocytes % 10.0 % (20.0-50.0) L 06/23/18 05:49 Monocytes % 7.4 % (2.0-10.0) 06/23/18 05:49 Eosinophils % 0.7 % (0.0-5.0) 06/23/18 05:49 Basophils % 0.2 % (0.0-2.0) 06/23/18 05:49 Neutrophils (Manual) 85 % (40-80) H 06/22/18 06:00 Lymphocytes 7 % (20-50) L 06/22/18 06:00 Monocytes 6 % (2-10) 06/22/18 06:00 Eosinophils 0 % (0-5) 06/22/18 06:00 Basophils 0 % (0-3) 06/22/18 06:00 Platelet Estimate INCREASED PLATELETS (NORMAL) 06/17/18 11:40 PT 10.3 SECONDS (9.5-11.5) 06/23/18 05:49 INR 0.99 (0.5-1.4) 06/23/18 05:49 Sodium 135 mEq/L (136-145) L 06/23/18 05:49 Potassium 3.9 mEq/L (3.5-5.1) 06/23/18 05:49 Chloride 102 mEq/L (98-107) 06/23/18 05:49 Carbon Dioxide 24.7 mEq/L (21.0-31.0) 06/23/18 05:49 Anion Gap 12.2 (7.0-16.0) 06/23/18 05:49 BUN 12 mg/dL (7-25) 06/23/18 05:49 Creatinine 0.5 mg/dL (0.7-1.3) L 06/23/18 05:49 Est GFR ( Amer) > 60.0 ml/min (>90) 06/23/18 05:49 Est GFR (Non-Af Amer) > 60.0 ml/min 06/23/18 05:49 BUN/Creatinine Ratio 24.0 06/23/18 05:49 Glucose 143 mg/dL (70-105) H 06/23/18 05:49 POC Glucose 107 MG/DL (70 - 105) H 06/24/18 01:03 Calcium 9.2 mg/dL (8.6-10.3) 06/23/18 05:49 Phosphorus 3.9 mg/dL (2.5-5.0) 06/23/18 05:49 Magnesium 1.8 mg/dL (1.9-2.7) L 06/23/18 05:49 Iron 36 ug/dL (38-169) L 06/18/18 06:30 TIBC 198 ug/dL (250-450) L 06/18/18 06:30 Iron Saturation 18 % (15-55) 06/18/18 06:30 Unsaturated IBC 162 ug/dL (111-343) 06/18/18 06:30 Ferritin 304 ng/mL (30-400) 06/19/18 09:16 Total Bilirubin 0.2 mg/dL (0.3-1.0) L 06/20/18 10:20 AST 8 U/L (13-39) L 06/20/18 10:20 ALT 4 U/L (7-52) L 06/20/18 10:20 Alkaline Phosphatase 43 U/L (34-104) 06/20/18 10:20 Total Protein 6.0 gm/dL (6.0-8.3) 06/20/18 10:20 Albumin 2.9 gm/dL (4.2-5.5) L 06/20/18 10:20 Globulin 3.1 gm/dL 06/20/18 10:20 Albumin/Globulin Ratio 0.9 (1.0-1.8) L 06/20/18 10:20 Prealbumin 11 mg/dL (10-36) 06/20/18 10:20 Triglycerides 48 mg/dL (<150) 06/20/18 10:20 Cholesterol 123 mg/dL (<200) 06/20/18 10:20 Urine Source CLEAN C 06/17/18 19:05 Urine Color YELLOW 06/17/18 19:05 Urine Clarity HAZY (CLEAR) 06/17/18 19:05 Urine pH 7.5 (4.6 - 8.0) 06/17/18 19:05 Ur Specific [place] 1.015 (1.005-1.030) 06/17/18 19:05 Urine Protein NEGATIVE mg/dL (NEGATIVE) 06/17/18 19:05 Urine Glucose (UA) NEGATIVE mg/dL (NEGATIVE) 06/17/18 19:05 Urine Ketones 40 mg/dL (NEGATIVE) H 06/17/18 19:05 Urine Blood LARGE (NEGATIVE) H 06/17/18 19:05 Urine Nitrate NEGATIVE (NEGATIVE) 06/17/18 19:05 Urine Bilirubin NEGATIVE (NEGATIVE) 06/17/18 19:05 Urine Urobilinogen 0.2 E.U./dL (0.2 - 1.0) 06/17/18 19:05 Ur Leukocyte Esterase NEGATIVE (NEGATIVE) 06/17/18 19:05 Urine RBC NONE SEEN /hpf (0-5) 06/17/18 19:05 Urine WBC 2-5 /hpf (0-5) 06/17/18 19:05 Ur Epithelial Cells NONE SEEN /lpf (FEW) 06/17/18 19:05 Urine Bacteria FEW /hpf (NONE SEEN) 06/17/18 19:05 Vancomycin Trough 13.3 ug/mL (5-10) H 06/23/18 08:20 - Physical Exam Vitals and I&O: Vital Signs Temp 98.3 F 06/24/18 04:00 Pulse 72 06/24/18 04:00 Resp 19 06/24/18 04:00 BP 136/76 06/24/18 04:00 Pulse Ox 96 06/24/18 04:00 Intake & Output 06/23/18 06/23/18 06/24/18 06:59 18:59 06:59 Intake Total 350 1790 Balance 350 1790 Weight (lbs) 50.349 kg 51.256 kg Intake: Intake, IV Amount 350 1790 Cefepime 2 gm In Dextrose 100 100 5% 100 ml @ 100 mls/hr IV Q12HR [facility] Rx#: [id number] Multivitamin Inj 10 ml In 1440 Dextrose 70% 730 ml In Amino Acids 10% 500 ml In Intralipids 20% 200 ml @ 60 mls/hr IV .Q24H [facility] Rx#:[id number] Vancomycin HCl 1 gm In 250 250 Sodium Chloride 0.9% 250 ml @ 165 mls/hr IV Q12HR [facility] Rx#:[id number] Other: # Voids 500 Weight Source Bedscale Bedscale Active Medications: Current Medications Acetaminophen (Tylenol 650mg/20.3ml Suspension) 650 mg GT Q6H PRN PRN Reason: BREAKTRHOUGH PAIN OR TEMP >101 Stop: 08/17/18 06:46 Acetaminophen/Hydrocodone Bitart ([place] 10 Mg/325 Mg) 1 tab GT Q6H PRN PRN Reason: PAIN (MODERATE) Stop: 08/19/18 08:59 Acetaminophen/Hydrocodone Bitart ([place] 5mg/325mg) 1 tab GT Q6H PRN PRN Reason: MILD PAIN Stop: 08/19/18 08:59 Albuterol/Ipratropium (Duoneb Neb) 3 ml HHN Q6HRT [facility] Stop: 08/17/18 06:59 Last Admin: 06/24/18 00:25 Dose: Not Given Bisacodyl (Dulcolax 10 Mg Supp) 10 mg RC DAILY PRN PRN Reason: Constipation Stop: 08/17/18 06:34 Last Admin: 06/19/18 17:27 Dose: 10 mg Chlorhexidine Gluconate (Peridex) 15 ml MM BID [facility] Stop: 08/17/18 08:59 Last Admin: 06/23/18 17:43 Dose: Not Given Docusate Sodium (Colace) 100 mg PO BID [facility] Stop: 08/17/18 08:59 Last Admin: 06/23/18 17:44 Dose: Not Given Enoxaparin Sodium (Lovenox) 40 mg SUBQ DAILY [facility] Stop: 08/17/18 08:59 Last Admin: 06/23/18 09:18 Dose: 40 mg Ferrous Sulfate (Iron) 300 mg GT BID [facility] Stop: 08/17/18 08:59 Last Admin: 06/23/18 17:44 Dose: Not Given Fluticasone Propionate (Flonase) 1 spr NS DAILY [facility] Stop: 08/17/18 08:59 Last Admin: 06/23/18 09:28 Dose: 1 spr Folic Acid (Folate) 1 mg GT DAILY [facility] Stop: 08/17/18 08:59 Last Admin: 06/23/18 08:05 Dose: Not Given Vancomycin HCl 1 gm/ Sodium (Chloride) 250 mls @ 165 mls/hr IV Q12HR [facility] Stop: 08/18/18 08:59 Last Admin: 06/23/18 21:58 Dose: 165 mls/hr Multivitamins/Minerals 10 ml/Dextrose/ Amino Acids/Electrolytes/ Fat Emulsion Intravenous 1,440 mls @ 60 mls/hr IV .Q24H [facility] Stop: 08/21/18 14:59 Last Admin: 06/23/18 17:52 Dose: 60 mls/hr Cefepime HCl 2 gm/ Dextrose 100 mls @ 100 mls/hr IV Q12HR [facility] Stop: 08/21/18 20:59 Last Admin: 06/23/18 20:51 Dose: 100 mls/hr Insulin Aspart (Novolog Insulin Sliding Scale) 0 units SUBQ Q6HR [facility]; Protocol Stop: 08/19/18 11:59 Last Admin: 06/24/18 01:04 Dose: Not Given Lactobacillus Rhamnosus (Culturelle 15b) 1 each PO DAILY [facility] Stop: 08/17/18 13:59 Last Admin: 06/23/18 08:06 Dose: Not Given Magnesium Hydroxide (Milk Of Magnesia) 30 ml GT DAILY PRN PRN Reason: Constipation Stop: 08/17/18 06:34 Miscellaneous (Vancomycin Iv Per Pharmacy) 1 ea MC PRN PRN PRN Reason: VANCO PER RX Stop: 08/16/18 16:03 Miscellaneous (Vte Chemical Prophylaxis Screen/ Admission) 1 ea MC PRN PRN PRN Reason: PROTOCOL Stop: 08/16/18 17:05 Miscellaneous (Probiotic Screen) 1 ea MC PRN PRN PRN Reason: PROTOCOL Stop: 08/17/18 09:32 Miscellaneous (Tpn Per Pharmacy) 1 ea MC PRN PRN PRN Reason: PROTOCOL Stop: 08/18/18 10:24 Morphine Sulfate (Morphine) 1 mg IVP Q4HR PRN PRN Reason: Pain (Severe) Stop: 08/16/18 20:07 Last Admin: 06/23/18 21:58 Dose: 1 mg Nystatin (Mycostatin Cream) 1 appl TP BID [facility] Stop: 08/17/18 08:59 Last Admin: 06/23/18 17:51 Dose: 1 appl Petrolatum (Vaseline Oint) 1 appl TP DAILY [facility] Stop: 08/17/18 08:59 Last Admin: 06/23/18 08:06 Dose: Not Given Sucralfate (Carafate) 1 gm GT QID [facility] Stop: 08/17/18 08:59 Last Admin: 06/23/18 21:05 Dose: Not Given General: Alert, No acute distress HEENT: Atraumatic Neck: Supple, Other (INTACT TRACH) Cardiovascular: Regular rate Lungs: Normal air movement Abdomen: Bowel sounds, Soft, Other (OLD FISTULA CLOSED) Extremities: no Clubbing, no Cyanosis, no Edema Assessment/Plan - Problem List Patient Problems: All Active Problems MALFUNCTIONING GASTRIC FEEDING TUBE/RASH (Acute) - Assessment Assessment: Current Active Problems Problem Status Onset MALFUNCTIONING GASTRIC FEEDING TUBE/RASH Acute Gtube site cellulitis +MRSA +Pseudomonas Cellulitis and induration around g tube site in a man who is dependent on tube feeds. 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 Anemia with hematocrit of 25. Thrombocytosis of 722k. COPD Nicotine addiction. prerenal azotemia improved - Plan Plan: continue IV antibiotics per ID will continue home meds. keep NPO on TPN per pharmacy for PEG placement in a few days per GI Nutritional Asmnt/Malnutr-PDOC - Dietary Evaluation Malnutrition Findings (Please click <Entered> for more info): Nutritional Asmnt/Malnutrition Start: 06/18/18 12: 01 Text: Status: Complete Freq: Protocol: Document 06/18/18 12:01 NICKI (Rec: 06/18/18 12:27 NICKI WEINER- [email or web address]) Nutritional Asmnt/Malnutrition Patient General Information Nutritional Screening High Risk Diagnosis Malfunction G-Tube Pertinent Medical Hx/Surgical Hx CHRONIC RESPIRATORY FAILURE, MALIGNANT NEOPLASM OF TONGUE, CHRONIC RHINITIS, TRACHEOSTOMY , GASTRIC FEEDING TUBE, CHRONIC BRONCHITIS, [employer] ANTICOAGULANTS Subjective Information Patient was admitted from SNF with H&P "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 Per nursing, patient with G-tube in place, however states MD wants to wait to start feeding. Current Diet Order/ Nutrition Support NPO Patient / S.O Not Indicated Pertinent Medications dulxolax, D5-0.45NS @ 50 ml/hr , colace, iron, folate, culturelle, MOM, Abx Pertinent Labs (06/18) albumin 2.9 ( decreasing) Nutritional Hx/Data Height 1.68 m Height (Calculated Centimeters) 167.6 Current Weight (lbs) 47.174 kg Weight (Calculated Kilograms) 47.2 Weight (Calculated Grams) 37543.6 Lynn Body Weight 142 % Lynn Body Weight 73 Body Mass Index (BMI) 16.7 Recent Weight Change No Weight Status Underweight GI Symptoms GI Symptoms None Last BM none noted since admission Difficult in: None Food Allergies No Cultural/Ethnic/Taoist Belief none indicated Usual diet at home Jevity 1.2 Bolus 4 cans daily (1 can 9am, 1p, 5p, 10p), with 100ml free water flush every 6 hours. This provides 948ml total volume, 1137 kcal, 52 gm protein, 1165ml free water. Skin Integrity/Comment: Bryan 18, reddened stoma/g- tube site, rash/reddened back Estimated Nutritional Goals BEE in Kcals: Using Current wt Calories/Kcals/Kg 35-40 kcal/kg using CBW 47.2 ( cancer, low BMI) Kcals Calculated ~5561-8061 kcal/day Protein: Using Current wt Protein g/k.5-2 gm/kg (cancer, muscle wasting) Protein Calculated 70-95 gm/day Fluid: ml ~1303-9032 ml/day Nutritional Problem 1. Problem Problem Inadequate energy intake related to Etiology withholding tube feeding due to malfunction G-tube without initiation of alternate nutrition support aeb Signs/Symptoms: NPO status Intervention/Recommendation Comments 1. Restart tube feeding once medically appropriate; recommend bolus feeding Jevity 1.2 375 ml 4 times a day ( previous feeding schedule 9am, 1p, 5p, 10p). This provides 1500ml, 1800 kcal, 82 gm protein. 2. If unable to restart tube feeding, consider Parenteral nutrition. Expected Outcomes/Goals Expected Outcomes/Goals Meets >75% of nutrient needs, weight increase toward ideal body weight, improved skin integrity
[2018-06-24 06:20] LABS: ALB/GLOB RATIO 0.8 (1.0-1.8); ALBUMIN 2.6 gm/dL (4.2-5.5); ALKALINE PHOSPHATASE 44 U/L (34-104); ANION GAP 9.4 (7.0-16.0); BILIRUBIN,TOTAL 0.2 mg/dL (0.3-1.0); BUN - UREA NITROGEN 12 mg/dL (7-25); CALCIUM SERUM 8.7 mg/dL (8.6-10.3); CARBON DIOXIDE 26.1 mEq/L (21.0-31.0); CHLORIDE 102 mEq/L (98-107); CREATININE - SERUM 0.4 mg/dL (0.7-1.3); GFR AFRICAN-AMERICAN > 60.0 ml/min (>90); GFR NON AFRICAN-AMERICAN > 60.0 ml/min; GLUCOSE 132 mg/dL (70-105); MAGNESIUM 1.6 mg/dL (1.9-2.7); PHOSPHOROUS 3.8 mg/dL (2.5-5.0); POTASSIUM SERUM 3.5 mEq/L (3.5-5.1); SGOT 7 U/L (13-39); SGPT/ALT 4 U/L (7-52); SODIUM SERUM 134 mEq/L (136-145)
[2018-06-24] MEDS ORDERED: fentaNYL Citrate 100 mcg/2mL Vial ONE (07:37)
[2018-06-24] MEDS ORDERED: Neostigmine 10mg/10mL Vial ONE (07:38)
[2018-06-24] MEDS ORDERED: Propofol **SURGERY USE ONLY** 20 ML IV ONE (07:38)
[2018-06-24] MEDS ORDERED: Meperidine 25 mg/mL 1mL Syr ONE (08:42)
[2018-06-24] MEDS: Morphine Sulfate 4 mg/mL 1mL Syr IVP PRN ×4 (09:55→23:50)
--- NOTE | 2018-06-24 10:18 | Operative Report ---
DATE OF SURGERY: PREOPERATIVE DIAGNOSIS: Failure to obtain access to the stomach for PEG. POSTOPERATIVE DIAGNOSIS: Failure to thrive. PROCEDURE: Gastrostomy tube placement for feeding via mini laparotomy. ANESTHESIA: This was done under general anesthesia with Dr. Landin. DESCRIPTION OF PROCEDURE: Under general anesthesia, the patient was prepped and draped in usual sterile fashion. A midline incision was made and a gastrostomy tube was placed using a size 20 feeding tube. We checked for the balloon prior to placing it. We then placed via an old PEG area and placed into the stomach, secured with circumferential 2-0 silk sutures and then we placed it into the peritoneal cavity and then we flushed it after 10 mL in the balloon was insufflated. We closed the peritoneal cavity with double stranded PDS suture and royal for the skin. A 20 mL of Marcaine 0.25% with epi was used for perioperative pain management. The patient tolerated procedure well. All instrument, sponge count and needle counts were correct. Estimated blood loss was negligible, less than 2 mL. [facility]# [id number]
[2018-06-24] MEDS: Chlorhexidine Gluconate 0.12% 480mL Bottle MM SCH ×2 (11:45→16:29)
[2018-06-24] MEDS: Ferrous Sulfate 300 MG/5 ML UDC GT SCH ×2 (11:46→16:30)
[2018-06-24] MEDS: Fluticasone Propionate Nasal 1 SPR SPR NS SCH (11:46)
[2018-06-24] MEDS: Enoxaparin 40 mg/0.4 mL 0.4mL Syr SUBQ SCH (11:46)
[2018-06-24] MEDS: Petrolatum (White) Oint 0.6 Oz Tube TP SCH (11:47)
[2018-06-24] MEDS: Lactobacillus Rhamnosus GG 15 Billion CFU CAP.SPRINK PO SCH (11:47)
[2018-06-24] MEDS: Nystatin Cream 100,000 u/gm Cream 15 gm TP SCH ×2 (11:47→17:05)
[2018-06-24] MEDS: TPN 10%-70% CUSTOM IV SCH (16:00)
--- NOTE | 2018-06-24 19:09 | General Progress Note ---
Subjective - Review of Systems Service Date: 06/24/18 Subjective: pain G. tube placed on iv TPN right picc line Objective - Results Result Diagrams: 06/23/18 05:49 06/24/18 05:10 Recent Labs: Laboratory Last Values WBC 5.8 Th/cmm (4.8-10.8) 06/23/18 05:49 RBC 3.06 Mil/cmm (4.30-5.70) L 06/23/18 05:49 Hgb 9.4 gm/dL (12-16) L 06/23/18 05:49 Hct 28.2 % (41.0-60) L 06/23/18 05:49 MCV 92.1 fl (80-99) 06/23/18 05:49 MCH 30.7 pg (26.0-30.0) H 06/23/18 05:49 MCHC Differential 33.4 pg (28.0-36.0) 06/23/18 05:49 RDW 16.1 % (11.5-20.0) 06/23/18 05:49 Plt Count 528 Th/cmm (150-400) H 06/23/18 05:49 MPV 6.0 fl 06/23/18 05:49 Add Manual Diff YES 06/22/18 06:00 Neutrophils % 81.7 % (40.0-80.0) H 06/23/18 05:49 Band Neutrophils % 2 % (0-10) 06/22/18 06:00 Lymphocytes % 10.0 % (20.0-50.0) L 06/23/18 05:49 Monocytes % 7.4 % (2.0-10.0) 06/23/18 05:49 Eosinophils % 0.7 % (0.0-5.0) 06/23/18 05:49 Basophils % 0.2 % (0.0-2.0) 06/23/18 05:49 Neutrophils (Manual) 85 % (40-80) H 06/22/18 06:00 Lymphocytes 7 % (20-50) L 06/22/18 06:00 Monocytes 6 % (2-10) 06/22/18 06:00 Eosinophils 0 % (0-5) 06/22/18 06:00 Basophils 0 % (0-3) 06/22/18 06:00 Platelet Estimate INCREASED PLATELETS (NORMAL) 06/17/18 11:40 PT 10.3 SECONDS (9.5-11.5) 06/23/18 05:49 INR 0.99 (0.5-1.4) 06/23/18 05:49 Sodium 134 mEq/L (136-145) L 06/24/18 05:10 Potassium 3.5 mEq/L (3.5-5.1) 06/24/18 05:10 Chloride 102 mEq/L (98-107) 06/24/18 05:10 Carbon Dioxide 26.1 mEq/L (21.0-31.0) 06/24/18 05:10 Anion Gap 9.4 (7.0-16.0) 06/24/18 05:10 BUN 12 mg/dL (7-25) 06/24/18 05:10 Creatinine 0.4 mg/dL (0.7-1.3) L 06/24/18 05:10 Est GFR ( Amer) > 60.0 ml/min (>90) 06/24/18 05:10 Est GFR (Non-Af Amer) > 60.0 ml/min 06/24/18 05:10 BUN/Creatinine Ratio 30.0 06/24/18 05:10 Glucose 132 mg/dL (70-105) H 06/24/18 05:10 POC Glucose 126 MG/DL (70 - 105) H 06/24/18 17:13 Calcium 8.7 mg/dL (8.6-10.3) 06/24/18 05:10 Phosphorus 3.8 mg/dL (2.5-5.0) 06/24/18 05:10 Magnesium 1.6 mg/dL (1.9-2.7) L 06/24/18 05:10 Iron 36 ug/dL (38-169) L 06/18/18 06:30 TIBC 198 ug/dL (250-450) L 06/18/18 06:30 Iron Saturation 18 % (15-55) 06/18/18 06:30 Unsaturated IBC 162 ug/dL (111-343) 06/18/18 06:30 Ferritin 304 ng/mL (30-400) 06/19/18 09:16 Total Bilirubin 0.2 mg/dL (0.3-1.0) L 06/24/18 05:10 AST 7 U/L (13-39) L 06/24/18 05:10 ALT 4 U/L (7-52) L 06/24/18 05:10 Alkaline Phosphatase 44 U/L (34-104) 06/24/18 05:10 Total Protein 6.0 gm/dL (6.0-8.3) 06/24/18 05:10 Albumin 2.6 gm/dL (4.2-5.5) L 06/24/18 05:10 Globulin 3.4 gm/dL 06/24/18 05:10 Albumin/Globulin Ratio 0.8 (1.0-1.8) L 06/24/18 05:10 Prealbumin 11 mg/dL (10-36) 06/20/18 10:20 Triglycerides 48 mg/dL (<150) 06/20/18 10:20 Cholesterol 123 mg/dL (<200) 06/20/18 10:20 Urine Source CLEAN C 06/17/18 19:05 Urine Color YELLOW 06/17/18 19:05 Urine Clarity HAZY (CLEAR) 06/17/18 19:05 Urine pH 7.5 (4.6 - 8.0) 06/17/18 19:05 Ur Specific [place] 1.015 (1.005-1.030) 06/17/18 19:05 Urine Protein NEGATIVE mg/dL (NEGATIVE) 06/17/18 19:05 Urine Glucose (UA) NEGATIVE mg/dL (NEGATIVE) 06/17/18 19:05 Urine Ketones 40 mg/dL (NEGATIVE) H 06/17/18 19:05 Urine Blood LARGE (NEGATIVE) H 06/17/18 19:05 Urine Nitrate NEGATIVE (NEGATIVE) 06/17/18 19:05 Urine Bilirubin NEGATIVE (NEGATIVE) 06/17/18 19:05 Urine Urobilinogen 0.2 E.U./dL (0.2 - 1.0) 06/17/18 19:05 Ur Leukocyte Esterase NEGATIVE (NEGATIVE) 06/17/18 19:05 Urine RBC NONE SEEN /hpf (0-5) 06/17/18 19:05 Urine WBC 2-5 /hpf (0-5) 06/17/18 19:05 Ur Epithelial Cells NONE SEEN /lpf (FEW) 06/17/18 19:05 Urine Bacteria FEW /hpf (NONE SEEN) 06/17/18 19:05 Vancomycin Trough 13.3 ug/mL (5-10) H 06/23/18 08:20 - Physical Exam Vitals and I&O: Vital Signs Temp 97.6 F 06/24/18 16:22 Pulse 68 06/24/18 16:22 Resp 18 06/24/18 16:22 BP 134/68 06/24/18 16:22 Pulse Ox 99 06/24/18 16:22 Intake & Output 06/24/18 06/24/18 06/25/18 06:59 18:59 06:59 Intake Total 1328 Balance 1328 Weight (lbs) 51.256 kg 51.256 kg Intake: Intake, IV Amount 1328 Multivitamin Inj 10 ml In 1328 Dextrose 70% 730 ml In Amino Acids 10% 500 ml In Intralipids 20% 200 ml @ 60 mls/hr IV .Q24H [facility] Rx#:[id number] Oral 0 Other: # Voids 5 Weight Source Bedscale Bedscale Active Medications: Current Medications Acetaminophen (Tylenol 650mg/20.3ml Suspension) 650 mg GT Q6H PRN PRN Reason: BREAKTRHOUGH PAIN OR TEMP >101 Stop: 08/17/18 06:46 Acetaminophen/Hydrocodone Bitart ([place] 10 Mg/325 Mg) 1 tab GT Q6H PRN PRN Reason: PAIN (MODERATE) Stop: 08/19/18 08:59 Acetaminophen/Hydrocodone Bitart ([place] 5mg/325mg) 1 tab GT Q6H PRN PRN Reason: MILD PAIN Stop: 08/19/18 08:59 Albuterol/Ipratropium (Duoneb Neb) 3 ml HHN Q6HRT [facility] Stop: 08/17/18 06:59 Last Admin: 06/24/18 18:50 Dose: 3 ml Bisacodyl (Dulcolax 10 Mg Supp) 10 mg RC DAILY PRN PRN Reason: Constipation Stop: 08/17/18 06:34 Last Admin: 06/19/18 17:27 Dose: 10 mg Chlorhexidine Gluconate (Peridex) 15 ml MM BID [facility] Stop: 08/17/18 08:59 Last Admin: 06/24/18 16:29 Dose: Not Given Docusate Sodium (Colace) 100 mg PO BID [facility] Stop: 08/17/18 08:59 Last Admin: 06/24/18 16:30 Dose: Not Given Enoxaparin Sodium (Lovenox) 40 mg SUBQ DAILY [facility] Stop: 08/17/18 08:59 Last Admin: 06/24/18 11:46 Dose: Not Given Ferrous Sulfate (Iron) 300 mg GT BID [facility] Stop: 08/17/18 08:59 Last Admin: 06/24/18 16:30 Dose: Not Given Fluticasone Propionate (Flonase) 1 spr NS DAILY [facility] Stop: 08/17/18 08:59 Last Admin: 06/24/18 11:46 Dose: Not Given Folic Acid (Folate) 1 mg GT DAILY [facility] Stop: 08/17/18 08:59 Last Admin: 06/24/18 11:47 Dose: Not Given Vancomycin HCl 1 gm/ Sodium (Chloride) 250 mls @ 165 mls/hr IV Q12HR [facility] Stop: 08/18/18 08:59 Last Admin: 06/24/18 11:47 Dose: Not Given Multivitamins/Minerals 10 ml/Dextrose/ Amino Acids/Electrolytes/ Fat Emulsion Intravenous 1,440 mls @ 60 mls/hr IV .Q24H [facility] Stop: 08/21/18 14:59 Last Admin: 06/24/18 16:00 Dose: 60 mls/hr Cefepime HCl 2 gm/ Dextrose 100 mls @ 100 mls/hr IV Q12HR [facility] Stop: 08/21/18 20:59 Last Admin: 06/24/18 09:55 Dose: Not Given Insulin Aspart (Novolog Insulin Sliding Scale) 0 units SUBQ Q6HR [facility]; Protocol Stop: 08/19/18 11:59 Last Admin: 06/24/18 17:23 Dose: Not Given Lactobacillus Rhamnosus (Culturelle 15b) 1 each PO DAILY [facility] Stop: 08/17/18 13:59 Last Admin: 06/24/18 11:47 Dose: Not Given Magnesium Hydroxide (Milk Of Magnesia) 30 ml GT DAILY PRN PRN Reason: Constipation Stop: 08/17/18 06:34 Miscellaneous (Vancomycin Iv Per Pharmacy) 1 ea PRN PRN PRN Reason: VANCO PER RX Stop: 08/16/18 16:03 Miscellaneous (Vte Chemical Prophylaxis Screen/ Admission) 1 ea PRN PRN PRN Reason: PROTOCOL Stop: 08/16/18 17:05 Miscellaneous (Probiotic Screen) 1 ea MC PRN PRN PRN Reason: PROTOCOL Stop: 08/17/18 09:32 Miscellaneous (Tpn Per Pharmacy) 1 ea MC PRN PRN PRN Reason: PROTOCOL Stop: 08/18/18 10:24 Morphine Sulfate (Morphine) 1 mg IVP Q4HR PRN PRN Reason: Pain (Severe) Stop: 08/16/18 20:07 Last Admin: 06/24/18 15:00 Dose: 1 mg Nystatin (Mycostatin Cream) 1 appl TP BID [facility] Stop: 08/17/18 08:59 Last Admin: 06/24/18 17:05 Dose: 1 appl Petrolatum (Vaseline Oint) 1 appl TP DAILY [facility] Stop: 08/17/18 08:59 Last Admin: 06/24/18 11:47 Dose: Not Given Sucralfate (Carafate) 1 gm GT QID [facility] Stop: 08/17/18 08:59 Last Admin: 06/24/18 16:30 Dose: Not Given General: Alert, No acute distress HEENT: Atraumatic Neck: Supple, Other (INTACT TRACH) Cardiovascular: Regular rate Lungs: Normal air movement Abdomen: Bowel sounds, Soft, Other (OLD FISTULA CLOSED) Extremities: no Clubbing, no Cyanosis, no Edema Assessment/Plan - Problem List Patient Problems: All Active Problems MALFUNCTIONING GASTRIC FEEDING TUBE/RASH (Acute) - Assessment Assessment: The elevated platelet count is most likely reactive. The patient has concurrent anemia and anemia workup will be obtained. No interim specific intervention is required for the high platelet count. The patient has a report of possible cecal mass on PET scan done by the primary oncologist and this will be deferred to the primary oncologist for continued management. 06/19: ferritin pending. plt better. hgb lower. monitor 06/20: hgb lower. plt stable. ferritin pending. monitor for now. 06/24/18: hgb improved. Anemia of chronic disease. Monitor hgb. dvt proph Nutritional Asmnt/Malnutr-PDOC - Dietary Evaluation Malnutrition Findings (Please click <Entered> for more info): Nutritional Asmnt/Malnutrition Start: 06/18/18 12: 01 Text: Status: Complete Freq: Protocol: Document 06/18/18 12:01 [email or web address] (Rec: 06/18/18 12:27 NICKI REGINE- [email or web address]) Nutritional Asmnt/Malnutrition Patient General Information Nutritional Screening High Risk Diagnosis Malfunction G-Tube Pertinent Medical Hx/Surgical Hx CHRONIC RESPIRATORY FAILURE, MALIGNANT NEOPLASM OF TONGUE, CHRONIC RHINITIS, TRACHEOSTOMY , GASTRIC FEEDING TUBE, CHRONIC BRONCHITIS, CH[employer] ANTICOAGULANTS Subjective Information Patient was admitted from SNF with H&P "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 Per nursing, patient with G-tube in place, however states MD wants to wait to start feeding. Current Diet Order/ Nutrition Support NPO Patient / S.O Not Indicated Pertinent Medications dulxolax, D5-0.45NS @ 50 ml/hr , colace, iron, folate, culturelle, MOM, Abx Pertinent Labs (06/18) albumin 2.9 ( decreasing) Nutritional Hx/Data Height 1.68 m Height (Calculated Centimeters) 167.6 Current Weight (lbs) 47.174 kg Weight (Calculated Kilograms) 47.2 Weight (Calculated Grams) 88384.6 [place] Body Weight 142 % [place] Body Weight 73 Body Mass Index (BMI) 16.7 Recent Weight Change No Weight Status Underweight GI Symptoms GI Symptoms None Last BM none noted since admission Difficult in: None Food Allergies No Cultural/Ethnic/Caodaism Belief none indicated Usual diet at home Jevity 1.2 Bolus 4 cans daily (1 can 9am, 1p, 5p, 10p), with 100ml free water flush every 6 hours. This provides 948ml total volume, 1137 kcal, 52 gm protein, 1165ml free water. Skin Integrity/Comment: Bryan 18, reddened stoma/g- tube site, rash/reddened back Estimated Nutritional Goals BEE in Kcals: Using Current wt Calories/Kcals/Kg 35-40 kcal/kg using CBW 47.2 ( cancer, low BMI) Kcals Calculated ~5360-4677 kcal/day Protein: Using Current wt Protein g/k.5-2 gm/kg (cancer, muscle wasting) Protein Calculated 70-95 gm/day Fluid: ml ~2237-2490 ml/day Nutritional Problem 1. Problem Problem Inadequate energy intake related to Etiology withholding tube feeding due to malfunction G-tube without initiation of alternate nutrition support aeb Signs/Symptoms: NPO status Intervention/Recommendation Comments 1. Restart tube feeding once medically appropriate; recommend bolus feeding Jevity 1.2 375 ml 4 times a day ( previous feeding schedule 9am, 1p, 5p, 10p). This provides 1500ml, 1800 kcal, 82 gm protein. 2. If unable to restart tube feeding, consider Parenteral nutrition. Expected Outcomes/Goals Expected Outcomes/Goals Meets >75% of nutrient needs, weight increase toward ideal body weight, improved skin integrity
--- NOTE | 2018-06-24 21:37 | GI Progress Note ---
Subjective - Review of Systems Service Date: 06/24/18 Subjective: GI NOTE EVENTS NOTED. S/P SURGICAL GT PLACEMENT. Objective - Results Result Diagrams: 06/23/18 05:49 06/24/18 05:10 Recent Labs: Laboratory Last Values WBC 5.8 Th/cmm (4.8-10.8) 06/23/18 05:49 RBC 3.06 Mil/cmm (4.30-5.70) L 06/23/18 05:49 Hgb 9.4 gm/dL (12-16) L 06/23/18 05:49 Hct 28.2 % (41.0-60) L 06/23/18 05:49 MCV 92.1 fl (80-99) 06/23/18 05:49 MCH 30.7 pg (26.0-30.0) H 06/23/18 05:49 MCHC Differential 33.4 pg (28.0-36.0) 06/23/18 05:49 RDW 16.1 % (11.5-20.0) 06/23/18 05:49 Plt Count 528 Th/cmm (150-400) H 06/23/18 05:49 MPV 6.0 fl 06/23/18 05:49 Add Manual Diff YES 06/22/18 06:00 Neutrophils % 81.7 % (40.0-80.0) H 06/23/18 05:49 Band Neutrophils % 2 % (0-10) 06/22/18 06:00 Lymphocytes % 10.0 % (20.0-50.0) L 06/23/18 05:49 Monocytes % 7.4 % (2.0-10.0) 06/23/18 05:49 Eosinophils % 0.7 % (0.0-5.0) 06/23/18 05:49 Basophils % 0.2 % (0.0-2.0) 06/23/18 05:49 Neutrophils (Manual) 85 % (40-80) H 06/22/18 06:00 Lymphocytes 7 % (20-50) L 06/22/18 06:00 Monocytes 6 % (2-10) 06/22/18 06:00 Eosinophils 0 % (0-5) 06/22/18 06:00 Basophils 0 % (0-3) 06/22/18 06:00 Platelet Estimate INCREASED PLATELETS (NORMAL) 06/17/18 11:40 PT 10.3 SECONDS (9.5-11.5) 06/23/18 05:49 INR 0.99 (0.5-1.4) 06/23/18 05:49 Sodium 134 mEq/L (136-145) L 06/24/18 05:10 Potassium 3.5 mEq/L (3.5-5.1) 06/24/18 05:10 Chloride 102 mEq/L (98-107) 06/24/18 05:10 Carbon Dioxide 26.1 mEq/L (21.0-31.0) 06/24/18 05:10 Anion Gap 9.4 (7.0-16.0) 06/24/18 05:10 BUN 12 mg/dL (7-25) 06/24/18 05:10 Creatinine 0.4 mg/dL (0.7-1.3) L 06/24/18 05:10 Est GFR ( Amer) > 60.0 ml/min (>90) 06/24/18 05:10 Est GFR (Non-Af Amer) > 60.0 ml/min 06/24/18 05:10 BUN/Creatinine Ratio 30.0 06/24/18 05:10 Glucose 132 mg/dL (70-105) H 06/24/18 05:10 POC Glucose 126 MG/DL (70 - 105) H 06/24/18 17:13 Calcium 8.7 mg/dL (8.6-10.3) 06/24/18 05:10 Phosphorus 3.8 mg/dL (2.5-5.0) 06/24/18 05:10 Magnesium 1.6 mg/dL (1.9-2.7) L 06/24/18 05:10 Iron 36 ug/dL (38-169) L 06/18/18 06:30 TIBC 198 ug/dL (250-450) L 06/18/18 06:30 Iron Saturation 18 % (15-55) 06/18/18 06:30 Unsaturated IBC 162 ug/dL (111-343) 06/18/18 06:30 Ferritin 304 ng/mL (30-400) 06/19/18 09:16 Total Bilirubin 0.2 mg/dL (0.3-1.0) L 06/24/18 05:10 AST 7 U/L (13-39) L 06/24/18 05:10 ALT 4 U/L (7-52) L 06/24/18 05:10 Alkaline Phosphatase 44 U/L (34-104) 06/24/18 05:10 Total Protein 6.0 gm/dL (6.0-8.3) 06/24/18 05:10 Albumin 2.6 gm/dL (4.2-5.5) L 06/24/18 05:10 Globulin 3.4 gm/dL 06/24/18 05:10 Albumin/Globulin Ratio 0.8 (1.0-1.8) L 06/24/18 05:10 Prealbumin 11 mg/dL (10-36) 06/20/18 10:20 Triglycerides 48 mg/dL (<150) 06/20/18 10:20 Cholesterol 123 mg/dL (<200) 06/20/18 10:20 Urine Source CLEAN C 06/17/18 19:05 Urine Color YELLOW 06/17/18 19:05 Urine Clarity HAZY (CLEAR) 06/17/18 19:05 Urine pH 7.5 (4.6 - 8.0) 06/17/18 19:05 Ur Specific [place] 1.015 (1.005-1.030) 06/17/18 19:05 Urine Protein NEGATIVE mg/dL (NEGATIVE) 06/17/18 19:05 Urine Glucose (UA) NEGATIVE mg/dL (NEGATIVE) 06/17/18 19:05 Urine Ketones 40 mg/dL (NEGATIVE) H 06/17/18 19:05 Urine Blood LARGE (NEGATIVE) H 06/17/18 19:05 Urine Nitrate NEGATIVE (NEGATIVE) 06/17/18 19:05 Urine Bilirubin NEGATIVE (NEGATIVE) 06/17/18 19:05 Urine Urobilinogen 0.2 E.U./dL (0.2 - 1.0) 06/17/18 19:05 Ur Leukocyte Esterase NEGATIVE (NEGATIVE) 06/17/18 19:05 Urine RBC NONE SEEN /hpf (0-5) 06/17/18 19:05 Urine WBC 2-5 /hpf (0-5) 06/17/18 19:05 Ur Epithelial Cells NONE SEEN /lpf (FEW) 06/17/18 19:05 Urine Bacteria FEW /hpf (NONE SEEN) 06/17/18 19:05 Vancomycin Trough 13.3 ug/mL (5-10) H 06/23/18 08:20 - Physical Exam Vitals and I&O: Vital Signs Temp 97.7 F 06/24/18 20:00 Pulse 68 06/24/18 20:00 Resp 19 06/24/18 20:00 BP 138/69 06/24/18 20:00 Pulse Ox 93 06/24/18 20:00 Intake & Output 06/24/18 06/24/18 06/25/18 06:59 18:59 06:59 Intake Total 350 1328 Balance 350 1328 Weight (lbs) 51.256 kg 51.256 kg 48.988 kg Intake: Intake, IV Amount 350 1328 Cefepime 2 gm In Dextrose 100 5% 100 ml @ 100 mls/hr IV Q12HR [facility] Rx#: [id number] Multivitamin Inj 10 ml In 1328 Dextrose 70% 730 ml In Amino Acids 10% 500 ml In Intralipids 20% 200 ml @ 60 mls/hr IV .Q24H [facility] Rx#:[id number] Vancomycin HCl 1 gm In 250 Sodium Chloride 0.9% 250 ml @ 165 mls/hr IV Q12HR [facility] Rx#:[id number] Oral 0 Other: # Voids 5 Weight Source Bedscale Bedscale Bedscale Active Medications: Current Medications Acetaminophen (Tylenol 650mg/20.3ml Suspension) 650 mg GT Q6H PRN PRN Reason: BREAKTRHOUGH PAIN OR TEMP >101 Stop: 08/17/18 06:46 Acetaminophen/Hydrocodone Bitart ([place] 10 Mg/325 Mg) 1 tab GT Q6H PRN PRN Reason: PAIN (MODERATE) Stop: 08/19/18 08:59 Acetaminophen/Hydrocodone Bitart ([place] 5mg/325mg) 1 tab GT Q6H PRN PRN Reason: MILD PAIN Stop: 08/19/18 08:59 Albuterol/Ipratropium (Duoneb Neb) 3 ml HHN Q6HRT [facility] Stop: 08/17/18 06:59 Last Admin: 06/24/18 18:50 Dose: 3 ml Bisacodyl (Dulcolax 10 Mg Supp) 10 mg RC DAILY PRN PRN Reason: Constipation Stop: 08/17/18 06:34 Last Admin: 06/19/18 17:27 Dose: 10 mg Chlorhexidine Gluconate (Peridex) 15 ml MM BID [facility] Stop: 08/17/18 08:59 Last Admin: 06/24/18 16:29 Dose: Not Given Docusate Sodium (Colace) 100 mg PO BID [facility] Stop: 08/17/18 08:59 Last Admin: 06/24/18 16:30 Dose: Not Given Enoxaparin Sodium (Lovenox) 40 mg SUBQ DAILY [facility] Stop: 08/17/18 08:59 Last Admin: 06/24/18 11:46 Dose: Not Given Ferrous Sulfate (Iron) 300 mg GT BID [facility] Stop: 08/17/18 08:59 Last Admin: 06/24/18 16:30 Dose: Not Given Fluticasone Propionate (Flonase) 1 spr NS DAILY [facility] Stop: 08/17/18 08:59 Last Admin: 06/24/18 11:46 Dose: Not Given Folic Acid (Folate) 1 mg GT DAILY [facility] Stop: 08/17/18 08:59 Last Admin: 06/24/18 11:47 Dose: Not Given Vancomycin HCl 1 gm/ Sodium (Chloride) 250 mls @ 165 mls/hr IV Q12HR [facility] Stop: 08/18/18 08:59 Last Admin: 06/24/18 21:33 Dose: 165 mls/hr Multivitamins/Minerals 10 ml/Dextrose/ Amino Acids/Electrolytes/ Fat Emulsion Intravenous 1,440 mls @ 60 mls/hr IV .Q24H [facility] Stop: 08/21/18 14:59 Last Admin: 06/24/18 16:00 Dose: 60 mls/hr Cefepime HCl 2 gm/ Dextrose 100 mls @ 100 mls/hr IV Q12HR [facility] Stop: 08/21/18 20:59 Last Admin: 06/24/18 20:26 Dose: 100 mls/hr Insulin Aspart (Novolog Insulin Sliding Scale) 0 units SUBQ Q6HR [facility]; Protocol Stop: 08/19/18 11:59 Last Admin: 06/24/18 17:23 Dose: Not Given Lactobacillus Rhamnosus (Culturelle 15b) 1 each PO DAILY [facility] Stop: 08/17/18 13:59 Last Admin: 06/24/18 11:47 Dose: Not Given Magnesium Hydroxide (Milk Of Magnesia) 30 ml GT DAILY PRN PRN Reason: Constipation Stop: 08/17/18 06:34 Miscellaneous (Vancomycin Iv Per Pharmacy) 1 ea MC PRN PRN PRN Reason: VANCO PER RX Stop: 08/16/18 16:03 Miscellaneous (Vte Chemical Prophylaxis Screen/ Admission) 1 ea MC PRN PRN PRN Reason: PROTOCOL Stop: 08/16/18 17:05 Miscellaneous (Probiotic Screen) 1 ea MC PRN PRN PRN Reason: PROTOCOL Stop: 08/17/18 09:32 Miscellaneous (Tpn Per Pharmacy) 1 ea MC PRN PRN PRN Reason: PROTOCOL Stop: 08/18/18 10:24 Morphine Sulfate (Morphine) 1 mg IVP Q4HR PRN PRN Reason: Pain (Severe) Stop: 08/16/18 20:07 Last Admin: 06/24/18 19:43 Dose: 1 mg Nystatin (Mycostatin Cream) 1 appl TP BID [facility] Stop: 08/17/18 08:59 Last Admin: 06/24/18 17:05 Dose: 1 appl Petrolatum (Vaseline Oint) 1 appl TP DAILY [facility] Stop: 08/17/18 08:59 Last Admin: 06/24/18 11:47 Dose: Not Given Sucralfate (Carafate) 1 gm GT QID [facility] Stop: 08/17/18 08:59 Last Admin: 06/24/18 20:27 Dose: Not Given General: Alert, No acute distress HEENT: Atraumatic Neck: Supple, Other (INTACT TRACH) Cardiovascular: Regular rate Lungs: Normal air movement Abdomen: Bowel sounds, Soft, Other (INTACT GT) Extremities: no Clubbing, no Cyanosis, no Edema Assessment/Plan - Problem List Patient Problems: All Active Problems MALFUNCTIONING GASTRIC FEEDING TUBE/RASH (Acute) - Assessment Assessment: IMPRESSION: 1. G tube malfunction. 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 GC fistula closed primarily, but EGD with GT insertion not feasible due to closed jaw. s/p surgical GT insertion 06/24. 3. 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 RECS: -post op care; GT feeds as per surgeon. -IV TPN for now. -Oncology f/u for known cecal mass on PET scan which he and oncologist have known about and they have a plan in place.
[2018-06-25] MEDS: INSULIN ASPART SLIDING SCALE 100 UNITS/ML UNIT SUBQ SCH ×4 (00:04→18:12)
[2018-06-25] MEDS: Albuterol/Ipratropium Neb 3 ML AERS HHN SCH ×4 (01:08→19:16)
[2018-06-25] MEDS: Morphine Sulfate 4 mg/mL 1mL Syr IVP PRN ×5 (04:00→20:14)
--- NOTE | 2018-06-25 06:45 | General Progress Note ---
Subjective - Review of Systems Service Date: 06/25/18 Subjective: Patient resting comfortably in bed. No acute distress. afebrile. awake, alert. S /P g tube placement. Objective - Results Result Diagrams: 06/23/18 05:49 06/24/18 05:10 Recent Labs: Laboratory Last Values WBC 5.8 Th/cmm (4.8-10.8) 06/23/18 05:49 RBC 3.06 Mil/cmm (4.30-5.70) L 06/23/18 05:49 Hgb 9.4 gm/dL (12-16) L 06/23/18 05:49 Hct 28.2 % (41.0-60) L 06/23/18 05:49 MCV 92.1 fl (80-99) 06/23/18 05:49 MCH 30.7 pg (26.0-30.0) H 06/23/18 05:49 MCHC Differential 33.4 pg (28.0-36.0) 06/23/18 05:49 RDW 16.1 % (11.5-20.0) 06/23/18 05:49 Plt Count 528 Th/cmm (150-400) H 06/23/18 05:49 MPV 6.0 fl 06/23/18 05:49 Add Manual Diff YES 06/22/18 06:00 Neutrophils % 81.7 % (40.0-80.0) H 06/23/18 05:49 Band Neutrophils % 2 % (0-10) 06/22/18 06:00 Lymphocytes % 10.0 % (20.0-50.0) L 06/23/18 05:49 Monocytes % 7.4 % (2.0-10.0) 06/23/18 05:49 Eosinophils % 0.7 % (0.0-5.0) 06/23/18 05:49 Basophils % 0.2 % (0.0-2.0) 06/23/18 05:49 Neutrophils (Manual) 85 % (40-80) H 06/22/18 06:00 Lymphocytes 7 % (20-50) L 06/22/18 06:00 Monocytes 6 % (2-10) 06/22/18 06:00 Eosinophils 0 % (0-5) 06/22/18 06:00 Basophils 0 % (0-3) 06/22/18 06:00 Platelet Estimate INCREASED PLATELETS (NORMAL) 06/17/18 11:40 PT 10.3 SECONDS (9.5-11.5) 06/23/18 05:49 INR 0.99 (0.5-1.4) 06/23/18 05:49 Sodium 134 mEq/L (136-145) L 06/24/18 05:10 Potassium 3.5 mEq/L (3.5-5.1) 06/24/18 05:10 Chloride 102 mEq/L (98-107) 06/24/18 05:10 Carbon Dioxide 26.1 mEq/L (21.0-31.0) 06/24/18 05:10 Anion Gap 9.4 (7.0-16.0) 06/24/18 05:10 BUN 12 mg/dL (7-25) 06/24/18 05:10 Creatinine 0.4 mg/dL (0.7-1.3) L 06/24/18 05:10 Est GFR ( Amer) > 60.0 ml/min (>90) 06/24/18 05:10 Est GFR (Non-Af Amer) > 60.0 ml/min 06/24/18 05:10 BUN/Creatinine Ratio 30.0 06/24/18 05:10 Glucose 132 mg/dL (70-105) H 06/24/18 05:10 POC Glucose 133 MG/DL (70 - 105) H 06/25/18 05:21 Calcium 8.7 mg/dL (8.6-10.3) 06/24/18 05:10 Phosphorus 3.8 mg/dL (2.5-5.0) 06/24/18 05:10 Magnesium 1.6 mg/dL (1.9-2.7) L 06/24/18 05:10 Iron 36 ug/dL (38-169) L 06/18/18 06:30 TIBC 198 ug/dL (250-450) L 06/18/18 06:30 Iron Saturation 18 % (15-55) 06/18/18 06:30 Unsaturated IBC 162 ug/dL (111-343) 06/18/18 06:30 Ferritin 304 ng/mL (30-400) 06/19/18 09:16 Total Bilirubin 0.2 mg/dL (0.3-1.0) L 06/24/18 05:10 AST 7 U/L (13-39) L 06/24/18 05:10 ALT 4 U/L (7-52) L 06/24/18 05:10 Alkaline Phosphatase 44 U/L (34-104) 06/24/18 05:10 Total Protein 6.0 gm/dL (6.0-8.3) 06/24/18 05:10 Albumin 2.6 gm/dL (4.2-5.5) L 06/24/18 05:10 Globulin 3.4 gm/dL 06/24/18 05:10 Albumin/Globulin Ratio 0.8 (1.0-1.8) L 06/24/18 05:10 Prealbumin 11 mg/dL (10-36) 06/20/18 10:20 Triglycerides 48 mg/dL (<150) 06/20/18 10:20 Cholesterol 123 mg/dL (<200) 06/20/18 10:20 Urine Source CLEAN C 06/17/18 19:05 Urine Color YELLOW 06/17/18 19:05 Urine Clarity HAZY (CLEAR) 06/17/18 19:05 Urine pH 7.5 (4.6 - 8.0) 06/17/18 19:05 Ur Specific [place] 1.015 (1.005-1.030) 06/17/18 19:05 Urine Protein NEGATIVE mg/dL (NEGATIVE) 06/17/18 19:05 Urine Glucose (UA) NEGATIVE mg/dL (NEGATIVE) 06/17/18 19:05 Urine Ketones 40 mg/dL (NEGATIVE) H 06/17/18 19:05 Urine Blood LARGE (NEGATIVE) H 06/17/18 19:05 Urine Nitrate NEGATIVE (NEGATIVE) 06/17/18 19:05 Urine Bilirubin NEGATIVE (NEGATIVE) 06/17/18 19:05 Urine Urobilinogen 0.2 E.U./dL (0.2 - 1.0) 06/17/18 19:05 Ur Leukocyte Esterase NEGATIVE (NEGATIVE) 06/17/18 19:05 Urine RBC NONE SEEN /hpf (0-5) 06/17/18 19:05 Urine WBC 2-5 /hpf (0-5) 06/17/18 19:05 Ur Epithelial Cells NONE SEEN /lpf (FEW) 06/17/18 19:05 Urine Bacteria FEW /hpf (NONE SEEN) 06/17/18 19:05 Vancomycin Trough 13.3 ug/mL (5-10) H 06/23/18 08:20 - Physical Exam Vitals and I&O: Vital Signs Temp 97.7 F 06/25/18 04:00 Pulse 67 06/25/18 04:00 Resp 19 06/25/18 04:00 BP 113/62 06/25/18 04:00 Pulse Ox 93 06/25/18 04:00 Intake & Output 06/24/18 06/24/18 06/25/18 06:59 18:59 06:59 Intake Total 350 1328 350 Output Total 800 Balance 350 1328 -450 Weight (lbs) 51.256 kg 51.256 kg 48.988 kg Intake: Intake, IV Amount 350 1328 350 Cefepime 2 gm In Dextrose 100 100 5% 100 ml @ 100 mls/hr IV Q12HR [facility] Rx#: [id number] Multivitamin Inj 10 ml In 1328 Dextrose 70% 730 ml In Amino Acids 10% 500 ml In Intralipids 20% 200 ml @ 60 mls/hr IV .Q24H [facility] Rx#:[id number] Vancomycin HCl 1 gm In 250 250 Sodium Chloride 0.9% 250 ml @ 165 mls/hr IV Q12HR [facility] Rx#:[id number] Oral 0 Output: Urine 800 Other: # Voids 5 Weight Source Bedscale Bedscale Bedscale Active Medications: Current Medications Acetaminophen (Tylenol 650mg/20.3ml Suspension) 650 mg GT Q6H PRN PRN Reason: BREAKTRHOUGH PAIN OR TEMP >101 Stop: 08/17/18 06:46 Acetaminophen/Hydrocodone Bitart ([place] 10 Mg/325 Mg) 1 tab GT Q6H PRN PRN Reason: PAIN (MODERATE) Stop: 08/19/18 08:59 Acetaminophen/Hydrocodone Bitart ([place] 5mg/325mg) 1 tab GT Q6H PRN PRN Reason: MILD PAIN Stop: 08/19/18 08:59 Albuterol/Ipratropium (Duoneb Neb) 3 ml HHN Q6HRT [facility] Stop: 08/17/18 06:59 Last Admin: 06/25/18 01:08 Dose: Not Given Bisacodyl (Dulcolax 10 Mg Supp) 10 mg RC DAILY PRN PRN Reason: Constipation Stop: 08/17/18 06:34 Last Admin: 06/19/18 17:27 Dose: 10 mg Chlorhexidine Gluconate (Peridex) 15 ml MM BID [facility] Stop: 08/17/18 08:59 Last Admin: 06/24/18 16:29 Dose: Not Given Docusate Sodium (Colace) 100 mg PO BID [facility] Stop: 08/17/18 08:59 Last Admin: 06/24/18 16:30 Dose: Not Given Enoxaparin Sodium (Lovenox) 40 mg SUBQ DAILY [facility] Stop: 08/17/18 08:59 Last Admin: 06/24/18 11:46 Dose: Not Given Ferrous Sulfate (Iron) 300 mg GT BID [facility] Stop: 08/17/18 08:59 Last Admin: 06/24/18 16:30 Dose: Not Given Fluticasone Propionate (Flonase) 1 spr NS DAILY [facility] Stop: 08/17/18 08:59 Last Admin: 06/24/18 11:46 Dose: Not Given Folic Acid (Folate) 1 mg GT DAILY [facility] Stop: 08/17/18 08:59 Last Admin: 06/24/18 11:47 Dose: Not Given Vancomycin HCl 1 gm/ Sodium (Chloride) 250 mls @ 165 mls/hr IV Q12HR [facility] Stop: 08/18/18 08:59 Last Infusion: 06/24/18 23:04 Dose: Infused Multivitamins/Minerals 10 ml/Dextrose/ Amino Acids/Electrolytes/ Fat Emulsion Intravenous 1,440 mls @ 60 mls/hr IV .Q24H [facility] Stop: 08/21/18 14:59 Last Admin: 06/24/18 16:00 Dose: 60 mls/hr Cefepime HCl 2 gm/ Dextrose 100 mls @ 100 mls/hr IV Q12HR [facility] Stop: 08/21/18 20:59 Last Infusion: 06/24/18 21:26 Dose: Infused Insulin Aspart (Novolog Insulin Sliding Scale) 0 units SUBQ Q6HR [facility]; Protocol Stop: 08/19/18 11:59 Last Admin: 06/25/18 05:22 Dose: Not Given Lactobacillus Rhamnosus (Culturelle 15b) 1 each PO DAILY [facility] Stop: 08/17/18 13:59 Last Admin: 06/24/18 11:47 Dose: Not Given Magnesium Hydroxide (Milk Of Magnesia) 30 ml GT DAILY PRN PRN Reason: Constipation Stop: 08/17/18 06:34 Miscellaneous (Vancomycin Iv Per Pharmacy) 1 ea MC PRN PRN PRN Reason: VANCO PER RX Stop: 08/16/18 16:03 Miscellaneous (Vte Chemical Prophylaxis Screen/ Admission) 1 ea MC PRN PRN PRN Reason: PROTOCOL Stop: 08/16/18 17:05 Miscellaneous (Probiotic Screen) 1 ea MC PRN PRN PRN Reason: PROTOCOL Stop: 08/17/18 09:32 Miscellaneous (Tpn Per Pharmacy) 1 ea MC PRN PRN PRN Reason: PROTOCOL Stop: 08/18/18 10:24 Morphine Sulfate (Morphine) 1 mg IVP Q4HR PRN PRN Reason: Pain (Severe) Stop: 08/16/18 20:07 Last Admin: 06/25/18 04:00 Dose: 1 mg Nystatin (Mycostatin Cream) 1 appl TP BID [facility] Stop: 08/17/18 08:59 Last Admin: 06/24/18 17:05 Dose: 1 appl Petrolatum (Vaseline Oint) 1 appl TP DAILY [facility] Stop: 08/17/18 08:59 Last Admin: 06/24/18 11:47 Dose: Not Given Sucralfate (Carafate) 1 gm GT QID [facility] Stop: 08/17/18 08:59 Last Admin: 06/24/18 20:27 Dose: Not Given General: Alert, No acute distress HEENT: Atraumatic Neck: Supple, Other (INTACT TRACH) Cardiovascular: Regular rate Lungs: Normal air movement Abdomen: Bowel sounds, Soft, Other (INTACT GT) Extremities: no Clubbing, no Cyanosis, no Edema Assessment/Plan - Problem List Patient Problems: All Active Problems MALFUNCTIONING GASTRIC FEEDING TUBE/RASH (Acute) - Assessment Assessment: Current Active Problems Problem Status Onset MALFUNCTIONING GASTRIC FEEDING TUBE/RASH Acute Gtube site cellulitis +MRSA +Pseudomonas Cellulitis and induration around g tube site in a man who is dependent on tube feeds. 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 Anemia with hematocrit of 25. Thrombocytosis of 722k. COPD Nicotine addiction. prerenal azotemia improved - Plan Plan: continue IV antibiotics per ID will continue home meds. keep NPO on TPN until clearance from surgery to use Gtube. 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 Per nursing, patient with G-tube in place, however states MD wants to wait to start feeding. Current Diet Order/ Nutrition Support NPO Patient / S.O Not Indicated Pertinent Medications dulxolax, D5-0.45NS @ 50 ml/hr , colace, iron, folate, culturelle, MOM, Abx Pertinent Labs (06/18) albumin 2.9 ( decreasing) Nutritional Hx/Data Height 1.68 m Height (Calculated Centimeters) 167.6 Current Weight (lbs) 47.174 kg Weight (Calculated Kilograms) 47.2 Weight (Calculated Grams) 64304.6 [place] Body Weight 142 % [place] Body Weight 73 Body Mass Index (BMI) 16.7 Recent Weight Change No Weight Status Underweight GI Symptoms GI Symptoms None Last BM none noted since admission Difficult in: None Food Allergies No Cultural/Ethnic/Adventist Belief none indicated Usual diet at home Jevity 1.2 Bolus 4 cans daily (1 can 9am, 1p, 5p, 10p), with 100ml free water flush every 6 hours. This provides 948ml total volume, 1137 kcal, 52 gm protein, 1165ml free water. Skin Integrity/Comment: Bryan 18, reddened stoma/g- tube site, rash/reddened back Estimated Nutritional Goals BEE in Kcals: Using Current wt Calories/Kcals/Kg 35-40 kcal/kg using CBW 47.2 ( cancer, low BMI) Kcals Calculated ~1164-4078 kcal/day Protein: Using Current wt Protein g/k.5-2 gm/kg (cancer, muscle wasting) Protein Calculated 70-95 gm/day Fluid: ml ~9498-5633 ml/day Nutritional Problem 1. Problem Problem Inadequate energy intake related to Etiology withholding tube feeding due to malfunction G-tube without initiation of alternate nutrition support aeb Signs/Symptoms: NPO status Intervention/Recommendation Comments 1. Restart tube feeding once medically appropriate; recommend bolus feeding Jevity 1.2 375 ml 4 times a day ( previous feeding schedule 9am, 1p, 5p, 10p). This provides 1500ml, 1800 kcal, 82 gm protein. 2. If unable to restart tube feeding, consider Parenteral nutrition. Expected Outcomes/Goals Expected Outcomes/Goals Meets >75% of nutrient needs, weight increase toward ideal body weight, improved skin integrity
[2018-06-25 06:53] LABS: HEMATOCRIT 24.4 % (41.0-60); HEMOGLOBIN 8.5 gm/dL (12-16); MEAN CELL VOLUME 90.5 fl (80-99); MEAN CORPUSCULAR HEMOGLOBIN 31.7 pg (26.0-30.0); MEAN PLATELET VOLUME 6.6 fl; PLATELET COUNT 441 Th/cmm (150-400); RED BLOOD COUNT 2.69 Mil/cmm (4.30-5.70); WHITE BLOOD COUNT 7.3 Th/cmm (4.8-10.8)
[2018-06-25 07:13] LABS: ALB/GLOB RATIO 0.7 (1.0-1.8); ALBUMIN 2.5 gm/dL (4.2-5.5); ALKALINE PHOSPHATASE 44 U/L (34-104); ANION GAP 10.7 (7.0-16.0); BILIRUBIN,TOTAL 0.2 mg/dL (0.3-1.0); BUN - UREA NITROGEN 15 mg/dL (7-25); CALCIUM SERUM 8.7 mg/dL (8.6-10.3); CARBON DIOXIDE 25.3 mEq/L (21.0-31.0); CHLORIDE 102 mEq/L (98-107); CREATININE - SERUM 0.4 mg/dL (0.7-1.3); GFR AFRICAN-AMERICAN > 60.0 ml/min (>90); GFR NON AFRICAN-AMERICAN > 60.0 ml/min; GLUCOSE 144 mg/dL (70-105); MAGNESIUM 1.6 mg/dL (1.9-2.7); PHOSPHOROUS 3.2 mg/dL (2.5-5.0); SGOT 7 U/L (13-39); SGPT/ALT 3 U/L (7-52); SODIUM SERUM 134 mEq/L (136-145); TRIGLYCERIDES 43 mg/dL (<150)
[2018-06-25 07:44] LABS: BASOPHIL 2 % (0-3); LYMPHOCYTE 7 % (20-50); MONOCYTE 9 % (2-10); NEUTROPHILS 82 % (40-80)
[2018-06-25 07:45] LABS: PLATELET ESTIMATE INCREASED PLATELETS (NORMAL)
--- NOTE | 2018-06-25 07:59 | GI Progress Note ---
Subjective - Review of Systems Service Date: 06/25/18 Subjective: GI NOTE EVENTS NOTED. S/P SURGICAL GT PLACEMENT. Objective - Results Result Diagrams: 06/25/18 06:10 06/25/18 06:10 Recent Labs: Laboratory Last Values WBC 7.3 Th/cmm (4.8-10.8) 06/25/18 06:10 RBC 2.69 Mil/cmm (4.30-5.70) L 06/25/18 06:10 Hgb 8.5 gm/dL (12-16) L 06/25/18 06:10 Hct 24.4 % (41.0-60) L 06/25/18 06:10 MCV 90.5 fl (80-99) 06/25/18 06:10 MCH 31.7 pg (26.0-30.0) H 06/25/18 06:10 MCHC Differential 35.0 pg (28.0-36.0) 06/25/18 06:10 RDW 16.0 % (11.5-20.0) 06/25/18 06:10 Plt Count 441 Th/cmm (150-400) H 06/25/18 06:10 MPV 6.6 fl 06/25/18 06:10 Add Manual Diff YES 06/25/18 06:10 Neutrophils % BUILDING CARPENTER 06/25/18 06:10 Band Neutrophils % 2 % (0-10) 06/22/18 06:00 Lymphocytes % BUILDING CARPENTER 06/25/18 06:10 Monocytes % BUILDING CARPENTER 06/25/18 06:10 Eosinophils % BUILDING CARPENTER 06/25/18 06:10 Basophils % BUILDING CARPENTER 06/25/18 06:10 Neutrophils (Manual) 82 % (40-80) H 06/25/18 06:10 Lymphocytes 7 % (20-50) L 06/25/18 06:10 Monocytes 9 % (2-10) 06/25/18 06:10 Eosinophils 0 % (0-5) 06/22/18 06:00 Basophils 2 % (0-3) 06/25/18 06:10 Platelet Estimate INCREASED PLATELETS (NORMAL) 06/25/18 06:10 PT 10.3 SECONDS (9.5-11.5) 06/23/18 05:49 INR 0.99 (0.5-1.4) 06/23/18 05:49 Sodium 134 mEq/L (136-145) L 06/25/18 06:10 Potassium 4.0 mEq/L (3.5-5.1) 06/25/18 06:10 Chloride 102 mEq/L (98-107) 06/25/18 06:10 Carbon Dioxide 25.3 mEq/L (21.0-31.0) 06/25/18 06:10 Anion Gap 10.7 (7.0-16.0) 06/25/18 06:10 BUN 15 mg/dL (7-25) 06/25/18 06:10 Creatinine 0.4 mg/dL (0.7-1.3) L 06/25/18 06:10 Est GFR ( Amer) > 60.0 ml/min (>90) 06/25/18 06:10 Est GFR (Non-Af Amer) > 60.0 ml/min 06/25/18 06:10 BUN/Creatinine Ratio 37.5 06/25/18 06:10 Glucose 144 mg/dL (70-105) H 06/25/18 06:10 POC Glucose 133 MG/DL (70 - 105) H 06/25/18 05:21 Calcium 8.7 mg/dL (8.6-10.3) 06/25/18 06:10 Phosphorus 3.2 mg/dL (2.5-5.0) 06/25/18 06:10 Magnesium 1.6 mg/dL (1.9-2.7) L 06/25/18 06:10 Iron 36 ug/dL (38-169) L 06/18/18 06:30 TIBC 198 ug/dL (250-450) L 06/18/18 06:30 Iron Saturation 18 % (15-55) 06/18/18 06:30 Unsaturated IBC 162 ug/dL (111-343) 06/18/18 06:30 Ferritin 304 ng/mL (30-400) 06/19/18 09:16 Total Bilirubin 0.2 mg/dL (0.3-1.0) L 06/25/18 06:10 AST 7 U/L (13-39) L 06/25/18 06:10 ALT 3 U/L (7-52) L 06/25/18 06:10 Alkaline Phosphatase 44 U/L (34-104) 06/25/18 06:10 Total Protein 6.0 gm/dL (6.0-8.3) 06/25/18 06:10 Albumin 2.5 gm/dL (4.2-5.5) L 06/25/18 06:10 Globulin 3.5 gm/dL 06/25/18 06:10 Albumin/Globulin Ratio 0.7 (1.0-1.8) L 06/25/18 06:10 Prealbumin 11 mg/dL (10-36) 06/20/18 10:20 Triglycerides 43 mg/dL (<150) 06/25/18 06:10 Cholesterol 123 mg/dL (<200) 06/20/18 10:20 Urine Source CLEAN C 06/17/18 19:05 Urine Color YELLOW 06/17/18 19:05 Urine Clarity HAZY (CLEAR) 06/17/18 19:05 Urine pH 7.5 (4.6 - 8.0) 06/17/18 19:05 Ur Specific [place] 1.015 (1.005-1.030) 06/17/18 19:05 Urine Protein NEGATIVE mg/dL (NEGATIVE) 06/17/18 19:05 Urine Glucose (UA) NEGATIVE mg/dL (NEGATIVE) 06/17/18 19:05 Urine Ketones 40 mg/dL (NEGATIVE) H 06/17/18 19:05 Urine Blood LARGE (NEGATIVE) H 06/17/18 19:05 Urine Nitrate NEGATIVE (NEGATIVE) 06/17/18 19:05 Urine Bilirubin NEGATIVE (NEGATIVE) 06/17/18 19:05 Urine Urobilinogen 0.2 E.U./dL (0.2 - 1.0) 06/17/18 19:05 Ur Leukocyte Esterase NEGATIVE (NEGATIVE) 06/17/18 19:05 Urine RBC NONE SEEN /hpf (0-5) 06/17/18 19:05 Urine WBC 2-5 /hpf (0-5) 06/17/18 19:05 Ur Epithelial Cells NONE SEEN /lpf (FEW) 06/17/18 19:05 Urine Bacteria FEW /hpf (NONE SEEN) 06/17/18 19:05 Vancomycin Trough 13.3 ug/mL (5-10) H 06/23/18 08:20 - Physical Exam Vitals and I&O: Vital Signs Temp 97.7 F 06/25/18 04:00 Pulse 73 06/25/18 07:11 Resp 18 06/25/18 07:11 BP 113/62 06/25/18 04:00 Pulse Ox 93 06/25/18 07:11 Intake & Output 06/24/18 06/25/18 06/25/18 18:59 06:59 18:59 Intake Total 1328 350 Output Total 800 Balance 1328 -450 Weight (lbs) 51.256 kg 48.988 kg Intake: Intake, IV Amount 1328 350 Cefepime 2 gm In Dextrose 100 5% 100 ml @ 100 mls/hr IV Q12HR [facility] Rx#: [id number] Multivitamin Inj 10 ml In 1328 Dextrose 70% 730 ml In Amino Acids 10% 500 ml In Intralipids 20% 200 ml @ 60 mls/hr IV .Q24H [facility] Rx#:[id number] Vancomycin HCl 1 gm In 250 Sodium Chloride 0.9% 250 ml @ 165 mls/hr IV Q12HR [facility] Rx#:[id number] Oral 0 Output: Urine 800 Other: # Voids 5 Weight Source Bedscale Bedscale Active Medications: Current Medications Acetaminophen (Tylenol 650mg/20.3ml Suspension) 650 mg GT Q6H PRN PRN Reason: BREAKTRHOUGH PAIN OR TEMP >101 Stop: 08/17/18 06:46 Acetaminophen/Hydrocodone Bitart ([place] 10 Mg/325 Mg) 1 tab GT Q6H PRN PRN Reason: PAIN (MODERATE) Stop: 08/19/18 08:59 Acetaminophen/Hydrocodone Bitart ([place] 5mg/325mg) 1 tab GT Q6H PRN PRN Reason: MILD PAIN Stop: 08/19/18 08:59 Albuterol/Ipratropium (Duoneb Neb) 3 ml HHN Q6HRT [facility] Stop: 08/17/18 06:59 Last Admin: 06/25/18 07:10 Dose: 3 ml Bisacodyl (Dulcolax 10 Mg Supp) 10 mg RC DAILY PRN PRN Reason: Constipation Stop: 08/17/18 06:34 Last Admin: 06/19/18 17:27 Dose: 10 mg Chlorhexidine Gluconate (Peridex) 15 ml MM BID [facility] Stop: 08/17/18 08:59 Last Admin: 06/24/18 16:29 Dose: Not Given Docusate Sodium (Colace) 100 mg PO BID [facility] Stop: 08/17/18 08:59 Last Admin: 06/24/18 16:30 Dose: Not Given Enoxaparin Sodium (Lovenox) 40 mg SUBQ DAILY [facility] Stop: 08/17/18 08:59 Last Admin: 06/24/18 11:46 Dose: Not Given Ferrous Sulfate (Iron) 300 mg GT BID [facility] Stop: 08/17/18 08:59 Last Admin: 06/24/18 16:30 Dose: Not Given Fluticasone Propionate (Flonase) 1 spr NS DAILY [facility] Stop: 08/17/18 08:59 Last Admin: 06/24/18 11:46 Dose: Not Given Folic Acid (Folate) 1 mg GT DAILY [facility] Stop: 08/17/18 08:59 Last Admin: 06/24/18 11:47 Dose: Not Given Vancomycin HCl 1 gm/ Sodium (Chloride) 250 mls @ 165 mls/hr IV Q12HR [facility] Stop: 08/18/18 08:59 Last Infusion: 06/24/18 23:04 Dose: Infused Multivitamins/Minerals 10 ml/Dextrose/ Amino Acids/Electrolytes/ Fat Emulsion Intravenous 1,440 mls @ 60 mls/hr IV .Q24H [facility] Stop: 08/21/18 14:59 Last Admin: 06/24/18 16:00 Dose: 60 mls/hr Cefepime HCl 2 gm/ Dextrose 100 mls @ 100 mls/hr IV Q12HR [facility] Stop: 08/21/18 20:59 Last Infusion: 06/24/18 21:26 Dose: Infused Magnesium Sulfate (Magnesium Sulfate Premix) 2 gm in 50 mls @ 25 mls/hr IV ONCE ONE Stop: 06/25/18 09:59 Insulin Aspart (Novolog Insulin Sliding Scale) 0 units SUBQ Q6HR [facility]; Protocol Stop: 08/19/18 11:59 Last Admin: 06/25/18 05:22 Dose: Not Given Lactobacillus Rhamnosus (Culturelle 15b) 1 each PO DAILY [facility] Stop: 08/17/18 13:59 Last Admin: 06/24/18 11:47 Dose: Not Given Magnesium Hydroxide (Milk Of Magnesia) 30 ml GT DAILY PRN PRN Reason: Constipation Stop: 08/17/18 06:34 Miscellaneous (Vancomycin Iv Per Pharmacy) 1 ea MC PRN PRN PRN Reason: VANCO PER RX Stop: 08/16/18 16:03 Miscellaneous (Vte Chemical Prophylaxis Screen/ Admission) 1 ea PRN PRN PRN Reason: PROTOCOL Stop: 08/16/18 17:05 Miscellaneous (Probiotic Screen) 1 ea PRN PRN PRN Reason: PROTOCOL Stop: 08/17/18 09:32 Miscellaneous (Tpn Per Pharmacy) 1 ea PRN PRN PRN Reason: PROTOCOL Stop: 08/18/18 10:24 Morphine Sulfate (Morphine) 1 mg IVP Q4HR PRN PRN Reason: Pain (Severe) Stop: 08/16/18 20:07 Last Admin: 06/25/18 04:00 Dose: 1 mg Nystatin (Mycostatin Cream) 1 appl TP BID [facility] Stop: 08/17/18 08:59 Last Admin: 06/24/18 17:05 Dose: 1 appl Petrolatum (Vaseline Oint) 1 appl TP DAILY [facility] Stop: 08/17/18 08:59 Last Admin: 06/24/18 11:47 Dose: Not Given Sucralfate (Carafate) 1 gm GT QID [facility] Stop: 08/17/18 08:59 Last Admin: 06/24/18 20:27 Dose: Not Given General: Alert, No acute distress HEENT: Atraumatic Neck: Supple, Other (INTACT TRACH) Cardiovascular: Regular rate Lungs: Normal air movement Abdomen: Bowel sounds, Soft, Other (INTACT GT) Extremities: no Clubbing, no Cyanosis, no Edema Assessment/Plan - Problem List Patient Problems: All Active Problems MALFUNCTIONING GASTRIC FEEDING TUBE/RASH (Acute) - Assessment Assessment: IMPRESSION: 1. G tube malfunction. 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 GC fistula closed primarily, but EGD with GT insertion not feasible due to closed jaw. 3. s/p surgical GT insertion 06/24/18. 4. 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 RECS: -post op care; GT feeds and meds to be started as per surgeon. -IV TPN for now. -Oncology f/u for known cecal mass on PET scan which he and oncologist have known about and they have a plan in place.
[2018-06-25] MEDS ORDERED: Mag Sulfate 2gm/50mL Premix 2 GM/50 ML BAG IV ONE (08:00)
[2018-06-25] MEDS: Petrolatum (White) Oint 0.6 Oz Tube TP SCH (08:07)
[2018-06-25] MEDS: Enoxaparin 40 mg/0.4 mL 0.4mL Syr SUBQ SCH (08:07)
[2018-06-25] MEDS: Lactobacillus Rhamnosus GG 15 Billion CFU CAP.SPRINK PO SCH (08:23)
[2018-06-25] MEDS: Ferrous Sulfate 300 MG/5 ML UDC GT SCH ×2 (08:24→16:14)
[2018-06-25] MEDS: Fluticasone Propionate Nasal 1 SPR SPR NS SCH (08:28)
[2018-06-25] MEDS: Chlorhexidine Gluconate 0.12% 480mL Bottle MM SCH ×2 (10:52→16:14)
[2018-06-25] MEDS: Nystatin Cream 100,000 u/gm Cream 15 gm TP SCH ×2 (10:53→16:14)
--- NOTE | 2018-06-25 13:23 | General Progress Note ---
Subjective - Review of Systems Service Date: 06/25/18 Subjective: pain G. tube placed on iv TPN right picc line Objective - Results Result Diagrams: 06/25/18 06:10 06/25/18 06:10 Recent Labs: Laboratory Last Values WBC 7.3 Th/cmm (4.8-10.8) 06/25/18 06:10 RBC 2.69 Mil/cmm (4.30-5.70) L 06/25/18 06:10 Hgb 8.5 gm/dL (12-16) L 06/25/18 06:10 Hct 24.4 % (41.0-60) L 06/25/18 06:10 MCV 90.5 fl (80-99) 06/25/18 06:10 MCH 31.7 pg (26.0-30.0) H 06/25/18 06:10 MCHC Differential 35.0 pg (28.0-36.0) 06/25/18 06:10 RDW 16.0 % (11.5-20.0) 06/25/18 06:10 Plt Count 441 Th/cmm (150-400) H 06/25/18 06:10 MPV 6.6 fl 06/25/18 06:10 Add Manual Diff YES 06/25/18 06:10 Neutrophils % [employer]FF [employer] 06/25/18 06:10 Band Neutrophils % 2 % (0-10) 06/22/18 06:00 Lymphocytes % [employer] 06/25/18 06:10 Monocytes % [employer] 06/25/18 06:10 Eosinophils % [employer] 06/25/18 06:10 Basophils % [employer] 06/25/18 06:10 Neutrophils (Manual) 82 % (40-80) H 06/25/18 06:10 Lymphocytes 7 % (20-50) L 06/25/18 06:10 Monocytes 9 % (2-10) 06/25/18 06:10 Eosinophils 0 % (0-5) 06/22/18 06:00 Basophils 2 % (0-3) 06/25/18 06:10 Platelet Estimate INCREASED PLATELETS (NORMAL) 06/25/18 06:10 PT 10.3 SECONDS (9.5-11.5) 06/23/18 05:49 INR 0.99 (0.5-1.4) 06/23/18 05:49 Sodium 134 mEq/L (136-145) L 06/25/18 06:10 Potassium 4.0 mEq/L (3.5-5.1) 06/25/18 06:10 Chloride 102 mEq/L (98-107) 06/25/18 06:10 Carbon Dioxide 25.3 mEq/L (21.0-31.0) 06/25/18 06:10 Anion Gap 10.7 (7.0-16.0) 06/25/18 06:10 BUN 15 mg/dL (7-25) 06/25/18 06:10 Creatinine 0.4 mg/dL (0.7-1.3) L 06/25/18 06:10 Est GFR ( Amer) > 60.0 ml/min (>90) 06/25/18 06:10 Est GFR (Non-Af Amer) > 60.0 ml/min 06/25/18 06:10 BUN/Creatinine Ratio 37.5 06/25/18 06:10 Glucose 144 mg/dL (70-105) H 06/25/18 06:10 POC Glucose 114 MG/DL (70 - 105) H 06/25/18 12:12 Calcium 8.7 mg/dL (8.6-10.3) 06/25/18 06:10 Phosphorus 3.2 mg/dL (2.5-5.0) 06/25/18 06:10 Magnesium 1.6 mg/dL (1.9-2.7) L 06/25/18 06:10 Iron 36 ug/dL (38-169) L 06/18/18 06:30 TIBC 198 ug/dL (250-450) L 06/18/18 06:30 Iron Saturation 18 % (15-55) 06/18/18 06:30 Unsaturated IBC 162 ug/dL (111-343) 06/18/18 06:30 Ferritin 304 ng/mL (30-400) 06/19/18 09:16 Total Bilirubin 0.2 mg/dL (0.3-1.0) L 06/25/18 06:10 AST 7 U/L (13-39) L 06/25/18 06:10 ALT 3 U/L (7-52) L 06/25/18 06:10 Alkaline Phosphatase 44 U/L (34-104) 06/25/18 06:10 Total Protein 6.0 gm/dL (6.0-8.3) 06/25/18 06:10 Albumin 2.5 gm/dL (4.2-5.5) L 06/25/18 06:10 Globulin 3.5 gm/dL 06/25/18 06:10 Albumin/Globulin Ratio 0.7 (1.0-1.8) L 06/25/18 06:10 Prealbumin 11 mg/dL (10-36) 06/20/18 10:20 Triglycerides 43 mg/dL (<150) 06/25/18 06:10 Cholesterol 123 mg/dL (<200) 06/20/18 10:20 Urine Source CLEAN C 06/17/18 19:05 Urine Color YELLOW 06/17/18 19:05 Urine Clarity HAZY (CLEAR) 06/17/18 19:05 Urine pH 7.5 (4.6 - 8.0) 06/17/18 19:05 Ur Specific [place] 1.015 (1.005-1.030) 06/17/18 19:05 Urine Protein NEGATIVE mg/dL (NEGATIVE) 06/17/18 19:05 Urine Glucose (UA) NEGATIVE mg/dL (NEGATIVE) 06/17/18 19:05 Urine Ketones 40 mg/dL (NEGATIVE) H 06/17/18 19:05 Urine Blood LARGE (NEGATIVE) H 06/17/18 19:05 Urine Nitrate NEGATIVE (NEGATIVE) 06/17/18 19:05 Urine Bilirubin NEGATIVE (NEGATIVE) 06/17/18 19:05 Urine Urobilinogen 0.2 E.U./dL (0.2 - 1.0) 06/17/18 19:05 Ur Leukocyte Esterase NEGATIVE (NEGATIVE) 06/17/18 19:05 Urine RBC NONE SEEN /hpf (0-5) 06/17/18 19:05 Urine WBC 2-5 /hpf (0-5) 06/17/18 19:05 Ur Epithelial Cells NONE SEEN /lpf (FEW) 06/17/18 19:05 Urine Bacteria FEW /hpf (NONE SEEN) 06/17/18 19:05 Vancomycin Trough 13.3 ug/mL (5-10) H 06/23/18 08:20 - Physical Exam Vitals and I&O: Vital Signs Temp 97.7 F 06/25/18 04:00 Pulse 73 06/25/18 07:11 Resp 18 06/25/18 07:11 BP 113/62 06/25/18 04:00 Pulse Ox 93 06/25/18 07:11 Intake & Output 06/24/18 06/25/18 06/25/18 18:59 06:59 18:59 Intake Total 1328 350 100 Output Total 800 Balance 1328 -450 100 Weight (lbs) 51.256 kg 48.988 kg Intake: Intake, IV Amount 1328 350 100 Cefepime 2 gm In Dextrose 100 100 5% 100 ml @ 100 mls/hr IV Q12HR [facility] Rx#: [id number] Multivitamin Inj 10 ml In 1328 Dextrose 70% 730 ml In Amino Acids 10% 500 ml In Intralipids 20% 200 ml @ 60 mls/hr IV .Q24H [facility] Rx#:[id number] Vancomycin HCl 1 gm In 250 Sodium Chloride 0.9% 250 ml @ 165 mls/hr IV Q12HR [facility] Rx#:[id number] Oral 0 Output: Urine 800 Other: # Voids 5 Weight Source Bedscale Bedscale Active Medications: Current Medications Acetaminophen (Tylenol 650mg/20.3ml Suspension) 650 mg GT Q6H PRN PRN Reason: BREAKTRHOUGH PAIN OR TEMP >101 Stop: 08/17/18 06:46 Acetaminophen/Hydrocodone Bitart ([place] 10 Mg/325 Mg) 1 tab GT Q6H PRN PRN Reason: PAIN (MODERATE) Stop: 08/19/18 08:59 Acetaminophen/Hydrocodone Bitart ([place] 5mg/325mg) 1 tab GT Q6H PRN PRN Reason: MILD PAIN Stop: 08/19/18 08:59 Albuterol/Ipratropium (Duoneb Neb) 3 ml HHN Q6HRT [facility] Stop: 08/17/18 06:59 Last Admin: 06/25/18 13:17 Dose: 3 ml Bisacodyl (Dulcolax 10 Mg Supp) 10 mg RC DAILY PRN PRN Reason: Constipation Stop: 08/17/18 06:34 Last Admin: 06/19/18 17:27 Dose: 10 mg Chlorhexidine Gluconate (Peridex) 15 ml MM BID [facility] Stop: 08/17/18 08:59 Last Admin: 06/25/18 10:52 Dose: Not Given Docusate Sodium (Colace) 100 mg PO BID [facility] Stop: 08/17/18 08:59 Last Admin: 06/25/18 08:24 Dose: Not Given Enoxaparin Sodium (Lovenox) 40 mg SUBQ DAILY [facility] Stop: 08/17/18 08:59 Last Admin: 06/25/18 08:07 Dose: 40 mg Ferrous Sulfate (Iron) 300 mg GT BID [facility] Stop: 08/17/18 08:59 Last Admin: 06/25/18 08:24 Dose: Not Given Fluticasone Propionate (Flonase) 1 spr NS DAILY [facility] Stop: 08/17/18 08:59 Last Admin: 06/25/18 08:28 Dose: 1 spr Folic Acid (Folate) 1 mg GT DAILY [facility] Stop: 08/17/18 08:59 Last Admin: 06/25/18 08:24 Dose: Not Given Vancomycin HCl 1 gm/ Sodium (Chloride) 250 mls @ 165 mls/hr IV Q12HR [facility] Stop: 08/18/18 08:59 Last Admin: 06/25/18 11:07 Dose: 165 mls/hr Multivitamins/Minerals 10 ml/Dextrose/ Amino Acids/Electrolytes/ Fat Emulsion Intravenous 1,440 mls @ 60 mls/hr IV .Q24H [facility] Stop: 08/21/18 14:59 Last Admin: 06/24/18 16:00 Dose: 60 mls/hr Cefepime HCl 2 gm/ Dextrose 100 mls @ 100 mls/hr IV Q12HR [facility] Stop: 08/21/18 20:59 Last Infusion: 06/25/18 12:45 Dose: Infused Insulin Aspart (Novolog Insulin Sliding Scale) 0 units SUBQ Q6HR [facility]; Protocol Stop: 08/19/18 11:59 Last Admin: 06/25/18 12:43 Dose: Not Given Lactobacillus Rhamnosus (Culturelle 15b) 1 each PO DAILY [facility] Stop: 08/17/18 13:59 Last Admin: 06/25/18 08:23 Dose: Not Given Magnesium Hydroxide (Milk Of Magnesia) 30 ml GT DAILY PRN PRN Reason: Constipation Stop: 08/17/18 06:34 Miscellaneous (Vancomycin Iv Per Pharmacy) 1 ea MC PRN PRN PRN Reason: VANCO PER RX Stop: 08/16/18 16:03 Miscellaneous (Vte Chemical Prophylaxis Screen/ Admission) 1 ea MC PRN PRN PRN Reason: PROTOCOL Stop: 08/16/18 17:05 Miscellaneous (Probiotic Screen) 1 ea MC PRN PRN PRN Reason: PROTOCOL Stop: 08/17/18 09:32 Miscellaneous (Tpn Per Pharmacy) 1 ea MC PRN PRN PRN Reason: PROTOCOL Stop: 08/18/18 10:24 Morphine Sulfate (Morphine) 1 mg IVP Q4HR PRN PRN Reason: Pain (Severe) Stop: 08/16/18 20:07 Last Admin: 06/25/18 12:08 Dose: 1 mg Nystatin (Mycostatin Cream) 1 appl TP BID [facility] Stop: 08/17/18 08:59 Last Admin: 06/25/18 10:53 Dose: Not Given Petrolatum (Vaseline Oint) 1 appl TP DAILY [facility] Stop: 08/17/18 08:59 Last Admin: 06/25/18 08:07 Dose: 1 appl Sucralfate (Carafate) 1 gm GT QID [facility] Stop: 08/17/18 08:59 Last Admin: 06/25/18 12:44 Dose: Not Given General: Alert, No acute distress HEENT: Atraumatic Neck: Supple, Other (INTACT TRACH) Cardiovascular: Regular rate Lungs: Normal air movement Abdomen: Bowel sounds, Soft, Other (INTACT GT) Extremities: no Clubbing, no Cyanosis, no Edema Assessment/Plan - Problem List Patient Problems: All Active Problems MALFUNCTIONING GASTRIC FEEDING TUBE/RASH (Acute) - Assessment Assessment: The elevated platelet count is most likely reactive. The patient has concurrent anemia and anemia workup will be obtained. No interim specific intervention is required for the high platelet count. The patient has a report of possible cecal mass on PET scan done by the primary oncologist and this will be deferred to the primary oncologist for continued management. 06/19: ferritin pending. plt better. hgb lower. monitor 06/20: hgb lower. plt stable. ferritin pending. monitor for now. 06/25/18: hgb fluctuating. Anemia of chronic disease. Monitor hgb. 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 Per nursing, patient with G-tube in place, however states MD wants to wait to start feeding. Current Diet Order/ Nutrition Support NPO Patient / S.O Not Indicated Pertinent Medications dulxolax, D5-0.45NS @ 50 ml/hr , colace, iron, folate, culturelle, MOM, Abx Pertinent Labs (06/18) albumin 2.9 ( decreasing) Nutritional Hx/Data Height 1.68 m Height (Calculated Centimeters) 167.6 Current Weight (lbs) 47.174 kg Weight (Calculated Kilograms) 47.2 Weight (Calculated Grams) 64076.6 [place] Body Weight 142 % [place] Body Weight 73 Body Mass Index (BMI) 16.7 Recent Weight Change No Weight Status Underweight GI Symptoms GI Symptoms None Last BM none noted since admission Difficult in: None Food Allergies No Cultural/Ethnic/Judaism Belief none indicated Usual diet at home Jevity 1.2 Bolus 4 cans daily (1 can 9am, 1p, 5p, 10p), with 100ml free water flush every 6 hours. This provides 948ml total volume, 1137 kcal, 52 gm protein, 1165ml free water. Skin Integrity/Comment: Bryan 18, reddened stoma/g- tube site, rash/reddened back Estimated Nutritional Goals BEE in Kcals: Using Current wt Calories/Kcals/Kg 35-40 kcal/kg using CBW 47.2 ( cancer, low BMI) Kcals Calculated ~9308-5381 kcal/day Protein: Using Current wt Protein g/k.5-2 gm/kg (cancer, muscle wasting) Protein Calculated 70-95 gm/day Fluid: ml ~2230-6843 ml/day Nutritional Problem 1. Problem Problem Inadequate energy intake related to Etiology withholding tube feeding due to malfunction G-tube without initiation of alternate nutrition support aeb Signs/Symptoms: NPO status Intervention/Recommendation Comments 1. Restart tube feeding once medically appropriate; recommend bolus feeding Jevity 1.2 375 ml 4 times a day ( previous feeding schedule 9am, 1p, 5p, 10p). This provides 1500ml, 1800 kcal, 82 gm protein. 2. If unable to restart tube feeding, consider Parenteral nutrition. Expected Outcomes/Goals Expected Outcomes/Goals Meets >75% of nutrient needs, weight increase toward ideal body weight, improved skin integrity
[2018-06-25] MEDS: TPN 10%-70% CUSTOM IV SCH (16:16)
--- NOTE | 2018-06-25 17:46 | Infectious Disease Prog Note ---
Infectious Disease Subjective - Review of Systems Service Date: 06/25/18 Subjective: anew G tube was placed in by Dr Patel. No g tube feeding yet. No fever. Infectious Disease Objective - Results Result Diagrams: 06/25/18 06:10 06/25/18 06:10 Recent Labs: Laboratory Last Values WBC 7.3 Th/cmm (4.8-10.8) 06/25/18 06:10 RBC 2.69 Mil/cmm (4.30-5.70) L 06/25/18 06:10 Hgb 8.5 gm/dL (12-16) L 06/25/18 06:10 Hct 24.4 % (41.0-60) L 06/25/18 06:10 MCV 90.5 fl (80-99) 06/25/18 06:10 MCH 31.7 pg (26.0-30.0) H 06/25/18 06:10 MCHC Differential 35.0 pg (28.0-36.0) 06/25/18 06:10 RDW 16.0 % (11.5-20.0) 06/25/18 06:10 Plt Count 441 Th/cmm (150-400) H 06/25/18 06:10 MPV 6.6 fl 06/25/18 06:10 Add Manual Diff YES 06/25/18 06:10 Neutrophils % P[employer]ER PRODUCTS PRINTER 06/25/18 06:10 Band Neutrophils % 2 % (0-10) 06/22/18 06:00 Lymphocytes % [employer] PRODU[employer] PRINTER 06/25/18 06:10 Monocytes % P[employer] PRODUCTS PRINTER 06/25/18 06:10 Eosinophils % P[employer] PRODUCTS PRINTER 06/25/18 06:10 Basophils % P[employer] PRODUCTS PRINTER 06/25/18 06:10 Neutrophils (Manual) 82 % (40-80) H 06/25/18 06:10 Lymphocytes 7 % (20-50) L 06/25/18 06:10 Monocytes 9 % (2-10) 06/25/18 06:10 Eosinophils 0 % (0-5) 06/22/18 06:00 Basophils 2 % (0-3) 06/25/18 06:10 Platelet Estimate INCREASED PLATELETS (NORMAL) 06/25/18 06:10 PT 10.3 SECONDS (9.5-11.5) 06/23/18 05:49 INR 0.99 (0.5-1.4) 06/23/18 05:49 Sodium 134 mEq/L (136-145) L 06/25/18 06:10 Potassium 4.0 mEq/L (3.5-5.1) 06/25/18 06:10 Chloride 102 mEq/L (98-107) 06/25/18 06:10 Carbon Dioxide 25.3 mEq/L (21.0-31.0) 06/25/18 06:10 Anion Gap 10.7 (7.0-16.0) 06/25/18 06:10 BUN 15 mg/dL (7-25) 06/25/18 06:10 Creatinine 0.4 mg/dL (0.7-1.3) L 06/25/18 06:10 Est GFR ( Amer) > 60.0 ml/min (>90) 06/25/18 06:10 Est GFR (Non-Af Amer) > 60.0 ml/min 06/25/18 06:10 BUN/Creatinine Ratio 37.5 06/25/18 06:10 Glucose 144 mg/dL (70-105) H 06/25/18 06:10 POC Glucose 143 MG/DL (70 - 105) H 06/25/18 17:36 Calcium 8.7 mg/dL (8.6-10.3) 06/25/18 06:10 Phosphorus 3.2 mg/dL (2.5-5.0) 06/25/18 06:10 Magnesium 1.6 mg/dL (1.9-2.7) L 06/25/18 06:10 Iron 36 ug/dL (38-169) L 06/18/18 06:30 TIBC 198 ug/dL (250-450) L 06/18/18 06:30 Iron Saturation 18 % (15-55) 06/18/18 06:30 Unsaturated IBC 162 ug/dL (111-343) 06/18/18 06:30 Ferritin 304 ng/mL (30-400) 06/19/18 09:16 Total Bilirubin 0.2 mg/dL (0.3-1.0) L 06/25/18 06:10 AST 7 U/L (13-39) L 06/25/18 06:10 ALT 3 U/L (7-52) L 06/25/18 06:10 Alkaline Phosphatase 44 U/L (34-104) 06/25/18 06:10 Total Protein 6.0 gm/dL (6.0-8.3) 06/25/18 06:10 Albumin 2.5 gm/dL (4.2-5.5) L 06/25/18 06:10 Globulin 3.5 gm/dL 06/25/18 06:10 Albumin/Globulin Ratio 0.7 (1.0-1.8) L 06/25/18 06:10 Prealbumin 11 mg/dL (10-36) 06/20/18 10:20 Triglycerides 43 mg/dL (<150) 06/25/18 06:10 Cholesterol 123 mg/dL (<200) 06/20/18 10:20 Urine Source CLEAN C 06/17/18 19:05 Urine Color YELLOW 06/17/18 19:05 Urine Clarity HAZY (CLEAR) 06/17/18 19:05 Urine pH 7.5 (4.6 - 8.0) 06/17/18 19:05 Ur Specific [place] 1.015 (1.005-1.030) 06/17/18 19:05 Urine Protein NEGATIVE mg/dL (NEGATIVE) 06/17/18 19:05 Urine Glucose (UA) NEGATIVE mg/dL (NEGATIVE) 06/17/18 19:05 Urine Ketones 40 mg/dL (NEGATIVE) H 06/17/18 19:05 Urine Blood LARGE (NEGATIVE) H 06/17/18 19:05 Urine Nitrate NEGATIVE (NEGATIVE) 06/17/18 19:05 Urine Bilirubin NEGATIVE (NEGATIVE) 06/17/18 19:05 Urine Urobilinogen 0.2 E.U./dL (0.2 - 1.0) 06/17/18 19:05 Ur Leukocyte Esterase NEGATIVE (NEGATIVE) 06/17/18 19:05 Urine RBC NONE SEEN /hpf (0-5) 06/17/18 19:05 Urine WBC 2-5 /hpf (0-5) 06/17/18 19:05 Ur Epithelial Cells NONE SEEN /lpf (FEW) 06/17/18 19:05 Urine Bacteria FEW /hpf (NONE SEEN) 06/17/18 19:05 Vancomycin Trough 13.3 ug/mL (5-10) H 06/23/18 08:20 - Physical Exam Vitals and I&O: Vital Signs Temp 97.7 F 06/25/18 04:00 Pulse 71 06/25/18 13:17 Resp 18 06/25/18 13:17 BP 113/62 06/25/18 04:00 Pulse Ox 95 06/25/18 13:17 Intake & Output 06/24/18 06/25/18 06/25/18 18:59 06:59 18:59 Intake Total 0865 825 9548 Output Total 800 Balance 1328 -450 1790 Weight (lbs) 51.256 kg 48.988 kg Intake: Intake, IV Amount 4056 082 3999 Cefepime 2 gm In Dextrose 100 100 5% 100 ml @ 100 mls/hr IV Q12HR [facility] Rx#: [id number] Multivitamin Inj 10 ml In 1328 1440 Dextrose 70% 730 ml In Amino Acids 10% 500 ml In Intralipids 20% 200 ml @ 60 mls/hr IV .Q24H [facility] Rx#:[id number] Vancomycin HCl 1 gm In 250 250 Sodium Chloride 0.9% 250 ml @ 165 mls/hr IV Q12HR [facility] Rx#:[id number] Oral 0 Output: Urine 800 Other: # Voids 5 Weight Source Bedscale Bedscale Active Medications: Current Medications Acetaminophen (Tylenol 650mg/20.3ml Suspension) 650 mg GT Q6H PRN PRN Reason: BREAKTRHOUGH PAIN OR TEMP >101 Stop: 08/17/18 06:46 Acetaminophen/Hydrocodone Bitart ([place] 10 Mg/325 Mg) 1 tab GT Q6H PRN PRN Reason: PAIN (MODERATE) Stop: 08/19/18 08:59 Acetaminophen/Hydrocodone Bitart ([place] 5mg/325mg) 1 tab GT Q6H PRN PRN Reason: MILD PAIN Stop: 08/19/18 08:59 Albuterol/Ipratropium (Duoneb Neb) 3 ml HHN Q6HRT [facility] Stop: 08/17/18 06:59 Last Admin: 06/25/18 13:17 Dose: 3 ml Bisacodyl (Dulcolax 10 Mg Supp) 10 mg RC DAILY PRN PRN Reason: Constipation Stop: 08/17/18 06:34 Last Admin: 06/19/18 17:27 Dose: 10 mg Chlorhexidine Gluconate (Peridex) 15 ml MM BID [facility] Stop: 08/17/18 08:59 Last Admin: 06/25/18 16:14 Dose: Not Given Docusate Sodium (Colace) 100 mg PO BID [facility] Stop: 08/17/18 08:59 Last Admin: 06/25/18 16:14 Dose: Not Given Enoxaparin Sodium (Lovenox) 40 mg SUBQ DAILY [facility] Stop: 08/17/18 08:59 Last Admin: 06/25/18 08:07 Dose: 40 mg Ferrous Sulfate (Iron) 300 mg GT BID [facility] Stop: 08/17/18 08:59 Last Admin: 06/25/18 16:14 Dose: Not Given Fluticasone Propionate (Flonase) 1 spr NS DAILY [facility] Stop: 08/17/18 08:59 Last Admin: 06/25/18 08:28 Dose: 1 spr Folic Acid (Folate) 1 mg GT DAILY [facility] Stop: 08/17/18 08:59 Last Admin: 06/25/18 08:24 Dose: Not Given Vancomycin HCl 1 gm/ Sodium (Chloride) 250 mls @ 165 mls/hr IV Q12HR [facility] Stop: 08/18/18 08:59 Last Infusion: 06/25/18 16:16 Dose: Infused Multivitamins/Minerals 10 ml/Dextrose/ Amino Acids/Electrolytes/ Fat Emulsion Intravenous 1,440 mls @ 60 mls/hr IV .Q24H [facility] Stop: 08/21/18 14:59 Last Admin: 06/25/18 16:16 Dose: 60 mls/hr Cefepime HCl 2 gm/ Dextrose 100 mls @ 100 mls/hr IV Q12HR [facility] Stop: 08/21/18 20:59 Last Infusion: 06/25/18 12:45 Dose: Infused Insulin Aspart (Novolog Insulin Sliding Scale) 0 units SUBQ Q6HR [facility]; Protocol Stop: 08/19/18 11:59 Last Admin: 06/25/18 12:43 Dose: Not Given Lactobacillus Rhamnosus (Culturelle 15b) 1 each PO DAILY [facility] Stop: 08/17/18 13:59 Last Admin: 06/25/18 08:23 Dose: Not Given Magnesium Hydroxide (Milk Of Magnesia) 30 ml GT DAILY PRN PRN Reason: Constipation Stop: 08/17/18 06:34 Miscellaneous (Vancomycin Iv Per Pharmacy) 1 ea MC PRN PRN PRN Reason: VANCO PER RX Stop: 08/16/18 16:03 Miscellaneous (Vte Chemical Prophylaxis Screen/ Admission) 1 ea MC PRN PRN PRN Reason: PROTOCOL Stop: 08/16/18 17:05 Miscellaneous (Probiotic Screen) 1 ea MC PRN PRN PRN Reason: PROTOCOL Stop: 08/17/18 09:32 Miscellaneous (Tpn Per Pharmacy) 1 ea MC PRN PRN PRN Reason: PROTOCOL Stop: 08/18/18 10:24 Morphine Sulfate (Morphine) 1 mg IVP Q4HR PRN PRN Reason: Pain (Severe) Stop: 08/16/18 20:07 Last Admin: 06/25/18 16:09 Dose: 1 mg Nystatin (Mycostatin Cream) 1 appl TP BID [facility] Stop: 08/17/18 08:59 Last Admin: 06/25/18 16:14 Dose: Not Given Petrolatum (Vaseline Oint) 1 appl TP DAILY [facility] Stop: 08/17/18 08:59 Last Admin: 06/25/18 08:07 Dose: 1 appl Sucralfate (Carafate) 1 gm GT QID [facility] Stop: 08/17/18 08:59 Last Admin: 06/25/18 16:14 Dose: Not Given General: no acute distress, well developed, well nourished HEENT: atraumatic, normocephalic, PERRLA, EOMI, other (surgical scars on lower face.) Neck: supple, tracheostomy Cardiovascular: S1S2, regular Lungs: clear to auscultation bilaterally, clear to percussion Abdomen: soft, other (old g tube site is getting better,.), no tender, no distended Extremities: no cyanosis, no clubbing, no edema Neurological: awake, alert, oriented, other (aphasic) Infectious Disease Assmt/Plan - Problem List Patient Problems: All Active Problems MALFUNCTIONING GASTRIC FEEDING TUBE/RASH (Acute) - Assessment Assessment: 1. G tube site infection, Abdominal wall cellulitis, suspect underlying abscess. 2. 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 Anemia of CD. 4. MRSA infection. 5. Pseudomonas infection. - Plan Plan: Continue same treatment. Continue wound care and abx: vanco IV, and cefepime. May dc patient from ID point of view for 10 more days of antibiotics: may change it to cipro and bactrim. 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 Per nursing, patient with G-tube in place, however states MD wants to wait to start feeding. Current Diet Order/ Nutrition Support NPO Patient / S.O Not Indicated Pertinent Medications dulxolax, D5-0.45NS @ 50 ml/hr , colace, iron, folate, culturelle, MOM, Abx Pertinent Labs (06/18) albumin 2.9 ( decreasing) Nutritional Hx/Data Height 1.68 m Height (Calculated Centimeters) 167.6 Current Weight (lbs) 47.174 kg Weight (Calculated Kilograms) 47.2 Weight (Calculated Grams) 05337.6 [place] Body Weight 142 % [place] Body Weight 73 Body Mass Index (BMI) 16.7 Recent Weight Change No Weight Status Underweight GI Symptoms GI Symptoms None Last BM none noted since admission Difficult in: None Food Allergies No Cultural/Ethnic/[employer]ian Belief none indicated Usual diet at home Jevity 1.2 Bolus 4 cans daily (1 can 9am, 1p, 5p, 10p), with 100ml free water flush every 6 hours. This provides 948ml total volume, 1137 kcal, 52 gm protein, 1165ml free water. Skin Integrity/Comment: Bryan 18, reddened stoma/g- tube site, rash/reddened back Estimated Nutritional Goals BEE in Kcals: Using Current wt Calories/Kcals/Kg 35-40 kcal/kg using CBW 47.2 ( cancer, low BMI) Kcals Calculated ~1193-4384 kcal/day Protein: Using Current wt Protein g/k.5-2 gm/kg (cancer, muscle wasting) Protein Calculated 70-95 gm/day Fluid: ml ~1343-9825 ml/day Nutritional Problem 1. Problem Problem Inadequate energy intake related to Etiology withholding tube feeding due to malfunction G-tube without initiation of alternate nutrition support aeb Signs/Symptoms: NPO status Intervention/Recommendation Comments 1. Restart tube feeding once medically appropriate; recommend bolus feeding Jevity 1.2 375 ml 4 times a day ( previous feeding schedule 9am, 1p, 5p, 10p). This provides 1500ml, 1800 kcal, 82 gm protein. 2. If unable to restart tube feeding, consider Parenteral nutrition. Expected Outcomes/Goals Expected Outcomes/Goals Meets >75% of nutrient needs, weight increase toward ideal body weight, improved skin integrity
[2018-06-26] MEDS: INSULIN ASPART SLIDING SCALE 100 UNITS/ML UNIT SUBQ SCH ×4 (00:09→19:51)
[2018-06-26] MEDS: Albuterol/Ipratropium Neb 3 ML AERS HHN SCH ×3 (01:40→12:04)
[2018-06-26] MEDS: Morphine Sulfate 4 mg/mL 1mL Syr IVP PRN ×5 (01:49→21:15)
[2018-06-26 06:51] LABS: HEMATOCRIT 27.2 % (41.0-60); HEMOGLOBIN 9.2 gm/dL (12-16); LYMPHOCYTE ABSOLUTE 0.3 Th/cmm (1.5-3.0); MEAN CELL VOLUME 91.8 fl (80-99); MEAN CORPUSCULAR HGB CONC 33.8 pg (28.0-36.0); MEAN PLATELET VOLUME 6.5 fl; MONOCYTE ABSOLUTE 0.5 Th/cmm (0.3-1.0); NEUTROPHILE ABSOLUTE 9.2 Th/cmm (1.8-8.0); PLATELET COUNT 476 Th/cmm (150-400); RED BLOOD COUNT 2.96 Mil/cmm (4.30-5.70)
[2018-06-26 07:25] LABS: BAND NEUTROPHILE 1 % (0-10); LYMPHOCYTE 3 % (20-50); MONOCYTE 4 % (2-10); NEUTROPHILS 92 % (40-80); PLATELET ESTIMATE INCREASED PLATELETS (NORMAL)
[2018-06-26 07:26] LABS: OVALOCYTES 1+
--- NOTE | 2018-06-26 07:38 | General Progress Note ---
Subjective - Review of Systems Service Date: 06/26/18 Subjective: vitals stable. Patient resting comfortably in bed. No acute distress. afebrile. awake, alert. S/P g tube placement. Awaiting clearance to use gtube. Objective - Results Result Diagrams: 06/26/18 06:34 06/25/18 06:10 Recent Labs: Laboratory Last Values WBC 10.0 Th/cmm (4.8-10.8) 06/26/18 06:34 RBC 2.96 Mil/cmm (4.30-5.70) L 06/26/18 06:34 Hgb 9.2 gm/dL (12-16) L 06/26/18 06:34 Hct 27.2 % (41.0-60) L 06/26/18 06:34 MCV 91.8 fl (80-99) 06/26/18 06:34 MCH 31.0 pg (26.0-30.0) H 06/26/18 06:34 MCHC Differential 33.8 pg (28.0-36.0) 06/26/18 06:34 RDW 16.0 % (11.5-20.0) 06/26/18 06:34 Plt Count 476 Th/cmm (150-400) H 06/26/18 06:34 MPV 6.5 fl 06/26/18 06:34 Add Manual Diff YES 06/26/18 06:34 Neutrophils % SALON COORDINATOR 06/25/18 06:10 Band Neutrophils % 1 % (0-10) 06/26/18 06:34 Lymphocytes % SALON COORDINATOR 06/25/18 06:10 Monocytes % SALON COORDINATOR 06/25/18 06:10 Eosinophils % SALON COORDINATOR 06/25/18 06:10 Basophils % SALON COORDINATOR 06/25/18 06:10 Neutrophils (Manual) 92 % (40-80) H 06/26/18 06:34 Lymphocytes 3 % (20-50) L 06/26/18 06:34 Monocytes 4 % (2-10) 06/26/18 06:34 Eosinophils 0 % (0-5) 06/22/18 06:00 Basophils 2 % (0-3) 06/25/18 06:10 Platelet Estimate INCREASED PLATELETS (NORMAL) 06/26/18 06:34 Ovalocytes 1+ 06/26/18 06:34 PT 10.3 SECONDS (9.5-11.5) 06/23/18 05:49 INR 0.99 (0.5-1.4) 06/23/18 05:49 Sodium 134 mEq/L (136-145) L 06/25/18 06:10 Potassium 4.0 mEq/L (3.5-5.1) 06/25/18 06:10 Chloride 102 mEq/L (98-107) 06/25/18 06:10 Carbon Dioxide 25.3 mEq/L (21.0-31.0) 06/25/18 06:10 Anion Gap 10.7 (7.0-16.0) 06/25/18 06:10 BUN 15 mg/dL (7-25) 06/25/18 06:10 Creatinine 0.4 mg/dL (0.7-1.3) L 06/25/18 06:10 Est GFR ( Amer) > 60.0 ml/min (>90) 06/25/18 06:10 Est GFR (Non-Af Amer) > 60.0 ml/min 06/25/18 06:10 BUN/Creatinine Ratio 37.5 06/25/18 06:10 Glucose 144 mg/dL (70-105) H 06/25/18 06:10 POC Glucose 148 MG/DL (70 - 105) H 06/26/18 05:23 Calcium 8.7 mg/dL (8.6-10.3) 06/25/18 06:10 Phosphorus 3.2 mg/dL (2.5-5.0) 06/25/18 06:10 Magnesium 1.6 mg/dL (1.9-2.7) L 06/25/18 06:10 Iron 36 ug/dL (38-169) L 06/18/18 06:30 TIBC 198 ug/dL (250-450) L 06/18/18 06:30 Iron Saturation 18 % (15-55) 06/18/18 06:30 Unsaturated IBC 162 ug/dL (111-343) 06/18/18 06:30 Ferritin 304 ng/mL (30-400) 06/19/18 09:16 Total Bilirubin 0.2 mg/dL (0.3-1.0) L 06/25/18 06:10 AST 7 U/L (13-39) L 06/25/18 06:10 ALT 3 U/L (7-52) L 06/25/18 06:10 Alkaline Phosphatase 44 U/L (34-104) 06/25/18 06:10 Total Protein 6.0 gm/dL (6.0-8.3) 06/25/18 06:10 Albumin 2.5 gm/dL (4.2-5.5) L 06/25/18 06:10 Globulin 3.5 gm/dL 06/25/18 06:10 Albumin/Globulin Ratio 0.7 (1.0-1.8) L 06/25/18 06:10 Prealbumin 11 mg/dL (10-36) 06/20/18 10:20 Triglycerides 43 mg/dL (<150) 06/25/18 06:10 Cholesterol 123 mg/dL (<200) 06/20/18 10:20 Urine Source CLEAN C 06/17/18 19:05 Urine Color YELLOW 06/17/18 19:05 Urine Clarity HAZY (CLEAR) 06/17/18 19:05 Urine pH 7.5 (4.6 - 8.0) 06/17/18 19:05 Ur Specific [place] 1.015 (1.005-1.030) 06/17/18 19:05 Urine Protein NEGATIVE mg/dL (NEGATIVE) 06/17/18 19:05 Urine Glucose (UA) NEGATIVE mg/dL (NEGATIVE) 06/17/18 19:05 Urine Ketones 40 mg/dL (NEGATIVE) H 06/17/18 19:05 Urine Blood LARGE (NEGATIVE) H 06/17/18 19:05 Urine Nitrate NEGATIVE (NEGATIVE) 06/17/18 19:05 Urine Bilirubin NEGATIVE (NEGATIVE) 06/17/18 19:05 Urine Urobilinogen 0.2 E.U./dL (0.2 - 1.0) 06/17/18 19:05 Ur Leukocyte Esterase NEGATIVE (NEGATIVE) 06/17/18 19:05 Urine RBC NONE SEEN /hpf (0-5) 06/17/18 19:05 Urine WBC 2-5 /hpf (0-5) 06/17/18 19:05 Ur Epithelial Cells NONE SEEN /lpf (FEW) 06/17/18 19:05 Urine Bacteria FEW /hpf (NONE SEEN) 06/17/18 19:05 Vancomycin Trough 13.3 ug/mL (5-10) H 06/23/18 08:20 - Physical Exam Vitals and I&O: Vital Signs Temp 97.9 F 06/26/18 04:00 Pulse 79 06/26/18 04:00 Resp 20 06/26/18 04:00 BP 146/78 06/26/18 04:00 Pulse Ox 92 06/26/18 04:00 Intake & Output 06/25/18 06/26/18 06/26/18 18:59 06:59 18:59 Intake Total 1790 350 Output Total 800 Balance 1790 -450 Weight (lbs) 50.349 kg Intake: Intake, IV Amount 1790 350 Cefepime 2 gm In Dextrose 100 100 5% 100 ml @ 100 mls/hr IV Q12HR [facility] Rx#: [id number] Multivitamin Inj 10 ml In 1440 Dextrose 70% 730 ml In Amino Acids 10% 500 ml In Intralipids 20% 200 ml @ 60 mls/hr IV .Q24H [facility] Rx#:[id number] Vancomycin HCl 1 gm In 250 250 Sodium Chloride 0.9% 250 ml @ 165 mls/hr IV Q12HR [facility] Rx#:[id number] Output: Urine 800 Other: Weight Source Bedscale Active Medications: Current Medications Acetaminophen (Tylenol 650mg/20.3ml Suspension) 650 mg GT Q6H PRN PRN Reason: BREAKTRHOUGH PAIN OR TEMP >101 Stop: 08/17/18 06:46 Acetaminophen/Hydrocodone Bitart ([place] 10 Mg/325 Mg) 1 tab GT Q6H PRN PRN Reason: PAIN (MODERATE) Stop: 08/19/18 08:59 Acetaminophen/Hydrocodone Bitart ([place] 5mg/325mg) 1 tab GT Q6H PRN PRN Reason: MILD PAIN Stop: 08/19/18 08:59 Albuterol/Ipratropium (Duoneb Neb) 3 ml HHN Q6HRT [facility] Stop: 08/17/18 06:59 Last Admin: 06/26/18 07:14 Dose: 3 ml Bisacodyl (Dulcolax 10 Mg Supp) 10 mg RC DAILY PRN PRN Reason: Constipation Stop: 08/17/18 06:34 Last Admin: 06/19/18 17:27 Dose: 10 mg Chlorhexidine Gluconate (Peridex) 15 ml MM BID [facility] Stop: 08/17/18 08:59 Last Admin: 06/25/18 16:14 Dose: Not Given Docusate Sodium (Colace) 100 mg PO BID [facility] Stop: 08/17/18 08:59 Last Admin: 06/25/18 16:14 Dose: Not Given Enoxaparin Sodium (Lovenox) 40 mg SUBQ DAILY [facility] Stop: 08/17/18 08:59 Last Admin: 06/25/18 08:07 Dose: 40 mg Ferrous Sulfate (Iron) 300 mg GT BID [facility] Stop: 08/17/18 08:59 Last Admin: 06/25/18 16:14 Dose: Not Given Fluticasone Propionate (Flonase) 1 spr NS DAILY [facility] Stop: 08/17/18 08:59 Last Admin: 06/25/18 08:28 Dose: 1 spr Folic Acid (Folate) 1 mg GT DAILY [facility] Stop: 08/17/18 08:59 Last Admin: 06/25/18 08:24 Dose: Not Given Vancomycin HCl 1 gm/ Sodium (Chloride) 250 mls @ 165 mls/hr IV Q12HR [facility] Stop: 08/18/18 08:59 Last Infusion: 06/25/18 22:39 Dose: Infused Multivitamins/Minerals 10 ml/Dextrose/ Amino Acids/Electrolytes/ Fat Emulsion Intravenous 1,440 mls @ 60 mls/hr IV .Q24H [facility] Stop: 08/21/18 14:59 Last Admin: 06/25/18 16:16 Dose: 60 mls/hr Cefepime HCl 2 gm/ Dextrose 100 mls @ 100 mls/hr IV Q12HR [facility] Stop: 08/21/18 20:59 Last Infusion: 06/25/18 21:14 Dose: Infused Insulin Aspart (Novolog Insulin Sliding Scale) 0 units SUBQ Q6HR [facility]; Protocol Stop: 08/19/18 11:59 Last Admin: 06/26/18 05:27 Dose: Not Given Lactobacillus Rhamnosus (Culturelle 15b) 1 each PO DAILY [facility] Stop: 08/17/18 13:59 Last Admin: 06/25/18 08:23 Dose: Not Given Magnesium Hydroxide (Milk Of Magnesia) 30 ml GT DAILY PRN PRN Reason: Constipation Stop: 08/17/18 06:34 Miscellaneous (Vancomycin Iv Per Pharmacy) 1 ea MC PRN PRN PRN Reason: VANCO PER RX Stop: 08/16/18 16:03 Miscellaneous (Vte Chemical Prophylaxis Screen/ Admission) 1 ea MC PRN PRN PRN Reason: PROTOCOL Stop: 08/16/18 17:05 Miscellaneous (Probiotic Screen) 1 ea MC PRN PRN PRN Reason: PROTOCOL Stop: 08/17/18 09:32 Miscellaneous (Tpn Per Pharmacy) 1 ea MC PRN PRN PRN Reason: PROTOCOL Stop: 08/18/18 10:24 Morphine Sulfate (Morphine) 1 mg IVP Q4HR PRN PRN Reason: Pain (Severe) Stop: 08/16/18 20:07 Last Admin: 06/26/18 06:50 Dose: 1 mg Nystatin (Mycostatin Cream) 1 appl TP BID [facility] Stop: 08/17/18 08:59 Last Admin: 06/25/18 16:14 Dose: Not Given Petrolatum (Vaseline Oint) 1 appl TP DAILY [facility] Stop: 08/17/18 08:59 Last Admin: 06/25/18 08:07 Dose: 1 appl Sucralfate (Carafate) 1 gm GT QID [facility] Stop: 08/17/18 08:59 Last Admin: 06/25/18 20:15 Dose: Not Given General: Alert, No acute distress HEENT: Atraumatic Neck: Supple, Other (INTACT TRACH) Cardiovascular: Regular rate Lungs: Normal air movement Abdomen: Bowel sounds, Soft, Other (INTACT GT) Extremities: no Clubbing, no Cyanosis, no Edema Assessment/Plan - Problem List Patient Problems: All Active Problems MALFUNCTIONING GASTRIC FEEDING TUBE/RASH (Acute) - Assessment Assessment: Current Active Problems Problem Status Onset MALFUNCTIONING GASTRIC FEEDING TUBE/RASH Acute Gtube site cellulitis +MRSA +Pseudomonas Cellulitis and induration around g tube site in a man who is dependent on tube feeds. 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 Anemia with hematocrit of 25. Thrombocytosis of 722k. COPD Nicotine addiction. prerenal azotemia improved - Plan Plan: continue IV antibiotics per ID will continue home meds. keep NPO on TPN until clearance from surgery to use Gtube. 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 Per nursing, patient with G-tube in place, however states MD wants to wait to start feeding. Current Diet Order/ Nutrition Support NPO Patient / S.O Not Indicated Pertinent Medications dulxolax, D5-0.45NS @ 50 ml/hr , colace, iron, folate, culturelle, MOM, Abx Pertinent Labs (06/18) albumin 2.9 ( decreasing) Nutritional Hx/Data Height 1.68 m Height (Calculated Centimeters) 167.6 Current Weight (lbs) 47.174 kg Weight (Calculated Kilograms) 47.2 Weight (Calculated Grams) 09429.6 [place] Body Weight 142 % [place] Body Weight 73 Body Mass Index (BMI) 16.7 Recent Weight Change No Weight Status Underweight GI Symptoms GI Symptoms None Last BM none noted since admission Difficult in: None Food Allergies No Cultural/Ethnic/[employer] Belief none indicated Usual diet at home Jevity 1.2 Bolus 4 cans daily (1 can 9am, 1p, 5p, 10p), with 100ml free water flush every 6 hours. This provides 948ml total volume, 1137 kcal, 52 gm protein, 1165ml free water. Skin Integrity/Comment: Bryan 18, reddened stoma/g- tube site, rash/reddened back Estimated Nutritional Goals BEE in Kcals: Using Current wt Calories/Kcals/Kg 35-40 kcal/kg using CBW 47.2 ( cancer, low BMI) Kcals Calculated ~4421-1949 kcal/day Protein: Using Current wt Protein g/k.5-2 gm/kg (cancer, muscle wasting) Protein Calculated 70-95 gm/day Fluid: ml ~1222-1355 ml/day Nutritional Problem 1. Problem Problem Inadequate energy intake related to Etiology withholding tube feeding due to malfunction G-tube without initiation of alternate nutrition support aeb Signs/Symptoms: NPO status Intervention/Recommendation Comments 1. Restart tube feeding once medically appropriate; recommend bolus feeding Jevity 1.2 375 ml 4 times a day ( previous feeding schedule 9am, 1p, 5p, 10p). This provides 1500ml, 1800 kcal, 82 gm protein. 2. If unable to restart tube feeding, consider Parenteral nutrition. Expected Outcomes/Goals Expected Outcomes/Goals Meets >75% of nutrient needs, weight increase toward ideal body weight, improved skin integrity
[2018-06-26 07:54] LABS: ALB/GLOB RATIO 0.7 (1.0-1.8); ALBUMIN 2.6 gm/dL (4.2-5.5); ALKALINE PHOSPHATASE 49 U/L (34-104); ANION GAP 13.8 (7.0-16.0); BILIRUBIN,TOTAL 0.2 mg/dL (0.3-1.0); BUN - UREA NITROGEN 19 mg/dL (7-25); CARBON DIOXIDE 28.8 mEq/L (21.0-31.0); CHLORIDE 98 mEq/L (98-107); CREATININE - SERUM 0.4 mg/dL (0.7-1.3); GFR AFRICAN-AMERICAN > 60.0 ml/min (>90); GFR NON AFRICAN-AMERICAN > 60.0 ml/min; GLUCOSE 136 mg/dL (70-105); PHOSPHOROUS 3.1 mg/dL (2.5-5.0); POTASSIUM SERUM 3.6 mEq/L (3.5-5.1); SGOT 7 U/L (13-39); SGPT/ALT 4 U/L (7-52); SODIUM SERUM 137 mEq/L (136-145); TOTAL PROTEIN,SERUM 6.4 gm/dL (6.0-8.3)
--- NOTE | 2018-06-26 08:04 | GI Progress Note ---
Subjective - Review of Systems Service Date: 06/26/18 Subjective: GI NOTE EVENTS NOTED. S/P SURGICAL GT PLACEMENT. Objective - Results Result Diagrams: 06/26/18 06:34 06/26/18 06:34 Recent Labs: Laboratory Last Values WBC 10.0 Th/cmm (4.8-10.8) 06/26/18 06:34 RBC 2.96 Mil/cmm (4.30-5.70) L 06/26/18 06:34 Hgb 9.2 gm/dL (12-16) L 06/26/18 06:34 Hct 27.2 % (41.0-60) L 06/26/18 06:34 MCV 91.8 fl (80-99) 06/26/18 06:34 MCH 31.0 pg (26.0-30.0) H 06/26/18 06:34 MCHC Differential 33.8 pg (28.0-36.0) 06/26/18 06:34 RDW 16.0 % (11.5-20.0) 06/26/18 06:34 Plt Count 476 Th/cmm (150-400) H 06/26/18 06:34 MPV 6.5 fl 06/26/18 06:34 Add Manual Diff YES 06/26/18 06:34 Neutrophils % [facility]EVEL CLINICIAN 06/25/18 06:10 Band Neutrophils % 1 % (0-10) 06/26/18 06:34 Lymphocytes % [facility] LEVEL CLINICIAN 06/25/18 06:10 Monocytes % [facility] LEVEL CLINICIAN 06/25/18 06:10 Eosinophils % [facility] LEVEL CLINICIAN 06/25/18 06:10 Basophils % MID LEVEL CLINICIAN 06/25/18 06:10 Neutrophils (Manual) 92 % (40-80) H 06/26/18 06:34 Lymphocytes 3 % (20-50) L 06/26/18 06:34 Monocytes 4 % (2-10) 06/26/18 06:34 Eosinophils 0 % (0-5) 06/22/18 06:00 Basophils 2 % (0-3) 06/25/18 06:10 Platelet Estimate INCREASED PLATELETS (NORMAL) 06/26/18 06:34 Ovalocytes 1+ 06/26/18 06:34 PT 10.3 SECONDS (9.5-11.5) 06/23/18 05:49 INR 0.99 (0.5-1.4) 06/23/18 05:49 Sodium 137 mEq/L (136-145) 06/26/18 06:34 Potassium 3.6 mEq/L (3.5-5.1) 06/26/18 06:34 Chloride 98 mEq/L (98-107) 06/26/18 06:34 Carbon Dioxide 28.8 mEq/L (21.0-31.0) 06/26/18 06:34 Anion Gap 13.8 (7.0-16.0) 06/26/18 06:34 BUN 19 mg/dL (7-25) 06/26/18 06:34 Creatinine 0.4 mg/dL (0.7-1.3) L 06/26/18 06:34 Est GFR ( Amer) > 60.0 ml/min (>90) 06/26/18 06:34 Est GFR (Non-Af Amer) > 60.0 ml/min 06/26/18 06:34 BUN/Creatinine Ratio 47.5 06/26/18 06:34 Glucose 136 mg/dL (70-105) H 06/26/18 06:34 POC Glucose 148 MG/DL (70 - 105) H 06/26/18 05:23 Calcium 9.0 mg/dL (8.6-10.3) 06/26/18 06:34 Phosphorus 3.1 mg/dL (2.5-5.0) 06/26/18 06:34 Magnesium 2.0 mg/dL (1.9-2.7) 06/26/18 06:34 Iron 36 ug/dL (38-169) L 06/18/18 06:30 TIBC 198 ug/dL (250-450) L 06/18/18 06:30 Iron Saturation 18 % (15-55) 06/18/18 06:30 Unsaturated IBC 162 ug/dL (111-343) 06/18/18 06:30 Ferritin 304 ng/mL (30-400) 06/19/18 09:16 Total Bilirubin 0.2 mg/dL (0.3-1.0) L 06/26/18 06:34 AST 7 U/L (13-39) L 06/26/18 06:34 ALT 4 U/L (7-52) L 06/26/18 06:34 Alkaline Phosphatase 49 U/L (34-104) 06/26/18 06:34 Total Protein 6.4 gm/dL (6.0-8.3) 06/26/18 06:34 Albumin 2.6 gm/dL (4.2-5.5) L 06/26/18 06:34 Globulin 3.8 gm/dL 06/26/18 06:34 Albumin/Globulin Ratio 0.7 (1.0-1.8) L 06/26/18 06:34 Prealbumin 11 mg/dL (10-36) 06/20/18 10:20 Triglycerides 43 mg/dL (<150) 06/25/18 06:10 Cholesterol 123 mg/dL (<200) 06/20/18 10:20 Urine Source CLEAN C 06/17/18 19:05 Urine Color YELLOW 06/17/18 19:05 Urine Clarity HAZY (CLEAR) 06/17/18 19:05 Urine pH 7.5 (4.6 - 8.0) 06/17/18 19:05 Ur Specific [place] 1.015 (1.005-1.030) 06/17/18 19:05 Urine Protein NEGATIVE mg/dL (NEGATIVE) 06/17/18 19:05 Urine Glucose (UA) NEGATIVE mg/dL (NEGATIVE) 06/17/18 19:05 Urine Ketones 40 mg/dL (NEGATIVE) H 06/17/18 19:05 Urine Blood LARGE (NEGATIVE) H 06/17/18 19:05 Urine Nitrate NEGATIVE (NEGATIVE) 06/17/18 19:05 Urine Bilirubin NEGATIVE (NEGATIVE) 06/17/18 19:05 Urine Urobilinogen 0.2 E.U./dL (0.2 - 1.0) 06/17/18 19:05 Ur Leukocyte Esterase NEGATIVE (NEGATIVE) 06/17/18 19:05 Urine RBC NONE SEEN /hpf (0-5) 06/17/18 19:05 Urine WBC 2-5 /hpf (0-5) 06/17/18 19:05 Ur Epithelial Cells NONE SEEN /lpf (FEW) 06/17/18 19:05 Urine Bacteria FEW /hpf (NONE SEEN) 06/17/18 19:05 Vancomycin Trough 13.3 ug/mL (5-10) H 06/23/18 08:20 - Physical Exam Vitals and I&O: Vital Signs Temp 97.9 F 06/26/18 04:00 Pulse 64 06/26/18 07:15 Resp 18 06/26/18 07:15 BP 146/78 06/26/18 04:00 Pulse Ox 92 06/26/18 07:15 Intake & Output 06/25/18 06/26/18 06/26/18 18:59 06:59 18:59 Intake Total 1790 350 Output Total 800 Balance 1790 -450 Weight (lbs) 50.349 kg Intake: Intake, IV Amount 1790 350 Cefepime 2 gm In Dextrose 100 100 5% 100 ml @ 100 mls/hr IV Q12HR [facility] Rx#: [id number] Multivitamin Inj 10 ml In 1440 Dextrose 70% 730 ml In Amino Acids 10% 500 ml In Intralipids 20% 200 ml @ 60 mls/hr IV .Q24H [facility] Rx#:[id number] Vancomycin HCl 1 gm In 250 250 Sodium Chloride 0.9% 250 ml @ 165 mls/hr IV Q12HR [facility] Rx#:[id number] Output: Urine 800 Other: Weight Source Bedscale Active Medications: Current Medications Acetaminophen (Tylenol 650mg/20.3ml Suspension) 650 mg GT Q6H PRN PRN Reason: BREAKTRHOUGH PAIN OR TEMP >101 Stop: 08/17/18 06:46 Acetaminophen/Hydrocodone Bitart ([place] 10 Mg/325 Mg) 1 tab GT Q6H PRN PRN Reason: PAIN (MODERATE) Stop: 08/19/18 08:59 Acetaminophen/Hydrocodone Bitart ([place] 5mg/325mg) 1 tab GT Q6H PRN PRN Reason: MILD PAIN Stop: 08/19/18 08:59 Albuterol/Ipratropium (Duoneb Neb) 3 ml HHN Q6HRT [facility] Stop: 08/17/18 06:59 Last Admin: 06/26/18 07:14 Dose: 3 ml Bisacodyl (Dulcolax 10 Mg Supp) 10 mg RC DAILY PRN PRN Reason: Constipation Stop: 08/17/18 06:34 Last Admin: 06/19/18 17:27 Dose: 10 mg Chlorhexidine Gluconate (Peridex) 15 ml MM BID [facility] Stop: 08/17/18 08:59 Last Admin: 06/25/18 16:14 Dose: Not Given Docusate Sodium (Colace) 100 mg PO BID [facility] Stop: 08/17/18 08:59 Last Admin: 06/25/18 16:14 Dose: Not Given Enoxaparin Sodium (Lovenox) 40 mg SUBQ DAILY [facility] Stop: 08/17/18 08:59 Last Admin: 06/25/18 08:07 Dose: 40 mg Ferrous Sulfate (Iron) 300 mg GT BID [facility] Stop: 08/17/18 08:59 Last Admin: 06/25/18 16:14 Dose: Not Given Fluticasone Propionate (Flonase) 1 spr NS DAILY [facility] Stop: 08/17/18 08:59 Last Admin: 06/25/18 08:28 Dose: 1 spr Folic Acid (Folate) 1 mg GT DAILY [facility] Stop: 08/17/18 08:59 Last Admin: 06/25/18 08:24 Dose: Not Given Vancomycin HCl 1 gm/ Sodium (Chloride) 250 mls @ 165 mls/hr IV Q12HR [facility] Stop: 08/18/18 08:59 Last Infusion: 06/25/18 22:39 Dose: Infused Multivitamins/Minerals 10 ml/Dextrose/ Amino Acids/Electrolytes/ Fat Emulsion Intravenous 1,440 mls @ 60 mls/hr IV .Q24H [facility] Stop: 08/21/18 14:59 Last Admin: 06/25/18 16:16 Dose: 60 mls/hr Cefepime HCl 2 gm/ Dextrose 100 mls @ 100 mls/hr IV Q12HR [facility] Stop: 08/21/18 20:59 Last Infusion: 06/25/18 21:14 Dose: Infused Insulin Aspart (Novolog Insulin Sliding Scale) 0 units SUBQ Q6HR [facility]; Protocol Stop: 08/19/18 11:59 Last Admin: 06/26/18 05:27 Dose: Not Given Lactobacillus Rhamnosus (Culturelle 15b) 1 each PO DAILY [facility] Stop: 08/17/18 13:59 Last Admin: 06/25/18 08:23 Dose: Not Given Magnesium Hydroxide (Milk Of Magnesia) 30 ml GT DAILY PRN PRN Reason: Constipation Stop: 08/17/18 06:34 Miscellaneous (Vancomycin Iv Per Pharmacy) 1 ea MC PRN PRN PRN Reason: VANCO PER RX Stop: 08/16/18 16:03 Miscellaneous (Vte Chemical Prophylaxis Screen/ Admission) 1 ea MC PRN PRN PRN Reason: PROTOCOL Stop: 08/16/18 17:05 Miscellaneous (Probiotic Screen) 1 ea PRN PRN PRN Reason: PROTOCOL Stop: 08/17/18 09:32 Miscellaneous (Tpn Per Pharmacy) 1 ea MC PRN PRN PRN Reason: PROTOCOL Stop: 08/18/18 10:24 Morphine Sulfate (Morphine) 2 mg IVP Q4HR PRN PRN Reason: Pain (Severe) Stop: 08/16/18 20:07 Nystatin (Mycostatin Cream) 1 appl TP BID [facility] Stop: 08/17/18 08:59 Last Admin: 06/25/18 16:14 Dose: Not Given Petrolatum (Vaseline Oint) 1 appl TP DAILY [facility] Stop: 08/17/18 08:59 Last Admin: 06/25/18 08:07 Dose: 1 appl Sucralfate (Carafate) 1 gm GT QID [facility] Stop: 08/17/18 08:59 Last Admin: 06/25/18 20:15 Dose: Not Given General: Alert, No acute distress HEENT: Atraumatic Neck: Supple, Other (INTACT TRACH) Cardiovascular: Regular rate Lungs: Normal air movement Abdomen: Bowel sounds, Soft, Other (INTACT GT) Extremities: no Clubbing, no Cyanosis, no Edema Assessment/Plan - Problem List Patient Problems: All Active Problems MALFUNCTIONING GASTRIC FEEDING TUBE/RASH (Acute) - Assessment Assessment: IMPRESSION: 1. G tube malfunction. 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 GC fistula closed primarily, but EGD with GT insertion not feasible due to closed jaw. 3. s/p surgical GT insertion 06/24/18. 4. 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 RECS: -post op care; GT feeds and meds to be started today. -IV TPN for now, but can be weaned off once tolerating TFs. -Oncology f/u for known cecal mass on PET scan which he and oncologist have known about and they have a plan in place.
--- NOTE | 2018-06-26 10:45 | Diagnostic Imaging Report ---
KUB single view HISTORY: PEG tube placement COMPARISON: CT abdomen and pelvis on 06/19/2018 FINDINGS: Postsurgical changes are seen. A percutaneous feeding tube is noted. Enteric contrast from prior procedure is seen within the large bowel with stool filled large bowel noted. Gas-filled bowel are also noted. IMPRESSION: Limited assessment for G-tube as G-tube check was not performed. Recommend upper GI with Gastrografin for assessment of the G-tube, if indicated. Post surgical changes and generalized gaseous filled loops of bowel which may be due to a postoperative ileus. Stool-filled colon possibly the sigmoid colon.
[2018-06-26] MEDS: Fluticasone Propionate Nasal 1 SPR SPR NS SCH (11:12)
[2018-06-26] MEDS: Nystatin Cream 100,000 u/gm Cream 15 gm TP SCH ×2 (11:12→17:14)
[2018-06-26] MEDS: Chlorhexidine Gluconate 0.12% 480mL Bottle MM SCH ×2 (11:20→17:13)
[2018-06-26] MEDS: Ferrous Sulfate 300 MG/5 ML UDC GT SCH ×2 (11:20→17:13)
[2018-06-26] MEDS: Lactobacillus Rhamnosus GG 15 Billion CFU CAP.SPRINK PO SCH (11:20)
[2018-06-26] MEDS: Petrolatum (White) Oint 0.6 Oz Tube TP SCH (11:21)
[2018-06-26] MEDS: Enoxaparin 40 mg/0.4 mL 0.4mL Syr SUBQ SCH (11:59)
[2018-06-26] MEDS: TPN 10%-70% CUSTOM IV SCH (16:54)
[2018-06-27] MEDS: INSULIN ASPART SLIDING SCALE 100 UNITS/ML UNIT SUBQ SCH ×4 (00:19→18:04)
[2018-06-27] MEDS: Albuterol/Ipratropium Neb 3 ML AERS HHN SCH ×5 (01:23→19:58)
[2018-06-27 05:17] LABS: % BASOPHILS 0.4 % (0.0-2.0); % EOSINOPHILS 0.7 % (0.0-5.0); % LYMPHOCYTES 4.4 % (20.0-50.0); % MONOCYTES 7.3 % (2.0-10.0); % NEUTROPHILS 87.2 % (40.0-80.0); EOSINOPHILE ABSOLUTE 0.1 Th/cmm (0.1-0.4); HEMATOCRIT 25.5 % (41.0-60); HEMOGLOBIN 8.6 gm/dL (12-16); LYMPHOCYTE ABSOLUTE 0.4 Th/cmm (1.5-3.0); MEAN CELL VOLUME 91.7 fl (80-99); MEAN CORPUSCULAR HEMOGLOBIN 30.9 pg (26.0-30.0); MEAN CORPUSCULAR HGB CONC 33.7 pg (28.0-36.0); MEAN PLATELET VOLUME 6.7 fl; MONOCYTE ABSOLUTE 0.7 Th/cmm (0.3-1.0); NEUTROPHILE ABSOLUTE 8.1 Th/cmm (1.8-8.0); PLATELET COUNT 391 Th/cmm (150-400); RED BLOOD COUNT 2.78 Mil/cmm (4.30-5.70); RED CELL DISTRIBUTION WIDTH 16.2 % (11.5-20.0)
[2018-06-27] MEDS: Morphine Sulfate 4 mg/mL 1mL Syr IVP PRN (05:34)
[2018-06-27 05:39] LABS: WHITE BLOOD COUNT 9.3 Th/cmm (4.8-10.8)
[2018-06-27 06:35] LABS: ALB/GLOB RATIO 0.7 (1.0-1.8); ALBUMIN 2.5 gm/dL (4.2-5.5); ALKALINE PHOSPHATASE 51 U/L (34-104); ANION GAP 10.9 (7.0-16.0); BILIRUBIN,TOTAL 0.2 mg/dL (0.3-1.0); BUN - UREA NITROGEN 20 mg/dL (7-25); CALCIUM SERUM 8.9 mg/dL (8.6-10.3); CARBON DIOXIDE 29.2 mEq/L (21.0-31.0); CHLORIDE 102 mEq/L (98-107); CREATININE - SERUM 0.4 mg/dL (0.7-1.3); GFR AFRICAN-AMERICAN > 60.0 ml/min (>90); GFR NON AFRICAN-AMERICAN > 60.0 ml/min; GLUCOSE 133 mg/dL (70-105); MAGNESIUM 1.9 mg/dL (1.9-2.7); PHOSPHOROUS 3.2 mg/dL (2.5-5.0); POTASSIUM SERUM 4.1 mEq/L (3.5-5.1); SGOT 7 U/L (13-39); SGPT/ALT 5 U/L (7-52); SODIUM SERUM 138 mEq/L (136-145); TOTAL PROTEIN,SERUM 5.9 gm/dL (6.0-8.3)
--- NOTE | 2018-06-27 08:16 | General Progress Note ---
Subjective - Review of Systems Service Date: 06/27/18 Subjective: vitals stable. Patient resting comfortably in bed. No acute distress. afebrile. awake, alert. S/P g tube placement. tolerating gtube feeding. slowly weaning off TPN. Objective - Results Result Diagrams: 06/27/18 05:10 06/27/18 05:10 Recent Labs: Laboratory Last Values WBC 9.3 Th/cmm (4.8-10.8) 06/27/18 05:10 RBC 2.78 Mil/cmm (4.30-5.70) L 06/27/18 05:10 Hgb 8.6 gm/dL (12-16) L 06/27/18 05:10 Hct 25.5 % (41.0-60) L 06/27/18 05:10 MCV 91.7 fl (80-99) 06/27/18 05:10 MCH 30.9 pg (26.0-30.0) H 06/27/18 05:10 MCHC Differential 33.7 pg (28.0-36.0) 06/27/18 05:10 RDW 16.2 % (11.5-20.0) 06/27/18 05:10 Plt Count 391 Th/cmm (150-400) 06/27/18 05:10 MPV 6.7 fl 06/27/18 05:10 Add Manual Diff YES 06/26/18 06:34 Neutrophils % 87.2 % (40.0-80.0) H 06/27/18 05:10 Band Neutrophils % 1 % (0-10) 06/26/18 06:34 Lymphocytes % 4.4 % (20.0-50.0) L 06/27/18 05:10 Monocytes % 7.3 % (2.0-10.0) 06/27/18 05:10 Eosinophils % 0.7 % (0.0-5.0) 06/27/18 05:10 Basophils % 0.4 % (0.0-2.0) 06/27/18 05:10 Neutrophils (Manual) 92 % (40-80) H 06/26/18 06:34 Lymphocytes 3 % (20-50) L 06/26/18 06:34 Monocytes 4 % (2-10) 06/26/18 06:34 Eosinophils 0 % (0-5) 06/22/18 06:00 Basophils 2 % (0-3) 06/25/18 06:10 Platelet Estimate INCREASED PLATELETS (NORMAL) 06/26/18 06:34 Ovalocytes 1+ 06/26/18 06:34 PT 10.3 SECONDS (9.5-11.5) 06/23/18 05:49 INR 0.99 (0.5-1.4) 06/23/18 05:49 Sodium 138 mEq/L (136-145) 06/27/18 05:10 Potassium 4.1 mEq/L (3.5-5.1) 06/27/18 05:10 Chloride 102 mEq/L (98-107) 06/27/18 05:10 Carbon Dioxide 29.2 mEq/L (21.0-31.0) 06/27/18 05:10 Anion Gap 10.9 (7.0-16.0) 06/27/18 05:10 BUN 20 mg/dL (7-25) 06/27/18 05:10 Creatinine 0.4 mg/dL (0.7-1.3) L 06/27/18 05:10 Est GFR ( Amer) > 60.0 ml/min (>90) 06/27/18 05:10 Est GFR (Non-Af Amer) > 60.0 ml/min 06/27/18 05:10 BUN/Creatinine Ratio 50.0 06/27/18 05:10 Glucose 133 mg/dL (70-105) H 06/27/18 05:10 POC Glucose 129 MG/DL (70 - 105) H 06/27/18 05:08 Calcium 8.9 mg/dL (8.6-10.3) 06/27/18 05:10 Phosphorus 3.2 mg/dL (2.5-5.0) 06/27/18 05:10 Magnesium 1.9 mg/dL (1.9-2.7) 06/27/18 05:10 Iron 36 ug/dL (38-169) L 06/18/18 06:30 TIBC 198 ug/dL (250-450) L 06/18/18 06:30 Iron Saturation 18 % (15-55) 06/18/18 06:30 Unsaturated IBC 162 ug/dL (111-343) 06/18/18 06:30 Ferritin 304 ng/mL (30-400) 06/19/18 09:16 Total Bilirubin 0.2 mg/dL (0.3-1.0) L 06/27/18 05:10 AST 7 U/L (13-39) L 06/27/18 05:10 ALT 5 U/L (7-52) L 06/27/18 05:10 Alkaline Phosphatase 51 U/L (34-104) 06/27/18 05:10 Total Protein 5.9 gm/dL (6.0-8.3) L 06/27/18 05:10 Albumin 2.5 gm/dL (4.2-5.5) L 06/27/18 05:10 Globulin 3.4 gm/dL 06/27/18 05:10 Albumin/Globulin Ratio 0.7 (1.0-1.8) L 06/27/18 05:10 Prealbumin 11 mg/dL (10-36) 06/20/18 10:20 Triglycerides 43 mg/dL (<150) 06/25/18 06:10 Cholesterol 123 mg/dL (<200) 06/20/18 10:20 Urine Source CLEAN C 06/17/18 19:05 Urine Color YELLOW 06/17/18 19:05 Urine Clarity HAZY (CLEAR) 06/17/18 19:05 Urine pH 7.5 (4.6 - 8.0) 06/17/18 19:05 Ur Specific [place] 1.015 (1.005-1.030) 06/17/18 19:05 Urine Protein NEGATIVE mg/dL (NEGATIVE) 06/17/18 19:05 Urine Glucose (UA) NEGATIVE mg/dL (NEGATIVE) 06/17/18 19:05 Urine Ketones 40 mg/dL (NEGATIVE) H 06/17/18 19:05 Urine Blood LARGE (NEGATIVE) H 06/17/18 19:05 Urine Nitrate NEGATIVE (NEGATIVE) 06/17/18 19:05 Urine Bilirubin NEGATIVE (NEGATIVE) 06/17/18 19:05 Urine Urobilinogen 0.2 E.U./dL (0.2 - 1.0) 06/17/18 19:05 Ur Leukocyte Esterase NEGATIVE (NEGATIVE) 06/17/18 19:05 Urine RBC NONE SEEN /hpf (0-5) 06/17/18 19:05 Urine WBC 2-5 /hpf (0-5) 06/17/18 19:05 Ur Epithelial Cells NONE SEEN /lpf (FEW) 06/17/18 19:05 Urine Bacteria FEW /hpf (NONE SEEN) 06/17/18 19:05 Vancomycin Trough 15.6 ug/mL (5-10) H 06/26/18 07:57 - Physical Exam Vitals and I&O: Vital Signs Temp 98.4 F 06/27/18 07:57 Pulse 83 06/27/18 07:57 Resp 17 06/27/18 07:57 BP 131/62 06/27/18 07:57 Pulse Ox 97 06/27/18 07:57 Intake & Output 06/26/18 06/27/18 06/27/18 18:59 06:59 18:59 Intake Total 1690 200 Balance 1690 200 Intake: Intake, IV Amount 1690 200 Cefepime 2 gm In Dextrose 200 5% 100 ml @ 100 mls/hr IV Q12HR [facility] Rx#: [id number] Multivitamin Inj 10 ml In 1440 Dextrose 70% 730 ml In Amino Acids 10% 500 ml In Intralipids 20% 200 ml @ 50 mls/hr IV .Q24H [facility] Rx#:[id number] Vancomycin HCl 1 gm In 250 Sodium Chloride 0.9% 250 ml @ 165 mls/hr IV Q12HR [facility] Rx#:[id number] Active Medications: Current Medications Acetaminophen (Tylenol 650mg/20.3ml Suspension) 650 mg GT Q6H PRN PRN Reason: BREAKTRHOUGH PAIN OR TEMP >101 Stop: 08/17/18 06:46 Acetaminophen/Hydrocodone Bitart ([place] 10 Mg/325 Mg) 1 tab GT Q6H PRN PRN Reason: PAIN (MODERATE) Stop: 08/19/18 08:59 Acetaminophen/Hydrocodone Bitart ([place] 5mg/325mg) 1 tab GT Q6H PRN PRN Reason: MILD PAIN Stop: 08/19/18 08:59 Albuterol/Ipratropium (Duoneb Neb) 3 ml HHN Q6HRT [facility] Stop: 08/17/18 06:59 Last Admin: 06/27/18 06:40 Dose: 3 ml Bisacodyl (Dulcolax 10 Mg Supp) 10 mg RC DAILY PRN PRN Reason: Constipation Stop: 08/17/18 06:34 Last Admin: 06/19/18 17:27 Dose: 10 mg Chlorhexidine Gluconate (Peridex) 15 ml MM BID [facility] Stop: 08/17/18 08:59 Last Admin: 06/26/18 17:13 Dose: Not Given Docusate Sodium (Colace) 100 mg PO BID [facility] Stop: 08/17/18 08:59 Last Admin: 06/26/18 17:13 Dose: 100 mg Enoxaparin Sodium (Lovenox) 40 mg SUBQ DAILY [facility] Stop: 08/17/18 08:59 Last Admin: 06/26/18 11:59 Dose: 40 mg Ferrous Sulfate (Iron) 300 mg GT BID [facility] Stop: 08/17/18 08:59 Last Admin: 06/26/18 17:13 Dose: 300 mg Fluticasone Propionate (Flonase) 1 spr NS DAILY [facility] Stop: 08/17/18 08:59 Last Admin: 06/26/18 11:12 Dose: 1 spr Folic Acid (Folate) 1 mg GT DAILY [facility] Stop: 08/17/18 08:59 Last Admin: 06/26/18 11:20 Dose: Not Given Multivitamins/Minerals 10 ml/Dextrose/ Amino Acids/Electrolytes/ Fat Emulsion Intravenous 1,440 mls @ 50 mls/hr IV .Q24H [facility] Stop: 08/21/18 14:59 Last Admin: 06/26/18 16:54 Dose: 60 mls/hr Cefepime HCl 2 gm/ Dextrose 100 mls @ 100 mls/hr IV Q12HR [facility] Stop: 08/21/18 20:59 Last Infusion: 06/26/18 22:10 Dose: Infused Insulin Aspart (Novolog Insulin Sliding Scale) 0 units SUBQ Q6HR [facility]; Protocol Stop: 08/19/18 11:59 Last Admin: 06/27/18 05:16 Dose: Not Given Lactobacillus Rhamnosus (Culturelle 15b) 1 each PO DAILY [facility] Stop: 08/17/18 13:59 Last Admin: 06/26/18 11:20 Dose: Not Given Magnesium Hydroxide (Milk Of Magnesia) 30 ml GT DAILY PRN PRN Reason: Constipation Stop: 08/17/18 06:34 Miscellaneous (Vancomycin Iv Per Pharmacy) 1 ea MC PRN PRN PRN Reason: VANCO PER RX Stop: 08/16/18 16:03 Miscellaneous (Vte Chemical Prophylaxis Screen/ Admission) 1 ea MC PRN PRN PRN Reason: PROTOCOL Stop: 08/16/18 17:05 Miscellaneous (Probiotic Screen) 1 ea MC PRN PRN PRN Reason: PROTOCOL Stop: 08/17/18 09:32 Miscellaneous (Tpn Per Pharmacy) 1 ea MC PRN PRN PRN Reason: PROTOCOL Stop: 08/18/18 10:24 Morphine Sulfate (Morphine) 2 mg IVP Q4HR PRN PRN Reason: Pain (Severe) Stop: 08/16/18 20:07 Last Admin: 06/27/18 05:34 Dose: 2 mg Nystatin (Mycostatin Cream) 1 appl TP BID [facility] Stop: 08/17/18 08:59 Last Admin: 06/26/18 17:14 Dose: 1 appl Ondansetron HCl (Zofran) 4 mg IV Q6H PRN PRN Reason: Nausea / Vomiting Stop: 08/25/18 08:03 Last Admin: 06/26/18 11:12 Dose: 4 mg Petrolatum (Vaseline Oint) 1 appl TP DAILY [facility] Stop: 08/17/18 08:59 Last Admin: 06/26/18 11:21 Dose: 1 appl Sucralfate (Carafate) 1 gm GT QID [facility] Stop: 08/17/18 08:59 Last Admin: 06/26/18 21:10 Dose: 1 gm General: Alert, No acute distress HEENT: Atraumatic Neck: Supple, Other (INTACT TRACH) Cardiovascular: Regular rate Lungs: Normal air movement Abdomen: Bowel sounds, Soft, Other (INTACT GT) Extremities: no Clubbing, no Cyanosis, no Edema Assessment/Plan - Problem List Patient Problems: All Active Problems MALFUNCTIONING GASTRIC FEEDING TUBE/RASH (Acute) - Assessment Assessment: Current Active Problems Problem Status Onset MALFUNCTIONING GASTRIC FEEDING TUBE/RASH Acute Gtube site cellulitis +MRSA +Pseudomonas Cellulitis and induration around g tube site in a man who is dependent on tube feeds. 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 Anemia with hematocrit of 25. Thrombocytosis of 722k. COPD Nicotine addiction. prerenal azotemia improved - Plan Plan: continue IV antibiotics per ID will continue home meds. keep NPO on gtube feeding per GI weaning off TPN discharge planning Nutritional Asmnt/Malnutr-PDOC - Dietary Evaluation Malnutrition Findings (Please click <Entered> for more info): Nutritional Asmnt/Malnutrition Start: 06/18/18 12: 01 Text: Status: Complete Freq: Protocol: Document 06/18/18 12:01 NICKI (Rec: 06/18/18 12:27 NICKI WEINER- [email or web address]) Nutritional Asmnt/Malnutrition Patient General Information Nutritional Screening High Risk Diagnosis Malfunction G-Tube Pertinent Medical Hx/Surgical Hx CHRONIC RESPIRATORY FAILURE, MALIGNANT NEOPLASM OF TONGUE, CHRONIC RHINITIS, TRACHEOSTOMY , GASTRIC FEEDING TUBE, CHRONIC BRONCHITIS, [facility] ANTICOAGULANTS Subjective Information Patient was admitted from SNF with H&P "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 Per nursing, patient with G-tube in place, however states MD wants to wait to start feeding. Current Diet Order/ Nutrition Support NPO Patient / S.O Not Indicated Pertinent Medications dulxolax, D5-0.45NS @ 50 ml/hr , colace, iron, folate, culturelle, MOM, Abx Pertinent Labs (06/18) albumin 2.9 ( decreasing) Nutritional Hx/Data Height 1.68 m Height (Calculated Centimeters) 167.6 Current Weight (lbs) 47.174 kg Weight (Calculated Kilograms) 47.2 Weight (Calculated Grams) 97203.6 Mabel Body Weight 142 % Mabel Body Weight 73 Body Mass Index (BMI) 16.7 Recent Weight Change No Weight Status Underweight GI Symptoms GI Symptoms None Last BM none noted since admission Difficult in: None Food Allergies No Cultural/Ethnic/Gnosticism Belief none indicated Usual diet at home Jevity 1.2 Bolus 4 cans daily (1 can 9am, 1p, 5p, 10p), with 100ml free water flush every 6 hours. This provides 948ml total volume, 1137 kcal, 52 gm protein, 1165ml free water. Skin Integrity/Comment: Bryan 18, reddened stoma/g- tube site, rash/reddened back Estimated Nutritional Goals BEE in Kcals: Using Current wt Calories/Kcals/Kg 35-40 kcal/kg using CBW 47.2 ( cancer, low BMI) Kcals Calculated ~6638-7506 kcal/day Protein: Using Current wt Protein g/k.5-2 gm/kg (cancer, muscle wasting) Protein Calculated 70-95 gm/day Fluid: ml ~2582-3974 ml/day Nutritional Problem 1. Problem Problem Inadequate energy intake related to Etiology withholding tube feeding due to malfunction G-tube without initiation of alternate nutrition support aeb Signs/Symptoms: NPO status Intervention/Recommendation Comments 1. Restart tube feeding once medically appropriate; recommend bolus feeding Jevity 1.2 375 ml 4 times a day ( previous feeding schedule 9am, 1p, 5p, 10p). This provides 1500ml, 1800 kcal, 82 gm protein. 2. If unable to restart tube feeding, consider Parenteral nutrition. Expected Outcomes/Goals Expected Outcomes/Goals Meets >75% of nutrient needs, weight increase toward ideal body weight, improved skin integrity
[2018-06-27] MEDS: Ferrous Sulfate 300 MG/5 ML UDC GT SCH ×2 (09:43→17:48)
[2018-06-27] MEDS: Lactobacillus Rhamnosus GG 15 Billion CFU CAP.SPRINK PO SCH (09:43)
[2018-06-27] MEDS: Enoxaparin 40 mg/0.4 mL 0.4mL Syr SUBQ SCH (09:43)
[2018-06-27] MEDS: Petrolatum (White) Oint 0.6 Oz Tube TP SCH (09:43)
--- NOTE | 2018-06-27 09:46 | General Progress Note ---
Subjective - Review of Systems Service Date: 06/27/18 Subjective: pain G. tube placed on iv TPN right picc line Objective - Results Result Diagrams: 06/27/18 05:10 06/27/18 05:10 Recent Labs: Laboratory Last Values WBC 9.3 Th/cmm (4.8-10.8) 06/27/18 05:10 RBC 2.78 Mil/cmm (4.30-5.70) L 06/27/18 05:10 Hgb 8.6 gm/dL (12-16) L 06/27/18 05:10 Hct 25.5 % (41.0-60) L 06/27/18 05:10 MCV 91.7 fl (80-99) 06/27/18 05:10 MCH 30.9 pg (26.0-30.0) H 06/27/18 05:10 MCHC Differential 33.7 pg (28.0-36.0) 06/27/18 05:10 RDW 16.2 % (11.5-20.0) 06/27/18 05:10 Plt Count 391 Th/cmm (150-400) 06/27/18 05:10 MPV 6.7 fl 06/27/18 05:10 Add Manual Diff YES 06/26/18 06:34 Neutrophils % 87.2 % (40.0-80.0) H 06/27/18 05:10 Band Neutrophils % 1 % (0-10) 06/26/18 06:34 Lymphocytes % 4.4 % (20.0-50.0) L 06/27/18 05:10 Monocytes % 7.3 % (2.0-10.0) 06/27/18 05:10 Eosinophils % 0.7 % (0.0-5.0) 06/27/18 05:10 Basophils % 0.4 % (0.0-2.0) 06/27/18 05:10 Neutrophils (Manual) 92 % (40-80) H 06/26/18 06:34 Lymphocytes 3 % (20-50) L 06/26/18 06:34 Monocytes 4 % (2-10) 06/26/18 06:34 Eosinophils 0 % (0-5) 06/22/18 06:00 Basophils 2 % (0-3) 06/25/18 06:10 Platelet Estimate INCREASED PLATELETS (NORMAL) 06/26/18 06:34 Ovalocytes 1+ 06/26/18 06:34 PT 10.3 SECONDS (9.5-11.5) 06/23/18 05:49 INR 0.99 (0.5-1.4) 06/23/18 05:49 Sodium 138 mEq/L (136-145) 06/27/18 05:10 Potassium 4.1 mEq/L (3.5-5.1) 06/27/18 05:10 Chloride 102 mEq/L (98-107) 06/27/18 05:10 Carbon Dioxide 29.2 mEq/L (21.0-31.0) 06/27/18 05:10 Anion Gap 10.9 (7.0-16.0) 06/27/18 05:10 BUN 20 mg/dL (7-25) 06/27/18 05:10 Creatinine 0.4 mg/dL (0.7-1.3) L 06/27/18 05:10 Est GFR ( Amer) > 60.0 ml/min (>90) 06/27/18 05:10 Est GFR (Non-Af Amer) > 60.0 ml/min 06/27/18 05:10 BUN/Creatinine Ratio 50.0 06/27/18 05:10 Glucose 133 mg/dL (70-105) H 06/27/18 05:10 POC Glucose 129 MG/DL (70 - 105) H 06/27/18 05:08 Calcium 8.9 mg/dL (8.6-10.3) 06/27/18 05:10 Phosphorus 3.2 mg/dL (2.5-5.0) 06/27/18 05:10 Magnesium 1.9 mg/dL (1.9-2.7) 06/27/18 05:10 Iron 36 ug/dL (38-169) L 06/18/18 06:30 TIBC 198 ug/dL (250-450) L 06/18/18 06:30 Iron Saturation 18 % (15-55) 06/18/18 06:30 Unsaturated IBC 162 ug/dL (111-343) 06/18/18 06:30 Ferritin 304 ng/mL (30-400) 06/19/18 09:16 Total Bilirubin 0.2 mg/dL (0.3-1.0) L 06/27/18 05:10 AST 7 U/L (13-39) L 06/27/18 05:10 ALT 5 U/L (7-52) L 06/27/18 05:10 Alkaline Phosphatase 51 U/L (34-104) 06/27/18 05:10 Total Protein 5.9 gm/dL (6.0-8.3) L 06/27/18 05:10 Albumin 2.5 gm/dL (4.2-5.5) L 06/27/18 05:10 Globulin 3.4 gm/dL 06/27/18 05:10 Albumin/Globulin Ratio 0.7 (1.0-1.8) L 06/27/18 05:10 Prealbumin 11 mg/dL (10-36) 06/20/18 10:20 Triglycerides 28 mg/dL (<150) 06/27/18 05:10 Cholesterol 92 mg/dL (<200) 06/27/18 05:10 Urine Source CLEAN C 06/17/18 19:05 Urine Color YELLOW 06/17/18 19:05 Urine Clarity HAZY (CLEAR) 06/17/18 19:05 Urine pH 7.5 (4.6 - 8.0) 06/17/18 19:05 Ur Specific [place] 1.015 (1.005-1.030) 06/17/18 19:05 Urine Protein NEGATIVE mg/dL (NEGATIVE) 06/17/18 19:05 Urine Glucose (UA) NEGATIVE mg/dL (NEGATIVE) 06/17/18 19:05 Urine Ketones 40 mg/dL (NEGATIVE) H 06/17/18 19:05 Urine Blood LARGE (NEGATIVE) H 06/17/18 19:05 Urine Nitrate NEGATIVE (NEGATIVE) 06/17/18 19:05 Urine Bilirubin NEGATIVE (NEGATIVE) 06/17/18 19:05 Urine Urobilinogen 0.2 E.U./dL (0.2 - 1.0) 06/17/18 19:05 Ur Leukocyte Esterase NEGATIVE (NEGATIVE) 06/17/18 19:05 Urine RBC NONE SEEN /hpf (0-5) 06/17/18 19:05 Urine WBC 2-5 /hpf (0-5) 06/17/18 19:05 Ur Epithelial Cells NONE SEEN /lpf (FEW) 06/17/18 19:05 Urine Bacteria FEW /hpf (NONE SEEN) 06/17/18 19:05 Vancomycin Trough 15.6 ug/mL (5-10) H 06/26/18 07:57 - Physical Exam Vitals and I&O: Vital Signs Temp 98.4 F 06/27/18 07:57 Pulse 83 06/27/18 07:57 Resp 17 06/27/18 07:57 BP 131/62 06/27/18 07:57 Pulse Ox 97 06/27/18 07:57 Intake & Output 06/26/18 06/27/18 06/27/18 18:59 06:59 18:59 Intake Total 1690 200 Balance 1690 200 Intake: Intake, IV Amount 1690 200 Cefepime 2 gm In Dextrose 200 5% 100 ml @ 100 mls/hr IV Q12HR ON LICENSE OF [facility] Rx#: [id number] Multivitamin Inj 10 ml In 1440 Dextrose 70% 730 ml In Amino Acids 10% 500 ml In Intralipids 20% 200 ml @ 50 mls/hr IV .Q24H ON LICENSE OF [facility] Rx#:[id number] Vancomycin HCl 1 gm In 250 Sodium Chloride 0.9% 250 ml @ 165 mls/hr IV Q12HR ON LICENSE OF [facility] Rx#:[id number] Active Medications: Current Medications Acetaminophen (Tylenol 650mg/20.3ml Suspension) 650 mg GT Q6H PRN PRN Reason: BREAKTRHOUGH PAIN OR TEMP >101 Stop: 08/17/18 06:46 Acetaminophen/Hydrocodone Bitart ([place] 10 Mg/325 Mg) 1 tab GT Q6H PRN PRN Reason: PAIN (MODERATE) Stop: 08/19/18 08:59 Acetaminophen/Hydrocodone Bitart ([place] 5mg/325mg) 1 tab GT Q6H PRN PRN Reason: MILD PAIN Stop: 08/19/18 08:59 Albuterol/Ipratropium (Duoneb Neb) 3 ml HHN Q6HRT ON LICENSE OF [facility] Stop: 08/17/18 06:59 Last Admin: 06/27/18 06:40 Dose: 3 ml Bisacodyl (Dulcolax 10 Mg Supp) 10 mg RC DAILY PRN PRN Reason: Constipation Stop: 08/17/18 06:34 Last Admin: 06/19/18 17:27 Dose: 10 mg Chlorhexidine Gluconate (Peridex) 15 ml MM BID ON LICENSE OF [facility] Stop: 08/17/18 08:59 Last Admin: 06/26/18 17:13 Dose: Not Given Docusate Sodium (Colace) 100 mg PO BID ON LICENSE OF [facility] Stop: 08/17/18 08:59 Last Admin: 06/26/18 17:13 Dose: 100 mg Enoxaparin Sodium (Lovenox) 40 mg SUBQ DAILY [facility] Stop: 08/17/18 08:59 Last Admin: 06/26/18 11:59 Dose: 40 mg Ferrous Sulfate (Iron) 300 mg GT BID MIC[facility]EL Stop: 08/17/18 08:59 Last Admin: 06/26/18 17:13 Dose: 300 mg Fluticasone Propionate (Flonase) 1 spr NS DAILY ON [facility] OF [facility] Stop: 08/17/18 08:59 Last Admin: 06/26/18 11:12 Dose: 1 spr Folic Acid (Folate) 1 mg GT DAILY ON [facility] OF [facility] Stop: 08/17/18 08:59 Last Admin: 06/26/18 11:20 Dose: Not Given Multivitamins/Minerals 10 ml/Dextrose/ Amino Acids/Electrolytes/ Fat Emulsion Intravenous 1,440 mls @ 50 mls/hr IV .Q24H ON LICENSE OF [facility] Stop: 08/21/18 14:59 Last Admin: 06/26/18 16:54 Dose: 60 mls/hr Cefepime HCl 2 gm/ Dextrose 100 mls @ 100 mls/hr IV Q12HR ON LICENSE OF [facility] Stop: 08/21/18 20:59 Last Infusion: 06/26/18 22:10 Dose: Infused Insulin Aspart (Novolog Insulin Sliding Scale) 0 units SUBQ Q6HR ON LICENSE OF [facility]; Protocol Stop: 08/19/18 11:59 Last Admin: 06/27/18 05:16 Dose: Not Given Lactobacillus Rhamnosus (Culturelle 15b) 1 each PO DAILY ON LICENSE OF [facility] Stop: 08/17/18 13:59 Last Admin: 06/26/18 11:20 Dose: Not Given Magnesium Hydroxide (Milk Of Magnesia) 30 ml GT DAILY PRN PRN Reason: Constipation Stop: 08/17/18 06:34 Miscellaneous (Vancomycin Iv Per Pharmacy) 1 ea PRN PRN PRN Reason: VANCO PER RX Stop: 08/16/18 16:03 Miscellaneous (Vte Chemical Prophylaxis Screen/ Admission) 1 ea MC PRN PRN PRN Reason: PROTOCOL Stop: 08/16/18 17:05 Miscellaneous (Probiotic Screen) 1 ea MC PRN PRN PRN Reason: PROTOCOL Stop: 08/17/18 09:32 Miscellaneous (Tpn Per Pharmacy) 1 ea MC PRN PRN PRN Reason: PROTOCOL Stop: 08/18/18 10:24 Morphine Sulfate (Morphine) 2 mg IVP Q4HR PRN PRN Reason: Pain (Severe) Stop: 08/16/18 20:07 Last Admin: 06/27/18 05:34 Dose: 2 mg Nystatin (Mycostatin Cream) 1 appl TP BID MICHAEL Stop: 08/17/18 08:59 Last Admin: 06/26/18 17:14 Dose: 1 appl Ondansetron HCl (Zofran) 4 mg IV Q6H PRN PRN Reason: Nausea / Vomiting Stop: 08/25/18 08:03 Last Admin: 06/26/18 11:12 Dose: 4 mg Petrolatum (Vaseline Oint) 1 appl TP DAILY MICHAEL Stop: 08/17/18 08:59 Last Admin: 06/26/18 11:21 Dose: 1 appl Sucralfate (Carafate) 1 gm GT QID MICHAEL Stop: 08/17/18 08:59 Last Admin: 06/26/18 21:10 Dose: 1 gm General: Alert, No acute distress HEENT: Atraumatic Neck: Supple, Other (INTACT TRACH) Cardiovascular: Regular rate Lungs: Normal air movement Abdomen: Bowel sounds, Soft, Other (INTACT GT) Extremities: no Clubbing, no Cyanosis, no Edema Assessment/Plan - Problem List Patient Problems: All Active Problems MALFUNCTIONING GASTRIC FEEDING TUBE/RASH (Acute) - Assessment Assessment: The elevated platelet count is most likely reactive. The patient has concurrent anemia and anemia workup will be obtained. No interim specific intervention is required for the high platelet count. The patient has a report of possible cecal mass on PET scan done by the primary oncologist and this will be deferred to the primary oncologist for continued management. 06/19: ferritin pending. plt better. hgb lower. monitor 06/20: hgb lower. plt stable. ferritin pending. monitor for now. 06/27/18: hgb fluctuating. Anemia of chronic disease. Monitor hgb. dvt proph Nutritional Asmnt/Malnutr-PDOC - Dietary Evaluation Malnutrition Findings (Please click <Entered> for more info): Nutritional Asmnt/Malnutrition Start: 06/18/18 12: 01 Text: Status: Complete Freq: Protocol: Document 06/18/18 12:01 NICKI (Rec: 06/18/18 12:27 [email or web address] REGINE- [email or web address]) Nutritional Asmnt/Malnutrition Patient General Information Nutritional Screening High Risk Diagnosis Malfunction G-Tube Pertinent Medical Hx/Surgical Hx CHRONIC RESPIRATORY FAILURE, MALIGNANT NEOPLASM OF TONGUE, CHRONIC RHINITIS, TRACHEOSTOMY , GASTRIC FEEDING TUBE, CHRONIC BRONCHITIS, AUTOGLAZIER ANTICOAGULANTS Subjective Information Patient was admitted from SNF with H&P "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 Per nursing, patient with G-tube in place, however states MD wants to wait to start feeding. Current Diet Order/ Nutrition Support NPO Patient / S.O Not Indicated Pertinent Medications dulxolax, D5-0.45NS @ 50 ml/hr , colace, iron, folate, culturelle, MOM, Abx Pertinent Labs (06/18) albumin 2.9 ( decreasing) Nutritional Hx/Data Height 1.68 m Height (Calculated Centimeters) 167.6 Current Weight (lbs) 47.174 kg Weight (Calculated Kilograms) 47.2 Weight (Calculated Grams) 35200.6 [place] Body Weight 142 % [place] Body Weight 73 Body Mass Index (BMI) 16.7 Recent Weight Change No Weight Status Underweight GI Symptoms GI Symptoms None Last BM none noted since admission Difficult in: None Food Allergies No Cultural/Ethnic/Scientology Belief none indicated Usual diet at home Jevity 1.2 Bolus 4 cans daily (1 can 9am, 1p, 5p, 10p), with 100ml free water flush every 6 hours. This provides 948ml total volume, 1137 kcal, 52 gm protein, 1165ml free water. Skin Integrity/Comment: Bryan 18, reddened stoma/g- tube site, rash/reddened back Estimated Nutritional Goals BEE in Kcals: Using Current wt Calories/Kcals/Kg 35-40 kcal/kg using CBW 47.2 ( cancer, low BMI) Kcals Calculated ~3284-5135 kcal/day Protein: Using Current wt Protein g/k.5-2 gm/kg (cancer, muscle wasting) Protein Calculated 70-95 gm/day Fluid: ml ~4052-7698 ml/day Nutritional Problem 1. Problem Problem Inadequate energy intake related to Etiology withholding tube feeding due to malfunction G-tube without initiation of alternate nutrition support aeb Signs/Symptoms: NPO status Intervention/Recommendation Comments 1. Restart tube feeding once medically appropriate; recommend bolus feeding Jevity 1.2 375 ml 4 times a day ( previous feeding schedule 9am, 1p, 5p, 10p). This provides 1500ml, 1800 kcal, 82 gm protein. 2. If unable to restart tube feeding, consider Parenteral nutrition. Expected Outcomes/Goals Expected Outcomes/Goals Meets >75% of nutrient needs, weight increase toward ideal body weight, improved skin integrity
[2018-06-27] MEDS: Nystatin Cream 100,000 u/gm Cream 15 gm TP SCH ×2 (09:47→17:49)
[2018-06-27] MEDS: Fluticasone Propionate Nasal 1 SPR SPR NS SCH (09:47)
--- NOTE | 2018-06-27 09:58 | Diagnostic Imaging Report ---
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 Water-soluble contrast was instilled through patient's gastrostomy tube. The exam demonstrates opacification of the gastric lumen. IMPRESSION: Confirmation of gastrostomy tube within the gastric lumen.
[2018-06-27] MEDS ORDERED: Morphine Sulfate 2 mg/mL 1mL Syr IVP PRN (10:00)
[2018-06-27] MEDS: Hydrocodone/APAP 10 mg/325 mg Tab GT PRN ×2 (10:04→17:55)
[2018-06-27] MEDS: Chlorhexidine Gluconate 0.12% 480mL Bottle MM SCH ×2 (10:05→17:49)
--- NOTE | 2018-06-27 12:45 | GI Progress Note ---
Subjective - Review of Systems Service Date: 06/27/18 Subjective: GI NOTE EVENTS NOTED. MARGO GT FEEDS 40. Objective - Results Result Diagrams: 06/27/18 05:10 06/27/18 05:10 Recent Labs: Laboratory Last Values WBC 9.3 Th/cmm (4.8-10.8) 06/27/18 05:10 RBC 2.78 Mil/cmm (4.30-5.70) L 06/27/18 05:10 Hgb 8.6 gm/dL (12-16) L 06/27/18 05:10 Hct 25.5 % (41.0-60) L 06/27/18 05:10 MCV 91.7 fl (80-99) 06/27/18 05:10 MCH 30.9 pg (26.0-30.0) H 06/27/18 05:10 MCHC Differential 33.7 pg (28.0-36.0) 06/27/18 05:10 RDW 16.2 % (11.5-20.0) 06/27/18 05:10 Plt Count 391 Th/cmm (150-400) 06/27/18 05:10 MPV 6.7 fl 06/27/18 05:10 Add Manual Diff YES 06/26/18 06:34 Neutrophils % 87.2 % (40.0-80.0) H 06/27/18 05:10 Band Neutrophils % 1 % (0-10) 06/26/18 06:34 Lymphocytes % 4.4 % (20.0-50.0) L 06/27/18 05:10 Monocytes % 7.3 % (2.0-10.0) 06/27/18 05:10 Eosinophils % 0.7 % (0.0-5.0) 06/27/18 05:10 Basophils % 0.4 % (0.0-2.0) 06/27/18 05:10 Neutrophils (Manual) 92 % (40-80) H 06/26/18 06:34 Lymphocytes 3 % (20-50) L 06/26/18 06:34 Monocytes 4 % (2-10) 06/26/18 06:34 Eosinophils 0 % (0-5) 06/22/18 06:00 Basophils 2 % (0-3) 06/25/18 06:10 Platelet Estimate INCREASED PLATELETS (NORMAL) 06/26/18 06:34 Ovalocytes 1+ 06/26/18 06:34 PT 10.3 SECONDS (9.5-11.5) 06/23/18 05:49 INR 0.99 (0.5-1.4) 06/23/18 05:49 Sodium 138 mEq/L (136-145) 06/27/18 05:10 Potassium 4.1 mEq/L (3.5-5.1) 06/27/18 05:10 Chloride 102 mEq/L (98-107) 06/27/18 05:10 Carbon Dioxide 29.2 mEq/L (21.0-31.0) 06/27/18 05:10 Anion Gap 10.9 (7.0-16.0) 06/27/18 05:10 BUN 20 mg/dL (7-25) 06/27/18 05:10 Creatinine 0.4 mg/dL (0.7-1.3) L 06/27/18 05:10 Est GFR ( Amer) > 60.0 ml/min (>90) 06/27/18 05:10 Est GFR (Non-Af Amer) > 60.0 ml/min 06/27/18 05:10 BUN/Creatinine Ratio 50.0 06/27/18 05:10 Glucose 133 mg/dL (70-105) H 06/27/18 05:10 POC Glucose 129 MG/DL (70 - 105) H 06/27/18 05:08 Calcium 8.9 mg/dL (8.6-10.3) 06/27/18 05:10 Phosphorus 3.2 mg/dL (2.5-5.0) 06/27/18 05:10 Magnesium 1.9 mg/dL (1.9-2.7) 06/27/18 05:10 Iron 36 ug/dL (38-169) L 06/18/18 06:30 TIBC 198 ug/dL (250-450) L 06/18/18 06:30 Iron Saturation 18 % (15-55) 06/18/18 06:30 Unsaturated IBC 162 ug/dL (111-343) 06/18/18 06:30 Ferritin 304 ng/mL (30-400) 06/19/18 09:16 Total Bilirubin 0.2 mg/dL (0.3-1.0) L 06/27/18 05:10 AST 7 U/L (13-39) L 06/27/18 05:10 ALT 5 U/L (7-52) L 06/27/18 05:10 Alkaline Phosphatase 51 U/L (34-104) 06/27/18 05:10 Total Protein 5.9 gm/dL (6.0-8.3) L 06/27/18 05:10 Albumin 2.5 gm/dL (4.2-5.5) L 06/27/18 05:10 Globulin 3.4 gm/dL 06/27/18 05:10 Albumin/Globulin Ratio 0.7 (1.0-1.8) L 06/27/18 05:10 Prealbumin 11 mg/dL (10-36) 06/20/18 10:20 Triglycerides 28 mg/dL (<150) 06/27/18 05:10 Cholesterol 92 mg/dL (<200) 06/27/18 05:10 Urine Source CLEAN C 06/17/18 19:05 Urine Color YELLOW 06/17/18 19:05 Urine Clarity HAZY (CLEAR) 06/17/18 19:05 Urine pH 7.5 (4.6 - 8.0) 06/17/18 19:05 Ur Specific [place] 1.015 (1.005-1.030) 06/17/18 19:05 Urine Protein NEGATIVE mg/dL (NEGATIVE) 06/17/18 19:05 Urine Glucose (UA) NEGATIVE mg/dL (NEGATIVE) 06/17/18 19:05 Urine Ketones 40 mg/dL (NEGATIVE) H 06/17/18 19:05 Urine Blood LARGE (NEGATIVE) H 06/17/18 19:05 Urine Nitrate NEGATIVE (NEGATIVE) 06/17/18 19:05 Urine Bilirubin NEGATIVE (NEGATIVE) 06/17/18 19:05 Urine Urobilinogen 0.2 E.U./dL (0.2 - 1.0) 06/17/18 19:05 Ur Leukocyte Esterase NEGATIVE (NEGATIVE) 06/17/18 19:05 Urine RBC NONE SEEN /hpf (0-5) 06/17/18 19:05 Urine WBC 2-5 /hpf (0-5) 06/17/18 19:05 Ur Epithelial Cells NONE SEEN /lpf (FEW) 12/28/18 19:05 Urine Bacteria FEW /hpf (NONE SEEN) 06/17/18 19:05 Vancomycin Trough 15.6 ug/mL (5-10) H 06/26/18 07:57 - Physical Exam Vitals and I&O: Vital Signs Temp 98.8 F 06/27/18 11:35 Pulse 79 06/27/18 12:10 Resp 18 06/27/18 12:10 BP 113/52 06/27/18 11:35 Pulse Ox 97 06/27/18 12:10 Intake & Output 06/26/18 06/27/18 06/27/18 18:59 06:59 18:59 Intake Total 1690 200 Balance 1690 200 Weight (lbs) 50.349 kg Intake: Intake, IV Amount 1690 200 Cefepime 2 gm In Dextrose 200 5% 100 ml @ 100 mls/hr IV Q12HR [facility] Rx#: [id number] Multivitamin Inj 10 ml In 1440 Dextrose 70% 730 ml In Amino Acids 10% 500 ml In Intralipids 20% 200 ml @ 30 mls/hr IV .Q24H [facility] Rx#:[id number] Vancomycin HCl 1 gm In 250 Sodium Chloride 0.9% 250 ml @ 165 mls/hr IV Q12HR [facility] Rx#:[id number] Other: Weight Source Bedscale Active Medications: Current Medications Acetaminophen (Tylenol 650mg/20.3ml Suspension) 650 mg GT Q6H PRN PRN Reason: BREAKTRHOUGH PAIN OR TEMP >101 Stop: 08/17/18 06:46 Acetaminophen/Hydrocodone Bitart (Phenix 10 Mg/325 Mg) 1 tab GT Q6H PRN PRN Reason: PAIN (MODERATE) Stop: 08/19/18 08:59 Last Admin: 06/27/18 10:04 Dose: 1 tab Acetaminophen/Hydrocodone Bitart (Phenix 5mg/325mg) 1 tab GT Q6H PRN PRN Reason: MILD PAIN Stop: 08/19/18 08:59 Albuterol/Ipratropium (Duoneb Neb) 3 ml HHN Q6HRT [facility] Stop: 08/17/18 06:59 Last Admin: 06/27/18 12:08 Dose: 3 ml Bisacodyl (Dulcolax 10 Mg Supp) 10 mg RC DAILY PRN PRN Reason: Constipation Stop: 08/17/18 06:34 Last Admin: 06/19/18 17:27 Dose: 10 mg Chlorhexidine Gluconate (Peridex) 15 ml MM BID [facility] Stop: 08/17/18 08:59 Last Admin: 06/27/18 10:05 Dose: 15 ml Docusate Sodium (Colace) 100 mg PO BID [facility] Stop: 08/17/18 08:59 Last Admin: 06/27/18 09:43 Dose: 100 mg Enoxaparin Sodium (Lovenox) 40 mg SUBQ DAILY [facility] Stop: 08/17/18 08:59 Last Admin: 06/27/18 09:43 Dose: 40 mg Ferrous Sulfate (Iron) 300 mg GT BID [facility] Stop: 08/17/18 08:59 Last Admin: 06/27/18 09:43 Dose: 300 mg Fluticasone Propionate (Flonase) 1 spr NS DAILY [facility] Stop: 08/17/18 08:59 Last Admin: 06/27/18 09:47 Dose: 1 spr Folic Acid (Folate) 1 mg GT DAILY [facility] Stop: 08/17/18 08:59 Last Admin: 06/27/18 09:43 Dose: 1 mg Multivitamins/Minerals 10 ml/Dextrose/ Amino Acids/Electrolytes/ Fat Emulsion Intravenous 1,440 mls @ 30 mls/hr IV .Q24H [facility] Stop: 06/27/18 14:59 Last Admin: 06/26/18 16:54 Dose: 60 mls/hr Cefepime HCl 2 gm/ Dextrose 100 mls @ 100 mls/hr IV Q12HR [facility] Stop: 08/21/18 20:59 Last Admin: 06/27/18 09:45 Dose: 100 mls/hr Insulin Aspart (Novolog Insulin Sliding Scale) 0 units SUBQ Q6HR [facility]; Protocol Stop: 08/19/18 11:59 Last Admin: 06/27/18 05:16 Dose: Not Given Lactobacillus Rhamnosus (Culturelle 15b) 1 each PO DAILY [facility] Stop: 08/17/18 13:59 Last Admin: 06/27/18 09:43 Dose: 1 each Magnesium Hydroxide (Milk Of Magnesia) 30 ml GT DAILY PRN PRN Reason: Constipation Stop: 08/17/18 06:34 Miscellaneous (Vancomycin Iv Per Pharmacy) 1 ea MC PRN PRN PRN Reason: VANCO PER RX Stop: 08/16/18 16:03 Miscellaneous (Vte Chemical Prophylaxis Screen/ Admission) 1 ea MC PRN PRN PRN Reason: PROTOCOL Stop: 08/16/18 17:05 Miscellaneous (Probiotic Screen) 1 ea MC PRN PRN PRN Reason: PROTOCOL Stop: 08/17/18 09:32 Miscellaneous (Tpn Per Pharmacy) 1 ea MC PRN PRN PRN Reason: PROTOCOL Stop: 06/27/18 14:59 Morphine Sulfate (Morphine) 2 mg IVP Q4H PRN PRN Reason: Pain (Severe) Stop: 08/26/18 09:59 Nystatin (Mycostatin Cream) 1 appl TP BID [facility] Stop: 08/17/18 08:59 Last Admin: 06/27/18 09:47 Dose: 1 appl Ondansetron HCl (Zofran) 4 mg IV Q6H PRN PRN Reason: Nausea / Vomiting Stop: 08/25/18 08:03 Last Admin: 06/26/18 11:12 Dose: 4 mg Petrolatum (Vaseline Oint) 1 appl TP DAILY [facility] Stop: 08/17/18 08:59 Last Admin: 06/27/18 09:43 Dose: 1 appl Sucralfate (Carafate) 1 gm GT QID [facility] Stop: 08/17/18 08:59 Last Admin: 06/27/18 09:42 Dose: 1 gm General: Alert, No acute distress HEENT: Atraumatic Neck: Supple, Other (INTACT TRACH) Cardiovascular: Regular rate Lungs: Normal air movement Abdomen: Bowel sounds, Soft, Other (INTACT GT) Extremities: no Clubbing, no Cyanosis, no Edema Assessment/Plan - Problem List Patient Problems: All Active Problems MALFUNCTIONING GASTRIC FEEDING TUBE/RASH (Acute) - Assessment Assessment: IMPRESSION: 1. G tube malfunction. 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 GC fistula closed primarily, but EGD with GT insertion not feasible due to closed jaw. 3. s/p surgical GT insertion 06/24/18. 4. 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 RECS: -post op care; GT feeds and meds as tolerated. -off TPN. -Oncology f/u for known cecal mass on PET scan which he and oncologist have known about and they have a plan in place. [facility].
[2018-06-27] MEDS: Hydrocodone/APAP 5mg/325mg Tab GT PRN (13:06)
[2018-06-28] MEDS: Hydrocodone/APAP 10 mg/325 mg Tab GT PRN (00:18)
[2018-06-28] MEDS: INSULIN ASPART SLIDING SCALE 100 UNITS/ML UNIT SUBQ SCH ×3 (00:50→11:19)
[2018-06-28] MEDS: Albuterol/Ipratropium Neb 3 ML AERS HHN SCH ×3 (01:45→12:26)
--- NOTE | 2018-06-28 02:33 | Infectious Disease Prog Note ---
Infectious Disease Subjective - Review of Systems Service Date: 06/27/18 Subjective: cc g tube infection hpi- cx noted rosno fevr o/e vss chest vesicular abd soft cellulituis ext pulse dx g tube infection [facility] Infectious Disease Objective - Results Result Diagrams: 06/27/18 05:10 06/27/18 05:10 Recent Labs: Laboratory Last Values WBC 9.3 Th/cmm (4.8-10.8) 06/27/18 05:10 RBC 2.78 Mil/cmm (4.30-5.70) L 06/27/18 05:10 Hgb 8.6 gm/dL (12-16) L 06/27/18 05:10 Hct 25.5 % (41.0-60) L 06/27/18 05:10 MCV 91.7 fl (80-99) 06/27/18 05:10 MCH 30.9 pg (26.0-30.0) H 06/27/18 05:10 MCHC Differential 33.7 pg (28.0-36.0) 06/27/18 05:10 RDW 16.2 % (11.5-20.0) 06/27/18 05:10 Plt Count 391 Th/cmm (150-400) 06/27/18 05:10 MPV 6.7 fl 06/27/18 05:10 Add Manual Diff YES 06/26/18 06:34 Neutrophils % 87.2 % (40.0-80.0) H 06/27/18 05:10 Band Neutrophils % 1 % (0-10) 06/26/18 06:34 Lymphocytes % 4.4 % (20.0-50.0) L 06/27/18 05:10 Monocytes % 7.3 % (2.0-10.0) 06/27/18 05:10 Eosinophils % 0.7 % (0.0-5.0) 06/27/18 05:10 Basophils % 0.4 % (0.0-2.0) 06/27/18 05:10 Neutrophils (Manual) 92 % (40-80) H 06/26/18 06:34 Lymphocytes 3 % (20-50) L 06/26/18 06:34 Monocytes 4 % (2-10) 06/26/18 06:34 Eosinophils 0 % (0-5) 06/22/18 06:00 Basophils 2 % (0-3) 06/25/18 06:10 Platelet Estimate INCREASED PLATELETS (NORMAL) 06/26/18 06:34 Ovalocytes 1+ 06/26/18 06:34 PT 10.3 SECONDS (9.5-11.5) 06/23/18 05:49 INR 0.99 (0.5-1.4) 06/23/18 05:49 Sodium 138 mEq/L (136-145) 06/27/18 05:10 Potassium 4.1 mEq/L (3.5-5.1) 06/27/18 05:10 Chloride 102 mEq/L (98-107) 06/27/18 05:10 Carbon Dioxide 29.2 mEq/L (21.0-31.0) 06/27/18 05:10 Anion Gap 10.9 (7.0-16.0) 06/27/18 05:10 BUN 20 mg/dL (7-25) 06/27/18 05:10 Creatinine 0.4 mg/dL (0.7-1.3) L 06/27/18 05:10 Est GFR ( Amer) > 60.0 ml/min (>90) 06/27/18 05:10 Est GFR (Non-Af Amer) > 60.0 ml/min 06/27/18 05:10 BUN/Creatinine Ratio 50.0 06/27/18 05:10 Glucose 133 mg/dL (70-105) H 06/27/18 05:10 POC Glucose 112 MG/DL (70 - 105) H 06/28/18 00:14 Calcium 8.9 mg/dL (8.6-10.3) 06/27/18 05:10 Phosphorus 3.2 mg/dL (2.5-5.0) 06/27/18 05:10 Magnesium 1.9 mg/dL (1.9-2.7) 06/27/18 05:10 Iron 36 ug/dL (38-169) L 06/18/18 06:30 TIBC 198 ug/dL (250-450) L 06/18/18 06:30 Iron Saturation 18 % (15-55) 06/18/18 06:30 Unsaturated IBC 162 ug/dL (111-343) 06/18/18 06:30 Ferritin 304 ng/mL (30-400) 06/19/18 09:16 Total Bilirubin 0.2 mg/dL (0.3-1.0) L 06/27/18 05:10 AST 7 U/L (13-39) L 06/27/18 05:10 ALT 5 U/L (7-52) L 06/27/18 05:10 Alkaline Phosphatase 51 U/L (34-104) 06/27/18 05:10 Total Protein 5.9 gm/dL (6.0-8.3) L 06/27/18 05:10 Albumin 2.5 gm/dL (4.2-5.5) L 06/27/18 05:10 Globulin 3.4 gm/dL 06/27/18 05:10 Albumin/Globulin Ratio 0.7 (1.0-1.8) L 06/27/18 05:10 Prealbumin 11 mg/dL (10-36) 06/20/18 10:20 Triglycerides 28 mg/dL (<150) 06/27/18 05:10 Cholesterol 92 mg/dL (<200) 06/27/18 05:10 Urine Source CLEAN C 06/17/18 19:05 Urine Color YELLOW 06/17/18 19:05 Urine Clarity HAZY (CLEAR) 06/17/18 19:05 Urine pH 7.5 (4.6 - 8.0) 06/17/18 19:05 Ur Specific [place] 1.015 (1.005-1.030) 06/17/18 19:05 Urine Protein NEGATIVE mg/dL (NEGATIVE) 06/17/18 19:05 Urine Glucose (UA) NEGATIVE mg/dL (NEGATIVE) 06/17/18 19:05 Urine Ketones 40 mg/dL (NEGATIVE) H 06/17/18 19:05 Urine Blood LARGE (NEGATIVE) H 06/17/18 19:05 Urine Nitrate NEGATIVE (NEGATIVE) 06/17/18 19:05 Urine Bilirubin NEGATIVE (NEGATIVE) 06/17/18 19:05 Urine Urobilinogen 0.2 E.U./dL (0.2 - 1.0) 06/17/18 19:05 Ur Leukocyte Esterase NEGATIVE (NEGATIVE) 06/17/18 19:05 Urine RBC NONE SEEN /hpf (0-5) 06/17/18 19:05 Urine WBC 2-5 /hpf (0-5) 06/17/18 19:05 Ur Epithelial Cells NONE SEEN /lpf (FEW) 06/17/18 19:05 Urine Bacteria FEW /hpf (NONE SEEN) 06/17/18 19:05 Vancomycin Trough 15.6 ug/mL (5-10) H 06/26/18 07:57 - Physical Exam Vitals and I&O: Vital Signs Temp 98.9 F 06/28/18 00:00 Pulse 77 06/28/18 01:45 Resp 20 06/28/18 01:45 BP 122/55 06/28/18 00:00 Pulse Ox 97 06/28/18 01:45 Intake & Output 06/27/18 06/27/18 06/28/18 06:59 18:59 06:59 Intake Total 200 350 950 Output Total 1200 Balance 200 350 -250 Weight (lbs) 50.349 kg 50.349 kg Intake: Intake, IV Amount 200 350 350 Cefepime 2 gm In Dextrose 200 100 100 5% 100 ml @ 100 mls/hr IV Q12HR [facility] Rx#: [id number] Vancomycin HCl 1 gm In 250 250 Sodium Chloride 0.9% 250 ml @ 165 mls/hr IV Q12HR@ 0900,2100 [facility] Rx#: [id number] Tube Feeding 400 Other 200 Output: Urine 1200 Other: # Bowel Movements 0 Weight Source Bedscale Bedscale Active Medications: Current Medications Acetaminophen (Tylenol 650mg/20.3ml Suspension) 650 mg GT Q6H PRN PRN Reason: BREAKTRHOUGH PAIN OR TEMP >101 Stop: 08/17/18 06:46 Acetaminophen/Hydrocodone Bitart ([place] 10 Mg/325 Mg) 1 tab GT Q6H PRN PRN Reason: PAIN (MODERATE) Stop: 08/19/18 08:59 Last Admin: 06/28/18 00:18 Dose: 1 tab Acetaminophen/Hydrocodone Bitart ([place] 5mg/325mg) 1 tab GT Q6H PRN PRN Reason: MILD PAIN Stop: 08/19/18 08:59 Last Admin: 06/27/18 13:06 Dose: 1 tab Albuterol/Ipratropium (Duoneb Neb) 3 ml HHN Q6HRT MICHAEL Stop: 08/17/18 06:59 Last Admin: 06/28/18 01:45 Dose: 3 ml Bisacodyl (Dulcolax 10 Mg Supp) 10 mg RC DAILY PRN PRN Reason: Constipation Stop: 08/17/18 06:34 Last Admin: 06/19/18 17:27 Dose: 10 mg Chlorhexidine Gluconate (Peridex) 15 ml MM BID [facility] Stop: 08/17/18 08:59 Last Admin: 06/27/18 17:49 Dose: 15 ml Docusate Sodium (Colace) 100 mg PO BID [facility] Stop: 08/17/18 08:59 Last Admin: 06/27/18 17:49 Dose: 100 mg Enoxaparin Sodium (Lovenox) 40 mg SUBQ DAILY [facility] Stop: 08/17/18 08:59 Last Admin: 06/27/18 09:43 Dose: 40 mg Ferrous Sulfate (Iron) 300 mg GT BID [facility] Stop: 08/17/18 08:59 Last Admin: 06/27/18 17:48 Dose: 300 mg Fluticasone Propionate (Flonase) 1 spr NS DAILY [facility] Stop: 08/17/18 08:59 Last Admin: 06/27/18 09:47 Dose: 1 spr Folic Acid (Folate) 1 mg GT DAILY [facility] Stop: 08/17/18 08:59 Last Admin: 06/27/18 09:43 Dose: 1 mg Cefepime HCl 2 gm/ Dextrose 100 mls @ 100 mls/hr IV Q12HR [facility] Stop: 08/21/18 20:59 Last Infusion: 06/27/18 21:53 Dose: Infused Vancomycin HCl 1 gm/ Sodium (Chloride) 250 mls @ 165 mls/hr IV Q12HR@0900,2100 [facility] Stop: 08/26/18 12:59 Last Infusion: 06/27/18 22:23 Dose: Infused Insulin Aspart (Novolog Insulin Sliding Scale) 0 units SUBQ Q6HR [facility]; Protocol Stop: 08/19/18 11:59 Last Admin: 06/28/18 00:50 Dose: Not Given Lactobacillus Rhamnosus (Culturelle 15b) 1 each PO DAILY [facility] Stop: 08/17/18 13:59 Last Admin: 06/27/18 09:43 Dose: 1 each Magnesium Hydroxide (Milk Of Magnesia) 30 ml GT DAILY PRN PRN Reason: Constipation Stop: 08/17/18 06:34 Miscellaneous (Vancomycin Iv Per Pharmacy) 1 ea MC PRN PRN PRN Reason: VANCO PER RX Stop: 08/16/18 16:03 Miscellaneous (Vte Chemical Prophylaxis Screen/ Admission) 1 ea MC PRN PRN PRN Reason: PROTOCOL Stop: 08/16/18 17:05 Miscellaneous (Probiotic Screen) 1 ea MC PRN PRN PRN Reason: PROTOCOL Stop: 08/17/18 09:32 Morphine Sulfate (Morphine) 2 mg IVP Q4H PRN PRN Reason: Pain (Severe) Stop: 08/26/18 09:59 Nystatin (Mycostatin Cream) 1 appl TP BID [facility] Stop: 08/17/18 08:59 Last Admin: 06/27/18 17:49 Dose: 1 appl Ondansetron HCl (Zofran) 4 mg IV Q6H PRN PRN Reason: Nausea / Vomiting Stop: 08/25/18 08:03 Last Admin: 06/26/18 11:12 Dose: 4 mg Petrolatum (Vaseline Oint) 1 appl TP DAILY [facility] Stop: 08/17/18 08:59 Last Admin: 06/27/18 09:43 Dose: 1 appl Sucralfate (Carafate) 1 gm GT QID [facility] Stop: 08/17/18 08:59 Last Admin: 06/27/18 20:52 Dose: 1 gm Infectious Disease Assmt/Plan - Problem List Patient Problems: All Active Problems MALFUNCTIONING GASTRIC FEEDING TUBE/RASH (Acute) Nutritional Asmnt/Malnutr-PDOC - Dietary Evaluation Malnutrition Findings (Please click <Entered> for more info): Nutritional Asmnt/Malnutrition Start: 06/18/18 12: 01 Text: Status: Complete Freq: Protocol: Document 06/18/18 12:01 NICKI (Rec: 06/18/18 12:27 NICKI WEINER- [email or web address]) Nutritional Asmnt/Malnutrition Patient General Information Nutritional Screening High Risk Diagnosis Malfunction G-Tube Pertinent Medical Hx/Surgical Hx CHRONIC RESPIRATORY FAILURE, MALIGNANT NEOPLASM OF TONGUE, CHRONIC RHINITIS, TRACHEOSTOMY , GASTRIC FEEDING TUBE, CHRONIC BRONCHITIS, [employer] ANTICOAGULANTS Subjective Information Patient was admitted from SNF with H&P "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 Per nursing, patient with G-tube in place, however states MD wants to wait to start feeding. Current Diet Order/ Nutrition Support NPO Patient / S.O Not Indicated Pertinent Medications dulxolax, D5-0.45NS @ 50 ml/hr , colace, iron, folate, culturelle, MOM, Abx Pertinent Labs (06/18) albumin 2.9 ( decreasing) Nutritional Hx/Data Height 1.68 m Height (Calculated Centimeters) 167.6 Current Weight (lbs) 47.174 kg Weight (Calculated Kilograms) 47.2 Weight (Calculated Grams) 63897.6 [place] Body Weight 142 % [place] Body Weight 73 Body Mass Index (BMI) 16.7 Recent Weight Change No Weight Status Underweight GI Symptoms GI Symptoms None Last BM none noted since admission Difficult in: None Food Allergies No Cultural/Ethnic/Orthodoxy Belief none indicated Usual diet at home Jevity 1.2 Bolus 4 cans daily (1 can 9am, 1p, 5p, 10p), with 100ml free water flush every 6 hours. This provides 948ml total volume, 1137 kcal, 52 gm protein, 1165ml free water. Skin Integrity/Comment: Bryan 18, reddened stoma/g- tube site, rash/reddened back Estimated Nutritional Goals BEE in Kcals: Using Current wt Calories/Kcals/Kg 35-40 kcal/kg using CBW 47.2 ( cancer, low BMI) Kcals Calculated ~5716-7913 kcal/day Protein: Using Current wt Protein g/k.5-2 gm/kg (cancer, muscle wasting) Protein Calculated 70-95 gm/day Fluid: ml ~3555-0349 ml/day Nutritional Problem 1. Problem Problem Inadequate energy intake related to Etiology withholding tube feeding due to malfunction G-tube without initiation of alternate nutrition support aeb Signs/Symptoms: NPO status Intervention/Recommendation Comments 1. Restart tube feeding once medically appropriate; recommend bolus feeding Jevity 1.2 375 ml 4 times a day ( previous feeding schedule 9am, 1p, 5p, 10p). This provides 1500ml, 1800 kcal, 82 gm protein. 2. If unable to restart tube feeding, consider Parenteral nutrition. Expected Outcomes/Goals Expected Outcomes/Goals Meets >75% of nutrient needs, weight increase toward ideal body weight, improved skin integrity
[2018-06-28 05:31] LABS: MEAN CELL VOLUME 92.5 fl (80-99); MEAN CORPUSCULAR HEMOGLOBIN 30.7 pg (26.0-30.0); MEAN CORPUSCULAR HGB CONC 33.2 pg (28.0-36.0); MEAN PLATELET VOLUME 6.7 fl; PLATELET COUNT 391 Th/cmm (150-400); RED BLOOD COUNT 2.58 Mil/cmm (4.30-5.70)
[2018-06-28 05:40] LABS: HEMATOCRIT 23.9 % (41.0-60); HEMOGLOBIN 7.9 gm/dL (12-16)
[2018-06-28 06:08] LABS: ALB/GLOB RATIO 0.8 (1.0-1.8); ALBUMIN 2.5 gm/dL (4.2-5.5); ALKALINE PHOSPHATASE 49 U/L (34-104); ANION GAP 9.3 (7.0-16.0); BILIRUBIN,TOTAL 0.2 mg/dL (0.3-1.0); BUN - UREA NITROGEN 20 mg/dL (7-25); CALCIUM SERUM 8.8 mg/dL (8.6-10.3); CARBON DIOXIDE 29.8 mEq/L (21.0-31.0); CHLORIDE 101 mEq/L (98-107); CREATININE - SERUM 0.4 mg/dL (0.7-1.3); GFR AFRICAN-AMERICAN > 60.0 ml/min (>90); GFR NON AFRICAN-AMERICAN > 60.0 ml/min; GLUCOSE 125 mg/dL (70-105); POTASSIUM SERUM 4.1 mEq/L (3.5-5.1); SGOT 11 U/L (13-39); SGPT/ALT 8 U/L (7-52); SODIUM SERUM 136 mEq/L (136-145); TOTAL PROTEIN,SERUM 5.7 gm/dL (6.0-8.3)
[2018-06-28 06:20] LABS: BAND NEUTROPHILE 4 % (0-10); EOSINOPHIL 3 % (0-5); LYMPHOCYTE 7 % (20-50); MONOCYTE 6 % (2-10); NEUTROPHILS 80 % (40-80); PLATELET ESTIMATE ADEQUATE (NORMAL)
--- NOTE | 2018-06-28 08:23 | General Progress Note ---
Subjective - Review of Systems Service Date: 06/28/18 Subjective: vitals stable. Patient resting comfortably in bed. No acute distress. afebrile. awake, alert. S/P g tube placement. tolerating gtube feeding and medication. off TPN. Objective - Results Result Diagrams: 06/28/18 05:15 06/28/18 05:15 Recent Labs: Laboratory Last Values WBC 7.0 Th/cmm (4.8-10.8) 06/28/18 05:15 RBC 2.58 Mil/cmm (4.30-5.70) L 06/28/18 05:15 Hgb 7.9 gm/dL (12-16) L* 06/28/18 05:15 Hct 23.9 % (41.0-60) L 06/28/18 05:15 MCV 92.5 fl (80-99) 06/28/18 05:15 MCH 30.7 pg (26.0-30.0) H 06/28/18 05:15 MCHC Differential 33.2 pg (28.0-36.0) 06/28/18 05:15 RDW 16.0 % (11.5-20.0) 06/28/18 05:15 Plt Count 391 Th/cmm (150-400) 06/28/18 05:15 MPV 6.7 fl 06/28/18 05:15 Add Manual Diff YES 06/28/18 05:15 Neutrophils % CREATIVE COORDINATOR 06/28/18 05:15 Band Neutrophils % 4 % (0-10) 06/28/18 05:15 Lymphocytes % CREATIVE COORDINATOR 06/28/18 05:15 Monocytes % CREATIVE COORDINATOR 06/28/18 05:15 Eosinophils % CREATIVE COORDINATOR 06/28/18 05:15 Basophils % CREATIVE COORDINATOR 06/28/18 05:15 Neutrophils (Manual) 80 % (40-80) 06/28/18 05:15 Lymphocytes 7 % (20-50) L 06/28/18 05:15 Monocytes 6 % (2-10) 06/28/18 05:15 Eosinophils 3 % (0-5) 06/28/18 05:15 Basophils 2 % (0-3) 06/25/18 06:10 Platelet Estimate ADEQUATE (NORMAL) 06/28/18 05:15 Ovalocytes 1+ 06/26/18 06:34 PT 10.3 SECONDS (9.5-11.5) 06/23/18 05:49 INR 0.99 (0.5-1.4) 06/23/18 05:49 Sodium 136 mEq/L (136-145) 06/28/18 05:15 Potassium 4.1 mEq/L (3.5-5.1) 06/28/18 05:15 Chloride 101 mEq/L (98-107) 06/28/18 05:15 Carbon Dioxide 29.8 mEq/L (21.0-31.0) 06/28/18 05:15 Anion Gap 9.3 (7.0-16.0) 06/28/18 05:15 BUN 20 mg/dL (7-25) 06/28/18 05:15 Creatinine 0.4 mg/dL (0.7-1.3) L 06/28/18 05:15 Est GFR ( Amer) > 60.0 ml/min (>90) 06/28/18 05:15 Est GFR (Non-Af Amer) > 60.0 ml/min 06/28/18 05:15 BUN/Creatinine Ratio 50.0 06/28/18 05:15 Glucose 125 mg/dL (70-105) H 06/28/18 05:15 POC Glucose 122 MG/DL (70 - 105) H 06/28/18 05:17 Calcium 8.8 mg/dL (8.6-10.3) 06/28/18 05:15 Phosphorus 3.2 mg/dL (2.5-5.0) 06/27/18 05:10 Magnesium 1.9 mg/dL (1.9-2.7) 06/27/18 05:10 Iron 36 ug/dL (38-169) L 06/18/18 06:30 TIBC 198 ug/dL (250-450) L 06/18/18 06:30 Iron Saturation 18 % (15-55) 06/18/18 06:30 Unsaturated IBC 162 ug/dL (111-343) 06/18/18 06:30 Ferritin 304 ng/mL (30-400) 06/19/18 09:16 Total Bilirubin 0.2 mg/dL (0.3-1.0) L 06/28/18 05:15 AST 11 U/L (13-39) L 06/28/18 05:15 ALT 8 U/L (7-52) 06/28/18 05:15 Alkaline Phosphatase 49 U/L (34-104) 06/28/18 05:15 Total Protein 5.7 gm/dL (6.0-8.3) L 06/28/18 05:15 Albumin 2.5 gm/dL (4.2-5.5) L 06/28/18 05:15 Globulin 3.2 gm/dL 06/28/18 05:15 Albumin/Globulin Ratio 0.8 (1.0-1.8) L 06/28/18 05:15 Prealbumin 10 mg/dL (10-36) 06/27/18 05:10 Triglycerides 28 mg/dL (<150) 06/27/18 05:10 Cholesterol 92 mg/dL (<200) 06/27/18 05:10 Urine Source CLEAN C 06/17/18 19:05 Urine Color YELLOW 06/17/18 19:05 Urine Clarity HAZY (CLEAR) 06/17/18 19:05 Urine pH 7.5 (4.6 - 8.0) 06/17/18 19:05 Ur Specific [place] 1.015 (1.005-1.030) 06/17/18 19:05 Urine Protein NEGATIVE mg/dL (NEGATIVE) 06/17/18 19:05 Urine Glucose (UA) NEGATIVE mg/dL (NEGATIVE) 06/17/18 19:05 Urine Ketones 40 mg/dL (NEGATIVE) H 06/17/18 19:05 Urine Blood LARGE (NEGATIVE) H 06/17/18 19:05 Urine Nitrate NEGATIVE (NEGATIVE) 06/17/18 19:05 Urine Bilirubin NEGATIVE (NEGATIVE) 06/17/18 19:05 Urine Urobilinogen 0.2 E.U./dL (0.2 - 1.0) 06/17/18 19:05 Ur Leukocyte Esterase NEGATIVE (NEGATIVE) 06/17/18 19:05 Urine RBC NONE SEEN /hpf (0-5) 06/17/18 19:05 Urine WBC 2-5 /hpf (0-5) 06/17/18 19:05 Ur Epithelial Cells NONE SEEN /lpf (FEW) 06/17/18 19:05 Urine Bacteria FEW /hpf (NONE SEEN) 06/17/18 19:05 Vancomycin Trough 15.6 ug/mL (5-10) H 06/26/18 07:57 - Physical Exam Vitals and I&O: Vital Signs Temp 98.9 F 06/28/18 04:00 Pulse 80 06/28/18 07:20 Resp 20 06/28/18 07:20 BP 129/70 06/28/18 04:00 Pulse Ox 96 06/28/18 07:20 Intake & Output 06/27/18 06/28/18 06/28/18 18:59 06:59 18:59 Intake Total 350 1650 Output Total 1800 Balance 350 -150 Weight (lbs) 50.349 kg 50.349 kg Intake: Intake, IV Amount 350 350 Cefepime 2 gm In Dextrose 100 100 5% 100 ml @ 100 mls/hr IV Q12HR [facility] Rx#: [id number] Vancomycin HCl 1 gm In 250 250 Sodium Chloride 0.9% 250 ml @ 165 mls/hr IV Q12HR@ 0900,2100 [facility] Rx#: [id number] Tube Feeding 1000 Other 300 Output: Urine 1800 Stool 0 Other: # Bowel Movements 0 Weight Source Bedscale Bedscale Active Medications: Current Medications Acetaminophen (Tylenol 650mg/20.3ml Suspension) 650 mg GT Q6H PRN PRN Reason: BREAKTRHOUGH PAIN OR TEMP >101 Stop: 08/17/18 06:46 Acetaminophen/Hydrocodone Bitart ([place] 10 Mg/325 Mg) 1 tab GT Q6H PRN PRN Reason: PAIN (MODERATE) Stop: 08/19/18 08:59 Last Admin: 06/28/18 00:18 Dose: 1 tab Acetaminophen/Hydrocodone Bitart ([place] 5mg/325mg) 1 tab GT Q6H PRN PRN Reason: MILD PAIN Stop: 08/19/18 08:59 Last Admin: 06/27/18 13:06 Dose: 1 tab Albuterol/Ipratropium (Duoneb Neb) 3 ml HHN Q6HRT [facility] Stop: 08/17/18 06:59 Last Admin: 06/28/18 07:18 Dose: 3 ml Bisacodyl (Dulcolax 10 Mg Supp) 10 mg RC DAILY PRN PRN Reason: Constipation Stop: 08/17/18 06:34 Last Admin: 06/19/18 17:27 Dose: 10 mg Chlorhexidine Gluconate (Peridex) 15 ml MM BID [facility] Stop: 08/17/18 08:59 Last Admin: 06/27/18 17:49 Dose: 15 ml Docusate Sodium (Colace) 100 mg PO BID [facility] Stop: 08/17/18 08:59 Last Admin: 06/27/18 17:49 Dose: 100 mg Enoxaparin Sodium (Lovenox) 40 mg SUBQ DAILY [facility] Stop: 08/17/18 08:59 Last Admin: 06/27/18 09:43 Dose: 40 mg Ferrous Sulfate (Iron) 300 mg GT BID [facility] Stop: 08/17/18 08:59 Last Admin: 06/27/18 17:48 Dose: 300 mg Fluticasone Propionate (Flonase) 1 spr NS DAILY [facility] Stop: 08/17/18 08:59 Last Admin: 06/27/18 09:47 Dose: 1 spr Folic Acid (Folate) 1 mg GT DAILY [facility] Stop: 08/17/18 08:59 Last Admin: 06/27/18 09:43 Dose: 1 mg Cefepime HCl 2 gm/ Dextrose 100 mls @ 100 mls/hr IV Q12HR [facility] Stop: 08/21/18 20:59 Last Infusion: 06/27/18 21:53 Dose: Infused Vancomycin HCl 1 gm/ Sodium (Chloride) 250 mls @ 165 mls/hr IV Q12HR@0900,2100 [facility] Stop: 08/26/18 12:59 Last Infusion: 06/27/18 22:23 Dose: Infused Insulin Aspart (Novolog Insulin Sliding Scale) 0 units SUBQ Q6HR [facility]; Protocol Stop: 08/19/18 11:59 Last Admin: 06/28/18 05:43 Dose: Not Given Lactobacillus Rhamnosus (Culturelle 15b) 1 each PO DAILY [facility] Stop: 08/17/18 13:59 Last Admin: 06/27/18 09:43 Dose: 1 each Magnesium Hydroxide (Milk Of Magnesia) 30 ml GT DAILY PRN PRN Reason: Constipation Stop: 08/17/18 06:34 Miscellaneous (Vancomycin Iv Per Pharmacy) 1 ea MC PRN PRN PRN Reason: VANCO PER RX Stop: 08/16/18 16:03 Miscellaneous (Vte Chemical Prophylaxis Screen/ Admission) 1 ea MC PRN PRN PRN Reason: PROTOCOL Stop: 08/16/18 17:05 Miscellaneous (Probiotic Screen) 1 ea MC PRN PRN PRN Reason: PROTOCOL Stop: 08/17/18 09:32 Morphine Sulfate (Morphine) 2 mg IVP Q4H PRN PRN Reason: Pain (Severe) Stop: 08/26/18 09:59 Last Admin: 06/28/18 05:05 Dose: 2 mg Nystatin (Mycostatin Cream) 1 appl TP BID [facility] Stop: 08/17/18 08:59 Last Admin: 06/27/18 17:49 Dose: 1 appl Ondansetron HCl (Zofran) 4 mg IV Q6H PRN PRN Reason: Nausea / Vomiting Stop: 08/25/18 08:03 Last Admin: 06/26/18 11:12 Dose: 4 mg Petrolatum (Vaseline Oint) 1 appl TP DAILY [facility] Stop: 08/17/18 08:59 Last Admin: 06/27/18 09:43 Dose: 1 appl Sucralfate (Carafate) 1 gm GT QID [facility] Stop: 08/17/18 08:59 Last Admin: 06/27/18 20:52 Dose: 1 gm General: Alert, No acute distress HEENT: Atraumatic Neck: Supple, Other (INTACT TRACH) Cardiovascular: Regular rate Lungs: Normal air movement Abdomen: Bowel sounds, Soft, Other (INTACT GT) Extremities: no Clubbing, no Cyanosis, no Edema Assessment/Plan - Problem List Patient Problems: All Active Problems MALFUNCTIONING GASTRIC FEEDING TUBE/RASH (Acute) - Assessment Assessment: Current Active Problems Problem Status Onset MALFUNCTIONING GASTRIC FEEDING TUBE/RASH Acute Gtube site cellulitis +MRSA +Pseudomonas Cellulitis and induration around g tube site in a man who is dependent on tube feeds. 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 Anemia with hematocrit of 25. Thrombocytosis of 722k. COPD Nicotine addiction. prerenal azotemia improved - Plan Plan: continue IV antibiotics per ID will continue home meds. keep NPO tolerating gtube feeding and meds off TPN may be discharged back to SNF if okay with consultants. Nutritional Asmnt/Malnutr-PDOC - Dietary Evaluation Malnutrition Findings (Please click <Entered> for more info): Nutritional Asmnt/Malnutrition Start: 06/18/18 12: 01 Text: Status: Complete Freq: Protocol: Document 06/18/18 12:01 NICKI (Rec: 06/18/18 12:27 NICKI REGINE- [email or web address]) Nutritional Asmnt/Malnutrition Patient General Information Nutritional Screening High Risk Diagnosis Malfunction G-Tube Pertinent Medical Hx/Surgical Hx CHRONIC RESPIRATORY FAILURE, MALIGNANT NEOPLASM OF TONGUE, CHRONIC RHINITIS, TRACHEOSTOMY , GASTRIC FEEDING TUBE, CHRONIC BRONCHITIS, [facility] ANTICOAGULANTS Subjective Information Patient was admitted from SNF with H&P "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 Per nursing, patient with G-tube in place, however states MD wants to wait to start feeding. Current Diet Order/ Nutrition Support NPO Patient / S.O Not Indicated Pertinent Medications dulxolax, D5-0.45NS @ 50 ml/hr , colace, iron, folate, culturelle, MOM, Abx Pertinent Labs (06/18) albumin 2.9 ( decreasing) Nutritional Hx/Data Height 1.68 m Height (Calculated Centimeters) 167.6 Current Weight (lbs) 47.174 kg Weight (Calculated Kilograms) 47.2 Weight (Calculated Grams) 06929.6 [place] Body Weight 142 % [place] Body Weight 73 Body Mass Index (BMI) 16.7 Recent Weight Change No Weight Status Underweight GI Symptoms GI Symptoms None Last BM none noted since admission Difficult in: None Food Allergies No Cultural/Ethnic/Jewish Belief none indicated Usual diet at home Jevity 1.2 Bolus 4 cans daily (1 can 9am, 1p, 5p, 10p), with 100ml free water flush every 6 hours. This provides 948ml total volume, 1137 kcal, 52 gm protein, 1165ml free water. Skin Integrity/Comment: Bryan 18, reddened stoma/g- tube site, rash/reddened back Estimated Nutritional Goals BEE in Kcals: Using Current wt Calories/Kcals/Kg 35-40 kcal/kg using CBW 47.2 ( cancer, low BMI) Kcals Calculated ~5205-8049 kcal/day Protein: Using Current wt Protein g/k.5-2 gm/kg (cancer, muscle wasting) Protein Calculated 70-95 gm/day Fluid: ml ~7217-8244 ml/day Nutritional Problem 1. Problem Problem Inadequate energy intake related to Etiology withholding tube feeding due to malfunction G-tube without initiation of alternate nutrition support aeb Signs/Symptoms: NPO status Intervention/Recommendation Comments 1. Restart tube feeding once medically appropriate; recommend bolus feeding Jevity 1.2 375 ml 4 times a day ( previous feeding schedule 9am, 1p, 5p, 10p). This provides 1500ml, 1800 kcal, 82 gm protein. 2. If unable to restart tube feeding, consider Parenteral nutrition. Expected Outcomes/Goals Expected Outcomes/Goals Meets >75% of nutrient needs, weight increase toward ideal body weight, improved skin integrity
[2018-06-28] MEDS ORDERED: Multivitamin w/ Minerals Tab GT SCH (09:00)
[2018-06-28] MEDS: Lactobacillus Rhamnosus GG 15 Billion CFU CAP.SPRINK PO SCH (09:12)
[2018-06-28] MEDS: Petrolatum (White) Oint 0.6 Oz Tube TP SCH (09:12)
[2018-06-28] MEDS: Ferrous Sulfate 300 MG/5 ML UDC GT SCH (09:12)
[2018-06-28] MEDS: Chlorhexidine Gluconate 0.12% 480mL Bottle MM SCH (09:13)
[2018-06-28] MEDS: Enoxaparin 40 mg/0.4 mL 0.4mL Syr SUBQ SCH (09:13)
[2018-06-28] MEDS: Nystatin Cream 100,000 u/gm Cream 15 gm TP SCH (09:13)
[2018-06-28] MEDS: Fluticasone Propionate Nasal 1 SPR SPR NS SCH (09:14)
--- NOTE | 2018-06-28 09:24 | GI Progress Note ---
Subjective - Review of Systems Service Date: 06/28/18 Subjective: GI NOTE EVENTS NOTED. MARGO GT FEEDS AT GOAL RATE. Objective - Results Result Diagrams: 06/28/18 05:15 06/28/18 05:15 Recent Labs: Laboratory Last Values WBC 7.0 Th/cmm (4.8-10.8) 06/28/18 05:15 RBC 2.58 Mil/cmm (4.30-5.70) L 06/28/18 05:15 Hgb 7.9 gm/dL (12-16) L* 06/28/18 05:15 Hct 23.9 % (41.0-60) L 06/28/18 05:15 MCV 92.5 fl (80-99) 06/28/18 05:15 MCH 30.7 pg (26.0-30.0) H 06/28/18 05:15 MCHC Differential 33.2 pg (28.0-36.0) 06/28/18 05:15 RDW 16.0 % (11.5-20.0) 06/28/18 05:15 Plt Count 391 Th/cmm (150-400) 06/28/18 05:15 MPV 6.7 fl 06/28/18 05:15 Add Manual Diff YES 06/28/18 05:15 Neutrophils % BATH STEWARD/STEWARDESS 06/28/18 05:15 Band Neutrophils % 4 % (0-10) 06/28/18 05:15 Lymphocytes % BATH STEWARD/STEWARDESS 06/28/18 05:15 Monocytes % BATH STEWARD/STEWARDESS 06/28/18 05:15 Eosinophils % BATH STEWARD/STEWARDESS 06/28/18 05:15 Basophils % BATH STEWARD/STEWARDESS 06/28/18 05:15 Neutrophils (Manual) 80 % (40-80) 06/28/18 05:15 Lymphocytes 7 % (20-50) L 06/28/18 05:15 Monocytes 6 % (2-10) 06/28/18 05:15 Eosinophils 3 % (0-5) 06/28/18 05:15 Basophils 2 % (0-3) 06/25/18 06:10 Platelet Estimate ADEQUATE (NORMAL) 06/28/18 05:15 Ovalocytes 1+ 06/26/18 06:34 PT 10.3 SECONDS (9.5-11.5) 06/23/18 05:49 INR 0.99 (0.5-1.4) 06/23/18 05:49 Sodium 136 mEq/L (136-145) 06/28/18 05:15 Potassium 4.1 mEq/L (3.5-5.1) 06/28/18 05:15 Chloride 101 mEq/L (98-107) 06/28/18 05:15 Carbon Dioxide 29.8 mEq/L (21.0-31.0) 06/28/18 05:15 Anion Gap 9.3 (7.0-16.0) 06/28/18 05:15 BUN 20 mg/dL (7-25) 06/28/18 05:15 Creatinine 0.4 mg/dL (0.7-1.3) L 06/28/18 05:15 Est GFR ( Amer) > 60.0 ml/min (>90) 06/28/18 05:15 Est GFR (Non-Af Amer) > 60.0 ml/min 06/28/18 05:15 BUN/Creatinine Ratio 50.0 06/28/18 05:15 Glucose 125 mg/dL (70-105) H 06/28/18 05:15 POC Glucose 122 MG/DL (70 - 105) H 06/28/18 05:17 Calcium 8.8 mg/dL (8.6-10.3) 06/28/18 05:15 Phosphorus 3.2 mg/dL (2.5-5.0) 06/27/18 05:10 Magnesium 1.9 mg/dL (1.9-2.7) 06/27/18 05:10 Iron 36 ug/dL (38-169) L 06/18/18 06:30 TIBC 198 ug/dL (250-450) L 06/18/18 06:30 Iron Saturation 18 % (15-55) 06/18/18 06:30 Unsaturated IBC 162 ug/dL (111-343) 06/18/18 06:30 Ferritin 304 ng/mL (30-400) 06/19/18 09:16 Total Bilirubin 0.2 mg/dL (0.3-1.0) L 06/28/18 05:15 AST 11 U/L (13-39) L 06/28/18 05:15 ALT 8 U/L (7-52) 06/28/18 05:15 Alkaline Phosphatase 49 U/L (34-104) 06/28/18 05:15 Total Protein 5.7 gm/dL (6.0-8.3) L 06/28/18 05:15 Albumin 2.5 gm/dL (4.2-5.5) L 06/28/18 05:15 Globulin 3.2 gm/dL 06/28/18 05:15 Albumin/Globulin Ratio 0.8 (1.0-1.8) L 06/28/18 05:15 Prealbumin 10 mg/dL (10-36) 06/27/18 05:10 Triglycerides 28 mg/dL (<150) 06/27/18 05:10 Cholesterol 92 mg/dL (<200) 06/27/18 05:10 Urine Source CLEAN C 06/17/18 19:05 Urine Color YELLOW 06/17/18 19:05 Urine Clarity HAZY (CLEAR) 06/17/18 19:05 Urine pH 7.5 (4.6 - 8.0) 06/17/18 19:05 Ur Specific [place] 1.015 (1.005-1.030) 06/17/18 19:05 Urine Protein NEGATIVE mg/dL (NEGATIVE) 06/17/18 19:05 Urine Glucose (UA) NEGATIVE mg/dL (NEGATIVE) 06/17/18 19:05 Urine Ketones 40 mg/dL (NEGATIVE) H 06/17/18 19:05 Urine Blood LARGE (NEGATIVE) H 06/17/18 19:05 Urine Nitrate NEGATIVE (NEGATIVE) 06/17/18 19:05 Urine Bilirubin NEGATIVE (NEGATIVE) 06/17/18 19:05 Urine Urobilinogen 0.2 E.U./dL (0.2 - 1.0) 06/17/18 19:05 Ur Leukocyte Esterase NEGATIVE (NEGATIVE) 06/17/18 19:05 Urine RBC NONE SEEN /hpf (0-5) 06/17/18 19:05 Urine WBC 2-5 /hpf (0-5) 06/17/18 19:05 Ur Epithelial Cells NONE SEEN /lpf (FEW) 06/17/18 19:05 Urine Bacteria FEW /hpf (NONE SEEN) 06/17/18 19:05 Vancomycin Trough 15.6 ug/mL (5-10) H 06/26/18 07:57 - Physical Exam Vitals and I&O: Vital Signs Temp 98.5 F 06/28/18 09:01 Pulse 80 01/08/19 09:01 Resp 17 06/28/18 09:01 BP 125/60 06/28/18 09:01 Pulse Ox 100 06/28/18 09:01 Intake & Output 06/27/18 06/28/18 06/28/18 18:59 06:59 18:59 Intake Total 350 1650 Output Total 1800 Balance 350 -150 Weight (lbs) 50.349 kg 50.349 kg Intake: Intake, IV Amount 350 350 Cefepime 2 gm In Dextrose 100 100 5% 100 ml @ 100 mls/hr IV Q12HR [facility] Rx#: [id number] Vancomycin HCl 1 gm In 250 250 Sodium Chloride 0.9% 250 ml @ 165 mls/hr IV Q12HR@ 0900,2100 [facility] Rx#: [id number] Tube Feeding 1000 Other 300 Output: Urine 1800 Stool 0 Other: # Bowel Movements 0 Weight Source Bedscale Bedscale Active Medications: Current Medications Acetaminophen (Tylenol 650mg/20.3ml Suspension) 650 mg GT Q6H PRN PRN Reason: BREAKTRHOUGH PAIN OR TEMP >101 Stop: 08/17/18 06:46 Acetaminophen/Hydrocodone Bitart ([place] 10 Mg/325 Mg) 1 tab GT Q6H PRN PRN Reason: PAIN (MODERATE) Stop: 08/19/18 08:59 Last Admin: 06/28/18 00:18 Dose: 1 tab Acetaminophen/Hydrocodone Bitart ([place] 5mg/325mg) 1 tab GT Q6H PRN PRN Reason: MILD PAIN Stop: 08/19/18 08:59 Last Admin: 06/27/18 13:06 Dose: 1 tab Albuterol/Ipratropium (Duoneb Neb) 3 ml HHN Q6HRT [facility] Stop: 08/17/18 06:59 Last Admin: 06/28/18 07:18 Dose: 3 ml Bisacodyl (Dulcolax 10 Mg Supp) 10 mg RC DAILY PRN PRN Reason: Constipation Stop: 08/17/18 06:34 Last Admin: 06/19/18 17:27 Dose: 10 mg Chlorhexidine Gluconate (Peridex) 15 ml MM BID [facility] Stop: 08/17/18 08:59 Last Admin: 06/28/18 09:13 Dose: 15 ml Docusate Sodium (Colace) 100 mg PO BID [facility] Stop: 08/17/18 08:59 Last Admin: 06/28/18 09:12 Dose: 100 mg Enoxaparin Sodium (Lovenox) 40 mg SUBQ DAILY [facility] Stop: 08/17/18 08:59 Last Admin: 06/28/18 09:13 Dose: 40 mg Ferrous Sulfate (Iron) 300 mg GT BID [facility] Stop: 08/17/18 08:59 Last Admin: 06/28/18 09:12 Dose: 300 mg Fluticasone Propionate (Flonase) 1 spr NS DAILY [facility] Stop: 08/17/18 08:59 Last Admin: 06/28/18 09:14 Dose: 1 spr Folic Acid (Folate) 1 mg GT DAILY [facility] Stop: 08/17/18 08:59 Last Admin: 06/28/18 09:12 Dose: 1 mg Cefepime HCl 2 gm/ Dextrose 100 mls @ 100 mls/hr IV Q12HR [facility] Stop: 08/21/18 20:59 Last Admin: 06/28/18 09:14 Dose: 100 mls/hr Vancomycin HCl 1 gm/ Sodium (Chloride) 250 mls @ 165 mls/hr IV Q12HR@0900,2100 [facility] Stop: 08/26/18 12:59 Last Infusion: 06/27/18 22:23 Dose: Infused Insulin Aspart (Novolog Insulin Sliding Scale) 0 units SUBQ Q6HR [facility]; Protocol Stop: 08/19/18 11:59 Last Admin: 06/28/18 05:43 Dose: Not Given Lactobacillus Rhamnosus (Culturelle 15b) 1 each PO DAILY [facility] Stop: 08/17/18 13:59 Last Admin: 06/28/18 09:12 Dose: 1 each Magnesium Hydroxide (Milk Of Magnesia) 30 ml GT DAILY PRN PRN Reason: Constipation Stop: 08/17/18 06:34 Miscellaneous (Vancomycin Iv Per Pharmacy) 1 ea MC PRN PRN PRN Reason: VANCO PER RX Stop: 08/16/18 16:03 Miscellaneous (Vte Chemical Prophylaxis Screen/ Admission) 1 ea MC PRN PRN PRN Reason: PROTOCOL Stop: 08/16/18 17:05 Miscellaneous (Probiotic Screen) 1 ea MC PRN PRN PRN Reason: PROTOCOL Stop: 08/17/18 09:32 Morphine Sulfate (Morphine) 2 mg IVP Q4H PRN PRN Reason: Pain (Severe) Stop: 08/26/18 09:59 Last Admin: 06/28/18 05:05 Dose: 2 mg Nystatin (Mycostatin Cream) 1 appl TP BID [facility] Stop: 08/17/18 08:59 Last Admin: 06/28/18 09:13 Dose: 1 appl Ondansetron HCl (Zofran) 4 mg IV Q6H PRN PRN Reason: Nausea / Vomiting Stop: 08/25/18 08:03 Last Admin: 06/26/18 11:12 Dose: 4 mg Petrolatum (Vaseline Oint) 1 appl TP DAILY [facility] Stop: 08/17/18 08:59 Last Admin: 06/28/18 09:12 Dose: 1 appl Sucralfate (Carafate) 1 gm GT QID [facility] Stop: 08/17/18 08:59 Last Admin: 06/28/18 09:12 Dose: 1 gm General: Alert, No acute distress HEENT: Atraumatic Neck: Supple, Other (INTACT TRACH) Cardiovascular: Regular rate Lungs: Normal air movement Abdomen: Bowel sounds, Soft, Other (INTACT GT) Extremities: no Clubbing, no Cyanosis, no Edema Assessment/Plan - Problem List Patient Problems: All Active Problems MALFUNCTIONING GASTRIC FEEDING TUBE/RASH (Acute) - Assessment Assessment: IMPRESSION: 1. G tube malfunction. 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 GC fistula closed primarily, but EGD with GT insertion not feasible due to closed jaw. 3. s/p surgical GT insertion 06/24/18. 4. 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 RECS: -post op care; GT feeds and meds as tolerated. -Oncology f/u for known cecal mass on PET scan which he and oncologist have known about and they have a plan in place. [facility].
[2018-06-28] MEDS: Hydrocodone/APAP 5mg/325mg Tab GT PRN (11:03)
--- NOTE | 2018-06-28 16:10 | General Progress Note ---
Subjective - Review of Systems Service Date: 06/28/18 Subjective: G. tube placed on iv TPN right picc line Objective - Results Result Diagrams: 06/28/18 05:15 06/28/18 05:15 Recent Labs: Laboratory Last Values WBC 7.0 Th/cmm (4.8-10.8) 06/28/18 05:15 RBC 2.58 Mil/cmm (4.30-5.70) L 06/28/18 05:15 Hgb 7.9 gm/dL (12-16) L* 06/28/18 05:15 Hct 23.9 % (41.0-60) L 06/28/18 05:15 MCV 92.5 fl (80-99) 06/28/18 05:15 MCH 30.7 pg (26.0-30.0) H 06/28/18 05:15 MCHC Differential 33.2 pg (28.0-36.0) 06/28/18 05:15 RDW 16.0 % (11.5-20.0) 06/28/18 05:15 Plt Count 391 Th/cmm (150-400) 06/28/18 05:15 MPV 6.7 fl 06/28/18 05:15 Add Manual Diff YES 06/28/18 05:15 Neutrophils % COREMAKER EXPERIMENTAL 06/28/18 05:15 Band Neutrophils % 4 % (0-10) 06/28/18 05:15 Lymphocytes % COREMAKER EXPERIMENTAL 06/28/18 05:15 Monocytes % COREMAKER EXPERIMENTAL 06/28/18 05:15 Eosinophils % COREMAKER EXPERIMENTAL 06/28/18 05:15 Basophils % COREMAKER EXPERIMENTAL 06/28/18 05:15 Neutrophils (Manual) 80 % (40-80) 06/28/18 05:15 Lymphocytes 7 % (20-50) L 06/28/18 05:15 Monocytes 6 % (2-10) 06/28/18 05:15 Eosinophils 3 % (0-5) 06/28/18 05:15 Basophils 2 % (0-3) 06/25/18 06:10 Platelet Estimate ADEQUATE (NORMAL) 06/28/18 05:15 Ovalocytes 1+ 06/26/18 06:34 PT 10.3 SECONDS (9.5-11.5) 06/23/18 05:49 INR 0.99 (0.5-1.4) 06/23/18 05:49 Sodium 136 mEq/L (136-145) 06/28/18 05:15 Potassium 4.1 mEq/L (3.5-5.1) 06/28/18 05:15 Chloride 101 mEq/L (98-107) 06/28/18 05:15 Carbon Dioxide 29.8 mEq/L (21.0-31.0) 06/28/18 05:15 Anion Gap 9.3 (7.0-16.0) 06/28/18 05:15 BUN 20 mg/dL (7-25) 06/28/18 05:15 Creatinine 0.4 mg/dL (0.7-1.3) L 06/28/18 05:15 Est GFR ( Amer) > 60.0 ml/min (>90) 06/28/18 05:15 Est GFR (Non-Af Amer) > 60.0 ml/min 06/28/18 05:15 BUN/Creatinine Ratio 50.0 06/28/18 05:15 Glucose 125 mg/dL (70-105) H 06/28/18 05:15 POC Glucose 137 MG/DL (70 - 105) H 06/28/18 11:13 Calcium 8.8 mg/dL (8.6-10.3) 06/28/18 05:15 Phosphorus 3.2 mg/dL (2.5-5.0) 06/27/18 05:10 Magnesium 1.9 mg/dL (1.9-2.7) 06/27/18 05:10 Iron 36 ug/dL (38-169) L 06/18/18 06:30 TIBC 198 ug/dL (250-450) L 06/18/18 06:30 Iron Saturation 18 % (15-55) 06/18/18 06:30 Unsaturated IBC 162 ug/dL (111-343) 06/18/18 06:30 Ferritin 304 ng/mL (30-400) 06/19/18 09:16 Total Bilirubin 0.2 mg/dL (0.3-1.0) L 06/28/18 05:15 AST 11 U/L (13-39) L 06/28/18 05:15 ALT 8 U/L (7-52) 06/28/18 05:15 Alkaline Phosphatase 49 U/L (34-104) 06/28/18 05:15 Total Protein 5.7 gm/dL (6.0-8.3) L 06/28/18 05:15 Albumin 2.5 gm/dL (4.2-5.5) L 06/28/18 05:15 Globulin 3.2 gm/dL 06/28/18 05:15 Albumin/Globulin Ratio 0.8 (1.0-1.8) L 06/28/18 05:15 Prealbumin 10 mg/dL (10-36) 06/27/18 05:10 Triglycerides 28 mg/dL (<150) 06/27/18 05:10 Cholesterol 92 mg/dL (<200) 06/27/18 05:10 Urine Source CLEAN C 06/17/18 19:05 Urine Color YELLOW 06/17/18 19:05 Urine Clarity HAZY (CLEAR) 06/17/18 19:05 Urine pH 7.5 (4.6 - 8.0) 06/17/18 19:05 Ur Specific [place] 1.015 (1.005-1.030) 06/17/18 19:05 Urine Protein NEGATIVE mg/dL (NEGATIVE) 06/17/18 19:05 Urine Glucose (UA) NEGATIVE mg/dL (NEGATIVE) 06/17/18 19:05 Urine Ketones 40 mg/dL (NEGATIVE) H 06/17/18 19:05 Urine Blood LARGE (NEGATIVE) H 06/17/18 19:05 Urine Nitrate NEGATIVE (NEGATIVE) 06/17/18 19:05 Urine Bilirubin NEGATIVE (NEGATIVE) 06/17/18 19:05 Urine Urobilinogen 0.2 E.U./dL (0.2 - 1.0) 06/17/18 19:05 Ur Leukocyte Esterase NEGATIVE (NEGATIVE) 06/17/18 19:05 Urine RBC NONE SEEN /hpf (0-5) 06/17/18 19:05 Urine WBC 2-5 /hpf (0-5) 06/17/18 19:05 Ur Epithelial Cells NONE SEEN /lpf (FEW) 06/17/18 19:05 Urine Bacteria FEW /hpf (NONE SEEN) 06/17/18 19:05 Vancomycin Trough 15.6 ug/mL (5-10) H 06/26/18 07:57 - Physical Exam Vitals and I&O: Vital Signs Temp 98.9 F 06/28/18 15:45 Pulse 81 01/08/19 15:45 Resp 18 06/28/18 15:45 BP 118/61 06/28/18 15:45 Pulse Ox 96 06/28/18 15:45 Intake & Output 06/27/18 06/28/18 06/28/18 18:59 06:59 18:59 Intake Total 350 1650 Output Total 1800 Balance 350 -150 Weight (lbs) 50.349 kg 50.349 kg Intake: Intake, IV Amount 350 350 Cefepime 2 gm In Dextrose 100 100 5% 100 ml @ 100 mls/hr IV Q12HR [facility] Rx#: [id number] Vancomycin HCl 1 gm In 250 250 Sodium Chloride 0.9% 250 ml @ 165 mls/hr IV Q12HR@ 0900,2100 [facility] Rx#: [id number] Tube Feeding 1000 Other 300 Output: Urine 1800 Stool 0 Other: # Bowel Movements 0 Weight Source Bedscale Bedscale Active Medications: Current Medications Acetaminophen (Tylenol 650mg/20.3ml Suspension) 650 mg GT Q6H PRN PRN Reason: BREAKTRHOUGH PAIN OR TEMP >101 Stop: 08/17/18 06:46 Acetaminophen/Hydrocodone Bitart ([place] 10 Mg/325 Mg) 1 tab GT Q6H PRN PRN Reason: PAIN (MODERATE) Stop: 08/19/18 08:59 Last Admin: 06/28/18 00:18 Dose: 1 tab Acetaminophen/Hydrocodone Bitart ([place] 5mg/325mg) 1 tab GT Q6H PRN PRN Reason: MILD PAIN Stop: 08/19/18 08:59 Last Admin: 06/28/18 11:03 Dose: 1 tab Albuterol/Ipratropium (Duoneb Neb) 3 ml HHN Q6HRT [facility] Stop: 08/17/18 06:59 Last Admin: 06/28/18 12:26 Dose: 3 ml Bisacodyl (Dulcolax 10 Mg Supp) 10 mg RC DAILY PRN PRN Reason: Constipation Stop: 08/17/18 06:34 Last Admin: 06/19/18 17:27 Dose: 10 mg Chlorhexidine Gluconate (Peridex) 15 ml MM BID [facility] Stop: 08/17/18 08:59 Last Admin: 06/28/18 09:13 Dose: 15 ml Docusate Sodium (Colace) 100 mg PO BID [facility] Stop: 08/17/18 08:59 Last Admin: 06/28/18 09:12 Dose: 100 mg Enoxaparin Sodium (Lovenox) 40 mg SUBQ DAILY [facility] Stop: 08/17/18 08:59 Last Admin: 06/28/18 09:13 Dose: 40 mg Ferrous Sulfate (Iron) 300 mg GT BID [facility] Stop: 08/17/18 08:59 Last Admin: 06/28/18 09:12 Dose: 300 mg Fluticasone Propionate (Flonase) 1 spr NS DAILY [facility] Stop: 08/17/18 08:59 Last Admin: 06/28/18 09:14 Dose: 1 spr Folic Acid (Folate) 1 mg GT DAILY [facility] Stop: 08/17/18 08:59 Last Admin: 06/28/18 09:12 Dose: 1 mg Cefepime HCl 2 gm/ Dextrose 100 mls @ 100 mls/hr IV Q12HR [facility] Stop: 08/21/18 20:59 Last Admin: 06/28/18 09:14 Dose: 100 mls/hr Vancomycin HCl 1 gm/ Sodium (Chloride) 250 mls @ 165 mls/hr IV Q12HR@0900,2100 [facility] Stop: 08/26/18 12:59 Last Admin: 06/28/18 09:57 Dose: 165 mls/hr Insulin Aspart (Novolog Insulin Sliding Scale) 0 units SUBQ Q6HR [facility]; Protocol Stop: 08/19/18 11:59 Last Admin: 06/28/18 11:19 Dose: Not Given Lactobacillus Rhamnosus (Culturelle 15b) 1 each PO DAILY [facility] Stop: 08/17/18 13:59 Last Admin: 06/28/18 09:12 Dose: 1 each Magnesium Hydroxide (Milk Of Magnesia) 30 ml GT DAILY PRN PRN Reason: Constipation Stop: 08/17/18 06:34 Miscellaneous (Vancomycin Iv Per Pharmacy) 1 ea MC PRN PRN PRN Reason: VANCO PER RX Stop: 08/16/18 16:03 Miscellaneous (Vte Chemical Prophylaxis Screen/ Admission) 1 ea MC PRN PRN PRN Reason: PROTOCOL Stop: 08/16/18 17:05 Miscellaneous (Probiotic Screen) 1 ea MC PRN PRN PRN Reason: PROTOCOL Stop: 08/17/18 09:32 Morphine Sulfate (Morphine) 2 mg IVP Q4H PRN PRN Reason: Pain (Severe) Stop: 08/26/18 09:59 Last Admin: 06/28/18 05:05 Dose: 2 mg Nystatin (Mycostatin Cream) 1 appl TP BID [facility] Stop: 08/17/18 08:59 Last Admin: 06/28/18 09:13 Dose: 1 appl Ondansetron HCl (Zofran) 4 mg IV Q6H PRN PRN Reason: Nausea / Vomiting Stop: 08/25/18 08:03 Last Admin: 06/26/18 11:12 Dose: 4 mg Petrolatum (Vaseline Oint) 1 appl TP DAILY [facility] Stop: 08/17/18 08:59 Last Admin: 06/28/18 09:12 Dose: 1 appl Sucralfate (Carafate) 1 gm GT QID [facility] Stop: 08/17/18 08:59 Last Admin: 06/28/18 09:12 Dose: 1 gm General: Alert, No acute distress HEENT: Atraumatic Neck: Supple, Other (INTACT TRACH) Cardiovascular: Regular rate Lungs: Normal air movement Abdomen: Bowel sounds, Soft, Other (INTACT GT) Extremities: no Clubbing, no Cyanosis, no Edema - Procedures Procedures: Procedures Procedure Code Date INSERTION OF FEEDING DEVICE INTO STOMACH, ENDO [id number] 06/17/18 INSERTION OF FEEDING DEVICE INTO STOMACH, PERC ENDO APPROACH [id number] 06/17/18 Assessment/Plan - Problem List Patient Problems: All Active Problems MALFUNCTIONING GASTRIC FEEDING TUBE/RASH (Acute) - Assessment Assessment: The elevated platelet count is most likely reactive. The patient has concurrent anemia and anemia workup will be obtained. No interim specific intervention is required for the high platelet count. The patient has a report of possible cecal mass on PET scan done by the primary oncologist and this will be deferred to the primary oncologist for continued management. 06/19: ferritin pending. plt better. hgb lower. monitor 06/20: hgb lower. plt stable. ferritin pending. monitor for now. 06/28/18: hgb fluctuating. Anemia of chronic disease. Monitor hgb. dvt proph Nutritional Asmnt/Malnutr-PDOC - Dietary Evaluation Malnutrition Findings (Please click <Entered> for more info): Nutritional Asmnt/Malnutrition Start: 06/18/18 12: 01 Text: Status: Complete Freq: Protocol: Document 06/18/18 12:01 NICKI (Rec: 06/18/18 12:27 NICKI REGINE- [email or web address]) Nutritional Asmnt/Malnutrition Patient General Information Nutritional Screening High Risk Diagnosis Malfunction G-Tube Pertinent Medical Hx/Surgical Hx CHRONIC RESPIRATORY FAILURE, MALIGNANT NEOPLASM OF TONGUE, CHRONIC RHINITIS, TRACHEOSTOMY , GASTRIC FEEDING TUBE, CHRONIC BRONCHITIS, CORN POPPER ANTICOAGULANTS Subjective Information Patient was admitted from SNF with H&P "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 Per nursing, patient with G-tube in place, however states MD wants to wait to start feeding. Current Diet Order/ Nutrition Support NPO Patient / S.O Not Indicated Pertinent Medications dulxolax, D5-0.45NS @ 50 ml/hr , colace, iron, folate, culturelle, MOM, Abx Pertinent Labs (06/18) albumin 2.9 ( decreasing) Nutritional Hx/Data Height 1.68 m Height (Calculated Centimeters) 167.6 Current Weight (lbs) 47.174 kg Weight (Calculated Kilograms) 47.2 Weight (Calculated Grams) 05275.6 [place] Body Weight 142 % [place] Body Weight 73 Body Mass Index (BMI) 16.7 Recent Weight Change No Weight Status Underweight GI Symptoms GI Symptoms None Last BM none noted since admission Difficult in: None Food Allergies No Cultural/Ethnic/Confucianism Belief none indicated Usual diet at home Jevity 1.2 Bolus 4 cans daily (1 can 9am, 1p, 5p, 10p), with 100ml free water flush every 6 hours. This provides 948ml total volume, 1137 kcal, 52 gm protein, 1165ml free water. Skin Integrity/Comment: Bryan 18, reddened stoma/g- tube site, rash/reddened back Estimated Nutritional Goals BEE in Kcals: Using Current wt Calories/Kcals/Kg 35-40 kcal/kg using CBW 47.2 ( cancer, low BMI) Kcals Calculated ~1092-2590 kcal/day Protein: Using Current wt Protein g/k.5-2 gm/kg (cancer, muscle wasting) Protein Calculated 70-95 gm/day Fluid: ml ~2150-7617 ml/day Nutritional Problem 1. Problem Problem Inadequate energy intake related to Etiology withholding tube feeding due to malfunction G-tube without initiation of alternate nutrition support aeb Signs/Symptoms: NPO status Intervention/Recommendation Comments 1. Restart tube feeding once medically appropriate; recommend bolus feeding Jevity 1.2 375 ml 4 times a day ( previous feeding schedule 9am, 1p, 5p, 10p). This provides 1500ml, 1800 kcal, 82 gm protein. 2. If unable to restart tube feeding, consider Parenteral nutrition. Expected Outcomes/Goals Expected Outcomes/Goals Meets >75% of nutrient needs, weight increase toward ideal body weight, improved skin integrity
--- NOTE | 2018-06-29 02:16 | Infectious Disease Prog Note ---
Infectious Disease Subjective - Review of Systems Service Date: 06/28/18 Subjective: cc g tube infection hpi- cx noted rosno fevr o/e vss chest vesicular abd soft cellulituis ext pulse dx g tube infection june hernandez plan vanco maxipime Vital Signs - 24 hr 06/28/18 06/28/18 06/28/18 04:00 07:20 08:00 Temp 98.9 F HR 77 80 RR 18 20 17 BP 129/70 O2 Sat % 95 96 06/28/18 06/28/18 06/28/18 09:01 11:41 12:26 Temp 98.5 F 98.9 F HR 80 81 79 RR 17 18 20 BP 125/60 118/61 O2 Sat % 100 95 97 06/28/18 06/28/18 15:45 16:15 Temp 98.9 F 98.4 F HR 81 80 RR 18 18 BP 118/61 121/70 O2 Sat % 96 96 Microbiology 06/18/18 19:00 Blood - Final NO GROWTH AFTER 5 DAYS 06/18/18 18:44 Blood - Final NO GROWTH AFTER 5 DAYS 06/19/18 04:00 Abdomen - Final 06/19/18 04:00 Abdomen Aerobic Culture - Final Staph Aureus-Mrsa Isolated Pseudomonas Aeruginosa 06/17/18 17:20 Nares - Final Staph Aureus-Mrsa Isolated Diagnoses PSEUDOMONAS (MALLEI) CAUSING DISEASES CLASSD ELSWHR (06/17/18) ANEMIA, UNSPECIFIED (06/17/18) THROMBOCYTOPENIA, UNSPECIFIED (06/17/18) NICOTINE DEPENDENCE, CIGARETTES, W UNSP DISORDERS (06/17/18) CHRONIC OBSTRUCTIVE PULMONARY DISEASE, UNSPECIFIED (06/17/18) GASTROSTOMY MALFUNCTION (06/17/18) CELLULITIS OF ABDOMINAL WALL (06/17/18) EXTRARENAL UREMIA (06/17/18) WEAKNESS (06/17/18) PERSONAL HISTORY OF MALIGNANT NEOPLASM OF TONGUE (06/17/18) Infectious Disease Objective - Results Result Diagrams: 06/28/18 05:15 06/28/18 05:15 Recent Labs: Laboratory Last Values WBC 7.0 Th/cmm (4.8-10.8) 06/28/18 05:15 RBC 2.58 Mil/cmm (4.30-5.70) L 06/28/18 05:15 Hgb 7.9 gm/dL (12-16) L* 06/28/18 05:15 Hct 23.9 % (41.0-60) L 06/28/18 05:15 MCV 92.5 fl (80-99) 06/28/18 05:15 MCH 30.7 pg (26.0-30.0) H 06/28/18 05:15 MCHC Differential 33.2 pg (28.0-36.0) 06/28/18 05:15 RDW 16.0 % (11.5-20.0) 06/28/18 05:15 Plt Count 391 Th/cmm (150-400) 06/28/18 05:15 MPV 6.7 fl 06/28/18 05:15 Add Manual Diff YES 06/28/18 05:15 Neutrophils % STEAM PRESS TENDER 06/28/18 05:15 Band Neutrophils % 4 % (0-10) 06/28/18 05:15 Lymphocytes % STE[employer] PRESS TENDER 06/28/18 05:15 Monocytes % STEAM PRESS TENDER 06/28/18 05:15 Eosinophils % STEAM PRESS TENDER 06/28/18 05:15 Basophils % STEAM PRESS TENDER 06/28/18 05:15 Neutrophils (Manual) 80 % (40-80) 06/28/18 05:15 Lymphocytes 7 % (20-50) L 06/28/18 05:15 Monocytes 6 % (2-10) 06/28/18 05:15 Eosinophils 3 % (0-5) 06/28/18 05:15 Basophils 2 % (0-3) 06/25/18 06:10 Platelet Estimate ADEQUATE (NORMAL) 06/28/18 05:15 Ovalocytes 1+ 06/26/18 06:34 PT 10.3 SECONDS (9.5-11.5) 06/23/18 05:49 INR 0.99 (0.5-1.4) 06/23/18 05:49 Sodium 136 mEq/L (136-145) 06/28/18 05:15 Potassium 4.1 mEq/L (3.5-5.1) 06/28/18 05:15 Chloride 101 mEq/L (98-107) 06/28/18 05:15 Carbon Dioxide 29.8 mEq/L (21.0-31.0) 06/28/18 05:15 Anion Gap 9.3 (7.0-16.0) 06/28/18 05:15 BUN 20 mg/dL (7-25) 06/28/18 05:15 Creatinine 0.4 mg/dL (0.7-1.3) L 06/28/18 05:15 Est GFR ( Amer) > 60.0 ml/min (>90) 06/28/18 05:15 Est GFR (Non-Af Amer) > 60.0 ml/min 06/28/18 05:15 BUN/Creatinine Ratio 50.0 06/28/18 05:15 Glucose 125 mg/dL (70-105) H 06/28/18 05:15 POC Glucose 137 MG/DL (70 - 105) H 06/28/18 11:13 Calcium 8.8 mg/dL (8.6-10.3) 06/28/18 05:15 Phosphorus 3.2 mg/dL (2.5-5.0) 06/27/18 05:10 Magnesium 1.9 mg/dL (1.9-2.7) 06/27/18 05:10 Iron 36 ug/dL (38-169) L 06/18/18 06:30 TIBC 198 ug/dL (250-450) L 06/18/18 06:30 Iron Saturation 18 % (15-55) 06/18/18 06:30 Unsaturated IBC 162 ug/dL (111-343) 06/18/18 06:30 Ferritin 304 ng/mL (30-400) 06/19/18 09:16 Total Bilirubin 0.2 mg/dL (0.3-1.0) L 06/28/18 05:15 AST 11 U/L (13-39) L 06/28/18 05:15 ALT 8 U/L (7-52) 06/28/18 05:15 Alkaline Phosphatase 49 U/L (34-104) 06/28/18 05:15 Total Protein 5.7 gm/dL (6.0-8.3) L 06/28/18 05:15 Albumin 2.5 gm/dL (4.2-5.5) L 06/28/18 05:15 Globulin 3.2 gm/dL 06/28/18 05:15 Albumin/Globulin Ratio 0.8 (1.0-1.8) L 06/28/18 05:15 Prealbumin 10 mg/dL (10-36) 06/27/18 05:10 Triglycerides 28 mg/dL (<150) 06/27/18 05:10 Cholesterol 92 mg/dL (<200) 06/27/18 05:10 Urine Source CLEAN C 06/17/18 19:05 Urine Color YELLOW 06/17/18 19:05 Urine Clarity HAZY (CLEAR) 06/17/18 19:05 Urine pH 7.5 (4.6 - 8.0) 06/17/18 19:05 Ur Specific [place] 1.015 (1.005-1.030) 06/17/18 19:05 Urine Protein NEGATIVE mg/dL (NEGATIVE) 06/17/18 19:05 Urine Glucose (UA) NEGATIVE mg/dL (NEGATIVE) 06/17/18 19:05 Urine Ketones 40 mg/dL (NEGATIVE) H 06/17/18 19:05 Urine Blood LARGE (NEGATIVE) H 06/17/18 19:05 Urine Nitrate NEGATIVE (NEGATIVE) 06/17/18 19:05 Urine Bilirubin NEGATIVE (NEGATIVE) 06/17/18 19:05 Urine Urobilinogen 0.2 E.U./dL (0.2 - 1.0) 06/17/18 19:05 Ur Leukocyte Esterase NEGATIVE (NEGATIVE) 06/17/18 19:05 Urine RBC NONE SEEN /hpf (0-5) 06/17/18 19:05 Urine WBC 2-5 /hpf (0-5) 06/17/18 19:05 Ur Epithelial Cells NONE SEEN /lpf (FEW) 06/17/18 19:05 Urine Bacteria FEW /hpf (NONE SEEN) 06/17/18 19:05 Vancomycin Trough 15.6 ug/mL (5-10) H 06/26/18 07:57 - Physical Exam Vitals and I&O: Vital Signs Temp 98.4 F 06/28/18 16:15 Pulse 80 06/28/18 16:15 Resp 18 06/28/18 16:15 BP 121/70 06/28/18 16:15 Pulse Ox 96 06/28/18 16:15 Intake & Output 06/28/18 06/28/18 06/29/18 06:59 18:59 06:59 Intake Total 1650 400 Output Total 1800 100 Balance -150 300 Weight (lbs) 50.349 kg 52.163 kg Intake: Intake, IV Amount 350 Cefepime 2 gm In Dextrose 100 5% 100 ml @ 100 mls/hr IV Q12HR [facility] Rx#: [id number] Vancomycin HCl 1 gm In 250 Sodium Chloride 0.9% 250 ml @ 165 mls/hr IV Q12HR@ 0900,2100 [facility] Rx#: [id number] Tube Feeding 1000 400 Other 300 Output: Urine 1800 Stool 0 Emesis 100 Other: # Voids 4 # Bowel Movements 0 0 Weight Source Bedscale Bedscale - Procedures Procedures: Procedures Procedure Code Date INSERTION OF FEEDING DEVICE INTO STOMACH, ENDO [id number] 06/17/18 INSERTION OF FEEDING DEVICE INTO STOMACH, PERC ENDO APPROACH [id number] 06/17/18 Nutritional Asmnt/Malnutr-PDOC - Dietary Evaluation Malnutrition Findings (Please click <Entered> for more info): Nutritional Asmnt/Malnutrition Start: 06/18/18 12: 01 Text: Status: Complete Freq: Protocol: Document 06/18/18 12:01 NICKI (Rec: 06/18/18 12:27 MMRICARDO WEINER- [email or web address]) Nutritional Asmnt/Malnutrition Patient General Information Nutritional Screening High Risk Diagnosis Malfunction G-Tube Pertinent Medical Hx/Surgical Hx CHRONIC RESPIRATORY FAILURE, MALIGNANT NEOPLASM OF TONGUE, CHRONIC RHINITIS, TRACHEOSTOMY , GASTRIC FEEDING TUBE, CHRONIC BRONCHITIS, 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 Per nursing, patient with G-tube in place, however states MD wants to wait to start feeding. Current Diet Order/ Nutrition Support NPO Patient / S.O Not Indicated Pertinent Medications dulxolax, D5-0.45NS @ 50 ml/hr , colace, iron, folate, culturelle, MOM, Abx Pertinent Labs (06/18) albumin 2.9 ( decreasing) Nutritional Hx/Data Height 1.68 m Height (Calculated Centimeters) 167.6 Current Weight (lbs) 47.174 kg Weight (Calculated Kilograms) 47.2 Weight (Calculated Grams) 35752.6 [place] Body Weight 142 % [place] Body Weight 73 Body Mass Index (BMI) 16.7 Recent Weight Change No Weight Status Underweight GI Symptoms GI Symptoms None Last BM none noted since admission Difficult in: None Food Allergies No Cultural/Ethnic/Yazidi Belief none indicated Usual diet at home Jevity 1.2 Bolus 4 cans daily (1 can 9am, 1p, 5p, 10p), with 100ml free water flush every 6 hours. This provides 948ml total volume, 1137 kcal, 52 gm protein, 1165ml free water. Skin Integrity/Comment: Bryan 18, reddened stoma/g- tube site, rash/reddened back Estimated Nutritional Goals BEE in Kcals: Using Current wt Calories/Kcals/Kg 35-40 kcal/kg using CBW 47.2 ( cancer, low BMI) Kcals Calculated ~7442-6877 kcal/day Protein: Using Current wt Protein g/k.5-2 gm/kg (cancer, muscle wasting) Protein Calculated 70-95 gm/day Fluid: ml ~9063-4839 ml/day Nutritional Problem 1. Problem Problem Inadequate energy intake related to Etiology withholding tube feeding due to malfunction G-tube without initiation of alternate nutrition support aeb Signs/Symptoms: NPO status Intervention/Recommendation Comments 1. Restart tube feeding once medically appropriate; recommend bolus feeding Jevity 1.2 375 ml 4 times a day ( previous feeding schedule 9am, 1p, 5p, 10p). This provides 1500ml, 1800 kcal, 82 gm protein. 2. If unable to restart tube feeding, consider Parenteral nutrition. Expected Outcomes/Goals Expected Outcomes/Goals Meets >75% of nutrient needs, weight increase toward ideal body weight, improved skin integrity
--- NOTE | 2018-06-29 19:34 | Discharge Summary ---
DATE OF DISCHARGE: 06/28/2018 PRELIMINARY DIAGNOSES: 1. Cellulitis and induration around the G-tube site. 2. 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 3. Right lung metastasis per CT scan. 4. Possible cecal cancer per PET scan on 04/07/2018. 5. Anemia. 6. Thrombocytosis. 7. Chronic obstructive pulmonary disease. 8. Nicotine dependency. DISCHARGE DIAGNOSES: 1. Status post G-tube placement. 2. Cellulitis of the G-tube site positive for MRSA and positive for pseudomonas. 3. 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 4. Right lung metastasis per CT scan. 5. Possible cecal cancer per PET scan on 03/2018. 6. Anemia. 7. Thrombocytosis. 8. Chronic obstructive pulmonary disease. 9. Nicotine dependency. 10. Prerenal azotemia, now resolved. BRIEF HISTORY OF PRESENT ILLNESS: This is a 63-year-old male who presents to [facility] ER from detention [facility] for induration and cellulitis at the G-tube site noted by the nursing staff at the facility. The patient recently underwent treatment for head and neck cancer of the tongue and also of the floor of the mouth. The patient had part of his mouth resected along with his tongue in April of this past year, underwent a pectoralis flap as well as a left forearm free flap. The patient also underwent a postop radiation. The patient's initial lab work done in the ER showed a white count of 5.8, hemoglobin of 8.4, hematocrit of 25.1, platelets of 722,000. Sodium was 135, potassium 3.9, BUN 16, creatinine 0.5, glucose 107. The patient's G-tube site was noted to be indurated with serosanguineous discharge. Culture was sent along with sensitivities. The patient was subsequently admitted for IV antibiotic treatment. HOSPITAL COURSE: The patient was seen and evaluated by GI, see dictated report as well as gis manager/oncologist, see dictated report as well as ID, see dictated report. The patient initially was treated with IV vancomycin until the sensitivities came back positive for both MRSA and pseudomonas. Antibiotics were managed by ID and adjusted accordingly. The patient initially was to have a PEG placement; however, during the course of his procedure, the patient was unable to tolerate the PEG placement and a surgical consult was ordered. Dr. Patel was able to put in a gastrostomy tube, see dictated report for further details. The patient, however, was on TPN until the G-tube site healed and procedure for new gastrostomy tube was placed. The patient was then restarted on G-tube feeding and TPN was then titrated off. The patient tolerated, G-tube feeding along with medication and was then subsequently discharged and transferred [facility] to detention facility for continued care. The patient was to follow up with his oncologist at [facility] for further evaluation and treatment of both the cecal mass noted on his PET scan and the lung mass that was noted on the CT scan. JOB# [id number]
== END 2018-06-28 17:00 | DRG 252 ==
LOC: ER 11:10 → MSI 15:17
PROVIDERS: ADMIT Family Medicine; ATTEND Family Medicine
PROC: 02HV33Z Insertion of Infusion Device into Superior Vena Cava, Percutaneous Approach (ICD-10-PCS; 2018-06-18)
PROC: 3E0436Z Introduction of Nutritional Substance into Central Vein, Percutaneous Approach (ICD-10-PCS; 2018-06-20)
PROC: 0CJYXZZ Inspection of Mouth and Throat, External Approach (ICD-10-PCS; 2018-06-23)
PROC: 0DH63UZ Insertion of Feeding Device into Stomach, Percutaneous Approach (ICD-10-PCS; principal; 2018-06-24)
DX: K94.22 Gastrostomy infection (principal); D69.6 Thrombocytopenia, unspecified; C78.01 Secondary malignant neoplasm of right lung; R13.10 Dysphagia, unspecified; L03.311 Cellulitis of abdominal wall; B95.62 Methicillin resistant Staphylococcus aureus infection as the cause of diseases classified elsewhere; B96.5 Pseudomonas (aeruginosa) (mallei) (pseudomallei) as the cause of diseases classified elsewhere; J44.9 Chronic obstructive pulmonary disease, unspecified; F17.219 Nicotine dependence, cigarettes, with unspecified nicotine-induced disorders; Y83.8 Other surgical procedures as the cause of abnormal reaction of the patient, or of later complication, without mention of misadventure at the time of the procedure; Y92.89 Other specified places as the place of occurrence of the external cause; C01 Malignant neoplasm of base of tongue; D63.8 Anemia in other chronic diseases classified elsewhere; K63.9 Disease of intestine, unspecified
CPT/HCPCS: 36415-UA; 71045-TC; 74000-TC; 80048-TC; 80053-TC; 80202-TC; 81001-TC; 82465-TC; 82728-90; 82948-90; 83540-90; 83550-90; 83735-TC; 84100-TC; 84134-90; 84478-TC; 85007-TC; 85025-TC; 85610-TC; 87070-90; 90799; 93005; 94640; 94760; 96372; A4217; J0692; J1644; J1650; J1815; J2270; J2405; J2704; J2710; J2930; J3010; J3370; J3475; J3480; J7040; X5716; X6026; X6258; X6598; X7704; Z7506; Z7508; Z7610

== ENCOUNTER 2018-08-02 12:52 | Inpatient (IN) | payer MEDICAID ==
[2018-08-02 14:11] LABS: RED CELL DISTRIBUTION WIDTH 16.7 % (11.5-20.0)
[2018-08-02 14:13] LABS: ALB/GLOB RATIO 0.8 (1.0-1.8); ALBUMIN 2.9 gm/dL (4.2-5.5); ALKALINE PHOSPHATASE 62 U/L (34-104); ANION GAP 10.7 (7.0-16.0); BILIRUBIN,TOTAL 0.2 mg/dL (0.3-1.0); BUN - UREA NITROGEN 20 mg/dL (7-25); CALCIUM SERUM 10.1 mg/dL (8.6-10.3); CARBON DIOXIDE 33.2 mEq/L (21.0-31.0); CHLORIDE 92 mEq/L (98-107); CREATININE - SERUM 0.5 mg/dL (0.7-1.3); CREATININE KINASE 16 U/L (30-223); GFR AFRICAN-AMERICAN > 60.0 ml/min (>90); GFR NON AFRICAN-AMERICAN > 60.0 ml/min; GLUCOSE 143 mg/dL (70-105); POTASSIUM SERUM 3.9 mEq/L (3.5-5.1); SGOT 9 U/L (13-39); SGPT/ALT 7 U/L (7-52); SODIUM SERUM 132 mEq/L (136-145); TOTAL PROTEIN,SERUM 6.7 gm/dL (6.0-8.3)
[2018-08-02 14:18] LABS: MEAN CELL VOLUME 84.8 fl (80-99); MEAN PLATELET VOLUME 6.5 fl; PLATELET COUNT 696 Th/cmm (150-400); RED BLOOD COUNT 2.34 Mil/cmm (4.30-5.70); WHITE BLOOD COUNT 11.2 Th/cmm (4.8-10.8)
[2018-08-02 14:19] LABS: INR 1.07 (0.5-1.4); PROTHROMBIN TIME (TEST) 11.1 SECONDS (9.5-11.5)
[2018-08-02 14:23] LABS: HEMOGLOBIN 6.6 gm/dL (12-16); TROP I < 0.01 ng/mL (0.01-0.05)
[2018-08-02 14:24] LABS: HEMATOCRIT 19.8 % (41.0-60)
[2018-08-02] MEDS ORDERED: Morphine Sulfate 2 mg/mL 1mL Syr IV STA (14:34)
[2018-08-02] MEDS ORDERED: Levofloxacin 500mg/100mL 500 MG/100 ML BAG IV ONE ×2 (14:42→14:52)
--- NOTE | 2018-08-02 14:52 | ED Physician Chart ---
ED Chief Complaint/HPI - Patient Information Date Seen:: 08/02/18 Time Seen:: 13:00 Chief Complaint:: ALOC History of Present Illness:: onset x 2 days of ALOC with abnormal lab tests today; no report of trauma, LOC, S/T, H/As, neck pain, C/P, SOB, Abd. Pain, A/N/V/D/C, fever, chills, bleeding, or urinary s/s Allergies:: Allergies Allergy/AdvReac Type Severity Reaction Status Date / Time No Known Allergies Allergy Verified 06/17/18 11:21 Vitals:: Vital Signs - 8 hr 08/02/18 13:13 Temp 99.8 F HR 104 RR 18 BP 116/66 O2 Sat % 99 Historian:: Patient, EMS Review:: Nurse's Note Reviewed, Old Chart Reviewed, EMS run form Reviewed ED Review of Systems - Review of Systems General/Constitutional: Fever, No chills, No weight loss, Weakness, No diaphoresis, No edema, No loss of appetite Skin: No skin lesions, No rash, No bruising Head: No headache, No light-headedness Eyes: No loss of vision, No pain, No diplopia ENT: No earache, No nasal drainage, No sore throat, No tinnitus Neck: No neck pain, No swelling, No thyromegaly, No stiffness, No mass noted Cardio Vascular: No chest pain, No palpitations, No PND, No orthopnea, No edema Pulmonary: SOB, Cough, No sputum, No wheezing GI: Nausea, Vomiting, Diarrhea, Pain, No melena, No hematochezia, No constipation, No hematemesis G/U: No dysuria, No frequency, No hematuria, No nacturia Musculoskeletal: No bone or joint pain, No back pain, No muscle pain Endocrine: No polyuria, No polydipsia Psychiatric: No prior psych history, No depression, No anxiety, No suicidal ideation, No homicidal ideation, No auditory hallucination, No visual hallucination Hematopoietic: No bruising, No lymphadenopathy Allergic/Immuno: No urticaria, No angioedema Neurological: No syncope, No focal symptoms, Weakness, No paresthesia, No headache, No seizure, Dizziness, Confusion, Vertigo ED Past Medical History - Past Medical History Obtainable: Yes Past Medical History: HTN, Asthma/COPD, DVT/PE, Dyslipidemia, PUD/GERD Family History: HTN Social History: Non Smoker, No Alcohol, No Drug Use, , Care Facility Surgical History: PEG/GTube, other (Tracheostomy) Psychiatricy History: None Medication: Reviewed Family Medical History - Family Member Mother History Unknown: Yes ED Physical Exam - Physical Examination General/Constitutional: Awake, Well-developed, well-nourished, Alert, No distress, GCS 15, Non-toxic appearing, Ambulatory Head: Atraumatic Eyes: Lids, conjuctiva normal, PERRL, EOMI Skin: Nl inspection, No rash, No skin lesions, No ecchymosis, Well hydrated, No lymphadenopathy ENMT: External ears, nose nl, TM canals nl, Nasal exam nl, Lips, teeth, gums nl , Oropharynx nl, Tonsils nl Neck: Nontender, Full ROM w/o pain, No JVD, No nuchal rigidity, No bruit, No mass, No stridor Respiratory: Nl effort/Exclusion Other Respiratory comments:: Lungs: + Rales and Rhonchi Cardio Vascular: RRR, No murmur, gallop, rubs, NL S1 S2, Carotid/Femoral/Distal pulses equal bilaterally GI: No tenderness/rebounding/guarding, No organomegaly, No hernia, Normal BS's, Nondistended, No mass/bruits, No McBurney tenderness, Rectum exam nl Other GI comments:: no pulsatile masses; Rectal Exam: + Melena; Stool sent to Lab for Occult Blood : No CVA tenderness Extremities: No tenderness or effusion, Full ROM, normal strength in all extremities, No edema, Normal digits & nails Neuro/Psych: Alert/oriented, DTR's symmetric, Normal sensory exam, Normal motor strength, Judgement/insight normal, Mood normal, Normal gait, No focal deficits Misc: Normal back, No paraspinal tenderness ED Labs/Radiology/EKG Results - Lab Results Results: Laboratory Tests 08/02/18 08/02/18 08/02/18 13:35 13:35 13:35 WBC 11.2 H RBC 2.34 L Hgb 6.6 L* Hct 19.8 L* MCV 84.8 MCH 28.0 MCHC Differential 33.0 RDW 16.7 Plt Count 696 H MPV 6.5 Neutrophils % 87.8 H Lymphocytes % 3.9 L Monocytes % 7.3 Eosinophils % 0.5 Basophils % 0.5 PT 11.1 INR 1.07 PTT (Actin FS) 34.7 Sodium 132 L Potassium 3.9 Chloride 92 L Carbon Dioxide 33.2 H Anion Gap 10.7 BUN 20 Creatinine 0.5 L Est GFR ( Amer) > 60.0 Est GFR (Non-Af Amer) > 60.0 BUN/Creatinine Ratio 40.0 Glucose 143 H Whole Bld Lactic Acid Calcium 10.1 Total Bilirubin 0.2 L AST 9 L ALT 7 Alkaline Phosphatase 62 Creatine Kinase 16 L Troponin I Total Protein 6.7 Albumin 2.9 L Globulin 3.8 Albumin/Globulin Ratio 0.8 L 08/02/18 13:35 WBC RBC Hgb Hct MCV MCH MCHC Differential RDW Plt Count MPV Neutrophils % Lymphocytes % Monocytes % Eosinophils % Basophils % PT INR PTT (Actin FS) Sodium Potassium Chloride Carbon Dioxide Anion Gap BUN Creatinine Est GFR ( Amer) Est GFR (Non-Af Amer) BUN/Creatinine Ratio Glucose Whole Bld Lactic Acid 1.50 Calcium Total Bilirubin AST ALT Alkaline Phosphatase Creatine Kinase Troponin I < 0.01 L Total Protein Albumin Globulin Albumin/Globulin Ratio Comments:: Reviewed - Radiology Results Comments:: CXR: refused by pt - EKG Interpretations EKG Time:: 13:48 Rate & Rhythm: 92; NSR Comments:: non-specific st-t changes ED Septic Shock - . Is Septic Shock (SBP<90, OR Lactate>4 mmol\L) present?: No - <6hrs of presentation: Vital Signs: Vital Signs - 8 hr 08/02/18 13:13 Temp 99.8 F HR 104 RR 18 BP 116/66 O2 Sat % 99 ED Reassessment (Disposition) - Reassessment Reassessment Condition:: Improved - Diagnosis Diagnosis:: Melena; Anemia; GI Bleed; Weakness; Dizziness; Vertigo; Leukocytosis; Sepsis; PNA; Hyponatremia; Hypoalbuminemia; Tachycardia; - Aftercare/Follow up Instructions Aftercare/Follow-Up Instructions:: Counseled pt regarding lab results/diagnosis & need follow up, Counseled pt & family regarding lab results/diagnosis & need follow up - Patient Disposition Discharge/Transfer:: Acute Care w/in this hosp Accepting Physician:: Dr. Meehan Time Called:: 1500 Time Responded:: 15:00 Admitted to:: Telemetry Spoke to:: Dr. Meehan Admitting Medical Physician:: Dr. Meehan Condition at Disposition:: Stable, Improved
[2018-08-02] MEDS ORDERED: Morphine Sulfate 2 mg/mL 1mL Syr ONE ×2 (14:53→19:56)
[2018-08-02 17:34] LABS: URINE SOURCE MIDSTREAM
[2018-08-02 17:41] LABS: URINE BILIRUBIN NEGATIVE (NEGATIVE); URINE BLOOD LARGE (NEGATIVE); URINE GLUCOSE (UA) NEGATIVE (NEGATIVE); URINE KETONE NEGATIVE (NEGATIVE); URINE LEUKOCYTE ESTERASE TRACE (NEGATIVE); URINE MICROSCOPIC INDICATED? YES; URINE NITRATE NEGATIVE (NEGATIVE); URINE PH 6.5 (4.6 - 8.0); URINE PROTEIN TRACE mg/dL (NEGATIVE); URINE UROBILINOGEN 0.2 E.U./dL (0.2 - 1.0)
[2018-08-02 19:51] LABS: URINE CLARITY CLEAR (CLEAR); URINE COLOR YELLOW
[2018-08-02 19:55] LABS: URINE BACTERIA FEW /hpf (NONE SEEN); URINE EPITHELIAL CELLS OCCASIONAL /lpf (FEW); URINE WBC 0-2 /hpf (0-5)
[2018-08-02] MEDS ORDERED: Morphine Sulfate 2 mg/mL 1mL Syr IVP ONE (19:55)
[2018-08-02 20:10] LABS: LYMPHOCYTE 7 % (20-50); MONOCYTE 7 % (2-10); NEUTROPHILS 86 % (40-80)
[2018-08-02 21:35] LABS: LYMPHOCYTE 7 % (20-50); MONOCYTE 7 % (2-10); NEUTROPHILS 86 % (40-80)
[2018-08-03] MEDS: Hydrocodone/APAP 5mg/325mg Tab GT PRN ×3 (04:28→21:02)
[2018-08-03 06:26] LABS: HEMATOCRIT 24.9 % (41.0-60); MEAN CELL VOLUME 84.4 fl (80-99); MEAN CORPUSCULAR HEMOGLOBIN 27.3 pg (26.0-30.0); MEAN CORPUSCULAR HGB CONC 32.3 pg (28.0-36.0); MEAN PLATELET VOLUME 6.5 fl; PLATELET COUNT 673 Th/cmm (150-400); RED BLOOD COUNT 2.95 Mil/cmm (4.30-5.70); RED CELL DISTRIBUTION WIDTH 15.6 % (11.5-20.0); WHITE BLOOD COUNT 11.3 Th/cmm (4.8-10.8)
[2018-08-03 07:52] LABS: BAND NEUTROPHILE 3 % (0-10); BASOPHIL 0 % (0-3); EOSINOPHIL 0 % (0-5); LYMPHOCYTE 4 % (20-50); MONOCYTE 7 % (2-10); NEUTROPHILS 86 % (40-80)
[2018-08-03 07:53] LABS: PLATELET ESTIMATE INCREASED PLATELETS (NORMAL)
--- NOTE | 2018-08-03 08:26 | History and Physical ---
History of Present Illness - HPI Chief Complaint: severe anemia HPI: 63y/o male who presents to [facility] ER from [facility] for abnormal labwork done at [facility]. hgb 6.8 hct 22.9. Was subsequently transferred here for blood transfusion and evaluation of anemia. Patient has no history of hemoptysis , hematemesis. stool guaic was inconclusive due to poor sample size. He was subsequently given one unit of pRBC's. PMH includes Chronic Respiratory Failure on mechanical vent support, Malignant neoplasm of the tongue, s/p tracheostomy, Gastrostomy tube placement for nutritional support, chronic rhinitis, generalized muscle weakness. Patient was subsequently admitted for further evaluation and treatment. Initial labwork revealed the following... ED Labs/Radiology/EKG Results - Lab Results Results: Laboratory Tests 08/02/18 08/02/18 08/02/18 13:35 13:35 13:35 WBC 11.2 H RBC 2.34 L Hgb 6.6 L* Hct 19.8 L* MCV 84.8 MCH 28.0 MCHC Differential 33.0 RDW 16.7 Plt Count 696 H MPV 6.5 Neutrophils % 87.8 H Lymphocytes % 3.9 L Monocytes % 7.3 Eosinophils % 0.5 Basophils % 0.5 PT 11.1 INR 1.07 PTT (Actin FS) 34.7 Sodium 132 L Potassium 3.9 Chloride 92 L Carbon Dioxide 33.2 H Anion Gap 10.7 BUN 20 Creatinine 0.5 L Est GFR ( Amer) > 60.0 Est GFR (Non-Af Amer) > 60.0 BUN/Creatinine Ratio 40.0 Glucose 143 H Whole Bld Lactic Acid Calcium 10.1 Total Bilirubin 0.2 L AST 9 L ALT 7 Alkaline Phosphatase 62 Creatine Kinase 16 L Troponin I Total Protein 6.7 Albumin 2.9 L Globulin 3.8 Albumin/Globulin Ratio 0.8 L 08/02/18 13:35 WBC RBC Hgb Hct MCV MCH MCHC Differential RDW Plt Count MPV Neutrophils % Lymphocytes % Monocytes % Eosinophils % Basophils % PT INR PTT (Actin FS) Sodium Potassium Chloride Carbon Dioxide Anion Gap BUN Creatinine Est GFR ( Amer) Est GFR (Non-Af Amer) BUN/Creatinine Ratio Glucose Whole Bld Lactic Acid 1.50 Calcium Total Bilirubin AST ALT Alkaline Phosphatase Creatine Kinase Troponin I < 0.01 L Total Protein Albumin Globulin Albumin/Globulin Ratio Vital Signs: Last Vital Signs Temp 99.2 F 08/03/18 04:00 Pulse 99 08/03/18 07:03 Resp 18 08/03/18 07:03 BP 125/86 08/03/18 04:00 Pulse Ox 100 08/03/18 07:03 Past Medical History Cardiovascular: Report: No Pertinent Hx Pulmonary: Report: COPD, Other (s/p tracheostomy) BLOCK SORTER: Report: No Pertinent Hx GI: Report: Other (history of malignant neoplasm of the tongue) Psych: Report: No Pertinent Hx Musculoskeletal: Report: No Pertinent Hx Rheumatologic: Report: No pertinent Hx Infectious Disease: Report: No Pertinent Hx Renal/: Report: No Pertinent Hx Endocrine: Report: No Pertinent Hx Dermatology: Report: No Pertinent Hx - Past Surgical History Past Surgical History: Other (s/p gastrostomy tube placement, s/p tracheostomy placement.) Family Medical History - Family Member Mother History Unknown: Yes Social History Smoke: No Alcohol: None Drugs: None Lives: [facility] - Medications Home Medications: Home Medication Medication Instructions Recorded Type Acetaminophen [Tylenol] 650 mg GT Q6H PRN 06/17/18 History Bisacodyl [Dulcolax 10 Mg Supp] 10 mg RC DAILY PRN 06/17/18 History Chlorhexidine Gluconate [Peridex] 15 ml MM BID 06/17/18 History Docusate Sodium [Colace] 100 mg GT BID 06/17/18 History Enoxaparin [Lovenox] 40 mg SUBQ DAILY 06/17/18 History Ferrous Sulfate 330 mg GT TID 06/17/18 History Fluticasone Propionate Nasal 1 spr NS DAILY 06/17/18 History [Flonase] Folic Acid [Folate*] 1 mg GT DAILY 06/17/18 History Hydrocodone/Acetaminophen [Hycet 30 ml GT Q6H PRN 06/17/18 History 7.5 mg-325 mg/15 ml Soln] Hydrocodone/Acetaminophen 30 ml GT Q6H PRN 06/17/18 History [Hydrocodon-Acetamin 7.5-325/15] Hydrocodone/Acetaminophen 15 ml GT Q6H PRN 06/17/18 History [Hydrocodone-Acetamn 7.5-325/15] Sucralfate [Carafate] 10 ml GT BID 06/17/18 History Multivitamin w/ Minerals 1 tab GT DAILY tab 06/28/18 Rx [Theragran M] Ascorbic Acid 500 mg GT DAILY 08/02/18 History Lactobacillus Rhamnosus GG 15B 2 each GT TID 08/02/18 History [Culturelle 15B] Magnesium Hydroxide [Milk of 30 ml GT DAILY PRN 08/02/18 History Magnesia] Ondansetron HCl [Zofran*] 4 mg GT Q6H PRN 08/02/18 History - Allergies Allergies/Adverse Reactions: Allergies Allergy/AdvReac Type Severity Reaction Status Date / Time No Known Allergies Allergy Verified 06/17/18 11:21 Review of Systems - Review of Systems Constitutional: Report: No Significant Eyes: Report: No Significant ENT: Report: No Significant Respiratory: Report: No Significant Cardiovascular: Report: No Significant Gastrointestinal: Report: No Significant Genitourinary: Report: No Significant Musculoskeletal: Report: No Significant Skin: Report: No Significant Neurological: Report: No Significant Physical Exam - Physical Exam HEENT: Report: Other (s/p glossotomy secondary to malignant neoplasm) Neck: Report: Tracheostomy site noted to be clean Cardiovascular Systems: Report: +s1/s2 noted, Regular, Rate and Rhythm Respiratory: Report: Breath Sounds are within normal limits Abdomen: Report: Non-tender to palpation, Tender to palpation Back: Report: Inspection of back is within normal limits. Extremities: Report: Non-tender to palpation. Skin: Report: Color of skin is within normal limits, Warm Neuro/Psych: Report: Mood affect is within normal limits, A+Ox3 - Lab Results All Lab Results last 24 hours: Laboratory Results - last 24 hr 08/02/18 08/02/18 08/02/18 13:35 13:35 13:35 WBC 11.2 H RBC 2.34 L Hgb 6.6 L* Hct 19.8 L* MCV 84.8 MCH 28.0 MCHC Differential 33.0 RDW 16.7 Plt Count 696 H MPV 6.5 Add Manual Diff YES Neutrophils % PLATE GLASS INSTALLER HELPER Band Neutrophils % Lymphocytes % PLATE GLASS INSTALLER HELPER Monocytes % PLATE GLASS INSTALLER HELPER Eosinophils % PLATE GLASS INSTALLER HELPER Basophils % PLATE GLASS INSTALLER HELPER Neutrophils (Manual) 86 H Lymphocytes 7 L Monocytes 7 Eosinophils Basophils Platelet Estimate PT 11.1 INR 1.07 PTT (Actin FS) 34.7 Sodium 132 L Potassium 3.9 Chloride 92 L Carbon Dioxide 33.2 H Anion Gap 10.7 BUN 20 Creatinine 0.5 L Est GFR ( Amer) > 60.0 Est GFR (Non-Af Amer) > 60.0 BUN/Creatinine Ratio 40.0 Glucose 143 H Whole Bld Lactic Acid Calcium 10.1 Total Bilirubin 0.2 L AST 9 L ALT 7 Alkaline Phosphatase 62 Creatine Kinase 16 L Troponin I Total Protein 6.7 Albumin 2.9 L Globulin 3.8 Albumin/Globulin Ratio 0.8 L Urine Source Urine Color Urine Clarity Urine pH Ur Specific [place] Urine Protein Urine Glucose (UA) Urine Ketones Urine Blood Urine Nitrate Urine Bilirubin Urine Urobilinogen Ur Leukocyte Esterase Urine RBC Urine WBC Ur Epithelial Cells Urine Bacteria Blood Type Antibody Screen Crossmatch 08/02/18 08/02/18 08/02/18 13:35 13:35 14:54 WBC RBC Hgb Hct MCV MCH MCHC Differential RDW Plt Count MPV Add Manual Diff Neutrophils % Band Neutrophils % Lymphocytes % Monocytes % Eosinophils % Basophils % Neutrophils (Manual) 86 H Lymphocytes 7 L Monocytes 7 Eosinophils Basophils Platelet Estimate PT INR PTT (Actin FS) Sodium Potassium Chloride Carbon Dioxide Anion Gap BUN Creatinine Est GFR ( Amer) Est GFR (Non-Af Amer) BUN/Creatinine Ratio Glucose Whole Bld Lactic Acid 1.50 Calcium Total Bilirubin AST ALT Alkaline Phosphatase Creatine Kinase Troponin I < 0.01 L Total Protein Albumin Globulin Albumin/Globulin Ratio Urine Source Urine Color Urine Clarity Urine pH Ur Specific [place] Urine Protein Urine Glucose (UA) Urine Ketones Urine Blood Urine Nitrate Urine Bilirubin Urine Urobilinogen Ur Leukocyte Esterase Urine RBC Urine WBC Ur Epithelial Cells Urine Bacteria Blood Type A POSITIVE Antibody Screen NEGATIVE Crossmatch See Detail 08/02/18 08/03/18 17:20 05:45 WBC 11.3 H RBC 2.95 L Hgb 8.0 L Hct 24.9 L MCV 84.4 MCH 27.3 MCHC Differential 32.3 RDW 15.6 Plt Count 673 H MPV 6.5 Add Manual Diff YES Neutrophils % Band Neutrophils % 3 Lymphocytes % Monocytes % Eosinophils % Basophils % Neutrophils (Manual) 86 H Lymphocytes 4 L Monocytes 7 Eosinophils 0 Basophils 0 Platelet Estimate INCREASED PLATELETS PT INR PTT (Actin FS) Sodium Potassium Chloride Carbon Dioxide Anion Gap BUN Creatinine Est GFR ( Amer) Est GFR (Non-Af Amer) BUN/Creatinine Ratio Glucose Whole Bld Lactic Acid Calcium Total Bilirubin AST ALT Alkaline Phosphatase Creatine Kinase Troponin I Total Protein Albumin Globulin Albumin/Globulin Ratio Urine Source [place] Urine Color YELLOW Urine Clarity CLEAR Urine pH 6.5 Ur Specific [place] 1.015 Urine Protein TRACE Urine Glucose (UA) NEGATIVE Urine Ketones NEGATIVE Urine Blood LARGE H Urine Nitrate NEGATIVE Urine Bilirubin NEGATIVE Urine Urobilinogen 0.2 Ur Leukocyte Esterase TRACE H Urine RBC 2-5 H Urine WBC 0-2 Ur Epithelial Cells OCCASIONAL Urine Bacteria FEW Blood Type Antibody Screen Crossmatch - Assessment Assessment: severe anemia Chronic Respiratory Failure on mechanical vent support Malignant neoplasm of the tongue s/p tracheostomy G-tube placement for nutritional support chronic rhinitis generalized muscle weakness - Plan Plan: will order GI consult type and screen for one unit packed RBC's and transfusion protonix 40mg IV daily repeat CBC tomorrow AM
[2018-08-03] MEDS ORDERED: Magnesium Hydroxide (MOM) 30 mL UDC GT PRN (08:33)
[2018-08-03] MEDS ORDERED: ACETAMINOPHEN GT PRN (08:33)
[2018-08-03] MEDS ORDERED: [UNRECOGNIZED DRUG - OTHER] GT PRN (08:33)
[2018-08-03] MEDS ORDERED: HYDROCODONE GT PRN (08:33)
[2018-08-03] MEDS ORDERED: Chlorhexidine Gluconate 0.12% 480mL Bottle MM SCH (09:00)
[2018-08-03] MEDS ORDERED: Hydrocodone/APAP 5mg/325mg Tab GT PRN ×2 (09:00)
[2018-08-03] MEDS: Ferrous Sulfate 300 MG/5 ML UDC GT SCH ×3 (09:30→21:02)
[2018-08-03] MEDS: Docusate Sodium 100 mg/10 mL UD GT SCH ×2 (09:30→16:30)
[2018-08-03] MEDS: Multivitamin w/ Minerals 15 mL UDC GT SCH (09:30)
[2018-08-03] MEDS: Enoxaparin 40 mg/0.4 mL 0.4mL Syr SUBQ SCH (09:55)
[2018-08-03] MEDS: Fluticasone Propionate Nasal 1 SPR SPR NS SCH (11:29)
[2018-08-03] MEDS: Chlorhexidine Gluconate 0.12% 480mL Bottle MM SCH ×2 (11:30→21:02)
[2018-08-03] MEDS: Lactobacillus Rhamnosus GG 15 Billion CFU CAP.SPRINK GT SCH ×2 (11:30→16:30)
--- NOTE | 2018-08-04 05:41 | Consultation ---
DATE OF CONSULTATION: 08/03/2018 INPATIENT GI CONSULTATION CONSULTING PHYSICIAN: Dr. Harris REASON FOR CONSULTATION: Anemia. HISTORY OF PRESENT ILLNESS: The patient is a 63-year-old male with past medical history significant for head and neck cancer, currently getting chemotherapy at [facility], admitted to the hospital from nursing facility for low hemoglobin level. The patient has a diagnosis of head and neck carcinoma, mainly of the tongue. He has a tracheostomy in place and receives chemotherapy at [facility] for this. He also has a G-tube for his feedings and nutritional support. It was noted that he had a low hemoglobin of 6.8 at the nursing facility and thus was brought into the ER for an evaluation. He has not had any bowel movements. There is no documented history or observation of active GI bleed with melena, hematochezia, or hematemesis. The residual from the G-tube is nonbloody noncoffee ground. The patient himself is voicing that he has not seen any evidence of GI bleeding. He is also mostly against having upper endoscopy even if there was evidence of an occult GI bleed. PAST MEDICAL HISTORY: Tongue cancer, currently on chemotherapy. PAST SURGICAL HISTORY: Placement of G-tube and a tracheostomy. FAMILY HISTORY: Noncontributory. SOCIAL HISTORY: The patient lives at a nursing facility. No documented history of alcoholism or illicit drug use. ALLERGIES: No known drug allergies. REVIEW OF SYSTEMS: A 12-point review of systems was performed with the patient and is negative other than the pertinent positives mentioned in the history of present illness. CURRENT MEDICATIONS: Include Tylenol, [place], vitamin C, Colace, Lovenox at prophylactic dosing, folate, lactobacillus, milk of magnesia, Protonix at daily dosing and Carafate. PHYSICAL EXAMINATION: VITAL SIGNS: Blood pressure is 129/67, pulse 91 beats per minute, respiratory rate of 18, temperature 98.3, oxygenation 97%. GENERAL: The patient is lying on his back. He is alert and oriented x 3. He is not in a good mood. HEAD, EARS, EYES, NOSE AND THROAT: Normocephalic, atraumatic appearing head. It should be noted that there is some bilateral swelling of both sides of his lower jaw as well as the neck. Otherwise pupils are equal and reactive. NECK: Aforementioned swelling bilaterally. There is a tracheostomy in place. CHEST: Mechanical breath sounds heard bilaterally. CARDIOVASCULAR: S1, S2 are present, tachycardic. ABDOMEN: Soft. There is a G-tube in place, clean, dry and intact. No guarding or rebound. EXTREMITIES: Venous stasis changes. No pitting edema. Pulses are not present. SKIN: There is no obvious jaundice. LABORATORY AND DIAGNOSTIC DATA: White blood cell count 11.2, hemoglobin 8.0, on admission was 6.6, platelet count 673. INR is 1.07. Sodium 132, BUN 20, creatinine 0.5, AST 9, ALT 7. No abdominal imaging has been performed. IMPRESSION: This is a 63-year-old male with history of head and neck cancer, on chemotherapy with tracheostomy and G-tube in place, admitted to the hospital for a low hemoglobin level. 1. Head and neck cancer, on chemo. 2. Anemia. DISCUSSION: Differential diagnosis for the patient's low hemoglobin level and anemia may be due to chemotherapy effect or GI bleeding or nutritional deficiencies. There is no obvious overt GI bleeding at the current time and the patient has not been having any bowel movements. In speaking with him, he is against any sort of endoscopic intervention at this point anyway and it would be a tussle for the patient to undergo EGD even if he was having melena. Thus, we can treat this conservatively with PPI using twice daily dosing and watch the hemoglobin level. There is no contraindication to starting the tube feeds at the current time since an EGD is not planned for today. RECOMMENDATIONS: 1. We will change the Protonix to twice a day as conservative dosing for any peptic ulcer. 2. Continue to trend hemoglobin, transfuse to keep above 7. 3. Continue the patient's outpatient followup for his head and neck cancer at [facility]. 4. Start the tube feeds. 5. If he has active GI bleeding as manifested by melena or hematemesis or hematochezia, we can revisit with the patient the idea of endoscopy again although at the current time he is against it. Thank you for allowing me to participate in his care. Please call me with any further questions. JOB# [id number]
[2018-08-04 06:44] LABS: HEMATOCRIT 26.2 % (41.0-60); HEMOGLOBIN 8.5 gm/dL (12-16); MEAN CELL VOLUME 85.3 fl (80-99); MEAN CORPUSCULAR HEMOGLOBIN 27.7 pg (26.0-30.0); MEAN CORPUSCULAR HGB CONC 32.5 pg (28.0-36.0); MEAN PLATELET VOLUME 6.2 fl; PLATELET COUNT 738 Th/cmm (150-400); RED BLOOD COUNT 3.07 Mil/cmm (4.30-5.70); RED CELL DISTRIBUTION WIDTH 15.9 % (11.5-20.0); WHITE BLOOD COUNT 13.3 Th/cmm (4.8-10.8)
[2018-08-04 07:52] LABS: BASOPHIL 0 % (0-3); EOSINOPHIL 0 % (0-5)
--- NOTE | 2018-08-04 08:18 | GI Progress Note ---
Subjective - Review of Systems Service Date: 08/04/18 Subjective: Some minor bleeding around the trach. No BM Objective - Results Result Diagrams: 08/04/18 06:20 08/02/18 13:35 Recent Labs: Laboratory Last Values WBC 13.3 Th/cmm (4.8-10.8) H 08/04/18 06:20 RBC 3.07 Mil/cmm (4.30-5.70) L 08/04/18 06:20 Hgb 8.5 gm/dL (12-16) L 08/04/18 06:20 Hct 26.2 % (41.0-60) L 08/04/18 06:20 MCV 85.3 fl (80-99) 08/04/18 06:20 MCH 27.7 pg (26.0-30.0) 08/04/18 06:20 MCHC Differential 32.5 pg (28.0-36.0) 08/04/18 06:20 RDW 15.9 % (11.5-20.0) 08/04/18 06:20 Plt Count 738 Th/cmm (150-400) H 08/04/18 06:20 MPV 6.2 fl 08/04/18 06:20 Add Manual Diff YES 08/04/18 06:20 Neutrophils % FISH BAILER 08/02/18 13:35 Band Neutrophils % 0 % (0-10) 08/04/18 06:20 Lymphocytes % FISH BAILER 08/02/18 13:35 Monocytes % FISH BAILER 08/02/18 13:35 Eosinophils % FISH BAILER 08/02/18 13:35 Basophils % FISH BAILER 08/02/18 13:35 Neutrophils (Manual) 80 % (40-80) 08/04/18 06:20 Lymphocytes 10 % (20-50) L 08/04/18 06:20 Monocytes 10 % (2-10) 08/04/18 06:20 Eosinophils 0 % (0-5) 08/04/18 06:20 Basophils 0 % (0-3) 08/04/18 06:20 Platelet Estimate INCREASED PLATELETS (NORMAL) 08/03/18 05:45 PT 11.1 SECONDS (9.5-11.5) 08/02/18 13:35 INR 1.07 (0.5-1.4) 08/02/18 13:35 PTT (Actin FS) 34.7 SECONDS (26.0-38.0) 08/02/18 13:35 Sodium 132 mEq/L (136-145) L 08/02/18 13:35 Potassium 3.9 mEq/L (3.5-5.1) 08/02/18 13:35 Chloride 92 mEq/L (98-107) L 08/02/18 13:35 Carbon Dioxide 33.2 mEq/L (21.0-31.0) H 08/02/18 13:35 Anion Gap 10.7 (7.0-16.0) 08/02/18 13:35 BUN 20 mg/dL (7-25) 08/02/18 13:35 Creatinine 0.5 mg/dL (0.7-1.3) L 08/02/18 13:35 Est GFR ( Amer) > 60.0 ml/min (>90) 08/02/18 13:35 Est GFR (Non-Af Amer) > 60.0 ml/min 08/02/18 13:35 BUN/Creatinine Ratio 40.0 08/02/18 13:35 Glucose 143 mg/dL (70-105) H 08/02/18 13:35 Whole Bld Lactic Acid 1.50 mmol/L (0.60-1.99) 08/02/18 13:35 Calcium 10.1 mg/dL (8.6-10.3) 08/02/18 13:35 Total Bilirubin 0.2 mg/dL (0.3-1.0) L 08/02/18 13:35 AST 9 U/L (13-39) L 08/02/18 13:35 ALT 7 U/L (7-52) 08/02/18 13:35 Alkaline Phosphatase 62 U/L (34-104) 08/02/18 13:35 Creatine Kinase 16 U/L (30-223) L 08/02/18 13:35 Troponin I < 0.01 ng/mL (0.01-0.05) L 08/02/18 13:35 Total Protein 6.7 gm/dL (6.0-8.3) 08/02/18 13:35 Albumin 2.9 gm/dL (4.2-5.5) L 08/02/18 13:35 Globulin 3.8 gm/dL 08/02/18 13:35 Albumin/Globulin Ratio 0.8 (1.0-1.8) L 08/02/18 13:35 Urine Source MIDSTREAM 08/02/18 17:20 Urine Color YELLOW 08/02/18 17:20 Urine Clarity CLEAR (CLEAR) 08/02/18 17:20 Urine pH 6.5 (4.6 - 8.0) 08/02/18 17:20 Ur Specific [place] 1.015 (1.005-1.030) 08/02/18 17:20 Urine Protein TRACE mg/dL (NEGATIVE) 08/02/18 17:20 Urine Glucose (UA) NEGATIVE mg/dL (NEGATIVE) 08/02/18 17:20 Urine Ketones NEGATIVE mg/dL (NEGATIVE) 08/02/18 17:20 Urine Blood LARGE (NEGATIVE) H 08/02/18 17:20 Urine Nitrate NEGATIVE (NEGATIVE) 08/02/18 17:20 Urine Bilirubin NEGATIVE (NEGATIVE) 08/02/18 17:20 Urine Urobilinogen 0.2 E.U./dL (0.2 - 1.0) 08/02/18 17:20 Ur Leukocyte Esterase TRACE (NEGATIVE) H 08/02/18 17:20 Urine RBC 2-5 /hpf (0-5) H 08/02/18 17:20 Urine WBC 0-2 /hpf (0-5) 08/02/18 17:20 Ur Epithelial Cells OCCASIONAL /lpf (FEW) 08/02/18 17:20 Urine Bacteria FEW /hpf (NONE SEEN) 08/02/18 17:20 Blood Type A POSITIVE 08/02/18 14:54 Antibody Screen NEGATIVE 08/02/18 14:54 Crossmatch See Detail 08/02/18 14:54 - Physical Exam Vitals and I&O: Vital Signs Temp 97.0 F 08/04/18 04:00 Pulse 92 08/04/18 04:00 Resp 18 08/04/18 04:00 BP 126/72 08/04/18 04:00 Pulse Ox 10 08/04/18 04:00 Intake & Output 08/03/18 08/04/18 08/04/18 18:59 06:59 18:59 Intake Total 1020 720 Output Total 400 400 Balance 620 320 Weight (lbs) 50.802 kg 50.802 kg Intake: Tube Feeding 720 720 Other 300 Output: Urine 400 400 Other: # Bowel Movements 0 Weight Source Estimated Bedscale Active Medications: Current Medications Acetaminophen (Tylenol 650mg/20.3ml Suspension) 650 mg GT Q6H PRN PRN Reason: PAIN OR TEMP >101 Acetaminophen/Hydrocodone Bitart ([place] 5mg/325mg) 1 tab GT Q6H PRN PRN Reason: Pain (Moderate) Stop: 10/02/18 02:26 Last Admin: 08/03/18 21:02 Dose: 1 tab Acetaminophen/Hydrocodone Bitart ([place] 5mg/325mg) 2 tab GT Q6H PRN PRN Reason: Pain (Severe) Stop: 10/02/18 08:59 Ascorbic Acid (Vitamin C) 500 mg GT DAILY [facility] Stop: 10/02/18 08:59 Last Admin: 08/03/18 09:30 Dose: 500 mg Bisacodyl (Dulcolax 10 Mg Supp) 10 mg RC DAILY PRN PRN Reason: Constipation Stop: 10/02/18 08:32 Chlorhexidine Gluconate (Peridex) 15 ml MM Q12HR MICHAEL Stop: 10/02/18 09:29 Last Admin: 08/03/18 21:02 Dose: 15 ml Docusate Sodium (Colace) 100 mg GT BID [facility] Stop: 10/02/18 08:59 Last Admin: 08/03/18 16:30 Dose: 100 mg Enoxaparin Sodium (Lovenox) 40 mg SUBQ DAILY [facility] Stop: 10/02/18 09:59 Last Admin: 08/03/18 09:55 Dose: Not Given Ferrous Sulfate (Iron) 300 mg GT TID MICHAEL Stop: 10/02/18 08:59 Last Admin: 08/03/18 21:02 Dose: 300 mg Fluticasone Propionate (Flonase) 1 spr NS DAILY [facility] Stop: 10/02/18 10:59 Last Admin: 08/03/18 11:29 Dose: 1 spr Folic Acid (Folate) 1 mg GT DAILY [facility] Stop: 10/02/18 08:59 Last Admin: 08/03/18 09:30 Dose: 1 mg Lactobacillus Rhamnosus (Culturelle 15b) 1 each GT BID MICHAEL Stop: 10/02/18 09:59 Last Admin: 08/03/18 16:30 Dose: 1 each Magnesium Hydroxide (Milk Of Magnesia) 30 ml GT DAILY PRN PRN Reason: Constipation Stop: 10/02/18 08:32 Multivitamins/Minerals (Theragran M) 15 ml GT DAILY MICHAEL Stop: 10/02/18 08:59 Last Admin: 08/03/18 09:30 Dose: 15 ml Ondansetron HCl (Zofran) 4 mg IV Q6H PRN PRN Reason: Nausea / Vomiting Stop: 10/02/18 08:32 Pantoprazole Sodium (Protonix) 40 mg IVP BID MICHAEL Stop: 10/02/18 16:59 Last Admin: 08/03/18 16:30 Dose: 40 mg Sucralfate (Carafate) 1 gm GT BID MICHAEL Stop: 10/02/18 08:59 Last Admin: 08/03/18 16:30 Dose: 1 gm General: Alert, Oriented x3 HEENT: Atraumatic Neck: Supple Cardiovascular: Regular rate Abdomen: Bowel sounds, Soft, Other (g tube c/d/i), no Tender, no Hepatomegaly, no Distended, no Rebound, no Mass - Procedures Procedures: Procedures Procedure Code Date INSERTION OF FEEDING DEVICE INTO STOMACH, PERC APPROACH [id number] 06/17/18 INSERTION OF INFUSION DEV INTO SUP VENA CAVA, PERC APPROACH [id number] 06/17/18 INSPECTION OF MOUTH AND THROAT, EXTERNAL APPROACH [id number] 06/17/18 INTRODUCTION OF NUTRITIONAL INTO CENTRAL VEIN, PERC APPROACH [id number] 06/17/18 RESPIRATORY VENTILATION, LESS THAN 24 CONSECUTIVE HOURS [id number] 08/02/18 TRANSFUSE NONAUT FROZEN PLASMA IN PERIPH VEIN, PERC [id number] 08/02/18 Assessment/Plan - Assessment Assessment: # Anemia # Tongue malignancy, on chemo # Dysphagia with G tube No obvious GI bleed, no melena. Source of anemia may be from chemotherapy, or even blood loss around his tumor and trach site. Given that the pt is adamantly against endoscopy, and there is no obvious bleed, it is reasonable to treat conservatively with PPI therapy and forego EGD at this time. Plan: - ppi bid for 6 weeks, then switch to daily - trend hgb - cont tube feeding at goal rate - cont chemotherapy with US - trach site care - EGD if he develops melena or overt bleeding
--- NOTE | 2018-08-04 08:20 | General Progress Note ---
Subjective - Review of Systems Service Date: 08/04/18 Subjective: Patient is awake, alert, no acute distress. vitals stable. hemoglobin improved to 8.5 this AM. Objective - Results Result Diagrams: 08/04/18 06:20 08/02/18 13:35 Recent Labs: Laboratory Last Values WBC 13.3 Th/cmm (4.8-10.8) H 08/04/18 06:20 RBC 3.07 Mil/cmm (4.30-5.70) L 08/04/18 06:20 Hgb 8.5 gm/dL (12-16) L 08/04/18 06:20 Hct 26.2 % (41.0-60) L 08/04/18 06:20 MCV 85.3 fl (80-99) 08/04/18 06:20 MCH 27.7 pg (26.0-30.0) 08/04/18 06:20 MCHC Differential 32.5 pg (28.0-36.0) 08/04/18 06:20 RDW 15.9 % (11.5-20.0) 08/04/18 06:20 Plt Count 738 Th/cmm (150-400) H 08/04/18 06:20 MPV 6.2 fl 08/04/18 06:20 Add Manual Diff YES 08/04/18 06:20 Neutrophils % AQUATIC BIOLOGIST 08/02/18 13:35 Band Neutrophils % 0 % (0-10) 08/04/18 06:20 Lymphocytes % AQUATIC BIOLOGIST 08/02/18 13:35 Monocytes % AQUATIC BIOLOGIST 08/02/18 13:35 Eosinophils % AQUATIC BIOLOGIST 08/02/18 13:35 Basophils % AQUATIC BIOLOGIST 08/02/18 13:35 Neutrophils (Manual) 80 % (40-80) 08/04/18 06:20 Lymphocytes 10 % (20-50) L 08/04/18 06:20 Monocytes 10 % (2-10) 08/04/18 06:20 Eosinophils 0 % (0-5) 08/04/18 06:20 Basophils 0 % (0-3) 08/04/18 06:20 Platelet Estimate INCREASED PLATELETS (NORMAL) 08/03/18 05:45 PT 11.1 SECONDS (9.5-11.5) 08/02/18 13:35 INR 1.07 (0.5-1.4) 08/02/18 13:35 PTT (Actin FS) 34.7 SECONDS (26.0-38.0) 08/02/18 13:35 Sodium 132 mEq/L (136-145) L 08/02/18 13:35 Potassium 3.9 mEq/L (3.5-5.1) 08/02/18 13:35 Chloride 92 mEq/L (98-107) L 08/02/18 13:35 Carbon Dioxide 33.2 mEq/L (21.0-31.0) H 08/02/18 13:35 Anion Gap 10.7 (7.0-16.0) 08/02/18 13:35 BUN 20 mg/dL (7-25) 08/02/18 13:35 Creatinine 0.5 mg/dL (0.7-1.3) L 08/02/18 13:35 Est GFR ( Amer) > 60.0 ml/min (>90) 08/02/18 13:35 Est GFR (Non-Af Amer) > 60.0 ml/min 08/02/18 13:35 BUN/Creatinine Ratio 40.0 08/02/18 13:35 Glucose 143 mg/dL (70-105) H 08/02/18 13:35 Whole Bld Lactic Acid 1.50 mmol/L (0.60-1.99) 08/02/18 13:35 Calcium 10.1 mg/dL (8.6-10.3) 08/02/18 13:35 Total Bilirubin 0.2 mg/dL (0.3-1.0) L 08/02/18 13:35 AST 9 U/L (13-39) L 08/02/18 13:35 ALT 7 U/L (7-52) 08/02/18 13:35 Alkaline Phosphatase 62 U/L (34-104) 08/02/18 13:35 Creatine Kinase 16 U/L (30-223) L 08/02/18 13:35 Troponin I < 0.01 ng/mL (0.01-0.05) L 08/02/18 13:35 Total Protein 6.7 gm/dL (6.0-8.3) 08/02/18 13:35 Albumin 2.9 gm/dL (4.2-5.5) L 08/02/18 13:35 Globulin 3.8 gm/dL 08/02/18 13:35 Albumin/Globulin Ratio 0.8 (1.0-1.8) L 08/02/18 13:35 Urine Source MIDSTREAM 08/02/18 17:20 Urine Color YELLOW 08/02/18 17:20 Urine Clarity CLEAR (CLEAR) 08/02/18 17:20 Urine pH 6.5 (4.6 - 8.0) 08/02/18 17:20 Ur Specific [place] 1.015 (1.005-1.030) 08/02/18 17:20 Urine Protein TRACE mg/dL (NEGATIVE) 08/02/18 17:20 Urine Glucose (UA) NEGATIVE mg/dL (NEGATIVE) 08/02/18 17:20 Urine Ketones NEGATIVE mg/dL (NEGATIVE) 08/02/18 17:20 Urine Blood LARGE (NEGATIVE) H 08/02/18 17:20 Urine Nitrate NEGATIVE (NEGATIVE) 08/02/18 17:20 Urine Bilirubin NEGATIVE (NEGATIVE) 08/02/18 17:20 Urine Urobilinogen 0.2 E.U./dL (0.2 - 1.0) 08/02/18 17:20 Ur Leukocyte Esterase TRACE (NEGATIVE) H 08/02/18 17:20 Urine RBC 2-5 /hpf (0-5) H 08/02/18 17:20 Urine WBC 0-2 /hpf (0-5) 08/02/18 17:20 Ur Epithelial Cells OCCASIONAL /lpf (FEW) 08/02/18 17:20 Urine Bacteria FEW /hpf (NONE SEEN) 08/02/18 17:20 Blood Type A POSITIVE 08/02/18 14:54 Antibody Screen NEGATIVE 08/02/18 14:54 Crossmatch See Detail 08/02/18 14:54 - Physical Exam Vitals and I&O: Vital Signs Temp 97.0 F 08/04/18 04:00 Pulse 92 08/04/18 04:00 Resp 18 08/04/18 04:00 BP 126/72 08/04/18 04:00 Pulse Ox 10 08/04/18 04:00 Intake & Output 08/03/18 08/04/18 08/04/18 18:59 06:59 18:59 Intake Total 1020 720 Output Total 400 400 Balance 620 320 Weight (lbs) 50.802 kg 50.802 kg Intake: Tube Feeding 720 720 Other 300 Output: Urine 400 400 Other: # Bowel Movements 0 Weight Source Estimated Bedscale Active Medications: Current Medications Acetaminophen (Tylenol 650mg/20.3ml Suspension) 650 mg GT Q6H PRN PRN Reason: PAIN OR TEMP >101 Acetaminophen/Hydrocodone Bitart ([place] 5mg/325mg) 1 tab GT Q6H PRN PRN Reason: Pain (Moderate) Stop: 10/02/18 02:26 Last Admin: 08/03/18 21:02 Dose: 1 tab Acetaminophen/Hydrocodone Bitart ([place] 5mg/325mg) 2 tab GT Q6H PRN PRN Reason: Pain (Severe) Stop: 10/02/18 08:59 Ascorbic Acid (Vitamin C) 500 mg GT DAILY [facility] Stop: 10/02/18 08:59 Last Admin: 08/03/18 09:30 Dose: 500 mg Bisacodyl (Dulcolax 10 Mg Supp) 10 mg RC DAILY PRN PRN Reason: Constipation Stop: 10/02/18 08:32 Chlorhexidine Gluconate (Peridex) 15 ml MM Q12HR [facility] Stop: 10/02/18 09:29 Last Admin: 08/03/18 21:02 Dose: 15 ml Docusate Sodium (Colace) 100 mg GT BID [facility] Stop: 10/02/18 08:59 Last Admin: 08/03/18 16:30 Dose: 100 mg Enoxaparin Sodium (Lovenox) 40 mg SUBQ DAILY [facility] Stop: 10/02/18 09:59 Last Admin: 08/03/18 09:55 Dose: Not Given Ferrous Sulfate (Iron) 300 mg GT TID MICHAEL Stop: 10/02/18 08:59 Last Admin: 08/03/18 21:02 Dose: 300 mg Fluticasone Propionate (Flonase) 1 spr NS DAILY [facility] Stop: 10/02/18 10:59 Last Admin: 08/03/18 11:29 Dose: 1 spr Folic Acid (Folate) 1 mg GT DAILY [facility] Stop: 10/02/18 08:59 Last Admin: 08/03/18 09:30 Dose: 1 mg Lactobacillus Rhamnosus (Culturelle 15b) 1 each GT BID [facility] Stop: 10/02/18 09:59 Last Admin: 08/03/18 16:30 Dose: 1 each Magnesium Hydroxide (Milk Of Magnesia) 30 ml GT DAILY PRN PRN Reason: Constipation Stop: 10/02/18 08:32 Multivitamins/Minerals (Theragran M) 15 ml GT DAILY [facility] Stop: 10/02/18 08:59 Last Admin: 08/03/18 09:30 Dose: 15 ml Ondansetron HCl (Zofran) 4 mg IV Q6H PRN PRN Reason: Nausea / Vomiting Stop: 10/02/18 08:32 Pantoprazole Sodium (Protonix) 40 mg IVP BID [facility] Stop: 10/02/18 16:59 Last Admin: 08/03/18 16:30 Dose: 40 mg Sucralfate (Carafate) 1 gm GT BID [facility] Stop: 10/02/18 08:59 Last Admin: 08/03/18 16:30 Dose: 1 gm General: Alert, Oriented x3, No acute distress HEENT: Atraumatic, PERRLA, Other (s/p tracheostomy) Neck: Other (s/p surgical resection of oral CA.) Cardiovascular: Regular rate, Normal S1, Normal S2 Lungs: Clear to auscultation Abdomen: Bowel sounds, Soft Extremities: no Clubbing, no Cyanosis, no Edema - Procedures Procedures: Procedures Procedure Code Date INSERTION OF FEEDING DEVICE INTO STOMACH, PERC APPROACH [id number] 06/17/18 INSERTION OF INFUSION DEV INTO SUP VENA CAVA, PERC APPROACH [id number] 06/17/18 INSPECTION OF MOUTH AND THROAT, EXTERNAL APPROACH [id number] 06/17/18 INTRODUCTION OF NUTRITIONAL INTO CENTRAL VEIN, PERC APPROACH [id number] 06/17/18 RESPIRATORY VENTILATION, LESS THAN 24 CONSECUTIVE HOURS [id number] 08/02/18 TRANSFUSE NONAUT FROZEN PLASMA IN PERIPH VEIN, PERC 88183K2 08/02/18 Assessment/Plan - Assessment Assessment: severe anemia hg 6.8-->8.0-->8.5 leukocytosis Chronic Respiratory Failure on mechanical vent support 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 will order Augmentin 500mg PO TID x 7 days Nutritional Asmnt/Malnutr-PDOC - Dietary Evaluation Malnutrition Findings (Please click <Entered> for more info): Nutritional Asmnt/Malnutrition Start: 08/03/18 16: 18 Text: Status: Complete Freq: Protocol: Document 08/03/18 16:18 LAILA (Rec: 08/03/18 16:34 LAILA [email or web address]) Nutritional Asmnt/Malnutrition Patient General Information Nutritional Screening High Risk Diagnosis acute anemia, r/o GI bleed Pertinent Medical Hx/Surgical Hx HTN, Asthma/COPD, DVT/PE, dyslipidemia, PUD/GERD, PEG, trach Subjective Information Pt seen lying in bed at time of visit, trach on T bar. Current Diet Order/ Nutrition Support TwoCal HN 240ml q4hr providing 2880kcal and 120g protein Pertinent Medications vit C, colace, iron, folate, culturelle, theragran, protonix Pertinent Labs 08/02 Na 132, Cl 92, Cr 0.5, gluocse 143, Alb 2.9 Nutritional Hx/Data Height 1.73 m Height (Calculated Centimeters) 172.7 Current Weight (lbs) 50.802 kg Weight (Calculated Kilograms) 50.8 Weight (Calculated Grams) 11511.3 [place] Body Weight 154 Body Mass Index (BMI) 17.0 Weight Status Underweight GI Symptoms GI Symptoms None Last BM not indicated Difficult in: None Skin Integrity/Comment: wound to neck per wound care note Estimated Nutritional Goals Calories/Kcals/Kg 25-30 Kcals Calculated 5191-4141 Protein g/k-1.2 Protein Calculated 70-84 Fluid: ml 1750-2100ml (1ml/kcal) Nutritional Problem 1. Problem Problem excessive intake from enteral feeding Etiology overfeeding Signs/Symptoms: current TF regimen providing 140% of calorie and protein needs Intervention/Recommendation Comments 1. Recommend to decrease bolus feeding frequency to 4 times daily to avoid overfeeding pt. It will provide 1896kcal, 79g protein, 664ml free water, meeting 100% of nutritional needs. HENOK Olguin notified, liz follow up with . 2. Add Lalo BID via Gtube for wound healing. 3. Monitor TF rate, tolerance, wt, skin integrity and labs 4. F/U as high risk in 2-3 days Expected Outcomes/Goals Expected Outcomes/Goals 1. Pt to meet at least 90% of nutritional needs via nutrition support with tolerance 2. Wt stability, skin to remain intact, labs to approach WNL.
[2018-08-04 09:10] LABS: BAND NEUTROPHILE 2 % (0-10); LYMPHOCYTE 3 % (20-50); MONOCYTE 5 % (2-10); NEUTROPHILS 90 % (40-80)
[2018-08-04] MEDS: Multivitamin w/ Minerals 15 mL UDC GT SCH (09:16)
[2018-08-04] MEDS: Lactobacillus Rhamnosus GG 15 Billion CFU CAP.SPRINK GT SCH ×2 (09:17→16:22)
[2018-08-04] MEDS: Chlorhexidine Gluconate 0.12% 480mL Bottle MM SCH (09:17)
[2018-08-04] MEDS: Docusate Sodium 100 mg/10 mL UD GT SCH ×2 (09:17→16:22)
[2018-08-04] MEDS: Ferrous Sulfate 300 MG/5 ML UDC GT SCH ×2 (09:17→13:04)
[2018-08-04] MEDS: Enoxaparin 40 mg/0.4 mL 0.4mL Syr SUBQ SCH (09:17)
[2018-08-04] MEDS: Fluticasone Propionate Nasal 1 SPR SPR NS SCH (09:42)
--- NOTE | 2018-08-04 16:34 | Consultation ---
DATE OF CONSULTATION: 08/04/2018 HISTORY OF PRESENT ILLNESS: The patient is currently in the hospital with a trach. Staff concerned apparently at some point. Time frame unclear. He made some comments of wanting to hurt himself, stating that he was having fantasies of hurting himself with a gun which he had no access to. The patient on face to face is denying these claims, stating that the nursing staff is talking too much and making rumors about him. The patient denies that he has had these thoughts in the past. He is indicating that he has thought about dying before, but denies having any intent or plan of wanting to hurt himself. He is denying overt depression or sadness, but is alluding to frustration about his current circumstances, pain, having a trach, frustration about disability. He is optimistic about leaving the hospital, wants to leave the hospital, go back to [place]. Per nursing notes, the patient has been expressing sad thoughts, but no suicidal thoughts, no intent, no plan. PAST PSYCHIATRIC HISTORY: Noted. FAMILY HISTORY: Noncontributory. SOCIAL HISTORY: The patient coming from correction. MENTAL STATUS EXAMINATION: Stated age. Fair eye contact. Speech within normal limits. Mood, "he gives me a thumbs up." Affect constricted. Thought processes were linear. No SI, no HI, no intent, no plan. No overt psychotic symptoms. Insight and judgment appeared reasonable. PROVISIONAL DIAGNOSIS: Adjustment disorder with depressed mood and anxiety. Under medical, please see full H and P. ASSESSMENT: A 63-year-old male noting that he has been upset since has been in the hospital, upset due to his disabilities and pain problems, seems there is a short timeframe of his depressed mood. He is adamantly denying any SI, no HI, no psychotic symptoms. We will continue to monitor. The patient does go to the [place] and I also round [place], so if there are any further concerns or depressive symptoms do not alleviate or perhaps worsen, please contact me for a consultation at [place]. [facility]# [phone] [id number]
[2018-08-04] MEDS ORDERED: Amoxicillin/Clavulanate 500/125 Tab GT SCH (21:00)
[2018-08-05] MEDS ORDERED: POLYETHYLENE GLYCOL 3350 17 GM PACK GT SCH (09:00)
--- NOTE | 2018-08-05 09:40 | Discharge Summary ---
DATE OF DISCHARGE: 08/04/2018 PRELIMINARY DIAGNOSES: 1. Severe anemia. 2. Leukocytosis. 3. Chronic respiratory failure on mechanical vent support. 4. Malignant neoplasm of the tongue. 5. Status post tracheostomy. 6. G-tube placement for nutritional support. 7. Chronic rhinitis. 8. Generalized muscle weakness. DISCHARGE DIAGNOSES: 1. Severe anemia, now improved, hemoglobin to 8.5. 2. Leukocytosis. 3. Chronic respiratory failure, on mechanical vent. 4. Malignant neoplasm of the tongue. 5. Status post tracheostomy. 6. G-tube placement. 7. Chronic rhinitis. 8. Generalized muscle weakness. BRIEF HISTORY OF PRESENT ILLNESS: This is a 63-year-old male who presents to [facility] ER from [facility] for abnormal lab work, noted to be hemoglobin of 6.8 and hematocrit of 22.9. The patient was transferred to [place] for possible GI bleeding and possible blood transfusion. Upon arrival in [place], his lab work revealed hemoglobin of 6.6 and hematocrit of 19.8, white cells were 11.2, platelets were 696. The patient has no history of hemoptysis or hematemesis. Stool guaiac initially done in the ER was inconclusive due to poor sample size. He was subsequently given 1 unit of packed red blood cells. His past medical history includes chronic respiratory failure, malignant neoplasm of the tongue, status post tracheostomy, status post G-tube placement, chronic rhinitis and generalized muscle weakness. The patient was subsequently admitted for further evaluation and treatment. HOSPITAL COURSE: The patient had a repeat H and H the following day with hemoglobin of 8.0 after 1 unit of packed red blood cells on 08/03/2018 and had improved to 8.5 on 08/04/2018. The patient was seen and evaluated by GI, see dictated report. Stools were positive for blood; however, the patient refused to undergo EGD per the recommendation of GI. The patient during his hospital course invades some depression and was seen and evaluated by Psychiatry, see dictated report. The patient was then subsequently discharged in stable condition to the halfway facility and was also given a course of antibiotics for possible urinary tract infection. UA was found to be positive for blood. The patient was to continue his current medications at the assisted and to follow up with [facility] for continued treatment for his malignant neoplasm of his tongue. JOB# [id number]
== END 2018-08-04 19:43 | DRG 720 ==
LOC: ER 12:52 → MSI 18:11
PROVIDERS: ADMIT Family Medicine; ATTEND Family Medicine
PROC: 30233N1 Transfusion of Nonautologous Red Blood Cells into Peripheral Vein, Percutaneous Approach (ICD-10-PCS; principal; 2018-08-02)
DX: A41.9 Sepsis, unspecified organism (principal); J96.10 Chronic respiratory failure, unspecified whether with hypoxia or hypercapnia; J18.9 Pneumonia, unspecified organism; E44.0 Moderate protein-calorie malnutrition; Z93.0 Tracheostomy status; C02.9 Malignant neoplasm of tongue, unspecified; D64.9 Anemia, unspecified; C76.0 Malignant neoplasm of head, face and neck; E87.1 Hypo-osmolality and hyponatremia; Z93.1 Gastrostomy status; J31.0 Chronic rhinitis; I10 Essential (primary) hypertension; K21.9 Gastro-esophageal reflux disease without esophagitis; E78.5 Hyperlipidemia, unspecified; J44.0 Chronic obstructive pulmonary disease with (acute) lower respiratory infection; R42 Dizziness and giddiness; K92.1 Melena; M62.81 Muscle weakness (generalized); Z53.20 Procedure and treatment not carried out because of patient's decision for unspecified reasons; F43.23 Adjustment disorder with mixed anxiety and depressed mood; Z86.718 Personal history of other venous thrombosis and embolism; Z82.49 Family history of ischemic heart disease and other diseases of the circulatory system; Z86.711 Personal history of pulmonary embolism; Z68.1 Body mass index [BMI] 19.9 or less, adult
CPT/HCPCS: 36415-UA; 80053-TC; 81001-TC; 82270-TC; 82550-TC; 83605; 84484-TC; 85007-TC; 85025-TC; 85610-TC; 85730-TC; 86850-TC; 86900-TC; 86901-TC; 86922-TC; 87070; 93005; 94664; 94760; 96374; 96375; C9113; J1650; J1956; J2270; J7040; P9016; Z7610